=== PATIENT | male | born 1960 | race Caucasian/White ===

== ENCOUNTER 2017-01-25 01:20 | Emergency (ER) | payer OTHER ==
[2017-01-25 01:35] VITALS: BP 129/79
[2017-01-25] MEDS ORDERED: Amoxicillin/Clavulanate K 875-125 MG Tab PO ONE (01:36)
--- NOTE | 2017-01-25 01:42 | EDM.PDOC ---
ED HPI ENT - General Chief Complaint: ENT Problem Stated Complaint: FLUID COMING FROM EAR Time Seen by Provider: 01/25/17 01:35 Source of Information: Reports: Patient History Limitations: Reports: No limitations - History of Present Illness INITIAL COMMENTS - FREE TEXT/NARRATIVE: This 56 yo male patient reports to the ED with a 2 week history of sinus congestion and a 1 night history of drainage from his right ear. The patient reports he did place a Q-tip in his ear earlier and it came out with a redish substance on it. The patient reports he has been taking [id number] medications with little to no symptom relief. The patient has not been seen by his primary care provider. Symptom Onset Date: 01/25/17 Timing/Duration: Reports: Constant, Getting worse Severity: moderate Location: Reports: right Ear Quality: Reports: Dull Improves with: Reports: None Worsens with: Reports: None - Related Data Allergies/ADRs: Allergies Allergy/AdvReac Type Severity Reaction Status Date / Time No Known Allergies Allergy Verified 01/25/17 01:30 Home Meds: Home Meds Acetaminophen [Arthritis Pain Relief] 650 mg PO ASDIRECTED 12/24/14 [History] Aspirin [Vivienne Chewable Aspirin] 81 mg PO DAILY 12/24/14 [History] Enalapril [Vasotec] 5 mg PO DAILY 12/24/14 [History] Ezetimibe [Zetia] 10 mg PO DAILY 12/24/14 [History] Fenofibrate Nanocrystallized [Triglide] 160 mg PO DAILY 12/24/14 [History] Insulin Glarg,Human.Rec.Analog [Lantus] 30 units SUBCUT DAILY 12/24/14 [History] Insulin Lispro [HumaLOG] 20 units SUBCUT ASDIRECTED 12/24/14 [History] Rosuvastatin Calcium [Crestor] 40 mg PO DAILY 12/24/14 [History] Gabapentin [Neurontin] 500 mg PO BID 04/03/16 [History] Pregabalin [Lyrica] 150 mg PO BID 10/03/16 [History] Past Medical History HEENT History: Reports: Impaired vision Cardiovascular History: Reports: High cholesterol Respiratory History: Reports: None Gastrointestinal History: Reports: None Genitourinary History: Reports: None Musculoskeletal History: Reports: Arthritis, Back pain, chronic Neurological History: Reports: Neuropathy, diabetic Psychiatric History: Reports: None Endocrine/Metabolic History: Reports: Diabetes, type II Hematologic History: Reports: None Immunologic History: Reports: None Oncologic (Cancer) History: Reports: None Dermatologic History: Reports: None - Infectious Disease History Infectious Disease History: Reports: Chicken pox Social & Family History - Family History Family Medical History: Noncontributory - Tobacco Use Smoking Status *Q: Heavy Tobacco Smoker Years of Tobacco use: 42 Packs/Tins Daily: 0.5 Used Tobacco, but Quit: No Second Hand Smoke Exposure: No - Caffeine Use Caffeine Use: Reports: Coffee, Soda - Alcohol Use Days Per Week of Alcohol Use: 1 Number of Drinks Per Day: 1 Total Drinks Per Week: 1 - Recreational Drug Use Recreational Drug Use: No Drug Use in Last 12 Months: No - Living Situation & Occupation Living situation: Reports: single, alone 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 ED EXAM, ENT - Physical Exam Exam: See Below Exam Limited By: No limitations General Appearance: alert, WD/WN, mild distress Eye Exam: bilateral eye: EOMI, normal inspection, PERRL Ears: normal external exam, canal blood (right), canal discharge (right), TM perforation (right) Nose: normal inspection, normal mucousa, no blood, clear rhinorrhea Mouth/Throat: Normal inspection, Normal gums, Normal lips, Normal oropharynx, Normal teeth Head: atraumatic, normocephalic, facial tenderness (maxillary sinus) Neck: normal inspection, supple, non-tender, full range of motion Respiratory/Chest: no respiratory distress, lungs clear, normal breath sounds, no accessory muscle use, chest non-tender Cardiovascular: normal peripheral pulses, regular rate, rhythm, no edema, no gallop, no JVD, no murmur, no rub GI/Abdominal: normal bowel sounds, soft, non tender, no organomegaly, no distention, no abnormal bruit, no mass (Male) Exam: Deferred Rectal (Males) Exam: Deferred Back: normal inspection, full range of motion Extremities: normal inspection, normal range of motion, non-tender, no pedal edema, normal capillary refill Neurological: alert, oriented, CN II-XII intact, normal cognition, normal gait, normal reflexes, no motor/sensory deficits Psychiatric: normal affect, normal mood Skin: Warm, Dry, Intact, Normal color, No rash Lymphatic: no adenopathy Course - Vital Signs Last Recorded V/S: Last Vital Signs Temp 36.1 C 01/25/17 01:31 Pulse 80 01/25/17 01:31 Resp 16 01/25/17 01:31 BP 129/79 01/25/17 01:31 Pulse Ox 98 01/25/17 01:31 - Orders/Labs/Meds Orders: Active Orders 24 hr Category Date Time Status STREP SCRN A RAPID W CULT CONF [RM] Stat Lab 01/25/17 01:30 Received Amoxicillin/Clavulanate K [Augmentin 875 MG/125 MG] Med 01/25/17 01:36 Once 1 tab PO ONETIME ONE Medication Orders Amoxicillin/Clavulanate Potassium (Augmentin 875 Mg/125 Mg) 1 tab PO ONETIME ONE Stop: 01/25/17 01:37 Meds: Medications Generic Name Dose Route Start Last Admin Trade Name Freq PRN Reason Stop Dose Admin Amoxicillin/Clavulanate Potassium 1 tab 01/25/17 01:36 Augmentin 875 Mg/125 Mg PO 01/25/17 01:37 ONETIME ONE Departure - Departure Time of Disposition: 01:43 Disposition: Home, Self-Care 01 Condition: fair Clinical Impression: Right otitis media with effusion Otitis media, serous, TM rupture Qualifiers: Laterality: right Qualified Code(s): H65.91 - Unspecified nonsuppurative otitis media, right ear; H72.91 - Unspecified perforation of tympanic membrane, right ear Maxillary sinusitis Qualifiers: Chronicity: acute Recurrence: non-recurrent Qualified Code(s): J01.00 - Acute maxillary sinusitis, unspecified Instructions: Eardrum Perforation, [id number]-[id number], Otitis Media, Adult, Easy-to- Read, Sinusitis, Adult, [id number] Forms: ED Department Discharge Care Plan Goals: The patient was advised of the examination and lab results during the visit. The patient was given an oral dose of Augmentin while in the ED. The patient was discharged with a script for Augmentin (875/125) to take 1 by mouth 2 times per day for 10 days. If the patient has any additional symptoms or concerns, the patient should follow-up with his primary care facility or return to the emergency department. - My Orders Last 24 Hours: My Active Orders 01/25/17 01:30 STREP SCRN A RAPID W CULT CONF [RM] Stat 01/25/17 01:36 Amoxicillin/Clavulanate K [Augmentin 875 MG/125 MG] 1 tab PO ONETIME ONE - Assessment/Plan Last 24 Hours: My Active Orders 01/25/17 01:30 STREP SCRN A RAPID W CULT CONF [RM] Stat 01/25/17 01:36 Amoxicillin/Clavulanate K [Augmentin 875 MG/125 MG] 1 tab PO ONETIME ONE
== END 2017-01-25 01:55 | disposition home or self-care (01) ==
LOC: DL.ED 01:20
DX: J01.00 Acute maxillary sinusitis, unspecified (principal); H65.91 Unspecified nonsuppurative otitis media, right ear; H72.91 Unspecified perforation of tympanic membrane, right ear; Z79.82 Long term (current) use of aspirin; Z79.4 Long term (current) use of insulin; Z79.899 Other long term (current) drug therapy; E78.00 Pure hypercholesterolemia, unspecified; E11.40 Type 2 diabetes mellitus with diabetic neuropathy, unspecified; M19.90 Unspecified osteoarthritis, unspecified site; F17.210 Nicotine dependence, cigarettes, uncomplicated
CPT/HCPCS: 87081; 87430; 99282; A9270

== ENCOUNTER 2019-02-13 05:55 | Emergency (ER) | payer OTHER ==
[2019-02-13 06:06] VITALS: BP 108/62
--- NOTE | 2019-02-13 06:30 | EDM.PDOC ---
ED HPI GENERAL MEDICAL PROBLEM - General Chief Complaint: Back Pain or Injury Stated Complaint: BACK PAIN [id number] Time Seen by Provider: 02/13/19 06:25 Source of Information: Reports: Patient History Limitations: Reports: No Limitations - History of Present Illness INITIAL COMMENTS - FREE TEXT/NARRATIVE: gives h/o LBP, was doing ok till this am went twisted back while getting out of bed. Lower Back Pain Score (Numeric/FACES): 5 - Related Data Allergies Allergy/AdvReac Type Severity Reaction Status Date / Time No Known Allergies Allergy Verified 02/13/19 06:06 Home Meds: Home Meds Acetaminophen [Arthritis Pain Relief] 650 mg PO ASDIRECTED 12/24/14 [History] Aspirin [Vivienne Chewable Aspirin] 81 mg PO DAILY 12/24/14 [History] Enalapril [Vasotec] 5 mg PO DAILY 12/24/14 [History] Ezetimibe [Zetia] 10 mg PO DAILY 12/24/14 [History] Fenofibrate Nanocrystallized [Triglide] 160 mg PO DAILY 12/24/14 [History] Insulin Glarg,Human.Rec.Analog [Lantus] 38 units SUBCUT DAILY 12/24/14 [History] Insulin Lispro [HumaLOG] 20 units SUBCUT ASDIRECTED 12/24/14 [History] Rosuvastatin Calcium [Crestor] 40 mg PO DAILY 12/24/14 [History] Pregabalin [Lyrica] 150 mg PO BID 10/03/16 [History] Past Medical History HEENT History: Reports: Impaired Vision Cardiovascular History: Reports: High Cholesterol, Hypertension Respiratory History: Reports: None Gastrointestinal History: Reports: None Genitourinary History: Reports: None, Diabetic Nephropathy Musculoskeletal History: Reports: Arthritis, Back Pain, Chronic Neurological History: Reports: Neuropathy, Diabetic Psychiatric History: Reports: None Endocrine/Metabolic History: Reports: Diabetes, Type II Hematologic History: Reports: None Immunologic History: Reports: None Oncologic (Cancer) History: Reports: None Dermatologic History: Reports: None - Infectious Disease History Infectious Disease History: Reports: Chicken Pox Social & Family History - Family History Family Medical History: Noncontributory - Tobacco Use Smoking Status *Q: Current Every Day Smoker Years of Tobacco use: 30 Packs/Tins Daily: 1 - Caffeine Use Caffeine Use: Reports: Coffee, Soda - Recreational Drug Use Recreational Drug Use: No - Living Situation & Occupation Living situation: Reports: Single, Alone Occupation: Employed ED ROS GENERAL - Review of Systems Review Of Systems: ROS reveals no pertinent complaints other than HPI. ED EXAM,LOWER BACK PAIN/INJURY - Physical Exam Exam: See Below Exam Limited By: No Limitations General Appearance: Alert, WD/WN, No Apparent Distress, Other (minimal discomfort) Ears: Hearing Grossly Normal Throat/Mouth: Normal Voice, No Airway Compromise Head: Atraumatic Neck: Non-Tender, Full Range of Motion Respiratory/Chest: No Respiratory Distress Cardiovascular: Regular Rate, Rhythm GI/Abdominal: Soft, Non-Tender Back Exam: Muscle Spasm, Paraspinal Tenderness, Other (left L3-4-5 region without radiculitis, gait limited to discomfort) Neurological: Alert, Normal Mood/Affect, No Motor/Sensory Deficits, Oriented x 3 Psychiatric: Flat Affect Skin Exam: Warm, Dry, Normal Color Lymphatic: No Adenopathy Course - Vital Signs Last Recorded V/S: Last Vital Signs Temp 36.2 C 02/13/19 06:01 Pulse 113 H 02/13/19 06:01 Resp 14 02/13/19 06:01 BP 108/62 02/13/19 06:01 Pulse Ox Departure - Departure Time of Disposition: 06:28 Disposition: Home, Self-Care 01 Condition: Good Clinical Impression: Strain of lumbar paraspinal muscle Qualifiers: Encounter type: initial encounter Qualified Code(s): S39.012A - Strain of muscle, fascia and tendon of lower back, initial encounter - Discharge Information Instructions: Back Pain, Adult, [id number] Additional Instructions: 1) no bending lifting straining for 3 days 2) try ice or heat to sore area 3) see clinic for physical therapy referral rx given; flexeril 10mg bid prn x 12
== END 2019-02-13 06:32 | disposition home or self-care (01) ==
LOC: DL.ED 05:55
DX: S39.012A Strain of muscle, fascia and tendon of lower back, initial encounter (principal); F17.210 Nicotine dependence, cigarettes, uncomplicated; E11.21 Type 2 diabetes mellitus with diabetic nephropathy; I10 Essential (primary) hypertension; E78.00 Pure hypercholesterolemia, unspecified; Z79.82 Long term (current) use of aspirin; Z79.899 Other long term (current) drug therapy; X50.9XXA Other and unspecified overexertion or strenuous movements or postures, initial encounter
CPT/HCPCS: 99282

== ENCOUNTER 2019-04-27 05:21 | Emergency (ER) | payer OTHER ==
[2019-04-27 05:32] VITALS: BP 126/87
--- NOTE | 2019-04-27 05:42 | EDM.PDOC ---
<Iza Luke - Last Filed: 04/27/19 06:17> ED HPI GENERAL MEDICAL PROBLEM - General Chief Complaint: Neck Problem Stated Complaint: NECK PAIN [id number] Time Seen by Provider: 04/27/19 05:35 Source of Information: Reports: Patient, RN, RN Notes Reviewed History Limitations: Reports: No Limitations - History of Present Illness INITIAL COMMENTS - FREE TEXT/NARRATIVE: Pt to ER with c/o neck pain. Patient states the neck pain has been going on for 5-6 months, but he has flair ups. States he was seen in January for neck and back pain and was given Flexeril at that time. He states he is out of the Flexeril. Patient denies any recent trauma or injury to the neck. 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 Left Neck Pain Score (Numeric/FACES): 4 - Related Data Allergies Allergy/AdvReac Type Severity Reaction Status Date / Time No Known Allergies Allergy Verified 02/13/19 06:06 Home Meds: Home Meds Acetaminophen [Arthritis Pain Relief] 650 mg PO ASDIRECTED 12/24/14 [History] Aspirin [Vivienne Chewable Aspirin] 81 mg PO DAILY 12/24/14 [History] Insulin Glarg,Human.Rec.Analog [Lantus] 38 units SUBCUT DAILY 12/24/14 [History] Insulin Lispro [HumaLOG] 20 units SUBCUT ASDIRECTED 12/24/14 [History] Pregabalin [Lyrica] 150 mg PO BID 10/03/16 [History] Past Medical History HEENT History: Reports: Impaired Vision Cardiovascular History: Reports: High Cholesterol, Hypertension Respiratory History: Reports: None Gastrointestinal History: Reports: None Genitourinary History: Reports: None, Diabetic Nephropathy Musculoskeletal History: Reports: Arthritis, Back Pain, Chronic Neurological History: Reports: Neuropathy, Diabetic Psychiatric History: Reports: None Endocrine/Metabolic History: Reports: Diabetes, Type II Hematologic History: Reports: None Immunologic History: Reports: None Oncologic (Cancer) History: Reports: None Dermatologic History: Reports: None - Infectious Disease History Infectious Disease History: Reports: Chicken Pox Social & Family History - Family History Family Medical History: Noncontributory - Tobacco Use Smoking Status *Q: Current Every Day Smoker Years of Tobacco use: 40 Packs/Tins Daily: 20 - Caffeine Use Caffeine Use: Reports: Coffee, Soda - Recreational Drug Use Recreational Drug Use: No - Living Situation & Occupation Living situation: Reports: Single, Alone Occupation: Employed ED ROS GENERAL - Review of Systems Review Of Systems: ROS reveals no pertinent complaints other than HPI. ED EXAM, UPPER BACK/NECK PAIN - Physical Exam Exam: See Below Exam Limited By: No Limitations General Appearance: Alert, WD/WN, Mild Distress Eye Exam: Bilateral Eye: EOMI, Normal Inspection Ears Exam: Normal External Exam, Hearing Grossly Normal Nose Exam: Normal Inspection Throat/Mouth Exam: Normal Inspection, Normal Voice, No Airway Compromise Head Exam: Atraumatic, Normocephalic Neck Exam: Limited Range of Motion, Muscle Spasm, Tender Lateral Nexus Criteria: No: Posterior, Midline Cervical Tenderness, Evidence of Intoxication, Altered Level of Consciousness, Focal Neurological Deficit, Painful Distraction Injuries Cardiovascular/Respiratory: Regular Rate, Rhythm, No M/R/G, Normal Peripheral Pulses, No JVD, Normal Breath Sounds, No Respiratory Distress GI/Abdominal: Normal Bowel Sounds, Soft, Non-Tender, No Organomegaly, No Distention (Male) Exam: Deferred Rectal (Males) Exam: Deferred Back Exam: Normal Inspection, Decreased Range of Motion Extremities: Normal Inspection, Normal Range of Motion, Non-Tender, No Pedal Edema, Normal Capillary Refill 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, No Motor/Sensory Deficits, Alert, Normal Mood/Affect, Oriented x 3 Psychiatric: Normal Affect, Normal Mood Skin Exam: Normal Color, Warm/Dry Lymphatic: No Adenopathy Course - Vital Signs Last Recorded V/S: Last Vital Signs Temp 36.1 C 04/27/19 05:31 Pulse 78 04/27/19 05:31 Resp 16 04/27/19 05:31 BP 126/87 04/27/19 05:31 Pulse Ox 100 04/27/19 05:31 - Radiology Interpretation Free Text/Narrative:: Cervical Spine xray: See rad report Departure - Departure Disposition: Home, Self-Care 01 Clinical Impression: Chronic neck and back pain - Discharge Information Instructions: Pain Medicine Instructions, [id number] Referrals: PCP,None [Ordering Only Provider] - Forms: ED Department Discharge Additional Instructions: Chronic pain symptoms are to be managed in the primary care setting for usp management and following and best outcome. Tylenol and Ibuprofen as needed for pain Heat or ice to the affected area. Flexeril 1 tablet three times a day as needed for pain. Caution sedation. RX given to the patient #9. Physical therapy referral as well made contact physical therapy of your choice for next available evaluation. Return to the ED if new or worsening symptoms. Follow up with primary care in the next 4-6 days for recheck and site controller care and management of chronic neck and back pain. <Clarence Rodriguez - Last Filed: 04/27/19 08:48> Course - Re-Assessments/Exams Free Text/Narrative Re-Assessment/Exam: 04/27/19 08:47 x-ray of the cervical spine per radiology shows a cervical spondylosis with loss of disc space C4-5 and C5-6. No acute fracture dislocation. Did explain to the patient that this is a chronic condition that needs to be managing the clinic setting. I will give him some Flexeril and also refer him to physical therapy as well. Consideration for MRI as well. Is comfortable despite his questions are answered Departure - Departure Time of Disposition: 07:02 - Assessment/Plan Assessment:: Acute on Chronic Neck and back pain. Plan: Chronic pain symptoms are to be managed in the primary care setting for usp management and following and best outcome. Tylenol and Ibuprofen as needed for pain Heat or ice to the affected area. Flexeril 1 tablet three times a day as needed for pain. Caution sedation. RX given to the patient #9. Physical therapy referral as well made contact physical therapy of your choice for next available evaluation. Return to the ED if new or worsening symptoms. Follow up with primary care in the next 4-6 days for recheck and usp care and management of chronic neck and back pain.
== END 2019-04-27 07:12 | disposition home or self-care (01) ==
LOC: DL.ED 05:21
DX: M54.2 Cervicalgia (principal); M54.9 Dorsalgia, unspecified; G89.29 Other chronic pain; I10 Essential (primary) hypertension; E11.21 Type 2 diabetes mellitus with diabetic nephropathy; M19.90 Unspecified osteoarthritis, unspecified site; F17.210 Nicotine dependence, cigarettes, uncomplicated; Z79.4 Long term (current) use of insulin; Z79.82 Long term (current) use of aspirin
CPT/HCPCS: 72040; 99283-25

== ENCOUNTER 2019-04-30 04:27 | Emergency (ER) | payer OTHER ==
[2019-04-30] MEDS ORDERED: Acetaminophen 325 MG Tab PO ONE (04:41)
[2019-04-30 04:48] VITALS: BP 126/79
--- NOTE | 2019-04-30 04:48 | EDM.PDOC ---
ED HPI GENERAL MEDICAL PROBLEM - General Chief Complaint: Lower Extremity Injury/Pain Stated Complaint: RIGHT LEG HURTS Time Seen by Provider: 04/30/19 04:35 Source of Information: Reports: Patient History Limitations: Reports: No Limitations - History of Present Illness INITIAL COMMENTS - FREE TEXT/NARRATIVE: This 58 yo male patient reports to the ED with right anterior hip and groin pain. The patient reports he was lifting a dresser when he hurt this area. The patient reports that he took 2 ibuprofen at about midnight with very little symptom improvement. The patient reports that he had a hernia fixed in this area in the past, but does not feel anything slipping this time. 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 Right Groin Pain Score (Numeric/FACES): 6 - Related Data Allergies Allergy/AdvReac Type Severity Reaction Status Date / Time No Known Allergies Allergy Verified 02/13/19 06:06 Home Meds: Home Meds Acetaminophen [Arthritis Pain Relief] 650 mg PO ASDIRECTED 12/24/14 [History] Aspirin [Vivienne Chewable Aspirin] 81 mg PO DAILY 12/24/14 [History] Insulin Glarg,Human.Rec.Analog [Lantus] 38 units SUBCUT DAILY 12/24/14 [History] Insulin Lispro [HumaLOG] 20 units SUBCUT ASDIRECTED 12/24/14 [History] Pregabalin [Lyrica] 150 mg PO BID 10/03/16 [History] Past Medical History HEENT History: Reports: Impaired Vision Cardiovascular History: Reports: High Cholesterol, Hypertension Respiratory History: Reports: None Gastrointestinal History: Reports: None Genitourinary History: Reports: None, Diabetic Nephropathy Musculoskeletal History: Reports: Arthritis, Back Pain, Chronic Neurological History: Reports: Neuropathy, Diabetic Psychiatric History: Reports: None Endocrine/Metabolic History: Reports: Diabetes, Type II Hematologic History: Reports: None Immunologic History: Reports: None Oncologic (Cancer) History: Reports: None Dermatologic History: Reports: None - Infectious Disease History Infectious Disease History: Reports: Chicken Pox Social & Family History - Family History Family Medical History: Noncontributory - Caffeine Use Caffeine Use: Reports: Coffee, Soda - Living Situation & Occupation Living situation: Reports: Single, Alone Occupation: Employed Review of Systems - Review of Systems Review Of Systems: ROS reveals no pertinent complaints other than HPI. ED EXAM, GENERAL - Physical Exam Exam: See Below Exam Limited By: No Limitations General Appearance: Alert, WD/WN, Mild Distress, Thin Eye Exam: Bilateral Eye: EOMI, Normal Inspection Ears: Normal External Exam, Hearing Grossly Normal Nose: Normal Inspection, No Blood Throat/Mouth: Normal Inspection, Normal Lips, Normal Teeth, Normal Voice, No Airway Compromise Head: Atraumatic, Normocephalic Neck: Full Range of Motion Respiratory/Chest: No Respiratory Distress Cardiovascular: Normal Peripheral Pulses, Regular Rate, Rhythm GI/Abdominal: Tender (right lower abdomen (groin). Palpation did not reveal any evidence of a hernia at this time. ) (Male) Exam: No Hernia Rectal (Males) Exam: Deferred Back Exam: Normal Inspection, Full Range of Motion, NT Extremities: Normal Inspection, Normal Range of Motion, Non-Tender, Normal Capillary Refill, No Pedal Edema Psychiatric: Normal Affect, Normal Mood Skin Exam: Warm, Dry, Intact, Normal Color, No Rash Lymphatic: No Adenopathy Course - Orders/Labs/Meds Orders: Active Orders 24 hr Category Date Time Status Acetaminophen [Tylenol] Med 04/30/19 04:41 Once 650 mg PO NOW ONE Departure - Departure Time of Disposition: 04:45 Disposition: Home, Self-Care 01 Condition: Fair Clinical Impression: Strain of muscle of right groin region - Discharge Information *PRESCRIPTION DRUG MONITORING PROGRAM REVIEWED*: Not Applicable *COPY OF PRESCRIPTION DRUG MONITORING REPORT IN PATIENT RONALD: Not Applicable Instructions: Muscle Strain, [id number] Care Plan Goals: The patient was advised of the examination results during the visit. The patient was advised to rest and ice the area of concern. The patient may take ibuprofen and Tylenol as directed for temporary symptom relief. The patient was given an oral dose of Tylenol (650 mg) while in the ED. If the patient has any additional symptoms or concerns, the patient should visit his primary care facility or return to the emergency department. - My Orders Last 24 Hours: My Active Orders 04/30/19 04:41 Acetaminophen [Tylenol] 650 mg PO NOW ONE - Assessment/Plan Last 24 Hours: My Active Orders 04/30/19 04:41 Acetaminophen [Tylenol] 650 mg PO NOW ONE
== END 2019-04-30 04:54 | disposition home or self-care (01) ==
LOC: DL.ED 04:27
DX: S39.011A Strain of muscle, fascia and tendon of abdomen, initial encounter (principal); E78.00 Pure hypercholesterolemia, unspecified; I10 Essential (primary) hypertension; E11.21 Type 2 diabetes mellitus with diabetic nephropathy; E11.40 Type 2 diabetes mellitus with diabetic neuropathy, unspecified; Z79.82 Long term (current) use of aspirin; Z79.899 Other long term (current) drug therapy; Z79.84 Long term (current) use of oral hypoglycemic drugs; X50.0XXA Overexertion from strenuous movement or load, initial encounter
CPT/HCPCS: 99282; A9270

== ENCOUNTER 2019-07-31 05:32 | Emergency (ER) | payer OTHER ==
[2019-07-31 05:43] VITALS: BP 78/51; PULSE 79
[2019-07-31] MEDS ORDERED: Insulin Regular, Human 100 Units/ML 3 ML Vial IV ONE (05:56)
[2019-07-31] MEDS ORDERED: Sodium Chloride 0.9% 1,000 ML IV SCH ×2 (06:00→06:30)
[2019-07-31 06:28] LABS: ANION GAP 15.7; CHLORIDE,CL 96 mmol/L (101-111); SODIUM,NA 133 mmol/L (135-145)
[2019-07-31] MEDS ORDERED: Aspirin 81 MG Tab.Chew PO ONE (06:33)
[2019-07-31 06:39] LABS: O2 DELIVERY DEVICE ROOM AIR
[2019-07-31 06:40] LABS: BASE EXCESS ARTERIAL -2 mmol/L ((-2)-(+3)); BICARBONATE,ARTERIAL 23.4 mmol/L (22-26); O2 SATURATION ARTERIAL 95 % (95-100); PCO2 ARTERIAL 43 mmHg (35-45); PO2 ARTERIAL 72 mmHg (70-100)
[2019-07-31 06:44] LABS: ALLEN TEST LB
--- NOTE | 2019-07-31 06:45 | EDM.PDOC ---
<Anika Correia - Last Filed: 07/31/19 07:00> ED HPI GENERAL MEDICAL PROBLEM - General Chief Complaint: Gastrointestinal Problem Stated Complaint: HEARTBURN Time Seen by Provider: 07/31/19 05:40 Source of Information: Reports: Patient History Limitations: Reports: No Limitations - History of Present Illness INITIAL COMMENTS - FREE TEXT/NARRATIVE: Ed ambulatory with c/o heartburn, sharp burnign left chest, Similar sx intermittently, has been taking orange juice to help sx but isn't working. No radiation of pain , No SOB, No palpitations, Dizzy with position change, Diabetic, Does not check on regular basis 413 last week, sugars usually high. No diarrhea, recent stools black No blood. Stumbled this am getting out of bed, fell, Did not hit head. Denies injury with fall. - Related Data Allergies Allergy/AdvReac Type Severity Reaction Status Date / Time No Known Allergies Allergy Verified 02/13/19 06:06 Home Meds: Home Meds Acetaminophen [Arthritis Pain Relief] 650 mg PO ASDIRECTED 12/24/14 [History] Aspirin [Vivienne Chewable Aspirin] 81 mg PO DAILY 12/24/14 [History] Insulin Glarg,Human.Rec.Analog [Lantus] 84 units SUBCUT BEDTIME 12/24/14 [ History] Insulin Lispro [HumaLOG] 40 units SUBCUT TID 12/24/14 [History] Pregabalin [Lyrica] 150 mg PO BID 10/03/16 [History] Past Medical History HEENT History: Reports: Impaired Vision Cardiovascular History: Reports: High Cholesterol, Hypertension Respiratory History: Reports: None Gastrointestinal History: Reports: None Genitourinary History: Reports: None, Diabetic Nephropathy Musculoskeletal History: Reports: Arthritis, Back Pain, Chronic Neurological History: Reports: Neuropathy, Diabetic Psychiatric History: Reports: None Endocrine/Metabolic History: Reports: Diabetes, Type II Hematologic History: Reports: None Immunologic History: Reports: None Oncologic (Cancer) History: Reports: None Dermatologic History: Reports: None - Infectious Disease History Infectious Disease History: Reports: Chicken Pox Social & Family History - Family History Family Medical History: Noncontributory - Tobacco Use Smoking Status *Q: Current Every Day Smoker Years of Tobacco use: 46 Packs/Tins Daily: 1.5 Used Tobacco, but Quit: No Second Hand Smoke Exposure: Yes - Caffeine Use Caffeine Use: Reports: Coffee, Soda - Alcohol Use Days Per Week of Alcohol Use: 1 Number of Drinks Per Day: 1 Total Drinks Per Week: 1 - Recreational Drug Use Recreational Drug Use: No - Living Situation & Occupation Living situation: Reports: Single, Alone Occupation: Employed ED ROS GENERAL - Review of Systems Review Of Systems: ROS reveals no pertinent complaints other than HPI. ED EXAM, GI/ABD - Physical Exam Exam: See Below Exam Limited By: No Limitations General Appearance: Alert, No Apparent Distress Nose: Normal Inspection Throat/Mouth: No: Normal Teeth (poor dentation) Head: Atraumatic, Normocephalic Neck: Normal Inspection, Full Range of Motion Respiratory/Chest: No Respiratory Distress, Lungs Clear, Normal Breath Sounds, No Accessory Muscle Use Cardiovascular: Normal Peripheral Pulses, Regular Rate, Rhythm GI/Abdominal Exam: Soft, Non-Tender Rectal (Males) Exam: Normal Exam. No: Heme - Stool Back Exam: Normal Inspection Extremities: Normal Inspection Neurological: Alert, Oriented, Normal Cognition Psychiatric: Normal Affect Skin Exam: Warm, Dry, Intact, Normal Color Course - Vital Signs Last Recorded V/S: Last Vital Signs Temp 98.2 F 07/31/19 05:41 Pulse 79 07/31/19 05:41 Resp 18 07/31/19 05:41 BP 78/51 L 07/31/19 05:41 Pulse Ox 95 07/31/19 05:41 - Orders/Labs/Meds Orders: Active Orders 24 hr Category Date Time Status Blood Glucose Check, Bedside [] ONETIME Care 07/31/19 05:58 Active EKG Documentation Completion [] ROUTINE Care 07/31/19 05:30 Active Glucose [Blood Glucose Check, Bedside] [] ONETIME Care 07/31/19 06:30 Active Glucose [Blood Glucose Check, Bedside] [] ONETIME Care 07/31/19 07:15 Active Insulin Regular, Human [HumuLIN R] 100 unit Med 07/31/19 06:45 Active Sodium Chloride 0.9% [Normal Saline] 99 ml IV TITRATE Sodium Chloride 0.9% [Normal Saline] 1,000 ml Med 07/31/19 06:00 Active IV ASDIRECTED Sodium Chloride 0.9% [Normal Saline] 1,000 ml Med 07/31/19 06:30 Active IV ASDIRECTED Medication Orders Sodium Chloride (Normal Saline) 1,000 mls @ 999 mls/hr IV ASDIRECTED ANTONIA Last Admin: 07/31/19 05:55 Dose: 999 mls/hr Sodium Chloride (Normal Saline) 1,000 mls @ 999 mls/hr IV ASDIRECTED ANTONIA Last Admin: 07/31/19 06:31 Dose: 999 mls/hr Insulin Human Regular 100 unit (/ Sodium Chloride) 100 mls @ 7.05 mls/hr IV TITRATE ANTONIA; Protocol Last Admin: 07/31/19 06:45 Dose: 0.1 units/kg/hr, 7.05 mls/hr Labs: Laboratory Tests 07/31/19 07/31/19 07/31/19 Range/Units 05:45 05:45 05:45 WBC 6.8 (5.0-10.0) 10^3/uL RBC 5.14 (4.6-6.2) 10^6/uL Hgb 15.2 (14.0-18.0) g/dL Hct 44.0 (40.0-54.0) % MCV 85.6 (80-100) fL MCH 29.6 (27.0-34.0) pg MCHC 34.5 (33.0-35.0) g/dL Plt Count 163 D (150-450) 10^3/uL Neut % (Auto) 68.5 (42.2-75.2) % Lymph % (Auto) 16.8 L (20.5-50.1) % [place] % (Auto) 12.3 H (2-8) % Eos % (Auto) 1.8 (1.0-3.0) % Baso % (Auto) 0.6 (0.0-1.0) % ABG pH (7.35-7.45) ABG pCO2 (35-45) mmHg ABG pO2 (70-100) mmHg ABG HCO3 (22-26) mmol/L ABG O2 Saturation (95-100) % ABG Base Excess ((-2)-(+3)) mmol/L Jeremy Test O2 Delivery Device Sodium 133 L (135-145) mmol/L Potassium 4.7 (3.6-5.0) mmol/L Chloride 96 L (101-111) mmol/L Carbon Dioxide 26.0 (21.0-31.0) mmol/L Anion Gap 15.7 BUN 29 H (7-18) mg/dL Creatinine 1.0 (0.6-1.3) mg/dL Est Cr Clr Drug Dosing 75.28 mL/min Estimated GFR (MDRD) > 60 BUN/Creatinine Ratio 29.00 Glucose 589 H* (74-105) mg/dL POC Glucose (70-105) mg/dl Lactic Acid 1.6 (0.5-2.2) mmol/L Calcium 9.2 (8.4-10.2) mg/dl Total Bilirubin 0.5 (0.2-1.0) mg/dL AST 21 (10-42) IU/L ALT 36 (10-60) IU/L Alkaline Phosphatase 123 H (42-121) IU/L Troponin I < 0.02 (0.00-0.02) ng/ml Total Protein 6.3 L (6.7-8.2) g/dl Albumin 3.7 (3.2-5.5) g/dl Globulin 2.6 Albumin/Globulin Ratio 1.42 Amylase 142 H (28-100) U/L Lipase 179 H (22-51) U/L 07/31/19 07/31/19 07/31/19 Range/Units 05:49 06:30 07:10 WBC (5.0-10.0) 10^3/uL RBC (4.6-6.2) 10^6/uL Hgb (14.0-18.0) g/dL Hct (40.0-54.0) % MCV (80-100) fL MCH (27.0-34.0) pg MCHC (33.0-35.0) g/dL Plt Count (150-450) 10^3/uL Neut % (Auto) (42.2-75.2) % Lymph % (Auto) (20.5-50.1) % [place] % (Auto) (2-8) % Eos % (Auto) (1.0-3.0) % Baso % (Auto) (0.0-1.0) % ABG pH 7.36 (7.35-7.45) ABG pCO2 43 (35-45) mmHg ABG pO2 72 (70-100) mmHg ABG HCO3 23.4 (22-26) mmol/L ABG O2 Saturation 95 (95-100) % ABG Base Excess -2 ((-2)-(+3)) mmol/L Jeremy Test Lb O2 Delivery Device Room air Sodium (135-145) mmol/L Potassium (3.6-5.0) mmol/L Chloride (101-111) mmol/L Carbon Dioxide (21.0-31.0) mmol/L Anion Gap BUN (7-18) mg/dL Creatinine (0.6-1.3) mg/dL Est Cr Clr Drug Dosing mL/min Estimated GFR (MDRD) BUN/Creatinine Ratio Glucose (74-105) mg/dL POC Glucose > 500 H* 321 H (70-105) mg/dl Lactic Acid (0.5-2.2) mmol/L Calcium (8.4-10.2) mg/dl Total Bilirubin (0.2-1.0) mg/dL AST (10-42) IU/L ALT (10-60) IU/L Alkaline Phosphatase (42-121) IU/L Troponin I (0.00-0.02) ng/ml Total Protein (6.7-8.2) g/dl Albumin (3.2-5.5) g/dl Globulin Albumin/Globulin Ratio Amylase (28-100) U/L Lipase (22-51) U/L Meds: Medications Generic Name Dose Route Start Last Admin Trade Name Freq PRN Reason Stop Dose Admin Sodium Chloride 1,000 mls @ 999 mls/hr 07/31/19 06:00 07/31/19 05:55 Normal Saline IV 999 mls/hr ASDIRECTED ANTONIA Administration Sodium Chloride 1,000 mls @ 999 mls/hr 07/31/19 06:30 07/31/19 06:31 Normal Saline IV 999 mls/hr ASDIRECTED ANTONIA Administration Insulin Human Regular 100 unit 100 mls @ 7.05 mls/hr 07/31/19 06:45 07/31/19 06:45 / Sodium Chloride IV 0.1 units/kg/hr TITRATE ANTONIA 7.05 mls/hr Administration Protocol 0.1 UNITS/KG/HR Discontinued Medications Generic Name Dose Route Start Last Admin Trade Name Freq PRN Reason Stop Dose Admin Aspirin 324 mg 07/31/19 06:33 07/31/19 06:40 Aspirin PO 07/31/19 06:34 324 mg ONETIME ONE Administration Insulin Human Regular 10 unit 07/31/19 05:56 07/31/19 06:04 Humulin R IV 07/31/19 05:57 10 unit ONETIME ONE Administration - Radiology Interpretation Free Text/Narrative:: CXr negative, see report - Re-Assessments/Exams Free Text/Narrative Re-Assessment/Exam: 07/31/19 06:[address] George with shift change. 07/31/19 07:00 resting feeling better, BP improving. Insulin drip initiated Departure - Departure Disposition: Home, Self-Care 01 Clinical Impression: Dehydration, GERD with esophagitis, Hypotension due to hypovolemia DM (diabetes mellitus), type 2, uncontrolled Qualifiers: Glycemic state: with hyperglycemia Qualified Code(s): E11.65 - Type 2 diabetes mellitus with hyperglycemia - Discharge Information Instructions: Hypotension, [id number], Food Choices for Gastroesophageal Reflux Disease, Adult, Dehydration, Adult, [id number], Type 2 Diabetes Mellitus, Self Care, Adult Forms: ED Department Discharge Additional Instructions: Rx: Omeprazole 20mg Drink plenty of water. Avoid juice and sugar containing beverages. Monitor your blood sugar closely. Follow up in clinic with your primary doctor this week for recheck of blood pressure, blood sugar, and black stools. <Kemal George - Last Filed: 07/31/19 07:38> ED HPI GENERAL MEDICAL PROBLEM - General Source of Information: Reports: Provider (Anika TAY), RN, RN Notes Reviewed - History of Present Illness INITIAL COMMENTS - FREE TEXT/NARRATIVE: I assumed care of the pt from Anika TAY at 0700HR shift change with lab and chest x-ray complete, and pt resting comfortably with BP 136/80. Blood Glucose is now 321. Pt states he has been having these symptoms for several months but has not gone to clinic for evaluation. He states his blood sugars typically run 300 to >500 despite his insulin use. Pt states that currently he feels completely fine and would like to go home. He denies current chest pain, nausea, heartburn, or lightheadedness. Onset: Unknown/Unsure Duration: Chronic, Recurring Location: Reports: Chest, Abdomen Quality: Reports: Ache, Burning Severity: Moderate Improves with: Reports: None Worsens with: Reports: None Associated Symptoms: Reports: No Other Symptoms Past Medical History Endocrine/Metabolic History: Reports: Diabetes, Type II, IDDM ED EXAM, GI/ABD - Physical Exam Exam Limited By: No Limitations General Appearance: Alert, No Apparent Distress, Thin Eyes: Bilateral: Normal Appearance, EOMI Ears: Normal External Exam, Hearing Grossly Normal Nose: Normal Inspection, Normal Mucosa, No Blood Throat/Mouth: Normal Inspection, Normal Lips, Normal Oropharynx, Normal Voice, No Airway Compromise Head: Atraumatic, Normocephalic Neck: Normal Inspection Respiratory/Chest: No Respiratory Distress, Lungs Clear, Normal Breath Sounds, No Accessory Muscle Use, Chest Non-Tender Cardiovascular: Regular Rate, Rhythm, No Edema GI/Abdominal Exam: Normal Bowel Sounds, Soft, Non-Tender, No Organomegaly, No Distention, No Abnormal Bruit, No Mass, Pelvis Stable Rectal (Males) Exam: Heme - Stool. No: Black Stool, Bloody Stool Back Exam: Normal Inspection Extremities: Normal Inspection, Normal Range of Motion, Non-Tender, Normal Capillary Refill, No Pedal Edema Neurological: Alert, Oriented, CN II-XII Intact, Normal Cognition, Normal Gait, No Motor/Sensory Deficits Psychiatric: Normal Affect, Normal Mood Skin Exam: Warm, Dry, Intact, Normal Color, No Rash Course - Re-Assessments/Exams Free Text/Narrative Re-Assessment/Exam: 07/31/19 07:20 Pt is not willing to be admitted for observation. He does agree to stop drinking orange juice, and to monitor his blood sugars more closely. He agrees to f/u in clinic with is doctor this week. Departure - Departure Time of Disposition: 07:22 Condition: Fair - Discharge Information *PRESCRIPTION DRUG MONITORING PROGRAM REVIEWED*: Not Applicable *COPY OF PRESCRIPTION DRUG MONITORING REPORT IN PATIENT RONALD: Not Applicable
== END 2019-07-31 07:35 | disposition home or self-care (01) ==
LOC: DL.ED 05:32
DX: K21.0 Gastro-esophageal reflux disease with esophagitis (principal); I95.9 Hypotension, unspecified; I10 Essential (primary) hypertension; E86.1 Hypovolemia; E86.0 Dehydration; E78.00 Pure hypercholesterolemia, unspecified; E11.21 Type 2 diabetes mellitus with diabetic nephropathy; F17.200 Nicotine dependence, unspecified, uncomplicated; Z79.4 Long term (current) use of insulin
CPT/HCPCS: 36415; 36600; 71045; 80053; 82150; 82272; 82803; 82962; 83605; 83690; 84484; 85025; 93005; 96361; 96365; 96376; 99285; A9270; J1815; J7030

== ENCOUNTER 2019-10-02 08:16 | Emergency (ER) | payer OTHER ==
[2019-10-02 08:31] VITALS: BP 100/54; PULSE 88
--- NOTE | 2019-10-02 08:34 | EDM.PDOC ---
ED HPI GENERAL MEDICAL PROBLEM - General Chief Complaint: Neck Problem Stated Complaint: NECK PAIN RADIATING TO BUTT Time Seen by Provider: 10/02/19 08:34 Source of Information: Reports: Patient, Old Records, RN, RN Notes Reviewed History Limitations: Reports: No Limitations - History of Present Illness INITIAL COMMENTS - FREE TEXT/NARRATIVE: Pt presents to ER with c/o neck pain. Denies any recent injury, fall, or heavy lifting. 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 Pt reports chronic low back and neck pain for many years. He states he was seen by his PCP, a chiropractor, and a neurosurgeon and nothing has helped, so now he presents to the ER looking for "answers" as to what he can do to relieve his pain. Pt denies pain or numbness radiating to the upper extremities, loss of bowel or bladder control, saddle area numbness or motor weakness. He went to a chiropractor last week, but it did not help. He has not been to see his PCP recently. He states he was told by his doctor to avoid Ibuprofen, so he has been taking Advil instead. He was unaware that Advil is Ibuprofen. He states he has been prescribed Cyclobenzaprine but it caused drowsiness and a dry mouth so he stopped it. He has had x-rays, scans, and MRIs and none of those imaging studies has resulted in him finding any relief. Pt reports he has DM Type 2 insulin dependent, but uncontrolled, and he continues to smoke cigarettes heavily. 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, Other Medication(s) Back Pain Score (Numeric/FACES): 6 - Related Data Allergies Allergy/AdvReac Type Severity Reaction Status Date / Time No Known Allergies Allergy Verified 02/13/19 06:06 Home Meds: Home Meds Acetaminophen [Arthritis Pain Relief] 650 mg PO ASDIRECTED 12/24/14 [History] Aspirin [Vivienne Chewable Aspirin] 81 mg PO DAILY 12/24/14 [History] Insulin Glarg,Human.Rec.Analog [Lantus] 84 units SUBCUT BEDTIME 12/24/14 [ History] Insulin Lispro [HumaLOG] 40 units SUBCUT TID 12/24/14 [History] Pregabalin [Lyrica] 150 mg PO BID 10/03/16 [History] Ibuprofen [Advil] 200 mg PO PRN 10/02/19 [History] Past Medical History HEENT History: Reports: Impaired Vision Cardiovascular History: Reports: High Cholesterol, Hypertension Respiratory History: Reports: None Gastrointestinal History: Reports: None Genitourinary History: Reports: None, Diabetic Nephropathy Musculoskeletal History: Reports: Arthritis, Back Pain, Chronic Neurological History: Reports: Neuropathy, Diabetic Psychiatric History: Reports: None Endocrine/Metabolic History: Reports: Diabetes, Type II, IDDM Hematologic History: Reports: None Immunologic History: Reports: None Oncologic (Cancer) History: Reports: None Dermatologic History: Reports: None - Infectious Disease History Infectious Disease History: Reports: Chicken Pox Social & Family History - Family History Family Medical History: Noncontributory - Tobacco Use Smoking Status *Q: Current Every Day Smoker Tobacco Use Within Last Twelve Months: Cigarettes - Caffeine Use Caffeine Use: Reports: Coffee, Soda - Living Situation & Occupation Living situation: Reports: Single, Alone Occupation: Employed ED ROS GENERAL - Review of Systems Review Of Systems: ROS reveals no pertinent complaints other than HPI. ED EXAM, UPPER BACK/NECK PAIN - Physical Exam Exam: See Below Exam Limited By: No Limitations General Appearance: Alert, No Apparent Distress, Thin Eye Exam: Bilateral Eye: Normal Inspection Ears Exam: Normal External Exam, Hearing Grossly Normal Nose Exam: Normal Inspection Throat/Mouth Exam: Normal Voice, No Airway Compromise Head Exam: Atraumatic, Normocephalic Neck Exam: Full Range of Motion, Normal Alignment, Muscle Spasm, Painful Range of Motion, Paraspinous Muscle Tender. No: Spinous Processes Tender, Stiff Neck , Tender Midline Nexus Criteria: No: Posterior, Midline Cervical Tenderness, Evidence of Intoxication, Altered Level of Consciousness, Focal Neurological Deficit, Painful Distraction Injuries Cardiovascular/Respiratory: Regular Rate, Rhythm, No Respiratory Distress GI/Abdominal: Normal Bowel Sounds, Soft, Non-Tender, No Organomegaly, No Distention, No Abnormal Bruit, No Mass Back Exam: Full Range of Motion, Muscle Spasm, Paraspinal Tenderness (lumbar). No: CVA Tenderness (L), CVA Tenderness (R), Vertebral Tenderness Extremities: Normal Inspection, Normal Range of Motion, Non-Tender, No Pedal Edema, Normal Capillary Refill Neurologic: No Motor/Sensory Deficits, Alert, Normal Mood/Affect, Oriented x 3 Psychiatric: Normal Mood Skin Exam: Normal Color, Warm/Dry Course - Vital Signs Last Recorded V/S: Last Vital Signs Temp 97.2 F 10/02/19 08:20 Pulse 88 10/02/19 08:20 Resp 16 10/02/19 08:20 BP 100/54 L 10/02/19 08:20 Pulse Ox 100 10/02/19 08:20 - Re-Assessments/Exams Free Text/Narrative Re-Assessment/Exam: 10/02/19 08:52 I reviewed pt's medical records and past imaging reports. There is no acute complaint today, he is here for a chronic mus/skel. problem. I see no indication to repeat imaging at this time. I will prescribe Orphenadrine 100mg and topical Lidocaine oint. for mus/skel. pain and advise the pt to f/u in clinic with his PCP. Departure - Departure Time of Disposition: 08:55 Disposition: Home, Self-Care 01 Condition: Good Clinical Impression: DDD (degenerative disc disease), cervical, DDD (degenerative disc disease), lumbar, Chronic neck and back pain - Discharge Information *PRESCRIPTION DRUG MONITORING PROGRAM REVIEWED*: No *COPY OF PRESCRIPTION DRUG MONITORING REPORT IN PATIENT RONALD: No Instructions: Degenerative Disk Disease, Musculoskeletal Pain Forms: ED Department Discharge Additional Instructions: Rx: Orphenadrine 100mg Follow up in clinic with your primary doctor in the next 1 week for recheck and medication management.
[2019-10-02] MEDS: Lidocaine 5% Oint 35.44 GM Tube TOP ONE (09:08)
== END 2019-10-02 09:12 | disposition home or self-care (01) ==
LOC: DL.ED 08:16
DX: M50.30 Other cervical disc degeneration, unspecified cervical region (principal); M51.36 Other intervertebral disc degeneration, lumbar region; G89.29 Other chronic pain; I10 Essential (primary) hypertension; E11.21 Type 2 diabetes mellitus with diabetic nephropathy; E11.40 Type 2 diabetes mellitus with diabetic neuropathy, unspecified; F17.210 Nicotine dependence, cigarettes, uncomplicated; Z79.4 Long term (current) use of insulin; Z79.82 Long term (current) use of aspirin
CPT/HCPCS: 99283; A9270

== ENCOUNTER 2019-12-04 02:41 | Emergency (ER) | payer OTHER ==
[2019-12-04 02:47] VITALS: BP 154/87; PULSE 91
[2019-12-04] MEDS ORDERED: Sodium Chloride 0.9% 1,000 ML IV ONE ×2 (03:09→04:00)
[2019-12-04] MEDS ORDERED: Insulin Regular, Human 100 Units/ML 3 ML Vial IV ONE (03:10)
--- NOTE | 2019-12-04 03:12 | EDM.PDOC ---
ED HPI GENERAL MEDICAL PROBLEM - General Chief Complaint: Diabetic Complaint Stated Complaint: DIABETIC ISSUE Time Seen by Provider: 12/04/19 03:09 Source of Information: Reports: Patient History Limitations: Reports: No Limitations - History of Present Illness INITIAL COMMENTS - FREE TEXT/NARRATIVE: had diarrhoea earlier today feels like BS is high. state been over 600 past few months Bilateral Feet Pain Score (Numeric/FACES): 4 - Related Data Allergies Allergy/AdvReac Type Severity Reaction Status Date / Time No Known Allergies Allergy Verified 12/04/19 02:47 Home Meds: Home Meds Acetaminophen [Arthritis Pain Relief] 650 mg PO ASDIRECTED 12/24/14 [History] Aspirin [Vivienne Chewable Aspirin] 2 tab PO DAILY 12/24/14 [History] Insulin Glarg,Human.Rec.Analog [Lantus] 84 units SUBCUT BEDTIME 12/24/14 [ History] Insulin Lispro [HumaLOG] 40 units SUBCUT TID 12/24/14 [History] Pregabalin [Lyrica] 150 mg PO BID 10/03/16 [History] Past Medical History HEENT History: Reports: Impaired Vision Cardiovascular History: Reports: High Cholesterol, Hypertension Respiratory History: Reports: None Gastrointestinal History: Reports: None Genitourinary History: Reports: None, Diabetic Nephropathy Musculoskeletal History: Reports: Arthritis, Back Pain, Chronic Neurological History: Reports: Neuropathy, Diabetic Psychiatric History: Reports: None Endocrine/Metabolic History: Reports: Diabetes, Type II, IDDM Hematologic History: Reports: None Immunologic History: Reports: None Oncologic (Cancer) History: Reports: None Dermatologic History: Reports: None - Infectious Disease History Infectious Disease History: Reports: Chicken Pox Social & Family History - Family History Family Medical History: Noncontributory - Tobacco Use Smoking Status *Q: Current Every Day Smoker Years of Tobacco use: 30 Packs/Tins Daily: 1 Second Hand Smoke Exposure: Yes - Caffeine Use Caffeine Use: Reports: Coffee, Soda - Recreational Drug Use Recreational Drug Use: No - Living Situation & Occupation Living situation: Reports: Single, Alone Occupation: Employed ED ROS GENERAL - Review of Systems Review Of Systems: Comprehensive ROS is negative, except as noted in HPI. ED EXAM GENERAL NO PERIP PULSE - Physical Exam Exam: See Below Exam Limited By: No Limitations General Appearance: Alert, WD/WN, No Apparent Distress Ears: Hearing Grossly Normal Throat/Mouth: Normal Voice, No Airway Compromise Head: Atraumatic Neck: Non-Tender, Full Range of Motion Respiratory/Chest: No Respiratory Distress Cardiovascular: Regular Rate, Rhythm GI/Abdominal: Soft, Non-Tender Neurological: Alert, Oriented, Normal Cognition, Normal Gait, No Motor/Sensory Deficits Psychiatric: Flat Affect Skin Exam: Warm, Dry, Normal Color Lymphatic: No Adenopathy Course - Vital Signs Last Recorded V/S: Last Vital Signs Temp 36.0 C 12/04/19 02:44 Pulse 91 12/04/19 02:44 Resp 18 12/04/19 02:44 BP 154/87 H 12/04/19 02:44 Pulse Ox 94 L 12/04/19 02:44 - Orders/Labs/Meds Orders: Active Orders 24 hr Category Date Time Status Blood Glucose Check, Bedside [RC] ONETIME Care 12/04/19 02:56 Active Blood Glucose Check, Bedside [RC] ONETIME Care 12/04/19 03:45 Active Blood Glucose Check, Bedside [RC] ONETIME Care 12/04/19 04:52 Active Sodium Chloride 0.9% [Normal Saline] 1,000 ml Med 12/04/19 04:00 Active IV .BOLUS Medication Orders Sodium Chloride (Normal Saline) 1,000 mls @ 999 mls/hr IV .BOLUS ONE Stop: 12/04/19 05:00 Last Admin: 12/04/19 04:02 Dose: 999 mls/hr Labs: Laboratory Tests 12/04/19 12/04/19 12/04/19 Range/Units 03:05 03:05 03:05 WBC 6.6 (5.0-10.0) 10^3/uL RBC 5.21 (4.6-6.2) 10^6/uL Hgb 15.4 (14.0-18.0) g/dL Hct 44.2 (40.0-54.0) % MCV 84.8 (80-100) fL MCH 29.6 (27.0-34.0) pg MCHC 34.8 (33.0-35.0) g/dL Plt Count 171 (150-450) 10^3/uL Neut % (Auto) 63.0 (42.2-75.2) % Lymph % (Auto) 22.2 (20.5-50.1) % [place] % (Auto) 11.9 H (2-8) % Eos % (Auto) 2.1 (1.0-3.0) % Baso % (Auto) 0.8 (0.0-1.0) % Sodium 127 L (135-145) mmol/L Potassium 4.4 (3.6-5.0) mmol/L Chloride 91 L (101-111) mmol/L Carbon Dioxide 27.0 (21.0-31.0) mmol/L Anion Gap 13.4 BUN 37 H (7-18) mg/dL Creatinine 1.2 (0.6-1.3) mg/dL Est Cr Clr Drug Dosing 55.10 mL/min Estimated GFR (MDRD) > 60 BUN/Creatinine Ratio 30.83 Glucose 684 H* (74-105) mg/dL Calcium 8.8 (8.4-10.2) mg/dl Total Bilirubin 0.8 (0.2-1.0) mg/dL AST 23 (10-42) IU/L ALT 30 (10-60) IU/L Alkaline Phosphatase 132 H (42-121) IU/L Total Protein 6.2 L (6.7-8.2) g/dl Albumin 3.8 (3.2-5.5) g/dl Globulin 2.4 Albumin/Globulin Ratio 1.58 Ketones Negative Meds: Medications Generic Name Dose Route Start Last Admin Trade Name Freq PRN Reason Stop Dose Admin Sodium Chloride 1,000 mls @ 999 mls/hr 12/04/19 04:00 12/04/19 04:02 Normal Saline IV 12/04/19 05:00 999 mls/hr .BOLUS ONE Administration Discontinued Medications Generic Name Dose Route Start Last Admin Trade Name Freq PRN Reason Stop Dose Admin Sodium Chloride 1,000 mls @ 999 mls/hr 12/04/19 03:09 12/04/19 03:12 Normal Saline IV 12/04/19 04:09 999 mls/hr .BOLUS ONE Administration Insulin Human Regular 10 unit 12/04/19 03:10 12/04/19 03:14 Humulin R IV 12/04/19 03:11 10 units ONETIME ONE Administration Departure - Departure Time of Disposition: 04:56 Disposition: Home, Self-Care 01 Condition: Good Clinical Impression: Hyperglycemia - Discharge Information Forms: ED Department Discharge Additional Instructions: 1) see clinic about your high blood sugars Sepsis Event Note - Evaluation Sepsis Screening Result: No Definite Risk - Focused Exam Vital Signs: Vital Signs Temp Pulse Resp BP Pulse Ox 12/04/19 02:44 36.0 C 91 18 154/87 H 94 L Date Exam was Performed: 12/04/19 Time Exam was Performed: 04:56 - My Orders Last 24 Hours: My Active Orders 12/04/19 02:56 Blood Glucose Check, Bedside [RC] ONETIME 12/04/19 03:45 Blood Glucose Check, Bedside [RC] ONETIME 12/04/19 04:00 Sodium Chloride 0.9% [Normal Saline] 1,000 ml IV .BOLUS 12/04/19 04:52 Blood Glucose Check, Bedside [RC] ONETIME - Assessment/Plan Last 24 Hours: My Active Orders 12/04/19 02:56 Blood Glucose Check, Bedside [RC] ONETIME 12/04/19 03:45 Blood Glucose Check, Bedside [RC] ONETIME 12/04/19 04:00 Sodium Chloride 0.9% [Normal Saline] 1,000 ml IV .BOLUS 12/04/19 04:52 Blood Glucose Check, Bedside [RC] ONETIME
[2019-12-04 03:44] LABS: ANION GAP 13.4; CHLORIDE,CL 91 mmol/L (101-111); SODIUM,NA 127 mmol/L (135-145)
== END 2019-12-04 05:00 | disposition home or self-care (01) ==
LOC: DL.ED 02:41
DX: E11.65 Type 2 diabetes mellitus with hyperglycemia (principal); I10 Essential (primary) hypertension; E11.40 Type 2 diabetes mellitus with diabetic neuropathy, unspecified; E11.21 Type 2 diabetes mellitus with diabetic nephropathy; F17.210 Nicotine dependence, cigarettes, uncomplicated; Z79.4 Long term (current) use of insulin; Z79.82 Long term (current) use of aspirin
CPT/HCPCS: 36415; 80053; 82009; 82962; 85025; 96360; 99285; J1815; J7030

== ENCOUNTER 2019-12-26 15:40 | Inpatient (IN) | payer OTHER ==
[2019-12-26] MEDS ORDERED: Sodium Chloride 0.9% 10 ML Syringe FLUSH PRN ×2 (16:12→17:40)
[2019-12-26] MEDS ORDERED: Sodium Chloride 0.9% 1,000 ML IV ONE (16:14)
[2019-12-26] MEDS ORDERED: Insulin Regular, Human 100 Units/ML 3 ML Vial IV ONE (16:14)
[2019-12-26 16:55] LABS: ANION GAP 27.3; CHLORIDE,CL 88 mmol/L (101-111); SODIUM,NA 128 mmol/L (135-145)
[2019-12-26 17:23] LABS: BASE EXCESS ARTERIAL -5 mmol/L ((-2)-(+3)); BICARBONATE,ARTERIAL 18.1 mmol/L (22-26); O2 DELIVERY DEVICE NASAL CANNULA; O2 SATURATION ARTERIAL 93 % (95-100); PCO2 ARTERIAL 30 mmHg (35-45); PO2 ARTERIAL 71 mmHg (70-100)
[2019-12-26 17:27] LABS: ALLEN TEST PERFORMED
--- NOTE | 2019-12-26 17:35 | EDM.PDOC ---
ED HPI GENERAL MEDICAL PROBLEM - General Chief Complaint: Diabetic Complaint Stated Complaint: DKA Time Seen by Provider: 12/26/19 15:55 Source of Information: Reports: Patient, Old Records, RN, RN Notes Reviewed History Limitations: Reports: No Limitations - History of Present Illness Onset: Unknown/Unsure Duration: Constant Location: Reports: Generalized Improves with: Reports: None Worsens with: Reports: None Associated Symptoms: Reports: No Other Symptoms - Related Data Allergies Allergy/AdvReac Type Severity Reaction Status Date / Time No Known Allergies Allergy Verified 12/04/19 02:47 Home Meds: Home Meds Acetaminophen [Arthritis Pain Relief] 650 mg PO ASDIRECTED 12/24/14 [History] Aspirin [Vivienne Chewable Aspirin] 2 tab PO DAILY 12/24/14 [History] Insulin Glarg,Human.Rec.Analog [Lantus] 84 units SUBCUT BEDTIME 12/24/14 [ History] Insulin Lispro [HumaLOG] 40 units SUBCUT TID 12/24/14 [History] Pregabalin [Lyrica] 150 mg PO BID 10/03/16 [History] Past Medical History HEENT History: Reports: Impaired Vision Cardiovascular History: Reports: High Cholesterol, Hypertension Respiratory History: Reports: None Gastrointestinal History: Reports: None Genitourinary History: Reports: Diabetic Nephropathy Musculoskeletal History: Reports: Arthritis, Back Pain, Chronic Neurological History: Reports: Neuropathy, Diabetic Psychiatric History: Reports: None Endocrine/Metabolic History: Reports: Diabetes, Type I, IDDM Hematologic History: Reports: None Immunologic History: Reports: None Oncologic (Cancer) History: Reports: None Dermatologic History: Reports: None - Infectious Disease History Infectious Disease History: Reports: Chicken Pox Social & Family History - Family History Family Medical History: Noncontributory - Tobacco Use Smoking Status *Q: Current Every Day Smoker Years of Tobacco use: 30 Packs/Tins Daily: 1 - Caffeine Use Caffeine Use: Reports: None - Recreational Drug Use Recreational Drug Use: No - Living Situation & Occupation Living situation: Reports: Single, Alone Occupation: Employed ED ROS GENERAL - Review of Systems Review Of Systems: Comprehensive ROS is negative, except as noted in HPI. ED EXAM GENERAL NO PERIP PULSE - Physical Exam Exam: See Below Exam Limited By: No Limitations General Appearance: Alert, No Apparent Distress, Thin Eye Exam: Bilateral Eye: EOMI, Normal Inspection, PERRL Nose: Normal Inspection, Normal Mucosa, No Blood Throat/Mouth: Normal Lips, Normal Oropharynx, Normal Voice, No Airway Compromise , Other (Dry oral mucosa) Head: Atraumatic, Normocephalic Neck: Normal Inspection, Supple, Non-Tender, Full Range of Motion Respiratory/Chest: No Respiratory Distress, Lungs Clear, Normal Breath Sounds, No Accessory Muscle Use, Chest Non-Tender Cardiovascular: Normal Peripheral Pulses, Regular Rate, Rhythm, No Edema GI/Abdominal: Normal Bowel Sounds, Soft, Non-Tender, No Organomegaly, No Distention, No Abnormal Bruit, No Mass Back Exam: Normal Inspection Extremities: Normal Inspection, Normal Range of Motion, Non-Tender, Normal Capillary Refill, No Pedal Edema Neurological: Alert, Oriented, CN II-XII Intact, Normal Cognition, Normal Gait, No Motor/Sensory Deficits Psychiatric: Normal Mood Skin Exam: Warm, Dry, Intact, Normal Color, No Rash EKG INTERPRETATION EKG Date: 12/26/19 Time: 16:05 Rhythm: Other (sinus rhythm) Rate (Beats/Min): 97 [place]: Normal P-Wave: Present (biatrial abnormalities) QRS: Normal ST-T: Normal QT: Normal Comparison: No Change Course - Vital Signs Last Recorded V/S: Last Vital Signs Temp 98.4 F 12/26/19 17:43 Pulse 103 H 12/26/19 17:43 Resp 18 12/26/19 17:43 BP 154/85 H 12/26/19 17:43 Pulse Ox 97 12/26/19 17:43 Orthostatic Blood Pressure [ 95/58 Standing] Orthostatic Blood Pressure [ 120/69 Sitting] Orthostatic Blood Pressure [ 132/71 Supine] - Orders/Labs/Meds Orders: Active Orders 24 hr Category Date Time Status Blood Glucose Check, Bedside [RC] ONETIME Care 12/26/19 16:13 Active EKG 12 Lead [EKG Documentation Completion] [RC] STAT Care 12/26/19 16:11 Active EKG 12 Lead [EKG Documentation Completion] [RC] STAT Care 12/26/19 16:13 Inactive Orthostatic Vital Signs [RC] ASDIRECTED Care 12/26/19 16:30 Active Chest 1V Frontal [CR] Stat Exams 12/26/19 16:13 Taken CBC WITH AUTO DIFF [HEME] Stat Lab 12/26/19 16:06 Results CULTURE BLOOD [BC] Stat Lab 12/26/19 16:06 Received CULTURE BLOOD [BC] Stat Lab 12/26/19 17:00 Received DRUG SCREEN URINE BIORAD [URCHEM] Stat Lab 12/26/19 16:13 Ordered MANUAL DIFFERENTIAL QA/NC [HEME] Stat Lab 12/26/19 16:06 Results UA RFX LATOYA AND CULT IF INDIC [URIN] Stat Lab 12/26/19 16:13 Ordered Insulin Regular, Human [HumuLIN R] 100 unit Med 12/26/19 17:15 Active Sodium Chloride 0.9% [Normal Saline] 99 ml IV TITRATE Sodium Chloride 0.9% [Saline Flush] Med 12/26/19 16:12 Active 10 ml FLUSH ASDIRECTED PRN Blood Culture x2 Reflex Set [OM.PC] Stat Oth 12/26/19 16:13 Ordered Peripheral IV Insertion Adult [OM.PC] Stat Oth 12/26/19 16:13 Ordered Medication Orders Insulin Human Regular 100 unit (/ Sodium Chloride) 100 mls @ 5.57 mls/hr IV TITRATE ANTONIA; Protocol Last Admin: 12/26/19 17:26 Dose: 0.1 units/kg/hr, 5.57 mls/hr Sodium Chloride (Saline Flush) 10 ml FLUSH ASDIRECTED PRN PRN Reason: Keep Vein Open Last Admin: 12/26/19 16:21 Dose: 10 ml Labs: Laboratory Tests 12/26/19 12/26/19 12/26/19 Range/Units 16:02 16:06 16:06 WBC 9.4 (5.0-10.0) 10^3/uL RBC 4.78 (4.6-6.2) 10^6/uL Hgb 14.3 (14.0-18.0) g/dL Hct 41.0 (40.0-54.0) % MCV 85.8 (80-100) fL MCH 29.9 (27.0-34.0) pg MCHC 34.9 (33.0-35.0) g/dL Plt Count 265 D (150-450) 10^3/uL Neut % (Auto) 76.0 H (42.2-75.2) % Lymph % (Auto) 10.6 L (20.5-50.1) % [place] % (Auto) 13.0 H (2-8) % Eos % (Auto) 0.1 L (1.0-3.0) % Baso % (Auto) 0.3 (0.0-1.0) % Add Manual Diff Yes Sodium 128 L (135-145) mmol/L Potassium 5.3 H (3.6-5.0) mmol/L Chloride 88 L (101-111) mmol/L Carbon Dioxide 18.0 L (21.0-31.0) mmol/L Anion Gap 27.3 BUN 26 H (7-18) mg/dL Creatinine 1.2 (0.6-1.3) mg/dL Est Cr Clr Drug Dosing 52.95 mL/min Estimated GFR (MDRD) > 60 BUN/Creatinine Ratio 21.66 Glucose 546 H* (74-105) mg/dL POC Glucose > 500 H* (70-105) mg/dl Lactic Acid (0.5-2.0) mmol/L Calcium 8.9 (8.4-10.2) mg/dl Total Bilirubin 2.0 H (0.2-1.0) mg/dL AST 14 (10-42) IU/L ALT 19 (10-60) IU/L Alkaline Phosphatase 108 (42-121) IU/L Troponin I 0.04 H* (0.00-0.02) ng/ml Total Protein 6.9 (6.7-8.2) g/dl Albumin 3.2 (3.2-5.5) g/dl Globulin 3.7 Albumin/Globulin Ratio 0.86 Ethyl Alcohol < 5 mg/dL Ketones Positive 12/26/19 12/26/19 Range/Units 17:00 17:08 WBC (5.0-10.0) 10^3/uL RBC (4.6-6.2) 10^6/uL Hgb (14.0-18.0) g/dL Hct (40.0-54.0) % MCV (80-100) fL MCH (27.0-34.0) pg MCHC (33.0-35.0) g/dL Plt Count (150-450) 10^3/uL Neut % (Auto) (42.2-75.2) % Lymph % (Auto) (20.5-50.1) % [place] % (Auto) (2-8) % Eos % (Auto) (1.0-3.0) % Baso % (Auto) (0.0-1.0) % Add Manual Diff Sodium (135-145) mmol/L Potassium (3.6-5.0) mmol/L Chloride (101-111) mmol/L Carbon Dioxide (21.0-31.0) mmol/L Anion Gap BUN (7-18) mg/dL Creatinine (0.6-1.3) mg/dL Est Cr Clr Drug Dosing mL/min Estimated GFR (MDRD) BUN/Creatinine Ratio Glucose (74-105) mg/dL POC Glucose 423 H* (70-105) mg/dl Lactic Acid 1.6 (0.5-2.0) mmol/L Calcium (8.4-10.2) mg/dl Total Bilirubin (0.2-1.0) mg/dL AST (10-42) IU/L ALT (10-60) IU/L Alkaline Phosphatase (42-121) IU/L Troponin I (0.00-0.02) ng/ml Total Protein (6.7-8.2) g/dl Albumin (3.2-5.5) g/dl Globulin Albumin/Globulin Ratio Ethyl Alcohol mg/dL Ketones Meds: Medications Generic Name Dose Route Start Last Admin Trade Name Freq PRN Reason Stop Dose Admin Insulin Human Regular 100 unit 100 mls @ 5.57 mls/hr 12/26/19 17:15 12/26/19 17:26 / Sodium Chloride IV 0.1 units/kg/hr TITRATE ANTONIA 5.57 mls/hr Administration Protocol 0.1 UNITS/KG/HR Sodium Chloride 10 ml 12/26/19 16:12 12/26/19 16:21 Saline Flush FLUSH 10 ml ASDIRECTED PRN Administration Keep Vein Open Discontinued Medications Generic Name Dose Route Start Last Admin Trade Name Freq PRN Reason Stop Dose Admin Sodium Chloride 1,000 mls @ 999 mls/hr 12/26/19 16:14 12/26/19 17:31 Normal Saline IV 12/26/19 17:14 Infused .BOLUS ONE Infusion Insulin Human Regular 8 unit 12/26/19 16:14 12/26/19 16:20 Humulin R IV 12/26/19 16:15 8 units ONETIME ONE Administration - Radiology Interpretation Free Text/Narrative:: [facility] Final Radiology Report Call: [phone] assistance Online chat: [email or web address] Name: ELAN DURHAM Age: 59Years M Date: 12/26/2019 SSN: -- : [id number] Study: XR CHEST 1 VIEW FRONTAL Requesting Physician: DESI MORGAN Images: 1 Addl Studies: Provided Clinical History: Contrast: Contrast Medium: Contrast Amount: Contrast Method: CONFIDENTIALITY STATEMENT This report is intended only for use by the referring physician, and only in accordance with law. If you received this in error, call [phone]. Page 1 of 1 PROCEDURE INFORMATION: Exam: XR Chest, 1 View Exam date and time: 12/26/2019 4:25 PM Age: 59 years old Clinical indication: Other: SOB, hypotension TECHNIQUE: Imaging protocol: XR of the chest Views: 1 view. COMPARISON: CR Chest 1V Frontal 07/31/2019 6:22 AM FINDINGS: Lungs: Unremarkable. No consolidation. Pleural space: Unremarkable. No pleural effusion. No pneumothorax. Heart/Mediastinum: Unremarkable. No cardiomegaly. Bones/joints: Unremarkable. IMPRESSION: No acute findings. Thank you for allowing us to participate in the care of your patient. Dictated and Authenticated by: Quinn Sousa MD 12/26/2019 4:37 PM Central Time ([place] & [place]) - Re-Assessments/Exams Free Text/Narrative Re-Assessment/Exam: 12/26/19 17:[address] Smith in ER, he is comfortable admitting the pt here. Departure - Departure Time of Disposition: 17:48 (admitted to Dr. Smith) Disposition: Admitted As Inpatient 67 Condition: Serious Clinical Impression: Orthostatic hypotension DKA (diabetic ketoacidoses) Qualifiers: Diabetes mellitus type: type 1 Diabetes mellitus complication detail: without coma Qualified Code(s): E10.10 - Type 1 diabetes mellitus with ketoacidosis without coma - Discharge Information *PRESCRIPTION DRUG MONITORING PROGRAM REVIEWED*: Not Applicable *COPY OF PRESCRIPTION DRUG MONITORING REPORT IN PATIENT RONALD: Not Applicable Sepsis Event Note - Evaluation Sepsis Screening Result: No Definite Risk - Focused Exam Vital Signs: Vital Signs Temp Pulse Resp BP Pulse Ox 12/26/19 15:50 98.5 F 92 20 115/73 95 Date Exam was Performed: 12/26/19 Time Exam was Performed: 17:47 - My Orders Last 24 Hours: My Active Orders 12/26/19 16:06 CBC WITH AUTO DIFF [HEME] Stat CULTURE BLOOD [BC] Stat MANUAL DIFFERENTIAL QA/NC [HEME] Stat 12/26/19 16:11 EKG 12 Lead [EKG Documentation Completion] [RC] STAT 12/26/19 16:12 Sodium Chloride 0.9% [Saline Flush] 10 ml FLUSH ASDIRECTED PRN 12/26/19 16:13 Blood Glucose Check, Bedside [RC] ONETIME EKG 12 Lead [EKG Documentation Completion] [RC] STAT Chest 1V Frontal [CR] Stat DRUG SCREEN URINE BIORAD [URCHEM] Stat UA RFX [place] AND CULT IF INDIC [URIN] Stat Blood Culture x2 Reflex Set [OM.PC] Stat Peripheral IV Insertion Adult [OM.PC] Stat 12/26/19 16:30 Orthostatic Vital Signs [RC] ASDIRECTED 12/26/19 17:00 CULTURE BLOOD [BC] Stat 12/26/19 17:15 Insulin Regular, Human [HumuLIN R] 100 unit Sodium Chloride 0.9% [Normal Saline] 99 ml IV TITRATE - Assessment/Plan Last 24 Hours: My Active Orders 12/26/19 16:06 CBC WITH AUTO DIFF [HEME] Stat CULTURE BLOOD [BC] Stat MANUAL DIFFERENTIAL QA/NC [HEME] Stat 12/26/19 16:11 EKG 12 Lead [EKG Documentation Completion] [RC] STAT 12/26/19 16:12 Sodium Chloride 0.9% [Saline Flush] 10 ml FLUSH ASDIRECTED PRN 12/26/19 16:13 Blood Glucose Check, Bedside [RC] ONETIME EKG 12 Lead [EKG Documentation Completion] [RC] STAT Chest 1V Frontal [CR] Stat DRUG SCREEN URINE BIORAD [URCHEM] Stat UA RFX LATOYA AND CULT IF INDIC [URIN] Stat Blood Culture x2 Reflex Set [OM.PC] Stat Peripheral IV Insertion Adult [OM.PC] Stat 12/26/19 16:30 Orthostatic Vital Signs [RC] ASDIRECTED 12/26/19 17:00 CULTURE BLOOD [BC] Stat 12/26/19 17:15 Insulin Regular, Human [HumuLIN R] 100 unit Sodium Chloride 0.9% [Normal Saline] 99 ml IV TITRATE
[2019-12-26] MEDS ORDERED: Ondansetron 4 MG Tab.DIS PO PRN (17:40)
[2019-12-26] MEDS ORDERED: Acetaminophen 325 MG Tab PO PRN (17:40)
[2019-12-26] MEDS ORDERED: Albuterol 0.083% 2.5 MG/3 ML Neb Soln NEB PRN (17:40)
[2019-12-26] MEDS ORDERED: Docusate Sodium 100 MG Cap PO PRN (17:40)
[2019-12-26] MEDS ORDERED: Zolpidem 5 MG Tab PO PRN (17:40)
--- NOTE | 2019-12-26 18:05 | PCM.HP ---
H&P History of Present Illness - General Date of Service: 12/26/19 Admit Problem/Dx: Admission Diagnosis/Problem Admission Diagnosis/Problem Diabetic ketoacidosis History Limitations: Reports: No Limitations - History of Present Illness Initial Comments - Free Text/Narative: Aleks Salas is a 59 y.o male with a medical history of Type 1 DM, who presented with generalized weakness, headache and unsteady gait. Patient complains of feeling unwell with vague symptoms for at least 1 week. Today, he developed a headache, became very weak and noticed he had an unsteady gait. He suspected his blood sugar was off and initially to the clinic to have it checked. He reports that he is supposed to take 50 units of Novolog prandial and 60-70 units of Lantus nocte. He has not been compliant with his insulin regimen. At clinic his systolic BP was in the mid 80s; blood sugar was found to be in the 400s and he was thought to be in DKA. He was sent to the ED for further evaluation. In the ED, he reported occasional cough of 6-7 weeks. CXR was unremarkable. He denied fever, shortness or breath or chest pain. Orthostatic blood pressure was positive (132/71 lying to 95/58 standing, despite almost completing 1L of normal saline). Labs revealed Na 128, k 2.3, HCo3 18, Cr 1.2, LA 1.6, corrected anion gap ~ 29, serum BG 423, troponin 0.04 (0.02 ULN), ketones positive, Liver enzymes wnl, total Bili 2.0, Alcohol negative. CBC was wnl. Patient is being admitted for DKA. - Related Data Allergies/Adverse Reactions: Allergies Allergy/AdvReac Type Severity Reaction Status Date / Time No Known Allergies Allergy Verified 12/04/19 02:47 Home Medications: Home Meds Acetaminophen [Arthritis Pain Relief] 650 mg PO ASDIRECTED 12/24/14 [History] Aspirin [Vivienne Chewable Aspirin] 2 tab PO DAILY 12/24/14 [History] Insulin Glarg,Human.Rec.Analog [Lantus] 84 units SUBCUT BEDTIME 12/24/14 [ History] Insulin Lispro [HumaLOG] 40 units SUBCUT TID 12/24/14 [History] Pregabalin [Lyrica] 150 mg PO BID 10/03/16 [History] Past Medical History HEENT History: Reports: Impaired Vision Cardiovascular History: Reports: High Cholesterol, Hypertension Respiratory History: Reports: None Gastrointestinal History: Reports: None Genitourinary History: Reports: Diabetic Nephropathy Musculoskeletal History: Reports: Arthritis, Back Pain, Chronic Neurological History: Reports: Neuropathy, Diabetic Psychiatric History: Reports: None Endocrine/Metabolic History: Reports: Diabetes, Type I, IDDM Hematologic History: Reports: None Immunologic History: Reports: None Oncologic (Cancer) History: Reports: None Dermatologic History: Reports: None - Infectious Disease History Infectious Disease History: Reports: Chicken Pox - Past Surgical History HEENT Surgical History: Reports: None Cardiovascular Surgical History: Reports: None Respiratory Surgical History: Reports: None GI Surgical History: Reports: Colonoscopy, Hernia, Inguinal Male Surgical History: Reports: None Endocrine Surgical History: Reports: None Neurological Surgical History: Reports: None Musculoskeletal Surgical History: Reports: None Oncologic Surgical History: Reports: None Social & Family History - Family History Family Medical History: Noncontributory - Tobacco Use Smoking Status *Q: Current Every Day Smoker Years of Tobacco use: 30 Packs/Tins Daily: 1 Second Hand Smoke Exposure: Yes - Caffeine Use Caffeine Use: Reports: None - Recreational Drug Use Recreational Drug Use: No - Living Situation & Occupation Living situation: Reports: Single, Alone Occupation: Employed H&P Review of Systems - Review of Systems: Review Of Systems: See Below General: Reports: Malaise HEENT: Reports: No Symptoms Pulmonary: Reports: No Symptoms Cardiovascular: Reports: No Symptoms Gastrointestinal: Reports: No Symptoms Genitourinary: Reports: No Symptoms Musculoskeletal: Reports: No Symptoms Skin: Reports: No Symptoms Psychiatric: Reports: No Symptoms Neurological: Reports: Headache, Gait Disturbance Hematologic/Lymphatic: Reports: No Symptoms Immunologic: Reports: No Symptoms Exam - Exam Exam: See Below - Vital Signs Vital Signs: Last Vital Signs Temp 98.4 F 12/26/19 17:43 Pulse 103 H 12/26/19 17:43 Resp 18 12/26/19 17:43 BP 154/85 H 12/26/19 17:43 Pulse Ox 97 12/26/19 17:43 Orthostatic Blood Pressure [ 95/58 Standing] Orthostatic Blood Pressure [ 120/69 Sitting] Orthostatic Blood Pressure [ 132/71 Supine] Weight: 116 lb 8 oz - Exam General: Alert, Oriented, 4 HEENT: PERRLA, Hearing Intact, Mucosa Moist & [place], Nares Patent, Normal Nasal Septum, Posterior Pharynx Clear, Conjunctiva Clear, EOMI, EACs Clear, TMs Clear Neck: Supple, Trachea Midline, 2 Lungs: Clear to Auscultation, Normal Respiratory Effort Cardiovascular: Regular Rate, Regular Rhythm GI/Abdominal Exam: Normal Bowel Sounds, Soft, Non-Tender, No Organomegaly, No Distention, No Abnormal Bruit, No Mass, Pelvis Stable (Male) Exam: Deferred Rectal (Males) Exam: Deferred Back Exam: Normal Inspection, Full Range of Motion, NT Extremities: Normal Inspection, Normal Range of Motion, Non-Tender, No Pedal Edema, Normal Capillary Refill Skin: Warm, Dry, Intact Neurological: Cranial Nerves Intact, Reflexes Equal Bilateral Neuro Extensive - Mental Status: Alert, Oriented x3, Normal Mood/Affect, Normal Cognition Neuro Extensive - Motor, Sensory, Reflexes: CN II-XII Intact, Normal Reflexes Psychiatric: Alert, Normal Affect, Normal Mood - Patient Data Lab Results Last 24 hrs: Laboratory Results - last 24 hr 12/26/19 12/26/19 12/26/19 Range/Units 16:02 16:06 16:06 WBC 9.4 (5.0-10.0) 10^3/uL RBC 4.78 (4.6-6.2) 10^6/uL Hgb 14.3 (14.0-18.0) g/dL Hct 41.0 (40.0-54.0) % MCV 85.8 (80-100) fL MCH 29.9 (27.0-34.0) pg MCHC 34.9 (33.0-35.0) g/dL Plt Count 265 D (150-450) 10^3/uL Neut % (Auto) 76.0 H (42.2-75.2) % Lymph % (Auto) 10.6 L (20.5-50.1) % [place] % (Auto) 13.0 H (2-8) % Eos % (Auto) 0.1 L (1.0-3.0) % Baso % (Auto) 0.3 (0.0-1.0) % Add Manual Diff Yes Neutrophils % (Manual) 71 (42-75) % Band Neutrophils % 7 % Lymphocytes % (Manual) 10 L (20-50) % Monocytes % (Manual) 10 H (2-8) % Metamyelocytes % 2 ABG pH (7.35-7.45) ABG pCO2 (35-45) mmHg ABG pO2 (70-100) mmHg ABG HCO3 (22-26) mmol/L ABG O2 Saturation (95-100) % ABG Base Excess ((-2)-(+3)) mmol/L Jeremy Test O2 Delivery Device Sodium 128 L (135-145) mmol/L Potassium 5.3 H (3.6-5.0) mmol/L Chloride 88 L (101-111) mmol/L Carbon Dioxide 18.0 L (21.0-31.0) mmol/L Anion Gap 27.3 BUN 26 H (7-18) mg/dL Creatinine 1.2 (0.6-1.3) mg/dL Est Cr Clr Drug Dosing 52.95 mL/min Estimated GFR (MDRD) > 60 BUN/Creatinine Ratio 21.66 Glucose 546 H* (74-105) mg/dL POC Glucose > 500 H* (70-105) mg/dl Lactic Acid (0.5-2.0) mmol/L Calcium 8.9 (8.4-10.2) mg/dl Total Bilirubin 2.0 H (0.2-1.0) mg/dL AST 14 (10-42) IU/L ALT 19 (10-60) IU/L Alkaline Phosphatase 108 (42-121) IU/L Troponin I 0.04 H* (0.00-0.02) ng/ml Total Protein 6.9 (6.7-8.2) g/dl Albumin 3.2 (3.2-5.5) g/dl Globulin 3.7 Albumin/Globulin Ratio 0.86 Ethyl Alcohol < 5 mg/dL Ketones Positive 12/26/19 12/26/19 12/26/19 Range/Units 17:00 17:08 17:24 WBC (5.0-10.0) 10^3/uL RBC (4.6-6.2) 10^6/uL Hgb (14.0-18.0) g/dL Hct (40.0-54.0) % MCV (80-100) fL MCH (27.0-34.0) pg MCHC (33.0-35.0) g/dL Plt Count (150-450) 10^3/uL Neut % (Auto) (42.2-75.2) % Lymph % (Auto) (20.5-50.1) % [place] % (Auto) (2-8) % Eos % (Auto) (1.0-3.0) % Baso % (Auto) (0.0-1.0) % Add Manual Diff Neutrophils % (Manual) (42-75) % Band Neutrophils % % Lymphocytes % (Manual) (20-50) % Monocytes % (Manual) (2-8) % Metamyelocytes % ABG pH 7.40 (7.35-7.45) ABG pCO2 30 L (35-45) mmHg ABG pO2 71 (70-100) mmHg ABG HCO3 18.1 L (22-26) mmol/L ABG O2 Saturation 93 L (95-100) % ABG Base Excess -5 L ((-2)-(+3)) mmol/L Jeremy Test Performed O2 Delivery Device Nasal cannula Sodium (135-145) mmol/L Potassium (3.6-5.0) mmol/L Chloride (101-111) mmol/L Carbon Dioxide (21.0-31.0) mmol/L Anion Gap BUN (7-18) mg/dL Creatinine (0.6-1.3) mg/dL Est Cr Clr Drug Dosing mL/min Estimated GFR (MDRD) BUN/Creatinine Ratio Glucose (74-105) mg/dL POC Glucose 423 H* (70-105) mg/dl Lactic Acid 1.6 (0.5-2.0) mmol/L Calcium (8.4-10.2) mg/dl Total Bilirubin (0.2-1.0) mg/dL AST (10-42) IU/L ALT (10-60) IU/L Alkaline Phosphatase (42-121) IU/L Troponin I (0.00-0.02) ng/ml Total Protein (6.7-8.2) g/dl Albumin (3.2-5.5) g/dl Globulin Albumin/Globulin Ratio Ethyl Alcohol mg/dL Ketones Result Diagrams: 12/26/19 16:06 12/26/19 16:06 Problem List Initiated/Reviewed/Updated: Yes Orders Last 24hrs: Active Orders 24 hr Category Date Time Status Admission Diagnosis [ADT] Stat ADT 12/26/19 17:17 Ordered Admission Status [Patient Status] [ADT] Routine ADT 12/26/19 17:17 Active Patient Status [ADT] Routine ADT 12/26/19 17:40 Ordered Blood Glucose Check, Bedside [RC] ONETIME Care 12/26/19 16:13 Active EKG 12 Lead [EKG Documentation Completion] [RC] STAT Care 12/26/19 16:13 Inactive Intake and Output [RC] QSHIFT Care 12/26/19 17:41 Ordered Orthostatic Vital Signs [RC] ASDIRECTED Care 12/26/19 16:30 Active Oxygen Therapy [RC] PRN Care 12/26/19 17:40 Ordered RT Aerosol Therapy [RC] ASDIRECTED Care 12/26/19 17:43 Ordered Up ad Meg [RC] ASDIRECTED Care 12/26/19 17:40 Ordered VTE/DVT Education [RC] PER UNIT ROUTINE Care 12/26/19 17:40 Ordered Vital Signs [RC] Q4H Care 12/26/19 17:40 Ordered Nothing per Oral Now Diet [DIET] Diet 12/26/19 Dinner Ordered Chest 1V Frontal [CR] Stat Exams 12/26/19 16:13 Taken CULTURE BLOOD [BC] Stat Lab 12/26/19 16:06 Received CULTURE BLOOD [BC] Stat Lab 12/26/19 17:00 Received DRUG SCREEN URINE BIORAD [URCHEM] Stat Lab 12/26/19 16:13 Ordered UA RFX LATOYA AND CULT IF INDIC [URIN] Stat Lab 12/26/19 16:13 Ordered Acetaminophen [Tylenol] Med 12/26/19 17:40 Ordered 650 mg PO Q4H PRN Albuterol [Proventil Neb Soln] Med 12/26/19 17:40 Ordered 2.5 mg NEB Q2H PRN Aspirin Med 12/27/19 09:00 Ordered 162 mg PO DAILY Docusate Sodium [Colace] Med 12/26/19 17:40 Ordered 100 mg PO BID PRN Enoxaparin [Lovenox] Med 12/27/19 09:00 Ordered 30 mg SUBCUT DAILY Insulin Regular, Human [HumuLIN R] 100 unit Med 12/26/19 17:15 Active Sodium Chloride 0.9% [Normal Saline] 99 ml IV TITRATE Ondansetron [Zofran ODT] Med 12/26/19 17:40 Ordered 4 mg PO Q4H PRN Pregabalin [Lyrica] Med 12/26/19 21:00 Ordered 150 mg PO BID Sodium Chloride 0.9% [Saline Flush] Med 12/26/19 16:12 Active 10 ml FLUSH ASDIRECTED PRN Sodium Chloride 0.9% [Saline Flush] Med 12/26/19 17:40 Ordered 10 ml FLUSH ASDIRECTED PRN Zolpidem [Ambien] Med 12/26/19 17:40 Ordered 5 mg PO BEDTIME PRN Blood Culture x2 Reflex Set [OM.PC] Stat Oth 12/26/19 16:13 Ordered Peripheral IV Insertion Adult [OM.PC] Stat Oth 12/26/19 16:13 Ordered Saline Lock Insert [OM.PC] Routine Oth 12/26/19 17:40 Ordered Resuscitation Status Routine Resus Stat 12/26/19 17:40 Ordered Medication Orders Acetaminophen (Tylenol) 650 mg PO Q4H PRN PRN Reason: Pain (Mild 1-3)/fever Albuterol (Proventil Neb Soln) 2.5 mg NEB Q2H PRN PRN Reason: shortness of breath/wheezing Aspirin (Aspirin) 162 mg PO DAILY ANTONIA Docusate Sodium (Colace) 100 mg PO BID PRN PRN Reason: Constipation Enoxaparin Sodium (Lovenox) 30 mg SUBCUT DAILY ANTONIA Insulin Human Regular 100 unit (/ Sodium Chloride) 100 mls @ 5.57 mls/hr IV TITRATE ANTONIA; Protocol Last Admin: 12/26/19 17:26 Dose: 0.1 units/kg/hr, 5.57 mls/hr Ondansetron HCl (Zofran Odt) 4 mg PO Q4H PRN PRN Reason: nausea, able to take PO Pregabalin (Lyrica) 150 mg PO BID ANTONIA Sodium Chloride (Saline Flush) 10 ml FLUSH ASDIRECTED PRN PRN Reason: Keep Vein Open Last Admin: 12/26/19 16:21 Dose: 10 ml Sodium Chloride (Saline Flush) 10 ml FLUSH ASDIRECTED PRN PRN Reason: Keep Vein Open Zolpidem Tartrate (Ambien) 5 mg PO BEDTIME PRN PRN Reason: Sleep Assessment/Plan Comment:: Diabetic ketoacidosis AGMA Type 1 DM Patient presenting with BG >400, positive ketones and corrected anion gap of ~ 29. Misses his insulin meds. - Start DKA protocol - May need re-adjustment of his home insulin regimen upon transition to subcut - NPO until anion gap closes Electrolyte abnormalities - Replace as needed Orthostatic hypotension Unsteady gait Positive orthostatics and gait imbalance likely due to dehydration and DKA. - Monitor with IVF Code Status: Full Prophylaxis: Lovenox
[2019-12-26] MEDS ORDERED: D5 1/2 NS w/ 40 mEq/L KCl 1,000 ML IV SCH (18:15)
[2019-12-26] MEDS ORDERED: Sodium Chloride 0.9% 1,000 ML IV SCH (19:00)
[2019-12-26] MEDS: Enoxaparin 40 MG/0.4 ML Syringe SUBCUT SCH (21:02)
[2019-12-26] MEDS: Dextrose 5%-0.45% NaCl 1,000 ML IV SCH (21:39)
[2019-12-26 22:29] LABS: ANION GAP 12.6; CHLORIDE,CL 100 mmol/L (101-111); SODIUM,NA 133 mmol/L (135-145)
[2019-12-26] MEDS ORDERED: Potassium Chloride 10 MEQ Tab.ER PO ONE (22:53)
[2019-12-27] MEDS ORDERED: Insulin Regular, Human 100 Units/ML 3 ML Vial ONE (02:19)
[2019-12-27] MEDS: Dextrose 5%-0.45% NaCl 1,000 ML IV SCH (06:25)
[2019-12-27] MEDS: Aspirin 81 MG Tab.Chew PO SCH (08:31)
--- NOTE | 2019-12-27 09:34 | PCM.PN ---
- General Info Date of Service: 12/27/19 Admission Dx/Problem (Free Text): Admission Diagnosis/Problem Admission Diagnosis/Problem Diabetic ketoacidosis Subjective Update: Gap closed. Patient is hungry, and was threatening to leave if we do not start feeding him. Patient said that he quit taking his insulin because taking too much insulin at night was causing him to become hypoglycemic during the night. I explained to patient that we need to clarify dose of insulin prior to switching him to subcutaneous. I also explained to him that he would likely have less swings in blood insulin if his dose is broken down into 2. Patient is in agreement with waiting for transition. - Review of Systems Pulmonary: Reports: No Symptoms Cardiovascular: Reports: No Symptoms Gastrointestinal: Reports: No Symptoms - Patient Data Vitals - Most Recent: Last Vital Signs Temp 37.3 C 12/27/19 07:52 Pulse 93 12/27/19 07:52 Resp 18 12/27/19 07:52 BP 117/70 12/27/19 07:52 Pulse Ox 91 L 12/27/19 07:52 Orthostatic Blood Pressure [ 95/58 Standing] Orthostatic Blood Pressure [ 120/69 Sitting] Orthostatic Blood Pressure [ 132/71 Supine] Weight - Most Recent: 52.844 kg I&O - Last 24 Hours: Intake & Output 12/26/19 12/27/19 12/27/19 22:59 06:59 14:59 Intake Total 385 1093 Output Total 900 Balance 385 193 Lab Results Last 24 Hours: Laboratory Results - last 24 hr 12/26/19 12/26/19 12/26/19 Range/Units 16:02 16:06 16:06 WBC 9.4 (5.0-10.0) 10^3/uL RBC 4.78 (4.6-6.2) 10^6/uL Hgb 14.3 (14.0-18.0) g/dL Hct 41.0 (40.0-54.0) % MCV 85.8 (80-100) fL MCH 29.9 (27.0-34.0) pg MCHC 34.9 (33.0-35.0) g/dL Plt Count 265 D (150-450) 10^3/uL Neut % (Auto) 76.0 H (42.2-75.2) % Lymph % (Auto) 10.6 L (20.5-50.1) % Walker % (Auto) 13.0 H (2-8) % Eos % (Auto) 0.1 L (1.0-3.0) % Baso % (Auto) 0.3 (0.0-1.0) % Add Manual Diff Yes Neutrophils % (Manual) 71 (42-75) % Band Neutrophils % 7 % Lymphocytes % (Manual) 10 L (20-50) % Monocytes % (Manual) 10 H (2-8) % Metamyelocytes % 2 ABG pH (7.35-7.45) ABG pCO2 (35-45) mmHg ABG pO2 (70-100) mmHg ABG HCO3 (22-26) mmol/L ABG O2 Saturation (95-100) % ABG Base Excess ((-2)-(+3)) mmol/L Jeremy Test O2 Delivery Device Sodium 128 L (135-145) mmol/L Potassium 5.3 H (3.6-5.0) mmol/L Chloride 88 L (101-111) mmol/L Carbon Dioxide 18.0 L (21.0-31.0) mmol/L Anion Gap 27.3 BUN 26 H (7-18) mg/dL Creatinine 1.2 (0.6-1.3) mg/dL Est Cr Clr Drug Dosing 52.95 mL/min Estimated GFR (MDRD) > 60 BUN/Creatinine Ratio 21.66 Glucose 546 H* (74-105) mg/dL POC Glucose > 500 H* (70-105) mg/dl Lactic Acid (0.5-2.0) mmol/L Calcium 8.9 (8.4-10.2) mg/dl Phosphorus (2.5-4.6) mg/dL Magnesium (1.8-2.5) mg/dL Total Bilirubin 2.0 H (0.2-1.0) mg/dL AST 14 (10-42) IU/L ALT 19 (10-60) IU/L Alkaline Phosphatase 108 (42-121) IU/L Troponin I 0.04 H* (0.00-0.02) ng/ml B-Natriuretic Peptide (0-100) pg/ml Total Protein 6.9 (6.7-8.2) g/dl Albumin 3.2 (3.2-5.5) g/dl Globulin 3.7 Albumin/Globulin Ratio 0.86 Urine Color (YELLOW) Urine Appearance (CLEAR) Urine pH (5.0-9.0) Ur Specific [place] (1.005-1.030) Urine Protein (NEGATIVE) Urine Glucose (UA) (NEGATIVE) Urine Ketones (NEGATIVE) Urine Occult Blood (NEGATIVE) Urine Nitrite (NEGATIVE) Urine Bilirubin (NEGATIVE) Urine Urobilinogen (0.2-1.0) mg/dL Ur Leukocyte Esterase (NEGATIVE) Urine Opiates Screen (NEGATIVE) Ur Oxycodone Screen (NEGATIVE) Urine Methadone Screen (NEGATIVE) Ur Barbiturates Screen (NEGATIVE) U Tricyclic Antidepress (NEGATIVE) Ur Phencyclidine Scrn (NEGATIVE) Ur Amphetamine Screen (NEGATIVE) U Methamphetamines Scrn (NEGATIVE) Urine MDMA Screen (NEGATIVE) U Benzodiazepines Scrn (NEGATIVE) Urine Cocaine Screen (NEGATIVE) U Marijuana (THC) Screen (NEGATIVE) Ethyl Alcohol < 5 mg/dL Ketones Positive 12/26/19 12/26/19 12/26/19 Range/Units 17:00 17:08 17:24 WBC (5.0-10.0) 10^3/uL RBC (4.6-6.2) 10^6/uL Hgb (14.0-18.0) g/dL Hct (40.0-54.0) % MCV (80-100) fL MCH (27.0-34.0) pg MCHC (33.0-35.0) g/dL Plt Count (150-450) 10^3/uL Neut % (Auto) (42.2-75.2) % Lymph % (Auto) (20.5-50.1) % Walker % (Auto) (2-8) % Eos % (Auto) (1.0-3.0) % Baso % (Auto) (0.0-1.0) % Add Manual Diff Neutrophils % (Manual) (42-75) % Band Neutrophils % % Lymphocytes % (Manual) (20-50) % Monocytes % (Manual) (2-8) % Metamyelocytes % ABG pH 7.40 (7.35-7.45) ABG pCO2 30 L (35-45) mmHg ABG pO2 71 (70-100) mmHg ABG HCO3 18.1 L (22-26) mmol/L ABG O2 Saturation 93 L (95-100) % ABG Base Excess -5 L ((-2)-(+3)) mmol/L Jeremy Test Performed O2 Delivery Device Nasal cannula Sodium (135-145) mmol/L Potassium (3.6-5.0) mmol/L Chloride (101-111) mmol/L Carbon Dioxide (21.0-31.0) mmol/L Anion Gap BUN (7-18) mg/dL Creatinine (0.6-1.3) mg/dL Est Cr Clr Drug Dosing mL/min Estimated GFR (MDRD) BUN/Creatinine Ratio Glucose (74-105) mg/dL POC Glucose 423 H* (70-105) mg/dl Lactic Acid 1.6 (0.5-2.0) mmol/L Calcium (8.4-10.2) mg/dl Phosphorus (2.5-4.6) mg/dL Magnesium (1.8-2.5) mg/dL Total Bilirubin (0.2-1.0) mg/dL AST (10-42) IU/L ALT (10-60) IU/L Alkaline Phosphatase (42-121) IU/L Troponin I (0.00-0.02) ng/ml B-Natriuretic Peptide (0-100) pg/ml Total Protein (6.7-8.2) g/dl Albumin (3.2-5.5) g/dl Globulin Albumin/Globulin Ratio Urine Color (YELLOW) Urine Appearance (CLEAR) Urine pH (5.0-9.0) Ur Specific [place] (1.005-1.030) Urine Protein (NEGATIVE) Urine Glucose (UA) (NEGATIVE) Urine Ketones (NEGATIVE) Urine Occult Blood (NEGATIVE) Urine Nitrite (NEGATIVE) Urine Bilirubin (NEGATIVE) Urine Urobilinogen (0.2-1.0) mg/dL Ur Leukocyte Esterase (NEGATIVE) Urine Opiates Screen (NEGATIVE) Ur Oxycodone Screen (NEGATIVE) Urine Methadone Screen (NEGATIVE) Ur Barbiturates Screen (NEGATIVE) U Tricyclic Antidepress (NEGATIVE) Ur Phencyclidine Scrn (NEGATIVE) Ur Amphetamine Screen (NEGATIVE) U Methamphetamines Scrn (NEGATIVE) Urine MDMA Screen (NEGATIVE) U Benzodiazepines Scrn (NEGATIVE) Urine Cocaine Screen (NEGATIVE) U Marijuana (THC) Screen (NEGATIVE) Ethyl Alcohol mg/dL Ketones 02/04/20 02/04/20 02/04/20 Range/Units 18:26 19:39 20:28 WBC (5.0-10.0) 10^3/uL RBC (4.6-6.2) 10^6/uL Hgb (14.0-18.0) g/dL Hct (40.0-54.0) % MCV (80-100) fL MCH (27.0-34.0) pg MCHC (33.0-35.0) g/dL Plt Count (150-450) 10^3/uL Neut % (Auto) (42.2-75.2) % Lymph % (Auto) (20.5-50.1) % Walker % (Auto) (2-8) % Eos % (Auto) (1.0-3.0) % Baso % (Auto) (0.0-1.0) % Add Manual Diff Neutrophils % (Manual) (42-75) % Band Neutrophils % % Lymphocytes % (Manual) (20-50) % Monocytes % (Manual) (2-8) % Metamyelocytes % ABG pH (7.35-7.45) ABG pCO2 (35-45) mmHg ABG pO2 (70-100) mmHg ABG HCO3 (22-26) mmol/L ABG O2 Saturation (95-100) % ABG Base Excess ((-2)-(+3)) mmol/L Jeremy Test O2 Delivery Device Sodium (135-145) mmol/L Potassium (3.6-5.0) mmol/L Chloride (101-111) mmol/L Carbon Dioxide (21.0-31.0) mmol/L Anion Gap BUN (7-18) mg/dL Creatinine (0.6-1.3) mg/dL Est Cr Clr Drug Dosing mL/min Estimated GFR (MDRD) BUN/Creatinine Ratio Glucose (74-105) mg/dL POC Glucose 297 H 245 H 244 H (70-105) mg/dl Lactic Acid (0.5-2.0) mmol/L Calcium (8.4-10.2) mg/dl Phosphorus (2.5-4.6) mg/dL Magnesium (1.8-2.5) mg/dL Total Bilirubin (0.2-1.0) mg/dL AST (10-42) IU/L ALT (10-60) IU/L Alkaline Phosphatase (42-121) IU/L Troponin I (0.00-0.02) ng/ml B-Natriuretic Peptide (0-100) pg/ml Total Protein (6.7-8.2) g/dl Albumin (3.2-5.5) g/dl Globulin Albumin/Globulin Ratio Urine Color (YELLOW) Urine Appearance (CLEAR) Urine pH (5.0-9.0) Ur Specific [place] (1.005-1.030) Urine Protein (NEGATIVE) Urine Glucose (UA) (NEGATIVE) Urine Ketones (NEGATIVE) Urine Occult Blood (NEGATIVE) Urine Nitrite (NEGATIVE) Urine Bilirubin (NEGATIVE) Urine Urobilinogen (0.2-1.0) mg/dL Ur Leukocyte Esterase (NEGATIVE) Urine Opiates Screen (NEGATIVE) Ur Oxycodone Screen (NEGATIVE) Urine Methadone Screen (NEGATIVE) Ur Barbiturates Screen (NEGATIVE) U Tricyclic Antidepress (NEGATIVE) Ur Phencyclidine Scrn (NEGATIVE) Ur Amphetamine Screen (NEGATIVE) U Methamphetamines Scrn (NEGATIVE) Urine MDMA Screen (NEGATIVE) U Benzodiazepines Scrn (NEGATIVE) Urine Cocaine Screen (NEGATIVE) U Marijuana (THC) Screen (NEGATIVE) Ethyl Alcohol mg/dL Ketones 12/26/19 12/26/19 12/26/19 Range/Units 21:33 22:04 23:29 WBC (5.0-10.0) 10^3/uL RBC (4.6-6.2) 10^6/uL Hgb (14.0-18.0) g/dL Hct (40.0-54.0) % MCV (80-100) fL MCH (27.0-34.0) pg MCHC (33.0-35.0) g/dL Plt Count (150-450) 10^3/uL Neut % (Auto) (42.2-75.2) % Lymph % (Auto) (20.5-50.1) % Walker % (Auto) (2-8) % Eos % (Auto) (1.0-3.0) % Baso % (Auto) (0.0-1.0) % Add Manual Diff Neutrophils % (Manual) (42-75) % Band Neutrophils % % Lymphocytes % (Manual) (20-50) % Monocytes % (Manual) (2-8) % Metamyelocytes % ABG pH (7.35-7.45) ABG pCO2 (35-45) mmHg ABG pO2 (70-100) mmHg ABG HCO3 (22-26) mmol/L ABG O2 Saturation (95-100) % ABG Base Excess ((-2)-(+3)) mmol/L Jeremy Test O2 Delivery Device Sodium 133 L (135-145) mmol/L Potassium 3.6 D (3.6-5.0) mmol/L Chloride 100 L D (101-111) mmol/L Carbon Dioxide 24.0 (21.0-31.0) mmol/L Anion Gap 12.6 BUN 20 H (7-18) mg/dL Creatinine 0.8 (0.6-1.3) mg/dL Est Cr Clr Drug Dosing 75.23 mL/min Estimated GFR (MDRD) > 60 BUN/Creatinine Ratio Glucose 193 H (74-105) mg/dL POC Glucose 178 H 169 H (70-105) mg/dl Lactic Acid (0.5-2.0) mmol/L Calcium 8.3 L (8.4-10.2) mg/dl Phosphorus 1.7 L (2.5-4.6) mg/dL Magnesium 1.6 L (1.8-2.5) mg/dL Total Bilirubin (0.2-1.0) mg/dL AST (10-42) IU/L ALT (10-60) IU/L Alkaline Phosphatase (42-121) IU/L Troponin I (0.00-0.02) ng/ml B-Natriuretic Peptide (0-100) pg/ml Total Protein (6.7-8.2) g/dl Albumin (3.2-5.5) g/dl Globulin Albumin/Globulin Ratio Urine Color (YELLOW) Urine Appearance (CLEAR) Urine pH (5.0-9.0) Ur Specific [place] (1.005-1.030) Urine Protein (NEGATIVE) Urine Glucose (UA) (NEGATIVE) Urine Ketones (NEGATIVE) Urine Occult Blood (NEGATIVE) Urine Nitrite (NEGATIVE) Urine Bilirubin (NEGATIVE) Urine Urobilinogen (0.2-1.0) mg/dL Ur Leukocyte Esterase (NEGATIVE) Urine Opiates Screen (NEGATIVE) Ur Oxycodone Screen (NEGATIVE) Urine Methadone Screen (NEGATIVE) Ur Barbiturates Screen (NEGATIVE) U Tricyclic Antidepress (NEGATIVE) Ur Phencyclidine Scrn (NEGATIVE) Ur Amphetamine Screen (NEGATIVE) U Methamphetamines Scrn (NEGATIVE) Urine MDMA Screen (NEGATIVE) U Benzodiazepines Scrn (NEGATIVE) Urine Cocaine Screen (NEGATIVE) U Marijuana (THC) Screen (NEGATIVE) Ethyl Alcohol mg/dL Ketones 12/27/19 12/27/19 12/27/19 Range/Units 01:24 03:25 03:42 WBC (5.0-10.0) 10^3/uL RBC (4.6-6.2) 10^6/uL Hgb (14.0-18.0) g/dL Hct (40.0-54.0) % MCV (80-100) fL MCH (27.0-34.0) pg MCHC (33.0-35.0) g/dL Plt Count (150-450) 10^3/uL Neut % (Auto) (42.2-75.2) % Lymph % (Auto) (20.5-50.1) % Walker % (Auto) (2-8) % Eos % (Auto) (1.0-3.0) % Baso % (Auto) (0.0-1.0) % Add Manual Diff Neutrophils % (Manual) (42-75) % Band Neutrophils % % Lymphocytes % (Manual) (20-50) % Monocytes % (Manual) (2-8) % Metamyelocytes % ABG pH (7.35-7.45) ABG pCO2 (35-45) mmHg ABG pO2 (70-100) mmHg ABG HCO3 (22-26) mmol/L ABG O2 Saturation (95-100) % ABG Base Excess ((-2)-(+3)) mmol/L Jeremy Test O2 Delivery Device Sodium (135-145) mmol/L Potassium (3.6-5.0) mmol/L Chloride (101-111) mmol/L Carbon Dioxide (21.0-31.0) mmol/L Anion Gap BUN (7-18) mg/dL Creatinine (0.6-1.3) mg/dL Est Cr Clr Drug Dosing mL/min Estimated GFR (MDRD) BUN/Creatinine Ratio Glucose (74-105) mg/dL POC Glucose 97 67 L (70-105) mg/dl Lactic Acid (0.5-2.0) mmol/L Calcium (8.4-10.2) mg/dl Phosphorus (2.5-4.6) mg/dL Magnesium (1.8-2.5) mg/dL Total Bilirubin (0.2-1.0) mg/dL AST (10-42) IU/L ALT (10-60) IU/L Alkaline Phosphatase (42-121) IU/L Troponin I (0.00-0.02) ng/ml B-Natriuretic Peptide (0-100) pg/ml Total Protein (6.7-8.2) g/dl Albumin (3.2-5.5) g/dl Globulin Albumin/Globulin Ratio Urine Color Yellow (YELLOW) Urine Appearance Slightly cloudy (CLEAR) Urine pH 5.5 (5.0-9.0) Ur Specific [place] 1.020 (1.005-1.030) Urine Protein Negative (NEGATIVE) Urine Glucose (UA) 500 H (NEGATIVE) Urine Ketones 40 H (NEGATIVE) Urine Occult Blood Negative (NEGATIVE) Urine Nitrite Negative (NEGATIVE) Urine Bilirubin Small H (NEGATIVE) Urine Urobilinogen 0.2 (0.2-1.0) mg/dL Ur Leukocyte Esterase Negative (NEGATIVE) Urine Opiates Screen (NEGATIVE) Ur Oxycodone Screen (NEGATIVE) Urine Methadone Screen (NEGATIVE) Ur Barbiturates Screen (NEGATIVE) U Tricyclic Antidepress (NEGATIVE) Ur Phencyclidine Scrn (NEGATIVE) Ur Amphetamine Screen (NEGATIVE) U Methamphetamines Scrn (NEGATIVE) Urine MDMA Screen (NEGATIVE) U Benzodiazepines Scrn (NEGATIVE) Urine Cocaine Screen (NEGATIVE) U Marijuana (THC) Screen (NEGATIVE) Ethyl Alcohol mg/dL Ketones 12/27/19 12/27/19 12/27/19 Range/Units 03:42 05:35 06:27 WBC (5.0-10.0) 10^3/uL RBC (4.6-6.2) 10^6/uL Hgb (14.0-18.0) g/dL Hct (40.0-54.0) % MCV (80-100) fL MCH (27.0-34.0) pg MCHC (33.0-35.0) g/dL Plt Count (150-450) 10^3/uL Neut % (Auto) (42.2-75.2) % Lymph % (Auto) (20.5-50.1) % [place] % (Auto) (2-8) % Eos % (Auto) (1.0-3.0) % Baso % (Auto) (0.0-1.0) % Add Manual Diff Neutrophils % (Manual) (42-75) % Band Neutrophils % % Lymphocytes % (Manual) (20-50) % Monocytes % (Manual) (2-8) % Metamyelocytes % ABG pH (7.35-7.45) ABG pCO2 (35-45) mmHg ABG pO2 (70-100) mmHg ABG HCO3 (22-26) mmol/L ABG O2 Saturation (95-100) % ABG Base Excess ((-2)-(+3)) mmol/L Jeremy Test O2 Delivery Device Sodium (135-145) mmol/L Potassium (3.6-5.0) mmol/L Chloride (101-111) mmol/L Carbon Dioxide (21.0-31.0) mmol/L Anion Gap BUN (7-18) mg/dL Creatinine (0.6-1.3) mg/dL Est Cr Clr Drug Dosing mL/min Estimated GFR (MDRD) BUN/Creatinine Ratio Glucose (74-105) mg/dL POC Glucose 153 H (70-105) mg/dl Lactic Acid (0.5-2.0) mmol/L Calcium (8.4-10.2) mg/dl Phosphorus 1.5 L (2.5-4.6) mg/dL Magnesium 1.7 L (1.8-2.5) mg/dL Total Bilirubin (0.2-1.0) mg/dL AST (10-42) IU/L ALT (10-60) IU/L Alkaline Phosphatase (42-121) IU/L Troponin I (0.00-0.02) ng/ml B-Natriuretic Peptide 16 (0-100) pg/ml Total Protein (6.7-8.2) g/dl Albumin (3.2-5.5) g/dl Globulin Albumin/Globulin Ratio Urine Color (YELLOW) Urine Appearance (CLEAR) Urine pH (5.0-9.0) Ur Specific [place] (1.005-1.030) Urine Protein (NEGATIVE) Urine Glucose (UA) (NEGATIVE) Urine Ketones (NEGATIVE) Urine Occult Blood (NEGATIVE) Urine Nitrite (NEGATIVE) Urine Bilirubin (NEGATIVE) Urine Urobilinogen (0.2-1.0) mg/dL Ur Leukocyte Esterase (NEGATIVE) Urine Opiates Screen Negative (NEGATIVE) Ur Oxycodone Screen Negative (NEGATIVE) Urine Methadone Screen Negative (NEGATIVE) Ur Barbiturates Screen Negative (NEGATIVE) U Tricyclic Antidepress Negative (NEGATIVE) Ur Phencyclidine Scrn Negative (NEGATIVE) Ur Amphetamine Screen Negative (NEGATIVE) U Methamphetamines Scrn Negative (NEGATIVE) Urine MDMA Screen Negative (NEGATIVE) U Benzodiazepines Scrn Negative (NEGATIVE) Urine Cocaine Screen Negative (NEGATIVE) U Marijuana (THC) Screen Negative (NEGATIVE) Ethyl Alcohol mg/dL Ketones 12/27/19 Range/Units 08:29 WBC (5.0-10.0) 10^3/uL RBC (4.6-6.2) 10^6/uL Hgb (14.0-18.0) g/dL Hct (40.0-54.0) % MCV (80-100) fL MCH (27.0-34.0) pg MCHC (33.0-35.0) g/dL Plt Count (150-450) 10^3/uL Neut % (Auto) (42.2-75.2) % Lymph % (Auto) (20.5-50.1) % [place] % (Auto) (2-8) % Eos % (Auto) (1.0-3.0) % Baso % (Auto) (0.0-1.0) % Add Manual Diff Neutrophils % (Manual) (42-75) % Band Neutrophils % % Lymphocytes % (Manual) (20-50) % Monocytes % (Manual) (2-8) % Metamyelocytes % ABG pH (7.35-7.45) ABG pCO2 (35-45) mmHg ABG pO2 (70-100) mmHg ABG HCO3 (22-26) mmol/L ABG O2 Saturation (95-100) % ABG Base Excess ((-2)-(+3)) mmol/L Jeremy Test O2 Delivery Device Sodium (135-145) mmol/L Potassium (3.6-5.0) mmol/L Chloride (101-111) mmol/L Carbon Dioxide (21.0-31.0) mmol/L Anion Gap BUN (7-18) mg/dL Creatinine (0.6-1.3) mg/dL Est Cr Clr Drug Dosing mL/min Estimated GFR (MDRD) BUN/Creatinine Ratio Glucose (74-105) mg/dL POC Glucose 175 H (70-105) mg/dl Lactic Acid (0.5-2.0) mmol/L Calcium (8.4-10.2) mg/dl Phosphorus (2.5-4.6) mg/dL Magnesium (1.8-2.5) mg/dL Total Bilirubin (0.2-1.0) mg/dL AST (10-42) IU/L ALT (10-60) IU/L Alkaline Phosphatase (42-121) IU/L Troponin I (0.00-0.02) ng/ml B-Natriuretic Peptide (0-100) pg/ml Total Protein (6.7-8.2) g/dl Albumin (3.2-5.5) g/dl Globulin Albumin/Globulin Ratio Urine Color (YELLOW) Urine Appearance (CLEAR) Urine pH (5.0-9.0) Ur Specific [place] (1.005-1.030) Urine Protein (NEGATIVE) Urine Glucose (UA) (NEGATIVE) Urine Ketones (NEGATIVE) Urine Occult Blood (NEGATIVE) Urine Nitrite (NEGATIVE) Urine Bilirubin (NEGATIVE) Urine Urobilinogen (0.2-1.0) mg/dL Ur Leukocyte Esterase (NEGATIVE) Urine Opiates Screen (NEGATIVE) Ur Oxycodone Screen (NEGATIVE) Urine Methadone Screen (NEGATIVE) Ur Barbiturates Screen (NEGATIVE) U Tricyclic Antidepress (NEGATIVE) Ur Phencyclidine Scrn (NEGATIVE) Ur Amphetamine Screen (NEGATIVE) U Methamphetamines Scrn (NEGATIVE) Urine MDMA Screen (NEGATIVE) U Benzodiazepines Scrn (NEGATIVE) Urine Cocaine Screen (NEGATIVE) U Marijuana (THC) Screen (NEGATIVE) Ethyl Alcohol mg/dL Ketones Med Orders - Current: Current Medications Acetaminophen (Tylenol) 650 mg PO Q4H PRN PRN Reason: Pain (Mild 1-3)/fever Albuterol (Proventil Neb Soln) 2.5 mg NEB Q2H PRN PRN Reason: shortness of breath/wheezing Aspirin (Aspirin) 162 mg PO DAILY [facility] Last Admin: 12/27/19 08:31 Dose: 162 mg Docusate Sodium (Colace) 100 mg PO BID PRN PRN Reason: Constipation Enoxaparin Sodium (Lovenox) 40 mg SUBCUT BEDTIME [facility] Last Admin: 12/26/19 21:02 Dose: 40 mg Insulin Human Regular 100 unit (/ Sodium Chloride) 100 mls @ 5.57 mls/hr IV TITRATE ANTONIA; Protocol Last Titration: 12/27/19 06:43 Dose: 0.05 units/kg/hr, 3 mls/hr Dextrose/Sodium Chloride (Dextrose 5%-1/2 Ns) 1,000 mls @ 250 mls/hr IV ASDIRECTED ANTONAI; Protocol Last Admin: 12/27/19 06:25 Dose: 250 mls/hr Potassium Chloride/Dextrose/Sod Cl (D5 1/2 Ns W/ 20 Meq/L Kcl) 1,000 mls @ 250 mls/hr IV ASDIRECTED ANTONIA; Protocol Potassium Chloride/Dextrose/Sod Cl (D5 1/2 Ns W/ 40 Meq/L Kcl) 1,000 mls @ 250 mls/hr IV ASDIRECTED ANTONIA; Protocol Sodium Chloride (Normal Saline) 1,000 mls @ 150 mls/hr IV ASDIRECTED ANTONIA Ondansetron HCl (Zofran Odt) 4 mg PO Q4H PRN PRN Reason: nausea, able to take PO Pregabalin (Lyrica) 150 mg PO BID ANTONIA Last Admin: 12/27/19 08:31 Dose: 150 mg Sodium Chloride (Saline Flush) 10 ml FLUSH ASDIRECTED PRN PRN Reason: Keep Vein Open Last Admin: 12/26/19 16:21 Dose: 10 ml Sodium Chloride (Saline Flush) 10 ml FLUSH ASDIRECTED PRN PRN Reason: Keep Vein Open Zolpidem Tartrate (Ambien) 5 mg PO BEDTIME PRN PRN Reason: Sleep Discontinued Medications Sodium Chloride (Normal Saline) 1,000 mls @ 999 mls/hr IV .BOLUS ONE Stop: 12/26/19 17:14 Last Infusion: 12/26/19 17:31 Dose: Infused Insulin Human Regular (Humulin R) 8 unit IV ONETIME ONE Stop: 12/26/19 16:15 Last Admin: 12/26/19 16:20 Dose: 8 units Insulin Human Regular (Humulin R) Confirm Administered Dose 300 unit .ROUTE .STK -MED ONE Stop: 12/27/19 02:20 Last Admin: 12/27/19 03:38 Dose: Not Given Potassium Chloride (Klor-Con 10) 40 meq PO ONETIME ONE Stop: 12/26/19 22:54 Last Admin: 12/26/19 23:06 Dose: 40 meq - Exam General: Alert, Oriented Lungs: Clear to Auscultation, Normal Respiratory Effort Cardiovascular: Regular Rate, Regular Rhythm GI/Abdominal Exam: Normal Bowel Sounds, Soft, Non-Tender Extremities: No Pedal Edema Skin: Warm, Dry, Intact Neurological: No New Focal Deficit Psy/Mental Status: Alert, Normal Affect, Normal Mood Sepsis Event Note - Evaluation Sepsis Screening Result: No Definite Risk - Focused Exam Vital Signs: Vital Signs Temp Pulse Resp BP Pulse Ox 12/27/19 07:52 37.3 C 93 18 117/70 91 L Date Exam was Performed: 12/27/19 Time Exam was Performed: 10:31 - Problem List Review Problem List Initiated/Reviewed/Updated: Yes - My Orders Last 24 Hours: My Active Orders 12/26/19 18:54 Communication Order [RC] ROUTINE 12/26/19 19:00 Sodium Chloride 0.9% [Normal Saline] 1,000 ml IV ASDIRECTED 12/27/19 00:02 Communication Order [RC] ROUTINE 12/27/19 06:31 Blood Glucose Check, Bedside [RC] Q2HR - Plan Plan:: Diabetic ketoacidosis AGMA Type 1 DM Patient presenting with BG >400, positive ketones and corrected anion gap of ~ 29. Misses his insulin meds. -We will transition patient today to subcutaneous insulin once dose of insulin is clarified with his pharmacy -Advance diet as tolerated -patient has 84 units levemir qHS at home, based on pharmacy report and 42 U novolog TID with meals -will start patient on levemir 40 U BID, monitor glucose Electrolyte abnormalities - Replace as needed Orthostatic hypotension Unsteady gait Positive orthostatics and gait imbalance likely due to dehydration and DKA. - Monitor with IVF Code Status: Full Prophylaxis: Lovenox
[2019-12-27] MEDS ORDERED: Magnesium Sulfate/D5W 2 GM in Premix Bag 1 BAG IV ONE (09:35)
[2019-12-27 10:01] LABS: ANION GAP 13.1; CHLORIDE,CL 103 mmol/L (101-111); SODIUM,NA 136 mmol/L (135-145)
[2019-12-27] MEDS: D5 1/2 NS w/ 20 mEq/L KCl 1,000 ML IV SCH ×3 (11:00→21:20)
[2019-12-27] MEDS: Insulin Glarg,Human.Rec.Analog 100 Unit/ML SUBCUT SCH ×2 (12:01→21:41)
[2019-12-27] MEDS: Phosphorus #1 250 MG Tab PO SCH ×4 (12:02→21:44)
[2019-12-27 13:42] LABS: ANION GAP 10.8; CHLORIDE,CL 101 mmol/L (101-111); SODIUM,NA 134 mmol/L (135-145)
[2019-12-27] MEDS: Insulin Lispro 100 Units/ML 3 ML Vial SUBCUT SCH ×3 (17:09→21:39)
[2019-12-27 17:56] LABS: ANION GAP 13.5; CHLORIDE,CL 96 mmol/L (101-111); SODIUM,NA 131 mmol/L (135-145)
[2019-12-27] MEDS: Enoxaparin 40 MG/0.4 ML Syringe SUBCUT SCH (21:45)
[2019-12-27 22:38] LABS: ANION GAP 12.3; CHLORIDE,CL 97 mmol/L (101-111); SODIUM,NA 131 mmol/L (135-145)
[2019-12-28] MEDS: D5 1/2 NS w/ 20 mEq/L KCl 1,000 ML IV SCH ×2 (01:29→05:38)
[2019-12-28 07:24] VITALS: BP 151/82; PULSE 81
[2019-12-28] MEDS: Insulin Glarg,Human.Rec.Analog 100 Unit/ML SUBCUT SCH (08:14)
[2019-12-28] MEDS: Insulin Lispro 100 Units/ML 3 ML Vial SUBCUT SCH ×2 (08:15→08:17)
[2019-12-28] MEDS: Phosphorus #1 250 MG Tab PO SCH (08:17)
[2019-12-28] MEDS: Aspirin 81 MG Tab.Chew PO SCH (08:17)
--- NOTE | 2019-12-28 09:46 | PCM.DCSUM1 ---
Discharge Summary - Hospital Course Free Text/Narrative:: 59 y.o male with a medical history of Type 1 DM, who presented with generalized weakness, headache and unsteady gait. Patient complains of feeling unwell with vague symptoms for at least 1 week. He was found to have DKA, and was successfully treated. Insulin regimen was being adjusted, however patient signed himself out AMA without being seen this morning. - Discharge Data Discharge Date: 12/28/19 Discharge Disposition: Against Medical Advice 07 Condition: Undetermined - Referral to Home Health Primary Care Physician: PCP Unobtainable - Discharge Plan *PRESCRIPTION DRUG MONITORING PROGRAM REVIEWED*: Not Applicable *COPY OF PRESCRIPTION DRUG MONITORING REPORT IN PATIENT RONALD: Not Applicable Home Medications: Home Meds Acetaminophen [Arthritis Pain Relief] 650 mg PO ASDIRECTED 12/24/14 [History] Aspirin [Vivienne Chewable Aspirin] 4 tab PO DAILY 12/24/14 [History] Insulin Glarg,Human.Rec.Analog [Lantus] 84 units SUBCUT BEDTIME 12/24/14 [ History] Insulin Lispro [HumaLOG] 50 units SUBCUT TID 12/24/14 [History] Gabapentin [Neurontin] 300 mg PO DAILY 12/26/19 [History] Forms: ED Department Discharge Referrals: PCP,Unobtain [Primary Care Provider] - - Discharge Summary/Plan Comment DC Time >30 min.: No - Patient Data Vitals - Most Recent: Last Vital Signs Temp 37.2 C 12/28/19 07:22 Pulse 81 12/28/19 07:22 Resp 16 12/28/19 07:22 BP 151/82 H 12/28/19 07:22 Pulse Ox 99 12/28/19 07:22 Orthostatic Blood Pressure [ 95/58 Standing] Orthostatic Blood Pressure [ 120/69 Sitting] Orthostatic Blood Pressure [ 132/71 Supine] Weight - Most Recent: 52.844 kg I&O - Last 24 hours: Intake & Output 12/27/19 12/28/19 12/28/19 22:59 06:59 14:59 Intake Total 1572 2558 200 Balance 1572 2558 200 Lab Results - Last 24 hrs: Laboratory Results - last 24 hr 12/27/19 12/27/19 12/27/19 Range/Units 05:35 10:44 12:46 Sodium 136 (135-145) mmol/L Potassium 4.1 (3.6-5.0) mmol/L Chloride 103 (101-111) mmol/L Carbon Dioxide 24.0 (21.0-31.0) mmol/L Anion Gap 13.1 BUN 16 (7-18) mg/dL Creatinine 0.7 (0.6-1.3) mg/dL Est Cr Clr Drug Dosing 85.98 mL/min Estimated GFR (MDRD) > 60 Glucose 140 H (74-105) mg/dL POC Glucose 163 H 165 H (70-105) mg/dl Calcium 8.2 L (8.4-10.2) mg/dl 12/27/19 12/27/19 12/27/19 Range/Units 13:14 14:05 16:07 Sodium 134 L (135-145) mmol/L Potassium 3.8 (3.6-5.0) mmol/L Chloride 101 (101-111) mmol/L Carbon Dioxide 26.0 (21.0-31.0) mmol/L Anion Gap 10.8 BUN 10 (7-18) mg/dL Creatinine 0.6 (0.6-1.3) mg/dL Est Cr Clr Drug Dosing 100.30 mL/min Estimated GFR (MDRD) > 60 Glucose 159 H (74-105) mg/dL POC Glucose 158 H 278 H (70-105) mg/dl Calcium 8.2 L (8.4-10.2) mg/dl 12/27/19 12/27/19 12/27/19 Range/Units 17:30 18:31 20:40 Sodium 131 L (135-145) mmol/L Potassium 4.5 (3.6-5.0) mmol/L Chloride 96 L (101-111) mmol/L Carbon Dioxide 26.0 (21.0-31.0) mmol/L Anion Gap 13.5 BUN 11 (7-18) mg/dL Creatinine 0.7 (0.6-1.3) mg/dL Est Cr Clr Drug Dosing 85.98 mL/min Estimated GFR (MDRD) > 60 Glucose 400 H (74-105) mg/dL POC Glucose 354 H 256 H (70-105) mg/dl Calcium 8.1 L (8.4-10.2) mg/dl 12/27/19 12/28/19 Range/Units 22:10 07:49 Sodium 131 L (135-145) mmol/L Potassium 4.3 (3.6-5.0) mmol/L Chloride 97 L (101-111) mmol/L Carbon Dioxide 26.0 (21.0-31.0) mmol/L Anion Gap 12.3 BUN 14 (7-18) mg/dL Creatinine 0.7 (0.6-1.3) mg/dL Est Cr Clr Drug Dosing 85.98 mL/min Estimated GFR (MDRD) > 60 Glucose 307 H (74-105) mg/dL POC Glucose 161 H (70-105) mg/dl Calcium 7.8 L (8.4-10.2) mg/dl LATOYA Results - Last 24 hrs: Microbiology 12/26/19 17:00 Aerobic Blood Culture - Preliminary Blood - Venous - Lab Draw NO GROWTH AFTER 1 DAY Anaerobic Blood Culture - Preliminary NO GROWTH AFTER 1 DAY 12/26/19 16:06 Aerobic Blood Culture - Preliminary Blood - Venous NO GROWTH AFTER 1 DAY Anaerobic Blood Culture - Preliminary NO GROWTH AFTER 1 DAY Med Orders - Current: Current Medications Acetaminophen (Tylenol) 650 mg PO Q4H PRN PRN Reason: Pain (Mild 1-3)/fever Last Admin: 12/27/19 23:48 Dose: 650 mg Albuterol (Proventil Neb Soln) 2.5 mg NEB Q2H PRN PRN Reason: shortness of breath/wheezing Aspirin (Aspirin) 162 mg PO DAILY ANTONIA Last Admin: 12/28/19 08:17 Dose: 162 mg Docusate Sodium (Colace) 100 mg PO BID PRN PRN Reason: Constipation Enoxaparin Sodium (Lovenox) 40 mg SUBCUT BEDTIME ANTONIA Last Admin: 12/27/19 21:45 Dose: 40 mg Insulin Human Regular 100 unit (/ Sodium Chloride) 100 mls @ 5.57 mls/hr IV TITRATE ANTONIA; Protocol Last Titration: 12/27/19 14:25 Dose: 0 units/kg/hr, 0 mls/hr Dextrose/Sodium Chloride (Dextrose 5%-1/2 Ns) 1,000 mls @ 250 mls/hr IV ASDIRECTED ANTONIA; Protocol Last Admin: 12/27/19 06:25 Dose: 250 mls/hr Potassium Chloride/Dextrose/Sod Cl (D5 1/2 Ns W/ 20 Meq/L Kcl) 1,000 mls @ 250 mls/hr IV ASDIRECTED [facility]; Protocol Last Admin: 12/28/19 05:38 Dose: 250 mls/hr Potassium Chloride/Dextrose/Sod Cl (D5 1/2 Ns W/ 40 Meq/L Kcl) 1,000 mls @ 250 mls/hr IV ASDIRECTED [facility]; Protocol Sodium Chloride (Normal Saline) 1,000 mls @ 150 mls/hr IV ASDIRECTED [facility] Insulin Glargine (Lantus) 40 unit SUBCUT BID [facility] Last Admin: 12/28/19 08:14 Dose: 40 unit Insulin Human Lispro (Humalog) 0 unit SUBCUT WITHMEALSANDBED [facility]; Protocol Last Admin: 12/28/19 08:15 Dose: 7 unit Insulin Human Lispro (Humalog) 15 unit SUBCUT TIDMEALS [facility] Last Admin: 12/28/19 08:17 Dose: 15 unit Ondansetron HCl (Zofran Odt) 4 mg PO Q4H PRN PRN Reason: nausea, able to take PO Pregabalin (Lyrica) 150 mg PO BID [facility] Last Admin: 12/28/19 08:17 Dose: 150 mg Sodium Chloride (Saline Flush) 10 ml FLUSH ASDIRECTED PRN PRN Reason: Keep Vein Open Last Admin: 12/26/19 16:21 Dose: 10 ml Sodium Chloride (Saline Flush) 10 ml FLUSH ASDIRECTED PRN PRN Reason: Keep Vein Open Sodium Phosphate (Neutra-Phos) 250 mg PO QID [facility] Last Admin: 12/28/19 08:17 Dose: 250 mg Zolpidem Tartrate (Ambien) 5 mg PO BEDTIME PRN PRN Reason: Sleep Discontinued Medications Sodium Chloride (Normal Saline) 1,000 mls @ 999 mls/hr IV .BOLUS ONE Stop: 12/26/19 17:14 Last Infusion: 12/26/19 17:31 Dose: Infused Magnesium Sulfate/Dextrose 2 (gm/ Premix) 200 mls @ 100 mls/hr IV ONETIME ONE Stop: 12/27/19 11:34 Last Infusion: 12/27/19 15:15 Dose: Infused Insulin Human Regular (Humulin R) 8 unit IV ONETIME ONE Stop: 12/26/19 16:15 Last Admin: 12/26/19 16:20 Dose: 8 units Insulin Human Regular (Humulin R) Confirm Administered Dose 300 unit .ROUTE .STK -MED ONE Stop: 12/27/19 02:20 Last Admin: 12/27/19 03:38 Dose: Not Given Potassium Chloride (Klor-Con 10) 40 meq PO ONETIME ONE Stop: 12/26/19 22:54 Last Admin: 12/26/19 23:06 Dose: 40 meq
== END 2019-12-28 09:35 | disposition left against medical advice (07) | DRG 639 ==
LOC: DL.ED 15:40 → DL.MS 17:17
PROVIDERS: ADMIT Internal Medicine; ATTEND Internal Medicine
DX: E10.10 Type 1 diabetes mellitus with ketoacidosis without coma (principal); E78.00 Pure hypercholesterolemia, unspecified; I10 Essential (primary) hypertension; H54.7 Unspecified visual loss; M19.90 Unspecified osteoarthritis, unspecified site; M54.9 Dorsalgia, unspecified; G89.29 Other chronic pain; E10.40 Type 1 diabetes mellitus with diabetic neuropathy, unspecified; E10.21 Type 1 diabetes mellitus with diabetic nephropathy; F17.210 Nicotine dependence, cigarettes, uncomplicated; I95.1 Orthostatic hypotension; R26.81 Unsteadiness on feet; E86.0 Dehydration; Z79.82 Long term (current) use of aspirin; Z79.899 Other long term (current) drug therapy
CPT/HCPCS: 36415; 36600; 71045; 80048; 80053; 80305-QW; 81003; 82009; 82803; 82962; 83605; 83735; 83880; 84100; 84484; 85025; 87040; 93005; 96360; 99285-25; A9270-GY; G0480; J1650; J1815; J1815-GY; J3475; J3480; J7030; J7042; J7050

== ENCOUNTER 2020-07-10 02:27 | Emergency (ER) | payer OTHER ==
[2020-07-10 02:39] VITALS: BP 128/73; PULSE 92
--- NOTE | 2020-07-10 02:41 | EDM.PDOC ---
ED HPI GENERAL MEDICAL PROBLEM - General Chief Complaint: Wound Recheck Stated Complaint: RIGHT FOOT INFECTED COUPLE DAYS Time Seen by Provider: 07/10/20 02:41 Source of Information: Reports: Patient, RN, RN Notes Reviewed History Limitations: Reports: No Limitations - History of Present Illness INITIAL COMMENTS - FREE TEXT/NARRATIVE: Patient presents to ER with complaint of diabetic ulcer to the right foot. States it has been there for a few months but bothered him as he got up to go to the bathroom this evening. Patient denies any fever chills. States he has been nauseated on and off but no vomiting or diarrhea. Patient states he checks his blood sugars 3 times a day and they have been running in the 500 range. Patient denies wearing diabetic shoes. Onset: Gradual Duration: Chronic, Constant, Getting Worse Location: Reports: Lower Extremity, Right - Related Data Allergies Allergy/AdvReac Type Severity Reaction Status Date / Time No Known Allergies Allergy Verified 07/10/20 02:36 Home Meds: Home Meds Acetaminophen [Arthritis Pain Relief] 1,300 mg PO Q8HR PRN 12/24/14 [History] Insulin Aspart [NovoLOG] 14 unit SUBCUT TIDMEALS 06/03/20 [History] Insulin Detemir [Levemir] 36 unit SUBCUT BEDTIME 06/03/20 [History] Pregabalin 150 mg PO ASDIRECTED 06/03/20 [History] atorvaSTATin [Lipitor] 10 mg PO BEDTIME 06/03/20 [History] Past Medical History HEENT History: Reports: Impaired Vision Cardiovascular History: Reports: High Cholesterol, Hypertension Respiratory History: Reports: None Gastrointestinal History: Reports: None Genitourinary History: Reports: Diabetic Nephropathy Musculoskeletal History: Reports: Arthritis, Back Pain, Chronic Neurological History: Reports: Neuropathy, Diabetic Psychiatric History: Reports: None Endocrine/Metabolic History: Reports: Diabetes, Type I, IDDM Hematologic History: Reports: None Immunologic History: Reports: None Oncologic (Cancer) History: Reports: None Dermatologic History: Reports: None - Infectious Disease History Infectious Disease History: Reports: Chicken Pox - Past Surgical History HEENT Surgical History: Reports: None Cardiovascular Surgical History: Reports: None Respiratory Surgical History: Reports: None GI Surgical History: Reports: Colonoscopy, Hernia, Inguinal Male Surgical History: Reports: None Endocrine Surgical History: Reports: None Neurological Surgical History: Reports: None Musculoskeletal Surgical History: Reports: None Oncologic Surgical History: Reports: None Social & Family History - Family History Family Medical History: Noncontributory - Caffeine Use Caffeine Use: Reports: None - Living Situation & Occupation Living situation: Reports: Single, Alone Occupation: Employed ED ROS GENERAL - Review of Systems Review Of Systems: Comprehensive ROS is negative, except as noted in HPI. ED EXAM, SKIN/RASH Exam: See Below Exam Limited By: No Limitations General Appearance: Alert, WD/WN, No Apparent Distress Eye Exam: Bilateral Eye: EOMI, Normal Inspection Ears: Normal External Exam, Hearing Grossly Normal Nose: Normal Inspection Throat/Mouth: Normal Inspection, Normal Voice, No Airway Compromise Head: Atraumatic, Normocephalic Neck: Normal Inspection, Supple, Non-Tender, Full Range of Motion Respiratory/Chest: No Respiratory Distress, No Accessory Muscle Use, Chest Non- Tender, Decreased Breath Sounds, Crackles (throughout) Cardiovascular: Normal Peripheral Pulses, Regular Rate, Rhythm, No Edema, No Gallop, No JVD, No Murmur, No Rub Peripheral Pulses: 2+: Radial (L), Radial (R), Dorsalis Pedis (L), Dorsalis Pedis (R) GI/Abdominal: Normal Bowel Sounds, Soft, Non-Tender, No Organomegaly, No Distention, No Abnormal Bruit, No Mass, Pelvis Stable (Male) Exam: Deferred Rectal (Males) Exam: Deferred Back Exam: Normal Inspection, Full Range of Motion, NT Extremities: Normal Inspection, Normal Range of Motion, Non-Tender, No Pedal Edema, Normal Capillary Refill Neurological: Alert, Oriented, CN II-XII Intact, Normal Cognition, Normal Gait, Normal Reflexes, No Motor/Sensory Deficits Psychiatric: Normal Affect, Normal Mood Skin: Warm, Dry, Wound/Incision (2cm x 4cm blackened spot to the right inner foot near the great toe, no drainage; small blackened area 0.5cm to the bottom of the right foot; calloused area, normal color, 2cm x 3cm to the inner left foot near the great toe) Location, Skin: Lower Extremity, Right, Lower Extremity, Left Characteristics: Bullous Associated features: Tenderness Lymphatic: No Adenopathy Course - Vital Signs Last Recorded V/S: Last Vital Signs Temp 97.6 F 07/10/20 02:36 Pulse 92 07/10/20 02:36 Resp 16 07/10/20 02:36 BP 128/73 07/10/20 02:36 Pulse Ox 96 07/10/20 02:36 - Orders/Labs/Meds Labs: Laboratory Tests 07/10/20 07/10/20 07/10/20 Range/Units 02:41 02:41 02:41 WBC 9.2 (5.0-10.0) 10^3/uL RBC 4.83 (4.6-6.2) 10^6/uL Hgb 14.3 (14.0-18.0) g/dL Hct 42.1 (40.0-54.0) % MCV 87.2 (80-100) fL MCH 29.6 (27.0-34.0) pg MCHC 34.0 (33.0-35.0) g/dL Plt Count 196 (150-450) 10^3/uL Neut % (Auto) 66.3 (42.2-75.2) % Lymph % (Auto) 17.1 L (20.5-50.1) % [place] % (Auto) 13.9 H (2-8) % Eos % (Auto) 2.3 (1.0-3.0) % Baso % (Auto) 0.4 (0.0-1.0) % Sodium 139 (136-145) mmol/L Potassium 4.5 (3.5-5.1) mmol/L Chloride 102 (98-107) mmol/L Carbon Dioxide 28 (21-32) mmol/L Anion Gap 13.5 H (7-13) mEq/L BUN 39 H (7-18) mg/dL Creatinine 1.50 H (0.70-1.30) mg/dL Est Cr Clr Drug Dosing 46.06 mL/min Estimated GFR (MDRD) 48 BUN/Creatinine Ratio 26.0 (No establ ref range) Glucose 216 H (74-99) mg/dL Lactic Acid 0.9 (0.4-2.0) mmol/L Calcium 8.5 (8.5-10.1) mg/dL Total Bilirubin 0.5 (0.2-1.0) mg/dL AST 18 (15-37) U/L ALT 25 (16-63) U/L Alkaline Phosphatase 109 (46-116) U/L Total Protein 7.2 (6.4-8.2) g/dL Albumin 3.7 (3.4-5.0) g/dL Globulin 3.5 Albumin/Globulin Ratio 1.1 Meds: Medications Discontinued Medications Generic Name Dose Route Start Last Admin Trade Name Tiffany PRN Reason Stop Dose Admin Sodium Chloride 1,000 mls @ 999 mls/hr 07/10/20 03:54 07/10/20 03:59 Normal Saline IV 07/10/20 04:54 999 mls/hr .BOLUS ONE Administration - Radiology Interpretation Free Text/Narrative:: Right foot xray: PROCEDURE INFORMATION: Exam: XR Right Foot Complete Exam date and time: 07/10/2020 3:23 AM Age: 60 years old Clinical indication: Pain; Foot; Bilateral; Additional info: Diabetic ulcers, R/O osteomyelitis TECHNIQUE: Imaging protocol: XR Right foot. Views: 3 or more views. COMPARISON: CR Foot 2V Rt 04/03/2016 8:30 PM FINDINGS: Bones/joints: No evidence for osteomyelitis by plain film. Consider MRI for further evaluation as indicated. Soft tissues: Soft tissue swelling surrounding the 1st metatarsal phalangeal joint. IMPRESSION: 1. No acute fracture or dislocation. 2. Soft tissue swelling surrounds the great toe metatarsal phalangeal joint. 3. No evidence for osteomyelitis by plain film. Consider MRI as indicated. Thank you for allowing us to participate in the care of your patient. Dictated and Authenticated by: Alexis Grant MD 07/10/2020 3:45 AM Central Time ([place] & [place]) Left foot xray: PROCEDURE INFORMATION: Exam: XR Left Foot Complete Exam date and time: 07/10/2020 3:25 AM Age: 60 years old Clinical indication: Pain; Foot; Bilateral; Additional info: Diabetic ulcers, R/O osteomyelitis TECHNIQUE: Imaging protocol: XR Left foot. Views: 3 or more views. COMPARISON: CR Foot 2V Lt 04/03/2016 8:33 PM FINDINGS: Bones/joints: Normal. Soft tissues: Normal. IMPRESSION: 1. No acute findings. 2. If there is clinical concern for osteomyelitis, MRI could be performed for further assessment. Thank you for allowing us to participate in the care of your patient. Dictated and Authenticated by: Alexis Grant MD 07/10/2020 3:47 AM Central Time ([place] & [place]) See rad report - Re-Assessments/Exams Free Text/Narrative Re-Assessment/Exam: 07/10/20 03:59 Discussed patient case with Dr. Chau who states the patient can receive fluids for dehydration in the ER and be discharged to follow up in the clinic for the wounds on his feet. Departure - Departure Time of Disposition: 05:08 Disposition: Home, Self-Care 01 Condition: Fair Clinical Impression: Dehydration, Neuropathy of both feet Diabetic ulcer of foot associated with diabetes mellitus due to underlying condition, limited to breakdown of skin Qualifiers: Diabetic foot ulcer location: midfoot Laterality: right Qualified Code(s): E08.621 - Diabetes mellitus due to underlying condition with foot ulcer DM (diabetes mellitus), type 2, uncontrolled Qualifiers: Glycemic state: with hyperglycemia Qualified Code(s): E11.65 - Type 2 diabetes mellitus with hyperglycemia - Discharge Information *PRESCRIPTION DRUG MONITORING PROGRAM REVIEWED*: No *COPY OF PRESCRIPTION DRUG MONITORING REPORT IN PATIENT RONALD: No Instructions: Diabetes Mellitus and Foot Care, Dehydration, Adult, [id number], Hyperglycemia, [id number] Referrals: PCP,None [Primary Care Provider] - Forms: ED Department Discharge Additional Instructions: Monitor your blood sugars and treat accordingly Follow up with Dr. Chau regarding dehydration and wounds to foot THIS WEEK. Sepsis Event Note (ED) - Evaluation Sepsis Screening Result: No Definite Risk
[2020-07-10 03:04] LABS: ANION GAP 13.5 mEq/L (7-13)
--- NOTE | 2020-07-10 03:46 | CR ---
PROCEDURE INFORMATION: Exam: XR Right Foot Complete Exam date and time: 07/10/2020 3:23 AM Age: 60 years old Clinical indication: Pain; Foot; Bilateral; Additional info: Diabetic ulcers, R/O osteomyelitis TECHNIQUE: Imaging protocol: XR Right foot. Views: 3 or more views. COMPARISON: CR Foot 2V Rt 04/03/2016 8:30 PM FINDINGS: Bones/joints: No evidence for osteomyelitis by plain film. Consider MRI for further evaluation as indicated. Soft tissues: Soft tissue swelling surrounding the 1st metatarsal phalangeal joint. IMPRESSION: 1. No acute fracture or dislocation. 2. Soft tissue swelling surrounds the great toe metatarsal phalangeal joint. 3. No evidence for osteomyelitis by plain film. Consider MRI as indicated.
--- NOTE | 2020-07-10 03:48 | CR ---
PROCEDURE INFORMATION: Exam: XR Left Foot Complete Exam date and time: 07/10/2020 3:25 AM Age: 60 years old Clinical indication: Pain; Foot; Bilateral; Additional info: Diabetic ulcers, R/O osteomyelitis TECHNIQUE: Imaging protocol: XR Left foot. Views: 3 or more views. COMPARISON: CR Foot 2V Lt 04/03/2016 8:33 PM FINDINGS: Bones/joints: Normal. Soft tissues: Normal. IMPRESSION: 1. No acute findings. 2. If there is clinical concern for osteomyelitis, MRI could be performed for further assessment.
[2020-07-10] MEDS ORDERED: Sodium Chloride 0.9% 1,000 ML IV ONE (03:54)
== END 2020-07-10 04:57 | disposition home or self-care (01) ==
LOC: DL.ED 02:27
DX: E08.621 Diabetes mellitus due to underlying condition with foot ulcer (principal); L97.511 Non-pressure chronic ulcer of other part of right foot limited to breakdown of skin; E86.0 Dehydration; I10 Essential (primary) hypertension; Z79.899 Other long term (current) drug therapy
CPT/HCPCS: 36415; 73630; 80053; 83605; 85025; 87040; 96360; 99283; J7030

== ENCOUNTER 2020-10-15 18:33 | Emergency (ER) | payer OTHER ==
[2020-10-15 18:42] VITALS: BP 136/75; PULSE 88
--- NOTE | 2020-10-15 18:56 | EDM.PDOC ---
ED HPI GENERAL MEDICAL PROBLEM - General Chief Complaint: Lower Extremity Injury/Pain Stated Complaint: RIGHT FOOT BOTTOM, ULCER, NEED Time Seen by Provider: 10/15/20 18:56 Source of Information: Reports: Patient, RN, RN Notes Reviewed History Limitations: Reports: No Limitations - History of Present Illness INITIAL COMMENTS - FREE TEXT/NARRATIVE: 60 year old male presents to the ER with request to have dressing changed on his right foot. States he had surgery on the diabetic ulcer in August. States he was seen in [place] by wound management. He states he has been keeping the area clean and that he does not have any dressings at home. States he has not been having any problems, just needed his dressing change. Onset: Gradual Right Foot Pain Score (Numeric/FACES): 3 - Related Data Allergies Allergy/AdvReac Type Severity Reaction Status Date / Time No Known Allergies Allergy Verified 07/10/20 02:36 Home Meds: Home Meds Acetaminophen [Arthritis Pain Relief] 1,300 mg PO Q8HR PRN 12/24/14 [History] Insulin Aspart [NovoLOG] 14 unit SUBCUT TIDMEALS 06/03/20 [History] Insulin Detemir [Levemir] 36 unit SUBCUT BEDTIME 06/03/20 [History] Pregabalin 150 mg PO ASDIRECTED 06/03/20 [History] atorvaSTATin [Lipitor] 10 mg PO BEDTIME 06/03/20 [History] Past Medical History HEENT History: Reports: Impaired Vision Cardiovascular History: Reports: High Cholesterol, Hypertension Respiratory History: Reports: None Gastrointestinal History: Reports: None Genitourinary History: Reports: Diabetic Nephropathy Musculoskeletal History: Reports: Arthritis, Back Pain, Chronic Neurological History: Reports: Neuropathy, Diabetic Psychiatric History: Reports: None Endocrine/Metabolic History: Reports: Diabetes, Type I, IDDM Hematologic History: Reports: None Immunologic History: Reports: None Oncologic (Cancer) History: Reports: None Dermatologic History: Reports: None - Infectious Disease History Infectious Disease History: Reports: Chicken Pox - Past Surgical History HEENT Surgical History: Reports: None Cardiovascular Surgical History: Reports: None Respiratory Surgical History: Reports: None GI Surgical History: Reports: Colonoscopy, Hernia, Inguinal Male Surgical History: Reports: None Endocrine Surgical History: Reports: None Neurological Surgical History: Reports: None Musculoskeletal Surgical History: Reports: None Oncologic Surgical History: Reports: None Social & Family History - Family History Family Medical History: No Pertinent Family History - Tobacco Use Tobacco Use Status *Q: Current Every Day Tobacco User Years of Tobacco use: 30 Packs/Tins Daily: 0.5 Second Hand Smoke Exposure: Yes - Caffeine Use Caffeine Use: Reports: None - Recreational Drug Use Recreational Drug Use: No - Living Situation & Occupation Living situation: Reports: Single, Alone Occupation: Employed Review of Systems - Review of Systems Review Of Systems: Comprehensive ROS is negative, except as noted in HPI. ED EXAM, GENERAL - Physical Exam Exam: See Below Exam Limited By: No Limitations General Appearance: Alert, WD/WN, No Apparent Distress Eye Exam: Bilateral Eye: EOMI, Normal Inspection Ears: Normal External Exam, Hearing Grossly Normal Nose: Normal Inspection Throat/Mouth: Normal Inspection, Normal Voice, No Airway Compromise Head: Atraumatic, Normocephalic Neck: Normal Inspection, Supple, Non-Tender, Full Range of Motion Respiratory/Chest: No Respiratory Distress, No Accessory Muscle Use, Chest Non- Tender, Crackles (bases bilaterally) Cardiovascular: Normal Peripheral Pulses, Regular Rate, Rhythm, No Edema, No Gallop, No JVD, No Murmur, No Rub Peripheral Pulses: 2+: Radial (L), Radial (R), Dorsalis Pedis (L), Dorsalis Pedis (R) GI/Abdominal: Normal Bowel Sounds, Soft, Non-Tender (Male) Exam: Deferred Rectal (Males) Exam: Deferred Back Exam: Normal Inspection, Full Range of Motion, NT Extremities: Normal Inspection, Normal Range of Motion, Non-Tender, Normal Capillary Refill, No Pedal Edema Neurological: Alert, Oriented, CN II-XII Intact, Normal Cognition, Normal Gait, Normal Reflexes, No Motor/Sensory Deficits Psychiatric: Normal Affect, Normal Mood Skin Exam: Other (diabetic ulcer to the right foot, dorsal at the ball of the foot, 2cm x 3cm, no drainage) Lymphatic: No Adenopathy Course - Vital Signs Last Recorded V/S: Last Vital Signs Temp 97.8 F 10/15/20 18:37 Pulse 88 10/15/20 18:37 Resp 18 10/15/20 18:37 BP 136/75 10/15/20 18:37 Pulse Ox 100 10/15/20 18:37 Departure - Departure Time of Disposition: 19:19 Disposition: Home, Self-Care 01 Condition: Good Clinical Impression: Encounter for change of dressing Diabetic ulcer of right foot Qualifiers: Diabetic foot ulcer location: unspecified part of foot Diabetes mellitus type: type 2 Non-pressure ulcer stage: with muscle involvement without evidence of necrosis Qualified Code(s): E11.621 - Type 2 diabetes mellitus with foot ulcer - Discharge Information *PRESCRIPTION DRUG MONITORING PROGRAM REVIEWED*: No *COPY OF PRESCRIPTION DRUG MONITORING REPORT IN PATIENT RONALD: No Instructions: How to Change Your Wound Dressing, [id number] Forms: ED Department Discharge Additional Instructions: Get dressings at [facility] tomorrow Follow up with wound care management Keep area clean Sepsis Event Note (ED) - Evaluation Sepsis Screening Result: No Definite Risk - Focused Exam Vital Signs: Vital Signs Temp Pulse Resp BP Pulse Ox 10/15/20 18:37 97.8 F 88 18 136/75 100
== END 2020-10-15 19:24 | disposition home or self-care (01) ==
LOC: DL.ED 18:33
DX: E13.621 Other specified diabetes mellitus with foot ulcer (principal); L97.519 Non-pressure chronic ulcer of other part of right foot with unspecified severity; I10 Essential (primary) hypertension; E78.00 Pure hypercholesterolemia, unspecified; E13.40 Other specified diabetes mellitus with diabetic neuropathy, unspecified; E13.21 Other specified diabetes mellitus with diabetic nephropathy; F17.210 Nicotine dependence, cigarettes, uncomplicated; Z79.899 Other long term (current) drug therapy
CPT/HCPCS: 99282

== ENCOUNTER 2020-12-22 17:52 | Emergency (ER) | payer OTHER ==
[2020-12-22 18:09] VITALS: BP 150/77; PULSE 95
--- NOTE | 2020-12-22 18:34 | EDM.PDOC ---
ED HPI GENERAL MEDICAL PROBLEM - General Chief Complaint: Lower Extremity Injury/Pain Stated Complaint: LEFT FOOT BLACK SPOT ON FOOT Time Seen by Provider: 12/22/20 18:20 Source of Information: Reports: Patient, Old Records, RN, RN Notes Reviewed History Limitations: Reports: No Limitations - History of Present Illness INITIAL COMMENTS - FREE TEXT/NARRATIVE: Patient presents to the ED via personal vehicle with complaints of wound to his left great toe. The patient reports he first noted the wound approximately two weeks ago to the distal aspect of his left great toe. He feels the wound has progressed in severity over two weeks which caused him to present today. He rates the pain to the digit as a 4/10; he has been utilizing Tylenol Arthritis for analgesia. He attests to a history of DM for which he is prescribed Levemir and NovoLog; he notes his blood sugars typically run between 200-400. The patient reports he follows with Dr. Arroyo for a history of osteomyelitis in his right foot. He states he underwent surgical debridement of the wound to his right foot in August of 2020. He denies fever, shaking chills, palpitations, nausea, vomiting, or diarrhea. He attests to smoking two pack of cigarettes per day. He denies alcohol or recreational drug use. Left Feet Pain Score (Numeric/FACES): 4 - Related Data Allergies Allergy/AdvReac Type Severity Reaction Status Date / Time No Known Allergies Allergy Verified 12/22/20 18:11 Home Meds: Home Meds Acetaminophen [Arthritis Pain Relief] 1,300 mg PO Q8HR PRN 12/24/14 [History] Insulin Aspart [NovoLOG] 10 unit SUBCUT TIDMEALS 06/03/20 [History] Insulin Detemir [Levemir] 25 unit SUBCUT BEDTIME 06/03/20 [History] atorvaSTATin [Lipitor] 10 mg PO BEDTIME 06/03/20 [History] Gabapentin [Neurontin] 150 mg PO TID 12/22/20 [History] Past Medical History HEENT History: Reports: Impaired Vision Cardiovascular History: Reports: High Cholesterol, Hypertension Respiratory History: Reports: None Gastrointestinal History: Reports: None Genitourinary History: Reports: Diabetic Nephropathy Musculoskeletal History: Reports: Arthritis, Back Pain, Chronic Neurological History: Reports: Neuropathy, Diabetic Psychiatric History: Reports: None Endocrine/Metabolic History: Reports: Diabetes, Type I, IDDM Hematologic History: Reports: None Immunologic History: Reports: None Oncologic (Cancer) History: Reports: None Dermatologic History: Reports: None - Infectious Disease History Infectious Disease History: Reports: Chicken Pox - Past Surgical History Head Surgeries/Procedures: Reports: None HEENT Surgical History: Reports: None Cardiovascular Surgical History: Reports: None Respiratory Surgical History: Reports: None GI Surgical History: Reports: Colonoscopy, Hernia, Inguinal Male Surgical History: Reports: None Endocrine Surgical History: Reports: None Neurological Surgical History: Reports: None Musculoskeletal Surgical History: Reports: None Oncologic Surgical History: Reports: None Social & Family History - Family History Family Medical History: No Pertinent Family History - Tobacco Use Tobacco Use Status *Q: Current Every Day Tobacco User Years of Tobacco use: 30 Packs/Tins Daily: 2 Second Hand Smoke Exposure: No - Caffeine Use Caffeine Use: Reports: Coffee - Recreational Drug Use Recreational Drug Use: No - Living Situation & Occupation Living situation: Reports: Single, Alone Occupation: Employed Review of Systems - Review of Systems Review Of Systems: Comprehensive ROS is negative, except as noted in HPI. ED EXAM, GENERAL - Physical Exam Exam: See Below Exam Limited By: No Limitations General Appearance: Alert, No Apparent Distress Throat/Mouth: Normal Inspection, Normal Voice, No Airway Compromise Respiratory/Chest: No Respiratory Distress, Lungs Clear, Normal Breath Sounds, No Accessory Muscle Use, Chest Non-Tender Cardiovascular: Normal Peripheral Pulses, Regular Rate, Rhythm, No Edema, No Gallop, No JVD, No Murmur, No Rub Peripheral Pulses: 1+: Posterior Tibial (L), Posterior Tibial (R), Dorsalis Pedis (L), Dorsalis Pedis (R), 2+: Radial (L), Radial (R) Extremities: Slow Capillary Refill (To left), Joint Swelling (To wound on left great toe), Leg Pain (To wound on left great toe), Limited Range of Motion (To digits of left foot), Increased Warmth (To wound on left great toe), Redness (Surrounding wound on left great toe) Neurological: Alert, Oriented, CN II-XII Intact, Normal Cognition, Normal Gait, No Motor/Sensory Deficits Psychiatric: Normal Affect, Normal Mood Skin Exam: Warm, Erythema (Surrounding wound to left great toe), Wound/Incision (Large black, eschar diffuse to distal aspect of left great toe; Small closed black discoloration at base of posterior left third toe). No: Ecchymosis, Jaundice, Petechiae Course - Vital Signs Last Recorded V/S: Last Vital Signs Temp 98 F 12/22/20 18:08 Pulse 95 12/22/20 18:08 Resp 18 12/22/20 18:08 BP 150/77 H 12/22/20 18:08 Pulse Ox 97 12/22/20 18:08 - Orders/Labs/Meds Orders: Active Orders 24 hr Category Date Time Status Dextrose 50% in Water Med 12/22/20 19:43 Active 50 ml IV ASDIRECTED PRN Glucagon,Human Recombinant [GlucaGen] Med 12/22/20 19:43 Active 1 mg IM ASDIRECTED PRN Medication Orders Dextrose/Water (Dextrose 50% In Water) 50 ml IV ASDIRECTED PRN PRN Reason: Hypoglycemia Glucagon (Glucagen) 1 mg IM ASDIRECTED PRN PRN Reason: Hypoglycemia Labs: Laboratory Tests 12/22/20 12/22/20 12/22/20 Range/Units 18:56 18:56 18:56 WBC 8.2 (5.0-10.0) 10^3/uL RBC 4.69 (4.6-6.2) 10^6/uL Hgb 13.5 L (14.0-18.0) g/dL Hct 39.6 L (40.0-54.0) % MCV 84.4 (80-100) fL MCH 28.8 (27.0-34.0) pg MCHC 34.1 (33.0-35.0) g/dL Plt Count 226 (150-450) 10^3/uL Neut % (Auto) 74.9 (42.2-75.2) % Lymph % (Auto) 13.9 L (20.5-50.1) % [place] % (Auto) 9.5 H (2-8) % Eos % (Auto) 1.5 (1.0-3.0) % Baso % (Auto) 0.2 (0.0-1.0) % ESR 53 H (0-15) mm/hr Sodium 134 L (136-145) mmol/L Potassium 5.2 H (3.5-5.1) mmol/L Chloride 98 (98-107) mmol/L Carbon Dioxide 32 (21-32) mmol/L Anion Gap 9.2 (7-13) mEq/L BUN 42 H (7-18) mg/dL Creatinine 1.32 H (0.70-1.30) mg/dL Est Cr Clr Drug Dosing 52.81 mL/min Estimated GFR (MDRD) 56 BUN/Creatinine Ratio 31.8 (No establ ref range) Glucose 511 H* (74-99) mg/dL Lactic Acid 1.2 (0.4-2.0) mmol/L Calcium 9.6 (8.5-10.1) mg/dL Total Bilirubin 0.2 (0.2-1.0) mg/dL AST 9 L (15-37) U/L ALT 17 (16-63) U/L Alkaline Phosphatase 146 H (46-116) U/L C-Reactive Protein 5.5 H (0.0-0.9) mg/dL Total Protein 6.8 (6.4-8.2) g/dL Albumin 3.1 L (3.4-5.0) g/dL Globulin 3.7 Albumin/Globulin Ratio 0.84 Meds: Medications Generic Name Dose Route Start Last Admin Trade Name Freq PRN Reason Stop Dose Admin Dextrose/Water 50 ml 12/22/20 19:43 Dextrose 50% In Water IV ASDIRECTED PRN Hypoglycemia Glucagon 1 mg 12/22/20 19:43 Glucagen IM ASDIRECTED PRN Hypoglycemia Discontinued Medications Generic Name Dose Route Start Last Admin Trade Name Freq PRN Reason Stop Dose Admin Clindamycin HCl 300 mg 12/22/20 19:48 12/22/20 20:10 Cleocin PO 12/22/20 19:49 300 mg ONETIME ONE Administration Sodium Chloride 1,000 mls @ 999 mls/hr 12/22/20 19:44 12/22/20 20:11 Normal Saline IV 12/22/20 20:44 999 mls/hr .BOLUS ONE Administration Insulin Human Lispro 5 unit 12/22/20 19:43 12/22/20 20:11 Humalog SUBCUT 12/22/20 19:44 5 unit ONETIME ONE Administration - Re-Assessments/Exams Free Text/Narrative Re-Assessment/Exam: 12/22/20 CMP remarkable for blood sugar of 511, elevated creatinine at 1.32, BUN 43, Na mildly reduced at 134, and K slightly elevated at 5.2; Anion Gap appropriate with no lactic acidosis. CRP 5.5 and ESR 53, both elevated. Will treat elevated blood sugar with Humalog 5 units and NS 1L bolus. Will recheck BMP post-treatment. CMC unremarkable for acute processes; no left shift. Xray unremarkable for osteomyelitis. Given patient is already established with Dr. Arroyo, for podiatry, will refer patient back to Dr. Arroyo for further evaluation and treatment of this wound. Will empirically treat wound with clindamycin PO here and provide prescription for outpatient management. Following completion of IV fluids patient left facility AMA. No recheck of lab values were able to be drawn. Patient did receive PO dose of Clindamycin 300mg, Humalog 5units, and NS 1L bolus prior to leaving. Departure - Departure Time of Disposition: 20:56 Disposition: Against Medical Advice 07 Condition: Good Clinical Impression: Hyperglycemia, Diabetic infection of left foot, Hyperkalemia, Left against medical advice DM (diabetes mellitus), type 2, uncontrolled Qualifiers: Glycemic state: with hyperglycemia Qualified Code(s): E11.65 - Type 2 diabetes mellitus with hyperglycemia - Discharge Information Forms: ED Department Discharge Additional Instructions: Rx: Clindamycin 1.) Take all of your antibiotic pills until they are gone. 2.) Follow up with Dr. Arroyo in podiatry for ongoing management of new wound to left great toe. 3.) Return to your primary care provider, or to the emergency room, with any fever, shaking chills, or pain to the wound that does not improve with pain medication. 4.) You may take acetaminophen (Tylenol) 650mg every four hours, as pain persists. Sepsis Event Note (ED) - Evaluation Sepsis Screening Result: No Definite Risk - Focused Exam Vital Signs: Vital Signs Temp Pulse Resp BP Pulse Ox 12/22/20 18:08 98 F 95 18 150/77 H 97 - My Orders Last 24 Hours: My Active Orders 12/22/20 19:43 Dextrose 50% in Water 50 ml IV ASDIRECTED PRN Glucagon,Human Recombinant [GlucaGen] 1 mg IM ASDIRECTED PRN - Assessment/Plan Last 24 Hours: My Active Orders 12/22/20 19:43 Dextrose 50% in Water 50 ml IV ASDIRECTED PRN Glucagon,Human Recombinant [GlucaGen] 1 mg IM ASDIRECTED PRN
--- NOTE | 2020-12-22 18:56 | CR ---
PROCEDURE INFORMATION: Exam: XR Left Foot Complete Exam date and time: 12/22/2020 6:41 PM Age: 60 years old Clinical indication: Other: 1st and 3rd toe; Additional info: Large black eschar to distal great toe TECHNIQUE: Imaging protocol: XR Left foot. Views: 3 or more views. COMPARISON: No relevant prior studies available. FINDINGS: Bones/joints: No bony erosions or osteolytic changes. No acute fracture. No malalignment.. Soft tissues: No soft tissue gas or foreign body.. IMPRESSION: 1. No soft tissue gas or foreign body. 2. No bony erosions or destructive osteolytic features.
[2020-12-22 19:34] LABS: ANION GAP 9.2 mEq/L (7-13)
[2020-12-22] MEDS ORDERED: 50% Dextrose in Water 50 ML Syringe IV PRN (19:43)
[2020-12-22] MEDS ORDERED: Glucagon,Human Recombinant 1 MG Vial IM PRN (19:43)
[2020-12-22] MEDS ORDERED: Insulin Lispro 100 Units/ML 3 ML Vial SUBCUT ONE (19:43)
[2020-12-22] MEDS ORDERED: Sodium Chloride 0.9% 1,000 ML IV ONE (19:44)
[2020-12-22] MEDS ORDERED: Clindamycin HCl 150 MG Cap PO ONE (19:48)
== END 2020-12-22 20:56 | disposition left against medical advice (07) ==
LOC: DL.ED 17:52
DX: E13.628 Other specified diabetes mellitus with other skin complications (principal); S91.102A Unspecified open wound of left great toe without damage to nail, initial encounter; L08.9 Local infection of the skin and subcutaneous tissue, unspecified; E13.65 Other specified diabetes mellitus with hyperglycemia; E87.5 Hyperkalemia; R79.89 Other specified abnormal findings of blood chemistry; E13.51 Other specified diabetes mellitus with diabetic peripheral angiopathy without gangrene; E13.40 Other specified diabetes mellitus with diabetic neuropathy, unspecified; I10 Essential (primary) hypertension; E78.00 Pure hypercholesterolemia, unspecified; Z72.0 Tobacco use; Z79.899 Other long term (current) drug therapy
CPT/HCPCS: 36415; 73630; 80053; 83605; 85025; 85651; 86140; 99285; A9270; J1815; J7030

== ENCOUNTER 2020-12-31 08:26 | Emergency (ER) | payer OTHER ==
--- NOTE | 2020-12-31 08:31 | EDM.PDOC ---
ED HPI GENERAL MEDICAL PROBLEM - General Chief Complaint: General Stated Complaint: COVID SYMPTOMS Time Seen by Provider: 12/31/20 08:31 Source of Information: Reports: Patient, Old Records, RN, RN Notes Reviewed History Limitations: Reports: No Limitations - History of Present Illness INITIAL COMMENTS - FREE TEXT/NARRATIVE: Pt presents to ER from home by POV with c/o that he has been vomiting for two days, he also complains of chills, sore throat, generalized body aches, and a non-productive cough. He has not measured his temperature, and isn't sure if he has had a fever or not. Denies abdominal pain, dysuria, flank pain, or diarrhea. Pt is worried that he could have COVID. Onset: Gradual Duration: Day(s): (2) Location: Reports: Generalized Severity: Moderate Improves with: Reports: None Worsens with: Reports: None Associated Symptoms: Reports: No Other Symptoms Generalized Pain Score (Numeric/FACES): 8 - Related Data Allergies Allergy/AdvReac Type Severity Reaction Status Date / Time No Known Allergies Allergy Verified 12/31/20 08:39 Home Meds: Home Meds Acetaminophen [Arthritis Pain Relief] 1,300 mg PO Q8HR PRN 12/24/14 [History] Insulin Aspart [NovoLOG] 10 unit SUBCUT TIDMEALS 06/03/20 [History] Insulin Detemir [Levemir] 25 unit SUBCUT BEDTIME 06/03/20 [History] atorvaSTATin [Lipitor] 10 mg PO BEDTIME 06/03/20 [History] Gabapentin [Neurontin] 150 mg PO TID 12/22/20 [History] Past Medical History HEENT History: Reports: Impaired Vision Cardiovascular History: Reports: High Cholesterol, Hypertension Respiratory History: Reports: None Gastrointestinal History: Reports: None Genitourinary History: Reports: Diabetic Nephropathy Musculoskeletal History: Reports: Arthritis, Back Pain, Chronic Neurological History: Reports: Neuropathy, Diabetic Psychiatric History: Reports: None Endocrine/Metabolic History: Reports: Diabetes, Type I, IDDM Hematologic History: Reports: None Immunologic History: Reports: None Oncologic (Cancer) History: Reports: None Dermatologic History: Reports: None - Infectious Disease History Infectious Disease History: Reports: Chicken Pox - Past Surgical History Head Surgeries/Procedures: Reports: None HEENT Surgical History: Reports: None Cardiovascular Surgical History: Reports: None Respiratory Surgical History: Reports: None GI Surgical History: Reports: Colonoscopy, Hernia, Inguinal Male Surgical History: Reports: None Endocrine Surgical History: Reports: None Neurological Surgical History: Reports: None Musculoskeletal Surgical History: Reports: None Oncologic Surgical History: Reports: None Social & Family History - Family History Family Medical History: No Pertinent Family History - Tobacco Use Tobacco Use Status *Q: Heavy Tobacco User Tobacco Use Within Last Twelve Months: Cigarettes Years of Tobacco use: 44 Packs/Tins Daily: 2.5 Smoking Cessation Information Provided To Patient: Patient Refused - Caffeine Use Caffeine Use: Reports: Coffee - Living Situation & Occupation Living situation: Reports: Single, Alone Occupation: Employed ED ROS GENERAL - Review of Systems Review Of Systems: Comprehensive ROS is negative, except as noted in HPI. ED EXAM, GENERAL - Physical Exam Exam: See Below Exam Limited By: No Limitations General Appearance: Alert, No Apparent Distress, Thin Eye Exam: Bilateral Eye: Normal Inspection (No scleral icterus) Ears: Normal External Exam, Normal Canal, Hearing Grossly Normal, Normal TMs Nose: Normal Inspection, Normal Mucosa, No Blood Throat/Mouth: Normal Lips, Normal Oropharynx, Normal Voice, No Airway Compromise, Other (Very dry oral mucosa) Head: Atraumatic, Normocephalic Neck: Normal Inspection, Supple, Non-Tender, Full Range of Motion. No: Lymphadenopathy (L), Lymphadenopathy (R) Respiratory/Chest: No Respiratory Distress, No Accessory Muscle Use, Chest Non-Tender, Decreased Breath Sounds, Crackles (Coarse breath sounds throughout). No: Rales, Rhonchi, Wheezing, Stridor Cardiovascular: Regular Rate, Rhythm, No Edema, Tachycardia GI/Abdominal: Normal Bowel Sounds, Soft, No Organomegaly, No Distention, No Abnormal Bruit, No Mass, Tender (Mild epigastric tenderness) (Male) Exam: Deferred Rectal (Males) Exam: Deferred Back Exam: Normal Inspection, Full Range of Motion. No: CVA Tenderness (L), CVA Tenderness (R), Vertebral Tenderness Extremities: Normal Inspection, Normal Range of Motion, Non-Tender, Normal Capillary Refill, No Pedal Edema Neurological: Alert, Oriented, CN II-XII Intact, Normal Cognition, Normal Gait, No Motor/Sensory Deficits Psychiatric: Normal Affect, Normal Mood Skin Exam: Warm, Dry, Intact, Normal Color, No Rash Course - Vital Signs Last Recorded V/S: Last Vital Signs Temp 98.2 F 12/31/20 08:39 Pulse 111 H 12/31/20 08:39 Resp 16 12/31/20 08:39 BP 110/63 12/31/20 08:39 Pulse Ox 98 12/31/20 08:39 - Orders/Labs/Meds Orders: Active Orders 24 hr Category Date Time Status Blood Glucose Check, Bedside [] ONETIME Care 12/31/20 09:29 Active Blood Glucose Check, Bedside [] ONETIME Care 12/31/20 10:27 Active Blood Glucose Check, Bedside [] ONETIME Care 12/31/20 11:07 Active Peripheral IV Care [] . DIRECTED Care 12/31/20 09:31 Active CULTURE BLOOD [] Stat Lab 12/31/20 09:42 Received CULTURE STREP A CONFIRMATION [] Stat Lab 12/31/20 08:31 Results STREP SCRN A RAPID W CULT CONF [] Stat Lab 12/31/20 08:31 Results UA RFX LATOYA AND CULT IF INDIC [URIN] Stat Lab 12/31/20 09:30 Ordered Sodium Chloride 0.9% [Normal Saline] 1,000 ml Med 12/31/20 10:26 Active IV .BOLUS Sodium Chloride 0.9% [Saline Flush] Med 12/31/20 09:31 Active 10 ml FLUSH ASDIRECTED PRN Peripheral IV Insertion Adult [OM.PC] Stat Oth 12/31/20 09:30 Ordered Medication Orders Sodium Chloride (Normal Saline) 1,000 mls @ 999 mls/hr IV .BOLUS ONE Stop: 12/31/20 11:26 Last Admin: 12/31/20 10:34 Dose: 999 mls/hr Documented by: MARIN Sodium Chloride (Saline Flush) 10 ml FLUSH ASDIRECTED PRN PRN Reason: Keep Vein Open Last Admin: 12/31/20 09:46 Dose: 10 ml Documented by: MARIN Labs: Laboratory Tests 12/31/20 12/31/20 12/31/20 Range/Units 08:31 09:39 09:42 WBC 8.3 (5.0-10.0) 10^3/uL RBC 4.87 (4.6-6.2) 10^6/uL Hgb 13.9 L (14.0-18.0) g/dL Hct 41.1 (40.0-54.0) % MCV 84.4 (80-100) fL MCH 28.5 (27.0-34.0) pg MCHC 33.8 (33.0-35.0) g/dL Plt Count 277 (150-450) 10^3/uL Neut % (Auto) 86.3 H (42.2-75.2) % Lymph % (Auto) 4.7 L (20.5-50.1) % [place] % (Auto) 8.8 H (2-8) % Eos % (Auto) 0.0 L (1.0-3.0) % Baso % (Auto) 0.2 (0.0-1.0) % ABG pH (7.35-7.45) ABG pCO2 (35-45) mmHg ABG pO2 (70-100) mmHg ABG HCO3 (22-26) mmol/L ABG O2 Saturation (95-100) % ABG Base Excess ((-2)-(+3)) mmol/L Jeremy Test O2 Delivery Device Sodium (136-145) mmol/L Potassium (3.5-5.1) mmol/L Chloride (98-107) mmol/L Carbon Dioxide (21-32) mmol/L Anion Gap (7-13) mEq/L BUN (7-18) mg/dL Creatinine (0.70-1.30) mg/dL Est Cr Clr Drug Dosing mL/min Estimated GFR (MDRD) BUN/Creatinine Ratio (No establ ref range) Glucose (74-99) mg/dL POC Glucose 455 H* (70-105) mg/dl Lactic Acid (0.4-2.0) mmol/L Calcium (8.5-10.1) mg/dL Total Bilirubin (0.2-1.0) mg/dL AST (15-37) U/L ALT (16-63) U/L Alkaline Phosphatase (46-116) U/L Troponin I (0.000-0.056) ng/mL Total Protein (6.4-8.2) g/dL Albumin (3.4-5.0) g/dL Globulin Albumin/Globulin Ratio Amylase (25-115) U/L Lipase (73-393) U/L Ketones Influenza Type A RNA Negative (NEGATIVE) Influenza Type B RNA Negative (NEGATIVE) SARS-CoV-2 RNA (BARB) Negative (NEGATIVE) 12/31/20 12/31/20 12/31/20 Range/Units 09:42 09:42 10:37 WBC (5.0-10.0) 10^3/uL RBC (4.6-6.2) 10^6/uL Hgb (14.0-18.0) g/dL Hct (40.0-54.0) % MCV (80-100) fL MCH (27.0-34.0) pg MCHC (33.0-35.0) g/dL Plt Count (150-450) 10^3/uL Neut % (Auto) (42.2-75.2) % Lymph % (Auto) (20.5-50.1) % [place] % (Auto) (2-8) % Eos % (Auto) (1.0-3.0) % Baso % (Auto) (0.0-1.0) % ABG pH 7.37 (7.35-7.45) ABG pCO2 36 (35-45) mmHg ABG pO2 84 (70-100) mmHg ABG HCO3 20.1 L (22-26) mmol/L ABG O2 Saturation 96 (95-100) % ABG Base Excess -4 L ((-2)-(+3)) mmol/L Jeremy Test Performed O2 Delivery Device Room air Sodium 131 L (136-145) mmol/L Potassium 5.1 (3.5-5.1) mmol/L Chloride 91 L (98-107) mmol/L Carbon Dioxide 23 (21-32) mmol/L Anion Gap 22.1 H (7-13) mEq/L BUN 30 H (7-18) mg/dL Creatinine 1.61 H (0.70-1.30) mg/dL Est Cr Clr Drug Dosing 42.03 mL/min Estimated GFR (MDRD) 44 BUN/Creatinine Ratio 18.6 (No establ ref range) Glucose 445 H* (74-99) mg/dL POC Glucose (70-105) mg/dl Lactic Acid 1.1 (0.4-2.0) mmol/L Calcium 9.3 (8.5-10.1) mg/dL Total Bilirubin 0.5 (0.2-1.0) mg/dL AST 9 L (15-37) U/L ALT 14 L (16-63) U/L Alkaline Phosphatase 122 H (46-116) U/L Troponin I < 0.017 (0.000-0.056) ng/mL Total Protein 7.4 (6.4-8.2) g/dL Albumin 3.0 L (3.4-5.0) g/dL Globulin 4.4 Albumin/Globulin Ratio 0.68 Amylase 42 (25-115) U/L Lipase 56 L (73-393) U/L Ketones Small-20 mg/dl Influenza Type A RNA (NEGATIVE) Influenza Type B RNA (NEGATIVE) SARS-CoV-2 RNA (BARB) (NEGATIVE) 12/31/20 Range/Units 11:06 WBC (5.0-10.0) 10^3/uL RBC (4.6-6.2) 10^6/uL Hgb (14.0-18.0) g/dL Hct (40.0-54.0) % MCV (80-100) fL MCH (27.0-34.0) pg MCHC (33.0-35.0) g/dL Plt Count (150-450) 10^3/uL Neut % (Auto) (42.2-75.2) % Lymph % (Auto) (20.5-50.1) % [place] % (Auto) (2-8) % Eos % (Auto) (1.0-3.0) % Baso % (Auto) (0.0-1.0) % ABG pH (7.35-7.45) ABG pCO2 (35-45) mmHg ABG pO2 (70-100) mmHg ABG HCO3 (22-26) mmol/L ABG O2 Saturation (95-100) % ABG Base Excess ((-2)-(+3)) mmol/L Jeremy Test O2 Delivery Device Sodium (136-145) mmol/L Potassium (3.5-5.1) mmol/L Chloride (98-107) mmol/L Carbon Dioxide (21-32) mmol/L Anion Gap (7-13) mEq/L BUN (7-18) mg/dL Creatinine (0.70-1.30) mg/dL Est Cr Clr Drug Dosing mL/min Estimated GFR (MDRD) BUN/Creatinine Ratio (No establ ref range) Glucose (74-99) mg/dL POC Glucose 356 H (70-105) mg/dl Lactic Acid (0.4-2.0) mmol/L Calcium (8.5-10.1) mg/dL Total Bilirubin (0.2-1.0) mg/dL AST (15-37) U/L ALT (16-63) U/L Alkaline Phosphatase (46-116) U/L Troponin I (0.000-0.056) ng/mL Total Protein (6.4-8.2) g/dL Albumin (3.4-5.0) g/dL Globulin Albumin/Globulin Ratio Amylase (25-115) U/L Lipase (73-393) U/L Ketones Influenza Type A RNA (NEGATIVE) Influenza Type B RNA (NEGATIVE) SARS-CoV-2 RNA (BARB) (NEGATIVE) Rapid Strep: negative Meds: Medications Generic Name Dose Route Start Last Admin Trade Name Fregen PRN Reason Stop Dose Admin Sodium Chloride 1,000 mls @ 999 mls/hr 12/31/20 10:26 12/31/20 10:34 Normal Saline IV 12/31/20 11:26 999 mls/hr .BOLUS ONE Administration Sodium Chloride 10 ml 12/31/20 09:31 12/31/20 09:46 Saline Flush FLUSH 10 ml ASDIRECTED PRN Administration Keep Vein Open Discontinued Medications Generic Name Dose Route Start Last Admin Trade Name Tiffany PRN Reason Stop Dose Admin Sodium Chloride 1,000 mls @ 999 mls/hr 12/31/20 09:32 12/31/20 09:46 Normal Saline IV 12/31/20 10:32 999 mls/hr .BOLUS ONE Administration Insulin Human Regular 10 unit 12/31/20 10:26 12/31/20 10:34 Humulin R IV 12/31/20 10:27 10 units ONETIME ONE Administration Ondansetron HCl 4 mg 12/31/20 09:32 12/31/20 09:46 Zofran IV 12/31/20 09:33 4 mg ONETIME ONE Administration - Radiology Interpretation Free Text/Narrative:: [facility] Final Radiology Report Call: [phone] assistance Online chat: [email or web address] Name: SENGER, ELAN Age: 60Years M Date: 12/31/2020 SSN: -- : [id number] Study: CR CHEST 2V Requesting Physician: DESI MORGAN Images: 2 Addl Studies: Provided Clinical History: cough Contrast: Contrast Medium: Contrast Amount: Contrast Method: CONFIDENTIALITY STATEMENT This report is intended only for use by the referring physician, and only in accordance with law. If you received this in error, call [phone]. Page 1 of 1 PROCEDURE INFORMATION: Exam: XR Chest, 2 Views Exam date and time: 12/31/2020 9:31 AM Age: 60 years old Clinical indication: Cough TECHNIQUE: Imaging protocol: XR of the chest Views: 2 views. COMPARISON: CR Chest 1V Frontal 12/26/2019 4:25 PM FINDINGS: Lungs: Unremarkable. No consolidation. Pleural spaces: Unremarkable. No pleural effusion. No pneumothorax. Heart/Mediastinum: The cardiomediastinal silhouette is fairly stable in appearance, allowing for differences in technique. Bones/joints: Degenerative changes again involve the spine. IMPRESSION: No evidence for acute pulmonary disease. Thank you for allowing us to participate in the care of your patient. Dictated and Authenticated by: Sha Yates MD 12/31/2020 9:55 AM Central Time ([place] & [place]) - Re-Assessments/Exams Free Text/Narrative Re-Assessment/Exam: 12/31/20 11:22 Pt states he feels much better following tx in ER and wishes to go home. Pt has trace serum ketones, but is not acidotic. Nausea has completely resolved. Pt will be discharged home with return instructions. He is cautioned about developing DKA and agrees to return to ER if worse at any time. 12/31/20 11:26 Departure - Departure Time of Disposition: 11:26 Disposition: Home, Self-Care 01 Condition: Good Clinical Impression: Acute viral syndrome, Diabetic ketosis without coma, Dehydration - Discharge Information *PRESCRIPTION DRUG MONITORING PROGRAM REVIEWED*: Not Applicable *COPY OF PRESCRIPTION DRUG MONITORING REPORT IN PATIENT RONALD: Not Applicable Instructions: Viral Illness, Adult, Dehydration, Adult, [id number], Preventing Diabetic Ketoacidosis Forms: ED Department Discharge Additional Instructions: Rx: Zofran 4mg Drink plenty of water. Monitor your blood sugar closely and use your insulin accordingly. Return to ER if worse at any time. Follow up in clinic for recheck in 3 to 4 days. Sepsis Event Note (ED) - Focused Exam Vital Signs: Vital Signs Temp Pulse Resp BP Pulse Ox 12/31/20 08:39 98.2 F 111 H 16 110/63 98 - My Orders Last 24 Hours: My Active Orders 12/31/20 08:31 CULTURE STREP A CONFIRMATION [RM] Stat STREP SCRN A RAPID W CULT CONF [RM] Stat 12/31/20 09:29 Blood Glucose Check, Bedside [RC] ONETIME 12/31/20 09:30 UA RFX LATOYA AND CULT IF INDIC [URIN] Stat Peripheral IV Insertion Adult [OM.PC] Stat 12/31/20 09:31 Peripheral IV Care [RC] . DIRECTED Sodium Chloride 0.9% [Saline Flush] 10 ml FLUSH ASDIRECTED PRN 12/31/20 09:42 CULTURE BLOOD [BC] Stat 12/31/20 10:26 Sodium Chloride 0.9% [Normal Saline] 1,000 ml IV .BOLUS 12/31/20 10:27 Blood Glucose Check, Bedside [RC] ONETIME 12/31/20 11:07 Blood Glucose Check, Bedside [RC] ONETIME - Assessment/Plan Last 24 Hours: My Active Orders 12/31/20 08:31 CULTURE STREP A CONFIRMATION [RM] Stat STREP SCRN A RAPID W CULT CONF [RM] Stat 12/31/20 09:29 Blood Glucose Check, Bedside [RC] ONETIME 12/31/20 09:30 UA RFX LATOYA AND CULT IF INDIC [URIN] Stat Peripheral IV Insertion Adult [OM.PC] Stat 12/31/20 09:31 Peripheral IV Care [RC] . DIRECTED Sodium Chloride 0.9% [Saline Flush] 10 ml FLUSH ASDIRECTED PRN 12/31/20 09:42 CULTURE BLOOD [BC] Stat 12/31/20 10:26 Sodium Chloride 0.9% [Normal Saline] 1,000 ml IV .BOLUS 12/31/20 10:27 Blood Glucose Check, Bedside [RC] ONETIME 12/31/20 11:07 Blood Glucose Check, Bedside [RC] ONETIME
[2020-12-31 08:42] VITALS: BP 110/63; PULSE 111
[2020-12-31 09:20] LABS: CORONAVIRUS COVID-19 NAA NEGATIVE (NEGATIVE)
[2020-12-31] MEDS ORDERED: Sodium Chloride 0.9% 10 ML Syringe FLUSH PRN (09:31)
[2020-12-31] MEDS ORDERED: Sodium Chloride 0.9% 1,000 ML IV ONE ×2 (09:32→10:26)
[2020-12-31] MEDS ORDERED: Ondansetron 4 MG/2 ML SDV IV ONE (09:32)
--- NOTE | 2020-12-31 09:55 | CR ---
PROCEDURE INFORMATION: Exam: XR Chest, 2 Views Exam date and time: 12/31/2020 9:31 AM Age: 60 years old Clinical indication: Cough TECHNIQUE: Imaging protocol: XR of the chest Views: 2 views. COMPARISON: CR Chest 1V Frontal 12/26/2019 4:25 PM FINDINGS: Lungs: Unremarkable. No consolidation. Pleural spaces: Unremarkable. No pleural effusion. No pneumothorax. Heart/Mediastinum: The cardiomediastinal silhouette is fairly stable in appearance, allowing for differences in technique. Bones/joints: Degenerative changes again involve the spine. IMPRESSION: No evidence for acute pulmonary disease.
[2020-12-31 10:16] LABS: ANION GAP 22.1 mEq/L (7-13); CHLORIDE,CL 91 mmol/L (98-107); SODIUM,NA 131 mmol/L (136-145)
[2020-12-31] MEDS ORDERED: Insulin Regular, Human 100 Units/ML 3 ML Vial IV ONE (10:26)
[2020-12-31 10:40] LABS: ALLEN TEST PERFORMED; BASE EXCESS ARTERIAL -4 mmol/L ((-2)-(+3)); BICARBONATE,ARTERIAL 20.1 mmol/L (22-26); O2 DELIVERY DEVICE ROOM AIR; O2 SATURATION ARTERIAL 96 % (95-100); PCO2 ARTERIAL 36 mmHg (35-45); PO2 ARTERIAL 84 mmHg (70-100)
== END 2020-12-31 11:38 | disposition home or self-care (01) ==
LOC: DL.ED 08:26
DX: E10.10 Type 1 diabetes mellitus with ketoacidosis without coma (principal); E86.0 Dehydration; B34.9 Viral infection, unspecified; E78.00 Pure hypercholesterolemia, unspecified; I10 Essential (primary) hypertension; E10.40 Type 1 diabetes mellitus with diabetic neuropathy, unspecified; Z79.899 Other long term (current) drug therapy; Z20.822 Contact with and (suspected) exposure to COVID-19; Z72.0 Tobacco use
CPT/HCPCS: 0240U; 36415; 36600; 71046; 80053; 82009; 82150; 82803; 82962; 83605; 83690; 84484; 85025; 87040; 87081; 87430; 96374; 99284; J1815; J2405; J7030

== ENCOUNTER 2021-01-01 14:10 | Inpatient (IN) | payer OTHER ==
[2021-01-01] MEDS ORDERED: Sodium Chloride 0.9% 10 ML Syringe FLUSH PRN (14:16)
[2021-01-01] MEDS ORDERED: Ondansetron 4 MG/2 ML SDV IV ONE (14:17)
[2021-01-01] MEDS ORDERED: Sodium Chloride 0.9% 1,000 ML IV ONE (14:17)
--- NOTE | 2021-01-01 14:22 | EDM.PDOC ---
ED HPI GENERAL MEDICAL PROBLEM - General Chief Complaint: Diabetic Complaint Stated Complaint: DEHYDRATION, DIABETIC KETOSIS Time Seen by Provider: 01/01/21 14:18 Source of Information: Reports: Patient, Old Records, RN, RN Notes Reviewed History Limitations: Reports: No Limitations - History of Present Illness INITIAL COMMENTS - FREE TEXT/NARRATIVE: Pt seen here yesterday with hyperglycemia, nausea, vomiting, cough, and congestion. He was COVID negative with a clear chest x-ray. He had trace serum ketone positive, with high anion gap, but was not acidotic. He did not want to be admitted, therefore was d/c'd home with Zofran Rx and instructions to monitor blood glucose closely, and return if worse. Pt states he is feeling worse today. 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, Other Medication(s) (Zofran) - Related Data Allergies Allergy/AdvReac Type Severity Reaction Status Date / Time No Known Allergies Allergy Verified 12/31/20 08:39 Home Meds: Home Meds Acetaminophen [Arthritis Pain Relief] 1,300 mg PO Q8HR PRN 12/24/14 [History] Insulin Aspart [NovoLOG] 10 unit SUBCUT TIDMEALS 06/03/20 [History] Insulin Detemir [Levemir] 25 unit SUBCUT BEDTIME 06/03/20 [History] atorvaSTATin [Lipitor] 10 mg PO BEDTIME 06/03/20 [History] Gabapentin [Neurontin] 150 mg PO TID 12/22/20 [History] Past Medical History HEENT History: Reports: Impaired Vision Cardiovascular History: Reports: High Cholesterol, Hypertension Respiratory History: Reports: None Gastrointestinal History: Reports: None Genitourinary History: Reports: Diabetic Nephropathy Musculoskeletal History: Reports: Arthritis, Back Pain, Chronic Neurological History: Reports: Neuropathy, Diabetic Psychiatric History: Reports: None Endocrine/Metabolic History: Reports: Diabetes, Type II, IDDM Hematologic History: Reports: None Immunologic History: Reports: None Oncologic (Cancer) History: Reports: None Dermatologic History: Reports: None - Infectious Disease History Infectious Disease History: Reports: Chicken Pox - Past Surgical History Head Surgeries/Procedures: Reports: None HEENT Surgical History: Reports: None Cardiovascular Surgical History: Reports: None Respiratory Surgical History: Reports: None GI Surgical History: Reports: Colonoscopy, Hernia, Inguinal Male Surgical History: Reports: None Endocrine Surgical History: Reports: None Neurological Surgical History: Reports: None Musculoskeletal Surgical History: Reports: None Oncologic Surgical History: Reports: None Social & Family History - Family History Family Medical History: No Pertinent Family History - Caffeine Use Caffeine Use: Reports: Coffee - Living Situation & Occupation Living situation: Reports: Single, Alone Occupation: Employed ED ROS GENERAL - Review of Systems Review Of Systems: Comprehensive ROS is negative, except as noted in HPI. ED EXAM GENERAL NO PERIP PULSE - Physical Exam Exam: See Below Exam Limited By: No Limitations General Appearance: Alert, No Apparent Distress, Thin Eye Exam: Bilateral Eye: Normal Inspection Nose: Normal Inspection, Normal Mucosa, No Blood Throat/Mouth: Normal Lips, Normal Voice, No Airway Compromise (Dry oral mucosa), Other Head: Atraumatic, Normocephalic Neck: Normal Inspection, Supple, Non-Tender, Full Range of Motion Respiratory/Chest: No Respiratory Distress, Lungs Clear, Normal Breath Sounds, No Accessory Muscle Use, Chest Non-Tender Cardiovascular: Regular Rate, Rhythm, No Edema, Tachycardia GI/Abdominal: Normal Bowel Sounds, Soft, Non-Tender, Tender (Mild epigastric tenderness) Back Exam: Normal Inspection Extremities: Normal Range of Motion, No Pedal Edema, Other (Nonhealing unstagable ulcer on left 1st toe) Neurological: Alert, Oriented Psychiatric: Normal Affect, Normal Mood Skin Exam: Warm, Dry, Intact, Normal Color #1 Interpretation EKG Date: 01/01/21 Time: 14:49 Rhythm: Other Rate (Beats/Min): 109 [place]: Normal P-Wave: Present (Rt atrial abnormality) QRS: Normal ST-T: Normal QT: Normal Comparison: NA - No Prior EKG Course - Vital Signs Last Recorded V/S: Last Vital Signs Temp 97.2 F 01/01/21 14:35 Pulse 108 H 01/01/21 14:35 Resp 16 01/01/21 14:35 BP 164/82 H 01/01/21 14:35 Pulse Ox 100 01/01/21 14:35 - Orders/Labs/Meds Orders: Active Orders 24 hr Category Date Time Status Admission Diagnosis [ADT] Stat ADT 01/01/21 15:33 Ordered Admission Status [Patient Status] [ADT] Routine ADT 01/01/21 15:33 Active EKG 12 Lead [EKG Documentation Completion] [RC] STAT Care 01/01/21 14:16 Active Peripheral IV Care [RC] . DIRECTED Care 01/01/21 14:17 Active UA RFX LATOYA AND CULT IF INDIC [URIN] Stat Lab 01/01/21 14:16 Ordered Insulin Regular in 0.9 % NACL [Myxredlin in NS 100 UNIT Med 01/01/21 15:23 Active /100 ML] 100 unit in 100 ml IV TITRATE Sodium Chloride 0.9% [Saline Flush] Med 01/01/21 14:16 Active 10 ml FLUSH ASDIRECTED PRN Peripheral IV Insertion Adult [OM.PC] Stat Oth 01/01/21 14:16 Ordered Medication Orders Insulin Regular in 0.9 % NACL (Myxredlin In Ns 100 Unit/100 Ml) 100 unit in 100 mls @ 6.12 mls/hr IV TITRATE ANTONIA; Protocol Sodium Chloride (Saline Flush) 10 ml FLUSH ASDIRECTED PRN PRN Reason: Keep Vein Open Last Admin: 01/01/21 14:36 Dose: 10 ml Documented by: KIRSTEN Labs: Laboratory Tests 01/01/21 01/01/21 01/01/21 Range/Units 14:27 14:27 14:27 WBC 6.4 (5.0-10.0) 10^3/uL RBC 4.81 (4.6-6.2) 10^6/uL Hgb 13.7 L (14.0-18.0) g/dL Hct 40.7 (40.0-54.0) % MCV 84.6 (80-100) fL MCH 28.5 (27.0-34.0) pg MCHC 33.7 (33.0-35.0) g/dL Plt Count 282 (150-450) 10^3/uL Neut % (Auto) 82.7 H (42.2-75.2) % Lymph % (Auto) 6.1 L (20.5-50.1) % [place] % (Auto) 10.7 H (2-8) % Eos % (Auto) 0.0 L (1.0-3.0) % Baso % (Auto) 0.5 (0.0-1.0) % Add Manual Diff Yes Neutrophils % (Manual) 74 (42-75) % Band Neutrophils % 4 % Lymphocytes % (Manual) 9 L (20-50) % Monocytes % (Manual) 10 H (2-8) % Metamyelocytes % 3 ABG pH (7.35-7.45) ABG pCO2 (35-45) mmHg ABG pO2 (70-100) mmHg ABG HCO3 (22-26) mmol/L ABG O2 Saturation (95-100) % ABG Base Excess ((-2)-(+3)) mmol/L Jeremy Test O2 Delivery Device Oxygen Flow Rate Sodium 126 L (136-145) mmol/L Potassium 5.3 H (3.5-5.1) mmol/L Chloride 88 L (98-107) mmol/L Carbon Dioxide 20 L (21-32) mmol/L Anion Gap 23.3 H (7-13) mEq/L BUN 34 H (7-18) mg/dL Creatinine 1.77 H (0.70-1.30) mg/dL Est Cr Clr Drug Dosing TNP Estimated GFR (MDRD) 40 BUN/Creatinine Ratio 19.2 (No establ ref range) Glucose 464 H* (74-99) mg/dL Lactic Acid 1.9 (0.4-2.0) mmol/L Calcium 9.5 (8.5-10.1) mg/dL Total Bilirubin 0.5 (0.2-1.0) mg/dL AST 13 L (15-37) U/L ALT 13 L (16-63) U/L Alkaline Phosphatase 113 (46-116) U/L Troponin I < 0.017 (0.000-0.056) ng/mL Total Protein 7.2 (6.4-8.2) g/dL Albumin 2.9 L (3.4-5.0) g/dL Globulin 4.3 Albumin/Globulin Ratio 0.67 Amylase 41 (25-115) U/L Lipase 55 L (73-393) U/L Ethyl Alcohol < 3 (0) mg/dL Ketones Small-20 mg/dl 01/01/21 Range/Units 14:30 WBC (5.0-10.0) 10^3/uL RBC (4.6-6.2) 10^6/uL Hgb (14.0-18.0) g/dL Hct (40.0-54.0) % MCV (80-100) fL MCH (27.0-34.0) pg MCHC (33.0-35.0) g/dL Plt Count (150-450) 10^3/uL Neut % (Auto) (42.2-75.2) % Lymph % (Auto) (20.5-50.1) % [place] % (Auto) (2-8) % Eos % (Auto) (1.0-3.0) % Baso % (Auto) (0.0-1.0) % Add Manual Diff Neutrophils % (Manual) (42-75) % Band Neutrophils % % Lymphocytes % (Manual) (20-50) % Monocytes % (Manual) (2-8) % Metamyelocytes % ABG pH 7.35 (7.35-7.45) ABG pCO2 29 L (35-45) mmHg ABG pO2 82 (70-100) mmHg ABG HCO3 15.8 L (22-26) mmol/L ABG O2 Saturation 96 (95-100) % ABG Base Excess -8 L ((-2)-(+3)) mmol/L Jeremy Test lb O2 Delivery Device Room air Oxygen Flow Rate 0 Sodium (136-145) mmol/L Potassium (3.5-5.1) mmol/L Chloride (98-107) mmol/L Carbon Dioxide (21-32) mmol/L Anion Gap (7-13) mEq/L BUN (7-18) mg/dL Creatinine (0.70-1.30) mg/dL Est Cr Clr Drug Dosing Estimated GFR (MDRD) BUN/Creatinine Ratio (No establ ref range) Glucose (74-99) mg/dL Lactic Acid (0.4-2.0) mmol/L Calcium (8.5-10.1) mg/dL Total Bilirubin (0.2-1.0) mg/dL AST (15-37) U/L ALT (16-63) U/L Alkaline Phosphatase (46-116) U/L Troponin I (0.000-0.056) ng/mL Total Protein (6.4-8.2) g/dL Albumin (3.4-5.0) g/dL Globulin Albumin/Globulin Ratio Amylase (25-115) U/L Lipase (73-393) U/L Ethyl Alcohol (0) mg/dL Ketones Meds: Medications Generic Name Dose Route Start Last Admin Trade Name Tiffany PRN Reason Stop Dose Admin Insulin Regular in 0.9 % NACL 100 unit in 100 mls @ 6.12 mls/hr 01/01/21 15:23 Myxredlin In Ns 100 Unit/100 Ml IV TITRATE ANTONIA Protocol 0.1 UNITS/KG/HR Sodium Chloride 10 ml 01/01/21 14:16 01/01/21 14:36 Saline Flush FLUSH 10 ml ASDIRECTED PRN Administration Keep Vein Open Discontinued Medications Generic Name Dose Route Start Last Admin Trade Name Freq PRN Reason Stop Dose Admin Sodium Chloride 1,000 mls @ 999 mls/hr 01/01/21 14:17 01/01/21 14:36 Normal Saline IV 01/01/21 15:17 999 mls/hr .BOLUS ONE Administration Insulin Human Regular 7 unit 01/01/21 15:22 Humulin R IV 01/01/21 15:23 ONETIME ONE Ondansetron HCl 4 mg 01/01/21 14:17 01/01/21 14:36 Zofran IV 01/01/21 14:18 4 mg ONETIME ONE Administration - Re-Assessments/Exams Free Text/Narrative Re-Assessment/Exam: 01/01/21 15:33 COVID negative yesterday. Departure - Departure Time of Disposition: 15:33 (admit to Dr. Hwang) Disposition: Admitted As Inpatient 67 Condition: Fair Clinical Impression: Hyperglycemia, Dehydration DKA, type 1 Qualifiers: Diabetes mellitus complication detail: without coma Qualified Code(s): E10.10 - Type 1 diabetes mellitus with ketoacidosis without coma Diabetic ulcer of toe Qualifiers: Diabetes mellitus type: type 1 Laterality: left Non-pressure ulcer stage: unspecified non-pressure ulcer stage Qualified Code(s): E10.621 - Type 1 diabetes mellitus with foot ulcer; L97.529 - Non-pressure chronic ulcer of other part of left foot with unspecified severity - Discharge Information *PRESCRIPTION DRUG MONITORING PROGRAM REVIEWED*: Not Applicable *COPY OF PRESCRIPTION DRUG MONITORING REPORT IN PATIENT RONALD: Not Applicable Forms: ED Department Discharge Sepsis Event Note (ED) - Focused Exam Vital Signs: Vital Signs Temp Pulse Resp BP Pulse Ox 01/01/21 14:35 97.2 F 108 H 16 164/82 H 100 - My Orders Last 24 Hours: My Active Orders 01/01/21 14:16 EKG 12 Lead [EKG Documentation Completion] [RC] STAT UA RFX LATOYA AND CULT IF INDIC [URIN] Stat Sodium Chloride 0.9% [Saline Flush] 10 ml FLUSH ASDIRECTED PRN Peripheral IV Insertion Adult [OM.PC] Stat 01/01/21 14:17 Peripheral IV Care [RC] . DIRECTED 01/01/21 15:23 Insulin Regular in 0.9 % NACL [Myxredlin in NS 100 UNIT/100 ML] 100 unit in 100 ml IV TITRATE 01/01/21 15:33 Admission Diagnosis [ADT] Stat Admission Status [Patient Status] [ADT] Routine - Assessment/Plan Last 24 Hours: My Active Orders 01/01/21 14:16 EKG 12 Lead [EKG Documentation Completion] [RC] STAT UA RFX LATOYA AND CULT IF INDIC [URIN] Stat Sodium Chloride 0.9% [Saline Flush] 10 ml FLUSH ASDIRECTED PRN Peripheral IV Insertion Adult [OM.PC] Stat 01/01/21 14:17 Peripheral IV Care [RC] . DIRECTED 01/01/21 15:23 Insulin Regular in 0.9 % NACL [Myxredlin in NS 100 UNIT/100 ML] 100 unit in 100 ml IV TITRATE 01/01/21 15:33 Admission Diagnosis [ADT] Stat Admission Status [Patient Status] [ADT] Routine
[2021-01-01 14:34] LABS: O2 DELIVERY DEVICE ROOM AIR
[2021-01-01 14:35] LABS: BASE EXCESS ARTERIAL -8 mmol/L ((-2)-(+3)); BICARBONATE,ARTERIAL 15.8 mmol/L (22-26); O2 SATURATION ARTERIAL 96 % (95-100); PCO2 ARTERIAL 29 mmHg (35-45); PO2 ARTERIAL 82 mmHg (70-100)
[2021-01-01 14:37] LABS: O2 FLOW RATE 0
[2021-01-01 15:05] LABS: ANION GAP 23.3 mEq/L (7-13); CHLORIDE,CL 88 mmol/L (98-107); SODIUM,NA 126 mmol/L (136-145)
[2021-01-01] MEDS ORDERED: Insulin Regular, Human 100 Units/ML 3 ML Vial IV ONE (15:22)
[2021-01-01] MEDS ORDERED: Ondansetron 4 MG Tab.DIS PO PRN (16:22)
[2021-01-01] MEDS ORDERED: Ondansetron 4 MG/2 ML SDV IVPUSH PRN (16:22)
[2021-01-01] MEDS ORDERED: Glucagon,Human Recombinant 1 MG Vial IM PRN (16:25)
[2021-01-01] MEDS ORDERED: 50% Dextrose in Water 50 ML Syringe IVPUSH PRN (16:25)
[2021-01-01] MEDS ORDERED: Morphine 2 MG/ML SYRINGE IVPUSH PRN (16:25)
[2021-01-01] MEDS ORDERED: Temazepam 15 MG Cap PO PRN (16:25)
[2021-01-01] MEDS ORDERED: oxyCODONE 5 MG Tab PO PRN (16:25)
[2021-01-01] MEDS ORDERED: Docusate Sodium 100 MG Cap PO PRN (16:25)
--- NOTE | 2021-01-01 16:45 | PCM.HP ---
H&P History of Present Illness - General Date of Service: 01/01/21 Admit Problem/Dx: Admission Diagnosis/Problem Admission Diagnosis/Problem Hyperglycemia Source of Information: Patient, Provider - History of Present Illness Initial Comments - Free Text/Narative: resented with nausea, vomiting, generalized weakness Some cough No abdominal pain Symptoms started about 3 days prior to admission following eating biscuits and gravy and a local restaurant. No associated diarrhea Has not been checking blood sugars Has used 10 units NovoLog with meals twice yesterday Bilateral feet Pain Score (Numeric/FACES): 5 - Related Data Allergies/Adverse Reactions: Allergies Allergy/AdvReac Type Severity Reaction Status Date / Time No Known Allergies Allergy Verified 01/01/21 16:00 Home Medications: Home Meds Acetaminophen [Arthritis Pain Relief] 1,300 mg PO Q8HR PRN 12/24/14 [History] Insulin Aspart [NovoLOG] 10 unit SUBCUT TIDMEALS 06/03/20 [History] Insulin Detemir [Levemir] 25 unit SUBCUT BEDTIME 06/03/20 [History] atorvaSTATin [Lipitor] 10 mg PO BEDTIME 06/03/20 [History] Gabapentin [Neurontin] 150 mg PO TID 12/22/20 [History] Past Medical History HEENT History: Reports: Impaired Vision Cardiovascular History: Reports: High Cholesterol, Hypertension Respiratory History: Reports: None Gastrointestinal History: Reports: None Genitourinary History: Reports: Diabetic Nephropathy Musculoskeletal History: Reports: Arthritis, Back Pain, Chronic Neurological History: Reports: Neuropathy, Diabetic Psychiatric History: Reports: None Endocrine/Metabolic History: Reports: Diabetes, Type II, IDDM Hematologic History: Reports: None Immunologic History: Reports: None Oncologic (Cancer) History: Reports: None Dermatologic History: Reports: None - Infectious Disease History Infectious Disease History: Reports: Chicken Pox - Past Surgical History Head Surgeries/Procedures: Reports: None HEENT Surgical History: Reports: None Cardiovascular Surgical History: Reports: None Respiratory Surgical History: Reports: None GI Surgical History: Reports: Colonoscopy, Hernia, Inguinal, Hernia Repair/Other Male Surgical History: Reports: None Endocrine Surgical History: Reports: None Neurological Surgical History: Reports: None Musculoskeletal Surgical History: Reports: None Oncologic Surgical History: Reports: None Social & Family History - Family History Family Medical History: No Pertinent Family History - Tobacco Use Tobacco Use Status *Q: Current Every Day Tobacco User Years of Tobacco use: 30 Packs/Tins Daily: 2 Second Hand Smoke Exposure: No - Caffeine Use Caffeine Use: Reports: Coffee, Tea - Recreational Drug Use Recreational Drug Use: No - Living Situation & Occupation Living situation: Reports: Single, Alone Occupation: Employed H&P Review of Systems - Review of Systems: Review Of Systems: See Below General: Reports: Malaise, Weakness. Denies: Fever, Chills Pulmonary: Reports: Cough. Denies: Shortness of Breath, Sputum Cardiovascular: Denies: Chest Pain, Edema Gastrointestinal: Reports: Nausea, Vomiting. Denies: Abdominal Pain, Black Stool, Diarrhea, Stool Incontinence Genitourinary: Denies: Dysuria Psychiatric: Denies: Confusion Exam - Exam Exam: See Below - Vital Signs Vital Signs: Last Vital Signs Temp 99.5 F 01/01/21 15:59 Pulse 108 H 01/01/21 15:59 Resp 20 01/01/21 15:59 BP 173/87 H 01/01/21 15:59 Pulse Ox 99 01/01/21 15:59 Weight: 126 lb - Exam Quality Assessment: No: Supplemental Oxygen General: Alert, Oriented, Cooperative HEENT: EOMI Neck: Supple Lungs: Clear to Auscultation, Normal Respiratory Effort Cardiovascular: Regular Rate, Regular Rhythm GI/Abdominal Exam: Normal Bowel Sounds, Non-Tender, No Distention Extremities: No Pedal Edema Skin: Warm, Dry, Other (Left foot great toe with dry eschar at the tip of the toe and the tip of the third toe, right foot small area of ulcer on the medial,plantar surface) - Patient Data Lab Results Last 24 hrs: Laboratory Results - last 24 hr 01/01/21 01/01/21 01/01/21 Range/Units 14:27 14:27 14:27 WBC 6.4 (5.0-10.0) 10^3/uL RBC 4.81 (4.6-6.2) 10^6/uL Hgb 13.7 L (14.0-18.0) g/dL Hct 40.7 (40.0-54.0) % MCV 84.6 (80-100) fL MCH 28.5 (27.0-34.0) pg MCHC 33.7 (33.0-35.0) g/dL Plt Count 282 (150-450) 10^3/uL Neut % (Auto) 82.7 H (42.2-75.2) % Lymph % (Auto) 6.1 L (20.5-50.1) % [place] % (Auto) 10.7 H (2-8) % Eos % (Auto) 0.0 L (1.0-3.0) % Baso % (Auto) 0.5 (0.0-1.0) % Add Manual Diff Yes Neutrophils % (Manual) 74 (42-75) % Band Neutrophils % 4 % Lymphocytes % (Manual) 9 L (20-50) % Monocytes % (Manual) 10 H (2-8) % Metamyelocytes % 3 ABG pH (7.35-7.45) ABG pCO2 (35-45) mmHg ABG pO2 (70-100) mmHg ABG HCO3 (22-26) mmol/L ABG O2 Saturation (95-100) % ABG Base Excess ((-2)-(+3)) mmol/L Jeremy Test O2 Delivery Device Oxygen Flow Rate Sodium 126 L (136-145) mmol/L Potassium 5.3 H (3.5-5.1) mmol/L Chloride 88 L (98-107) mmol/L Carbon Dioxide 20 L (21-32) mmol/L Anion Gap 23.3 H (7-13) mEq/L BUN 34 H (7-18) mg/dL Creatinine 1.77 H (0.70-1.30) mg/dL Est Cr Clr Drug Dosing TNP Estimated GFR (MDRD) 40 BUN/Creatinine Ratio 19.2 (No establ ref range) Glucose 464 H* (74-99) mg/dL Lactic Acid 1.9 (0.4-2.0) mmol/L Calcium 9.5 (8.5-10.1) mg/dL Total Bilirubin 0.5 (0.2-1.0) mg/dL AST 13 L (15-37) U/L ALT 13 L (16-63) U/L Alkaline Phosphatase 113 (46-116) U/L Troponin I < 0.017 (0.000-0.056) ng/mL Total Protein 7.2 (6.4-8.2) g/dL Albumin 2.9 L (3.4-5.0) g/dL Globulin 4.3 Albumin/Globulin Ratio 0.67 Amylase 41 (25-115) U/L Lipase 55 L (73-393) U/L Ethyl Alcohol < 3 (0) mg/dL Ketones Small-20 mg/dl 01/01/21 Range/Units 14:30 WBC (5.0-10.0) 10^3/uL RBC (4.6-6.2) 10^6/uL Hgb (14.0-18.0) g/dL Hct (40.0-54.0) % MCV (80-100) fL MCH (27.0-34.0) pg MCHC (33.0-35.0) g/dL Plt Count (150-450) 10^3/uL Neut % (Auto) (42.2-75.2) % Lymph % (Auto) (20.5-50.1) % [place] % (Auto) (2-8) % Eos % (Auto) (1.0-3.0) % Baso % (Auto) (0.0-1.0) % Add Manual Diff Neutrophils % (Manual) (42-75) % Band Neutrophils % % Lymphocytes % (Manual) (20-50) % Monocytes % (Manual) (2-8) % Metamyelocytes % ABG pH 7.35 (7.35-7.45) ABG pCO2 29 L (35-45) mmHg ABG pO2 82 (70-100) mmHg ABG HCO3 15.8 L (22-26) mmol/L ABG O2 Saturation 96 (95-100) % ABG Base Excess -8 L ((-2)-(+3)) mmol/L Jeremy Test lb O2 Delivery Device Room air Oxygen Flow Rate 0 Sodium (136-145) mmol/L Potassium (3.5-5.1) mmol/L Chloride (98-107) mmol/L Carbon Dioxide (21-32) mmol/L Anion Gap (7-13) mEq/L BUN (7-18) mg/dL Creatinine (0.70-1.30) mg/dL Est Cr Clr Drug Dosing Estimated GFR (MDRD) BUN/Creatinine Ratio (No establ ref range) Glucose (74-99) mg/dL Lactic Acid (0.4-2.0) mmol/L Calcium (8.5-10.1) mg/dL Total Bilirubin (0.2-1.0) mg/dL AST (15-37) U/L ALT (16-63) U/L Alkaline Phosphatase (46-116) U/L Troponin I (0.000-0.056) ng/mL Total Protein (6.4-8.2) g/dL Albumin (3.4-5.0) g/dL Globulin Albumin/Globulin Ratio Amylase (25-115) U/L Lipase (73-393) U/L Ethyl Alcohol (0) mg/dL Ketones Result Diagrams: 01/01/21 14:27 01/01/21 14:27 - Problem List (1) DKA, type 1 SNOMED Code(s): 45686147, 79530565 ICD Code: E10.10 - TYPE 1 DIABETES MELLITUS WITH KETOACIDOSIS WITHOUT COMA Status: Acute Current Visit: No Qualifiers: Diabetes mellitus complication detail: without coma Qualified Code(s): E10.10 - Type 1 diabetes mellitus with ketoacidosis without coma (2) Diabetic ketosis without coma SNOMED Code(s): 213438024, 241751859 ICD Code: E13.10 - OTH DIABETES MELLITUS WITH KETOACIDOSIS WITHOUT COMA Status: Acute Current Visit: No (3) Diabetic ulcer of foot associated with diabetes mellitus due to underlying condition, limited to breakdown of skin SNOMED Code(s): 150140852, 916033473 ICD Code: E08.621 - DIABETES MELLITUS DUE TO UNDERLYING CONDITION W FOOT ULCER; L97.501 - NON-PRS CHR ULCER OTH PRT UNSP FOOT LIMITED TO BRKDWN SKIN Status: Acute Current Visit: No Qualifiers: Diabetic foot ulcer location: midfoot Laterality: right Qualified Code(s): E08.621 - Diabetes mellitus due to underlying condition with foot ulcer; L97.411 - Non-pressure chronic ulcer of right heel and midfoot limited to breakdown of skin (4) Diabetic ulcer of right foot SNOMED Code(s): 650385349 ICD Code: E11.621 - TYPE 2 DIABETES MELLITUS WITH FOOT ULCER; L97.519 - NON- PRS CHRONIC ULCER OTH PRT RIGHT FOOT W UNSP SEVERITY Status: Acute Current Visit: No Qualifiers: Diabetic foot ulcer location: unspecified part of foot Diabetes mellitus type: type 2 Non-pressure ulcer stage: with muscle involvement without evidence of necrosis Qualified Code(s): E11.621 - Type 2 diabetes mellitus with foot ulcer; L97.515 - Non-pressure chronic ulcer of other part of right foot with muscle involvement without evidence of necrosis (5) Hyperkalemia SNOMED Code(s): 52991297 ICD Code: E87.5 - HYPERKALEMIA Status: Acute Current Visit: No (6) Hyponatremia SNOMED Code(s): 56761271 ICD Code: E87.1 - HYPO-OSMOLALITY AND HYPONATREMIA Status: Acute Current Visit: No (7) Insulin dependent diabetes mellitus SNOMED Code(s): 72767495 ICD Code: E11.9 - TYPE 2 DIABETES MELLITUS WITHOUT COMPLICATIONS; Z79.4 - T[employer]ER (CURRENT) USE OF INSULIN Status: Acute Current Visit: No Onset Date: ~10/03/16 Problem List Initiated/Reviewed/Updated: Yes Orders Last 24hrs: Active Orders 24 hr Category Date Time Status Admission Diagnosis [ADT] Stat ADT 01/01/21 15:33 Ordered Admission Status [Patient Status] [ADT] Routine ADT 01/01/21 15:33 Active Communication Order [RC] DAILY Care 01/01/21 16:40 Ordered Diabetes Education [RC] Click to Edit Care 01/01/21 16:25 Ordered Influenza Vaccine Charge [RC] .DISCHARGE Care 01/01/21 16:23 Active Notify Provider [RC] PRN Care 01/01/21 16:25 Ordered Oxygen Therapy [RC] PRN Care 01/01/21 16:25 Ordered Up With Assistance [RC] ASDIRECTED Care 01/01/21 16:25 Ordered VTE/DVT Education [RC] PER UNIT ROUTINE Care 01/01/21 16:25 Ordered Vital Signs [RC] Q4H Care 01/01/21 16:25 Ordered Consistent Carbohydrate Diet [DIET] Diet 01/01/21 Dinner Ordered BASIC METABOLIC PANEL,BMP [CHEM] AM Lab 01/02/21 05:11 Ordered CBC WITH AUTO DIFF [HEME] AM Lab 01/02/21 05:11 Ordered MAGNESIUM [CHEM] AM Lab 01/02/21 05:11 Ordered PHOSPHORUS [CHEM] AM Lab 01/02/21 05:11 Ordered UA RFX LATOYA AND CULT IF INDIC [URIN] Stat Lab 01/01/21 14:16 Ordered Acetaminophen [TylenoL] Med 01/01/21 16:25 Ordered 650 mg PO Q4H PRN Dextrose 50% in Water Med 01/01/21 16:25 Ordered 25 ml IVPUSH ASDIRECTED PRN Docusate Sodium [Colace] Med 01/01/21 16:25 Ordered 100 mg PO BID PRN Gabapentin [Neurontin] Med 01/01/21 21:00 Ordered 150 mg PO TID Glucagon,Human Recombinant [GlucaGen] Med 01/01/21 16:25 Ordered 1 mg IM ONETIME PRN Heparin Sodium Med 01/01/21 22:00 Ordered 5,000 units SUBCUT Q8HR Insulin Regular in 0.9 % NACL [Myxredlin in NS 100 UNIT Med 01/01/21 15:23 Active /100 ML] 100 unit in 100 ml IV TITRATE Morphine Med 01/01/21 16:25 Ordered 1 mg IVPUSH Q2H PRN Ondansetron [Zofran ODT] Med 01/01/21 16:22 Ordered 4 mg PO Q4H PRN Ondansetron [Zofran] Med 01/01/21 16:22 Active 4 mg IVPUSH Q4H PRN Pharmacy to Dose - InFluenza V [Pharmacy to Dose - Med 01/02/21 09:00 Ordered InFluenza Vaccine] 1 each IM DAILY Sodium Chloride 0.9% @ 150 MLS/HR (1000ml) Med 01/01/21 16:30 Ordered Sodium Chloride 0.9% [Normal Saline] 1,000 ml IV ASDIRECTED Sodium Chloride 0.9% [Saline Flush] Med 01/01/21 14:16 Active 10 ml FLUSH ASDIRECTED PRN Temazepam [Restoril] Med 01/01/21 16:25 Ordered 15 mg PO BEDTIME PRN atorvaSTATin [Lipitor] Med 01/01/21 21:00 Ordered 10 mg PO BEDTIME oxyCODONE Med 01/01/21 16:25 Ordered 5 mg PO Q4H PRN Peripheral IV Insertion Adult [OM.PC] Stat Oth 01/01/21 14:16 Ordered Resuscitation Status Routine Resus Stat 01/01/21 16:25 Ordered Medication Orders Acetaminophen (Tylenol) 650 mg PO Q4H PRN PRN Reason: Pain (Mild 1-3)/fever Atorvastatin Calcium (Lipitor) 10 mg PO BEDTIME ANTONIA Dextrose/Water (Dextrose 50% In Water) 25 ml IVPUSH ASDIRECTED PRN PRN Reason: Hypoglycemia Docusate Sodium (Colace) 100 mg PO BID PRN PRN Reason: Constipation Gabapentin (Neurontin) 150 mg PO TID [facility] Glucagon (Glucagen) 1 mg IM ONETIME PRN PRN Reason: Hypoglycemia Heparin Sodium (Porcine) (Heparin Sodium) 5,000 units SUBCUT Q8HR [facility] Insulin Regular in 0.9 % NACL (Myxredlin In Ns 100 Unit/100 Ml) 100 unit in 100 mls @ 6.12 mls/hr IV TITRATE ANTONIA; Protocol Last Admin: 01/01/21 15:39 Dose: 0.1 units/kg/hr, 6.12 mls/hr Documented by: MARIN Cosigned by: LIZETH Sodium Chloride (Normal Saline) 1,000 mls @ 150 mls/hr IV ASDIRECTED [facility] Influenza Virus Vaccine (Pharmacy To Dose - Influenza Vaccine) 1 each IM DAILY [facility] Morphine Sulfate (Morphine) 1 mg IVPUSH Q2H PRN PRN Reason: Pain (severe 7-10) Ondansetron HCl (Zofran Odt) 4 mg PO Q4H PRN PRN Reason: Nausea Ondansetron HCl (Zofran) 4 mg IVPUSH Q4H PRN PRN Reason: Nausea/Vomiting Oxycodone HCl (Oxycodone) 5 mg PO Q4H PRN PRN Reason: Pain (moderate 4-6) Sodium Chloride (Saline Flush) 10 ml FLUSH ASDIRECTED PRN PRN Reason: Keep Vein Open Last Admin: 01/01/21 14:36 Dose: 10 ml Documented by: KIRSTEN Temazepam (Restoril) 15 mg PO BEDTIME PRN PRN Reason: Sleep
[2021-01-01] MEDS: Sodium Chloride 0.9% 1,000 ML IV SCH ×2 (17:09→23:16)
[2021-01-01] MEDS: Acetaminophen 325 MG Tab PO PRN (17:14)
[2021-01-01] MEDS ORDERED: Gabapentin 100 MG Cap PO SCH (21:00)
[2021-01-01] MEDS: atorvaSTATin 10 MG Tab PO SCH (21:24)
[2021-01-01] MEDS: Gabapentin 100 MG Cap PO SCH (21:24)
[2021-01-01] MEDS: Heparin Sodium 5,000 Units/ML Vial SUBCUT SCH (21:25)
[2021-01-01] MEDS: Dextrose 5%-0.9% NaCl 1,000 ML IV SCH (23:34)
[2021-01-02] MEDS ORDERED: Glucagon,Human Recombinant 1 MG Vial IM PRN ×4 (02:21→14:39)
[2021-01-02] MEDS ORDERED: 50% Dextrose in Water 50 ML Syringe IV PRN ×4 (02:21→14:39)
[2021-01-02] MEDS: Dextrose 5%-0.9% NaCl 1,000 ML IV SCH (05:49)
[2021-01-02] MEDS: Heparin Sodium 5,000 Units/ML Vial SUBCUT SCH ×3 (05:51→21:40)
[2021-01-02 06:48] LABS: ANION GAP 16.1 mEq/L (7-13); CHLORIDE,CL 94 mmol/L (98-107); SODIUM,NA 131 mmol/L (136-145)
[2021-01-02] MEDS: Insulin Lispro 100 Units/ML 3 ML Vial SUBCUT SCH ×6 (08:43→21:39)
[2021-01-02] MEDS: Gabapentin 100 MG Cap PO SCH ×2 (08:44→21:36)
[2021-01-02] MEDS ORDERED: Insulin Isophane NPH, Human 100 Units/ML 3 ML Vial SQ ONE (09:21)
--- NOTE | 2021-01-02 09:56 | PCM.PN ---
- General Info Date of Service: 01/02/21 Admission Dx/Problem (Free Text): Admission Diagnosis/Problem Admission Diagnosis/Problem Hyperglycemia Subjective Update: feelin better but syttill has moderate nausea, has been able to eat breakfast no associated abd pain, no diarrhea no sob, no cp Functional Status: Reports: Pain Controlled, Tolerating Diet - Review of Systems General: Reports: Weakness, Fatigue, Malaise. Denies: Fever Pulmonary: Denies: Shortness of Breath Cardiovascular: Denies: Chest Pain Gastrointestinal: Denies: Abdominal Pain Genitourinary: Denies: Dysuria Neurological: Denies: Confusion - Patient Data Vitals - Most Recent: Last Vital Signs Temp 98.9 F 01/02/21 07:52 Pulse 96 01/02/21 07:52 Resp 20 01/02/21 07:52 BP 168/88 H 01/02/21 07:52 Pulse Ox 98 01/02/21 07:52 Weight - Most Recent: 126 lb I&O - Last 24 Hours: Intake & Output 01/01/21 01/02/21 01/02/21 22:59 06:59 14:59 Intake Total 900 983 Output Total 500 1100 Balance 400 -117 Lab Results Last 24 Hours: Laboratory Results - last 24 hr 01/01/21 01/01/21 01/01/21 Range/Units 14:27 14:27 14:27 WBC 6.4 (5.0-10.0) 10^3/uL RBC 4.81 (4.6-6.2) 10^6/uL Hgb 13.7 L (14.0-18.0) g/dL Hct 40.7 (40.0-54.0) % MCV 84.6 (80-100) fL MCH 28.5 (27.0-34.0) pg MCHC 33.7 (33.0-35.0) g/dL Plt Count 282 (150-450) 10^3/uL Neut % (Auto) 82.7 H (42.2-75.2) % Lymph % (Auto) 6.1 L (20.5-50.1) % [place] % (Auto) 10.7 H (2-8) % Eos % (Auto) 0.0 L (1.0-3.0) % Baso % (Auto) 0.5 (0.0-1.0) % Add Manual Diff Yes Neutrophils % (Manual) 74 (42-75) % Band Neutrophils % 4 % Lymphocytes % (Manual) 9 L (20-50) % Monocytes % (Manual) 10 H (2-8) % Metamyelocytes % 3 ABG pH (7.35-7.45) ABG pCO2 (35-45) mmHg ABG pO2 (70-100) mmHg ABG HCO3 (22-26) mmol/L ABG O2 Saturation (95-100) % ABG Base Excess ((-2)-(+3)) mmol/L Jeremy Test O2 Delivery Device Oxygen Flow Rate Sodium 126 L (136-145) mmol/L Potassium 5.3 H (3.5-5.1) mmol/L Chloride 88 L (98-107) mmol/L Carbon Dioxide 20 L (21-32) mmol/L Anion Gap 23.3 H (7-13) mEq/L BUN 34 H (7-18) mg/dL Creatinine 1.77 H (0.70-1.30) mg/dL Est Cr Clr Drug Dosing TNP Estimated GFR (MDRD) 40 BUN/Creatinine Ratio 19.2 (No establ ref range) Glucose 464 H* (74-99) mg/dL POC Glucose (70-105) mg/dl Lactic Acid 1.9 (0.4-2.0) mmol/L Calcium 9.5 (8.5-10.1) mg/dL Phosphorus (2.6-4.7) mg/dL Magnesium (1.8-2.4) mg/dL Total Bilirubin 0.5 (0.2-1.0) mg/dL AST 13 L (15-37) U/L ALT 13 L (16-63) U/L Alkaline Phosphatase 113 (46-116) U/L Troponin I < 0.017 (0.000-0.056) ng/mL Total Protein 7.2 (6.4-8.2) g/dL Albumin 2.9 L (3.4-5.0) g/dL Globulin 4.3 Albumin/Globulin Ratio 0.67 Amylase 41 (25-115) U/L Lipase 55 L (73-393) U/L Urine Color (YELLOW) Urine Appearance (CLEAR) Urine pH (5.0-9.0) Ur Specific [place] (1.005-1.030) Urine Protein (NEGATIVE) Urine Glucose (UA) (NEGATIVE) Urine Ketones (NEGATIVE) Urine Occult Blood (NEGATIVE) Urine Nitrite (NEGATIVE) Urine Bilirubin (NEGATIVE) Urine Urobilinogen (0.2-1.0) mg/dL Ur Leukocyte Esterase (NEGATIVE) Urine RBC /HPF Urine WBC (0-5/HPF) /HPF Ur Epithelial Cells (NOT SEEN) /HPF Amorphous Sediment (NOT SEEN) /HPF Urine Bacteria (0-FEW/HPF) /HPF Granular Casts (Auto) Urine Mucus (NOT SEEN) /LPF Ethyl Alcohol < 3 (0) mg/dL Ketones Small-20 mg/dl 01/01/21 01/01/21 01/01/21 Range/Units 14:30 17:00 18:16 WBC (5.0-10.0) 10^3/uL RBC (4.6-6.2) 10^6/uL Hgb (14.0-18.0) g/dL Hct (40.0-54.0) % MCV (80-100) fL MCH (27.0-34.0) pg MCHC (33.0-35.0) g/dL Plt Count (150-450) 10^3/uL Neut % (Auto) (42.2-75.2) % Lymph % (Auto) (20.5-50.1) % [place] % (Auto) (2-8) % Eos % (Auto) (1.0-3.0) % Baso % (Auto) (0.0-1.0) % Add Manual Diff Neutrophils % (Manual) (42-75) % Band Neutrophils % % Lymphocytes % (Manual) (20-50) % Monocytes % (Manual) (2-8) % Metamyelocytes % ABG pH 7.35 (7.35-7.45) ABG pCO2 29 L (35-45) mmHg ABG pO2 82 (70-100) mmHg ABG HCO3 15.8 L (22-26) mmol/L ABG O2 Saturation 96 (95-100) % ABG Base Excess -8 L ((-2)-(+3)) mmol/L Jeremy Test lb O2 Delivery Device Room air Oxygen Flow Rate 0 Sodium (136-145) mmol/L Potassium (3.5-5.1) mmol/L Chloride (98-107) mmol/L Carbon Dioxide (21-32) mmol/L Anion Gap (7-13) mEq/L BUN (7-18) mg/dL Creatinine (0.70-1.30) mg/dL Est Cr Clr Drug Dosing Estimated GFR (MDRD) BUN/Creatinine Ratio (No establ ref range) Glucose (74-99) mg/dL POC Glucose 338 H 407 H* (70-105) mg/dl Lactic Acid (0.4-2.0) mmol/L Calcium (8.5-10.1) mg/dL Phosphorus (2.6-4.7) mg/dL Magnesium (1.8-2.4) mg/dL Total Bilirubin (0.2-1.0) mg/dL AST (15-37) U/L ALT (16-63) U/L Alkaline Phosphatase (46-116) U/L Troponin I (0.000-0.056) ng/mL Total Protein (6.4-8.2) g/dL Albumin (3.4-5.0) g/dL Globulin Albumin/Globulin Ratio Amylase (25-115) U/L Lipase (73-393) U/L Urine Color (YELLOW) Urine Appearance (CLEAR) Urine pH (5.0-9.0) Ur Specific [place] (1.005-1.030) Urine Protein (NEGATIVE) Urine Glucose (UA) (NEGATIVE) Urine Ketones (NEGATIVE) Urine Occult Blood (NEGATIVE) Urine Nitrite (NEGATIVE) Urine Bilirubin (NEGATIVE) Urine Urobilinogen (0.2-1.0) mg/dL Ur Leukocyte Esterase (NEGATIVE) Urine RBC /HPF Urine WBC (0-5/HPF) /HPF Ur Epithelial Cells (NOT SEEN) /HPF Amorphous Sediment (NOT SEEN) /HPF Urine Bacteria (0-FEW/HPF) /HPF Granular Casts (Auto) Urine Mucus (NOT SEEN) /LPF Ethyl Alcohol (0) mg/dL Ketones 01/01/21 01/01/21 01/01/21 Range/Units 19:17 20:22 21:21 WBC (5.0-10.0) 10^3/uL RBC (4.6-6.2) 10^6/uL Hgb (14.0-18.0) g/dL Hct (40.0-54.0) % MCV (80-100) fL MCH (27.0-34.0) pg MCHC (33.0-35.0) g/dL Plt Count (150-450) 10^3/uL Neut % (Auto) (42.2-75.2) % Lymph % (Auto) (20.5-50.1) % [place] % (Auto) (2-8) % Eos % (Auto) (1.0-3.0) % Baso % (Auto) (0.0-1.0) % Add Manual Diff Neutrophils % (Manual) (42-75) % Band Neutrophils % % Lymphocytes % (Manual) (20-50) % Monocytes % (Manual) (2-8) % Metamyelocytes % ABG pH (7.35-7.45) ABG pCO2 (35-45) mmHg ABG pO2 (70-100) mmHg ABG HCO3 (22-26) mmol/L ABG O2 Saturation (95-100) % ABG Base Excess ((-2)-(+3)) mmol/L Jeremy Test O2 Delivery Device Oxygen Flow Rate Sodium (136-145) mmol/L Potassium (3.5-5.1) mmol/L Chloride (98-107) mmol/L Carbon Dioxide (21-32) mmol/L Anion Gap (7-13) mEq/L BUN (7-18) mg/dL Creatinine (0.70-1.30) mg/dL Est Cr Clr Drug Dosing Estimated GFR (MDRD) BUN/Creatinine Ratio (No establ ref range) Glucose (74-99) mg/dL POC Glucose 365 H 290 H 242 H (70-105) mg/dl Lactic Acid (0.4-2.0) mmol/L Calcium (8.5-10.1) mg/dL Phosphorus (2.6-4.7) mg/dL Magnesium (1.8-2.4) mg/dL Total Bilirubin (0.2-1.0) mg/dL AST (15-37) U/L ALT (16-63) U/L Alkaline Phosphatase (46-116) U/L Troponin I (0.000-0.056) ng/mL Total Protein (6.4-8.2) g/dL Albumin (3.4-5.0) g/dL Globulin Albumin/Globulin Ratio Amylase (25-115) U/L Lipase (73-393) U/L Urine Color (YELLOW) Urine Appearance (CLEAR) Urine pH (5.0-9.0) Ur Specific [place] (1.005-1.030) Urine Protein (NEGATIVE) Urine Glucose (UA) (NEGATIVE) Urine Ketones (NEGATIVE) Urine Occult Blood (NEGATIVE) Urine Nitrite (NEGATIVE) Urine Bilirubin (NEGATIVE) Urine Urobilinogen (0.2-1.0) mg/dL Ur Leukocyte Esterase (NEGATIVE) Urine RBC /HPF Urine WBC (0-5/HPF) /HPF Ur Epithelial Cells (NOT SEEN) /HPF Amorphous Sediment (NOT SEEN) /HPF Urine Bacteria (0-FEW/HPF) /HPF Granular Casts (Auto) Urine Mucus (NOT SEEN) /LPF Ethyl Alcohol (0) mg/dL Ketones 01/01/21 01/01/21 01/02/21 Range/Units 22:16 23:20 00:19 WBC (5.0-10.0) 10^3/uL RBC (4.6-6.2) 10^6/uL Hgb (14.0-18.0) g/dL Hct (40.0-54.0) % MCV (80-100) fL MCH (27.0-34.0) pg MCHC (33.0-35.0) g/dL Plt Count (150-450) 10^3/uL Neut % (Auto) (42.2-75.2) % Lymph % (Auto) (20.5-50.1) % [place] % (Auto) (2-8) % Eos % (Auto) (1.0-3.0) % Baso % (Auto) (0.0-1.0) % Add Manual Diff Neutrophils % (Manual) (42-75) % Band Neutrophils % % Lymphocytes % (Manual) (20-50) % Monocytes % (Manual) (2-8) % Metamyelocytes % ABG pH (7.35-7.45) ABG pCO2 (35-45) mmHg ABG pO2 (70-100) mmHg ABG HCO3 (22-26) mmol/L ABG O2 Saturation (95-100) % ABG Base Excess ((-2)-(+3)) mmol/L Jeremy Test O2 Delivery Device Oxygen Flow Rate Sodium (136-145) mmol/L Potassium (3.5-5.1) mmol/L Chloride (98-107) mmol/L Carbon Dioxide (21-32) mmol/L Anion Gap (7-13) mEq/L BUN (7-18) mg/dL Creatinine (0.70-1.30) mg/dL Est Cr Clr Drug Dosing Estimated GFR (MDRD) BUN/Creatinine Ratio (No establ ref range) Glucose (74-99) mg/dL POC Glucose 213 H 144 H 139 H (70-105) mg/dl Lactic Acid (0.4-2.0) mmol/L Calcium (8.5-10.1) mg/dL Phosphorus (2.6-4.7) mg/dL Magnesium (1.8-2.4) mg/dL Total Bilirubin (0.2-1.0) mg/dL AST (15-37) U/L ALT (16-63) U/L Alkaline Phosphatase (46-116) U/L Troponin I (0.000-0.056) ng/mL Total Protein (6.4-8.2) g/dL Albumin (3.4-5.0) g/dL Globulin Albumin/Globulin Ratio Amylase (25-115) U/L Lipase (73-393) U/L Urine Color (YELLOW) Urine Appearance (CLEAR) Urine pH (5.0-9.0) Ur Specific [place] (1.005-1.030) Urine Protein (NEGATIVE) Urine Glucose (UA) (NEGATIVE) Urine Ketones (NEGATIVE) Urine Occult Blood (NEGATIVE) Urine Nitrite (NEGATIVE) Urine Bilirubin (NEGATIVE) Urine Urobilinogen (0.2-1.0) mg/dL Ur Leukocyte Esterase (NEGATIVE) Urine RBC /HPF Urine WBC (0-5/HPF) /HPF Ur Epithelial Cells (NOT SEEN) /HPF Amorphous Sediment (NOT SEEN) /HPF Urine Bacteria (0-FEW/HPF) /HPF Granular Casts (Auto) Urine Mucus (NOT SEEN) /LPF Ethyl Alcohol (0) mg/dL Ketones 01/02/21 01/02/21 01/02/21 Range/Units 01:19 02:16 03:55 WBC (5.0-10.0) 10^3/uL RBC (4.6-6.2) 10^6/uL Hgb (14.0-18.0) g/dL Hct (40.0-54.0) % MCV (80-100) fL MCH (27.0-34.0) pg MCHC (33.0-35.0) g/dL Plt Count (150-450) 10^3/uL Neut % (Auto) (42.2-75.2) % Lymph % (Auto) (20.5-50.1) % [place] % (Auto) (2-8) % Eos % (Auto) (1.0-3.0) % Baso % (Auto) (0.0-1.0) % Add Manual Diff Neutrophils % (Manual) (42-75) % Band Neutrophils % % Lymphocytes % (Manual) (20-50) % Monocytes % (Manual) (2-8) % Metamyelocytes % ABG pH (7.35-7.45) ABG pCO2 (35-45) mmHg ABG pO2 (70-100) mmHg ABG HCO3 (22-26) mmol/L ABG O2 Saturation (95-100) % ABG Base Excess ((-2)-(+3)) mmol/L Jeremy Test O2 Delivery Device Oxygen Flow Rate Sodium (136-145) mmol/L Potassium (3.5-5.1) mmol/L Chloride (98-107) mmol/L Carbon Dioxide (21-32) mmol/L Anion Gap (7-13) mEq/L BUN (7-18) mg/dL Creatinine (0.70-1.30) mg/dL Est Cr Clr Drug Dosing Estimated GFR (MDRD) BUN/Creatinine Ratio (No establ ref range) Glucose (74-99) mg/dL POC Glucose 155 H 149 H (70-105) mg/dl Lactic Acid (0.4-2.0) mmol/L Calcium (8.5-10.1) mg/dL Phosphorus (2.6-4.7) mg/dL Magnesium (1.8-2.4) mg/dL Total Bilirubin (0.2-1.0) mg/dL AST (15-37) U/L ALT (16-63) U/L Alkaline Phosphatase (46-116) U/L Troponin I (0.000-0.056) ng/mL Total Protein (6.4-8.2) g/dL Albumin (3.4-5.0) g/dL Globulin Albumin/Globulin Ratio Amylase (25-115) U/L Lipase (73-393) U/L Urine Color Yellow (YELLOW) Urine Appearance Clear (CLEAR) Urine pH 5.5 (5.0-9.0) Ur Specific [place] 1.025 (1.005-1.030) Urine Protein 30 H (NEGATIVE) Urine Glucose (UA) 500 H (NEGATIVE) Urine Ketones 40 H (NEGATIVE) Urine Occult Blood Small H (NEGATIVE) Urine Nitrite Negative (NEGATIVE) Urine Bilirubin Negative (NEGATIVE) Urine Urobilinogen 0.2 (0.2-1.0) mg/dL Ur Leukocyte Esterase Negative (NEGATIVE) Urine RBC 5-10 H /HPF Urine WBC 0-5 (0-5/HPF) /HPF Ur Epithelial Cells Rare (NOT SEEN) /HPF Amorphous Sediment Few (NOT SEEN) /HPF Urine Bacteria Few (0-FEW/HPF) /HPF Granular Casts (Auto) Few Urine Mucus Few H (NOT SEEN) /LPF Ethyl Alcohol (0) mg/dL Ketones 01/02/21 01/02/21 01/02/21 Range/Units 05:55 05:55 07:42 WBC 4.9 L (5.0-10.0) 10^3/uL RBC 4.44 L (4.6-6.2) 10^6/uL Hgb 12.4 L (14.0-18.0) g/dL Hct 37.0 L (40.0-54.0) % MCV 83.3 (80-100) fL MCH 27.9 (27.0-34.0) pg MCHC 33.5 (33.0-35.0) g/dL Plt Count 247 (150-450) 10^3/uL Neut % (Auto) 73.2 (42.2-75.2) % Lymph % (Auto) 9.1 L (20.5-50.1) % [place] % (Auto) 17.3 H (2-8) % Eos % (Auto) 0.2 L (1.0-3.0) % Baso % (Auto) 0.2 (0.0-1.0) % Add Manual Diff Neutrophils % (Manual) (42-75) % Band Neutrophils % % Lymphocytes % (Manual) (20-50) % Monocytes % (Manual) (2-8) % Metamyelocytes % ABG pH (7.35-7.45) ABG pCO2 (35-45) mmHg ABG pO2 (70-100) mmHg ABG HCO3 (22-26) mmol/L ABG O2 Saturation (95-100) % ABG Base Excess ((-2)-(+3)) mmol/L Jeremy Test O2 Delivery Device Oxygen Flow Rate Sodium 131 L (136-145) mmol/L Potassium 4.1 (3.5-5.1) mmol/L Chloride 94 L (98-107) mmol/L Carbon Dioxide 25 (21-32) mmol/L Anion Gap 16.1 H (7-13) mEq/L BUN 21 H (7-18) mg/dL Creatinine 1.11 (0.70-1.30) mg/dL Est Cr Clr Drug Dosing 57.92 Estimated GFR (MDRD) > 60 BUN/Creatinine Ratio (No establ ref range) Glucose 300 H (74-99) mg/dL POC Glucose 340 H (70-105) mg/dl Lactic Acid (0.4-2.0) mmol/L Calcium 8.3 L (8.5-10.1) mg/dL Phosphorus 1.8 L (2.6-4.7) mg/dL Magnesium 1.5 L (1.8-2.4) mg/dL Total Bilirubin (0.2-1.0) mg/dL AST (15-37) U/L ALT (16-63) U/L Alkaline Phosphatase (46-116) U/L Troponin I (0.000-0.056) ng/mL Total Protein (6.4-8.2) g/dL Albumin (3.4-5.0) g/dL Globulin Albumin/Globulin Ratio Amylase (25-115) U/L Lipase (73-393) U/L Urine Color (YELLOW) Urine Appearance (CLEAR) Urine pH (5.0-9.0) Ur Specific [place] (1.005-1.030) Urine Protein (NEGATIVE) Urine Glucose (UA) (NEGATIVE) Urine Ketones (NEGATIVE) Urine Occult Blood (NEGATIVE) Urine Nitrite (NEGATIVE) Urine Bilirubin (NEGATIVE) Urine Urobilinogen (0.2-1.0) mg/dL Ur Leukocyte Esterase (NEGATIVE) Urine RBC /HPF Urine WBC (0-5/HPF) /HPF Ur Epithelial Cells (NOT SEEN) /HPF Amorphous Sediment (NOT SEEN) /HPF Urine Bacteria (0-FEW/HPF) /HPF Granular Casts (Auto) Urine Mucus (NOT SEEN) /LPF Ethyl Alcohol (0) mg/dL Ketones Med Orders - Current: Current Medications Acetaminophen (Tylenol) 650 mg PO Q4H PRN PRN Reason: Pain (Mild 1-3)/fever Last Admin: 01/01/21 17:14 Dose: 650 mg Documented by: Atorvastatin Calcium (Lipitor) 10 mg PO BEDTIME [facility] Last Admin: 01/01/21 21:24 Dose: 10 mg Documented by: Dextrose/Water (Dextrose 50% In Water) 25 ml IVPUSH ASDIRECTED PRN PRN Reason: Hypoglycemia Dextrose/Water (Dextrose 50% In Water) 50 ml IV ASDIRECTED PRN PRN Reason: Hypoglycemia Docusate Sodium (Colace) 100 mg PO BID PRN PRN Reason: Constipation Gabapentin (Neurontin) 100 mg PO BID [facility] Last Admin: 01/02/21 08:44 Dose: 100 mg Documented by: Glucagon (Glucagen) 1 mg IM ONETIME PRN PRN Reason: Hypoglycemia Heparin Sodium (Porcine) (Heparin Sodium) 5,000 units SUBCUT Q8HR [facility] Last Admin: 01/02/21 05:51 Dose: 5,000 units Documented by: Influenza Virus Vaccine (Pharmacy To Dose - Influenza Vaccine) 1 each IM DAILY [facility] Insulin Glargine (Lantus) 15 unit SUBCUT BEDTIME [facility] Insulin Human Lispro (Humalog) 0 unit SUBCUT WITHMEALSANDBED [facility]; Protocol Last Admin: 01/02/21 08:43 Dose: 8 units Documented by: Insulin Human Lispro (Humalog) 5 unit SUBCUT TIDMEALS [facility] Magnesium Oxide (Magnesium Oxide) 500 mg PO BID@1000,1800 [facility] Stop: 01/02/21 18:01 Morphine Sulfate (Morphine) 1 mg IVPUSH Q2H PRN PRN Reason: Pain (severe 7-10) Ondansetron HCl (Zofran Odt) 4 mg PO Q4H PRN PRN Reason: Nausea Ondansetron HCl (Zofran) 4 mg IVPUSH Q4H PRN PRN Reason: Nausea/Vomiting Oxycodone HCl (Oxycodone) 5 mg PO Q4H PRN PRN Reason: Pain (moderate 4-6) Sodium Chloride (Saline Flush) 10 ml FLUSH ASDIRECTED PRN PRN Reason: Keep Vein Open Last Admin: 01/01/21 14:36 Dose: 10 ml Documented by: Sodium Phosphate (Neutra-Phos) 250 mg PO QID [facility] Stop: 01/02/21 17:01 Temazepam (Restoril) 15 mg PO BEDTIME PRN PRN Reason: Sleep Discontinued Medications Dextrose/Water (Dextrose 50% In Water) 50 ml IV ASDIRECTED PRN PRN Reason: Hypoglycemia Dextrose/Water (Dextrose 50% In Water) 50 ml IV ASDIRECTED PRN PRN Reason: Hypoglycemia Gabapentin (Neurontin) 150 mg PO TID [facility] Glucagon (Glucagen) 1 mg IM ASDIRECTED PRN PRN Reason: Hypoglycemia Glucagon (Glucagen) 1 mg IM ASDIRECTED PRN PRN Reason: Hypoglycemia Glucagon (Glucagen) 1 mg IM ASDIRECTED PRN PRN Reason: Hypoglycemia Sodium Chloride (Normal Saline) 1,000 mls @ 999 mls/hr IV .BOLUS ONE Stop: 01/01/21 15:17 Last Admin: 01/01/21 14:36 Dose: 999 mls/hr Documented by: Insulin Regular in 0.9 % NACL (Myxredlin In Ns 100 Unit/100 Ml) 100 unit in 100 mls @ 6.12 mls/hr IV TITRATE [facility]; Protocol Last Titration: 01/02/21 02:25 Dose: 0 units/kg/hr, 0 mls/hr Documented by: Insulin Human Regular 100 unit (/ Sodium Chloride) 100 mls @ 5 mls/hr IV TITRATE [facility]; Protocol Sodium Chloride (Normal Saline) 1,000 mls @ 150 mls/hr IV ASDIRECTED [facility] Last Admin: 01/01/21 23:16 Dose: 150 mls/hr Documented by: Dextrose/Sodium Chloride (Dextrose 5%-Normal Saline) 1,000 mls @ 150 mls/hr IV ASDIRECTED [facility] Last Admin: 01/02/21 05:49 Dose: 150 mls/hr Documented by: Insulin Human NPH (Humulin N) 10 unit SQ ONETIME ONE Stop: 01/02/21 09:22 Insulin Human Regular (Humulin R) 7 unit IV ONETIME ONE Stop: 01/01/21 15:23 Last Admin: 01/01/21 15:38 Dose: 7 units Documented by: Ondansetron HCl (Zofran) 4 mg IV ONETIME ONE Stop: 01/01/21 14:18 Last Admin: 01/01/21 14:36 Dose: 4 mg Documented by: - Exam General: Alert, Oriented Neck: Supple Lungs: Clear to Auscultation, Normal Respiratory Effort Cardiovascular: Regular Rate, Regular Rhythm GI/Abdominal Exam: Normal Bowel Sounds, Soft, Non-Tender Extremities: No Pedal Edema Sepsis Event Note - Evaluation Sepsis Screening Result: No Definite Risk - Focused Exam Vital Signs: Vital Signs Temp Pulse Pulse Resp BP Pulse Ox 01/02/21 07:52 98.9 F 96 20 168/88 H 98 01/02/21 04:00 98.9 F 102 H 20 121/59 L 94 L 01/01/21 23:43 99.2 F 93 20 94/44 L 94 L - Problem List & Annotations (1) DKA, type 1 SNOMED Code(s): 82669135, 30554338 Code(s): E10.10 - TYPE 1 DIABETES MELLITUS WITH KETOACIDOSIS WITHOUT COMA Status: Acute Current Visit: No Qualifiers: Diabetes mellitus complication detail: without coma Qualified Code(s): E10.10 - Type 1 diabetes mellitus with ketoacidosis without coma (2) Diabetic ketosis without coma SNOMED Code(s): 807078250, 293272561 Code(s): E13.10 - OTH DIABETES MELLITUS WITH KETOACIDOSIS WITHOUT COMA Status: Acute Current Visit: No (3) Diabetic ulcer of foot associated with diabetes mellitus due to underlying condition, limited to breakdown of skin SNOMED Code(s): 316589032, 970580687 Code(s): E08.621 - DIABETES MELLITUS DUE TO UNDERLYING CONDITION W FOOT ULCER; L97.501 - NON-PRS CHR ULCER OTH PRT UNSP FOOT LIMITED TO BRKDWN SKIN Status: Acute Current Visit: No Qualifiers: Diabetic foot ulcer location: midfoot Laterality: right Qualified Code(s): E08.621 - Diabetes mellitus due to underlying condition with foot ulcer; L97.411 - Non-pressure chronic ulcer of right heel and midfoot limited to breakdown of skin (4) Diabetic ulcer of right foot SNOMED Code(s): 661229952 Code(s): E11.621 - TYPE 2 DIABETES MELLITUS WITH FOOT ULCER; L97.519 - NON- PRS CHRONIC ULCER OTH PRT RIGHT FOOT W UNSP SEVERITY Status: Acute Current Visit: No Qualifiers: Diabetic foot ulcer location: unspecified part of foot Diabetes mellitus type: type 2 Non-pressure ulcer stage: with muscle involvement without evidence of necrosis Qualified Code(s): E11.621 - Type 2 diabetes mellitus with foot ulcer; L97.515 - Non-pressure chronic ulcer of other part of right foot with muscle involvement without evidence of necrosis (5) Hyperkalemia SNOMED Code(s): 31186604 Code(s): E87.5 - HYPERKALEMIA Status: Acute Current Visit: No (6) Hyponatremia SNOMED Code(s): 94672514 Code(s): E87.1 - HYPO-OSMOLALITY AND HYPONATREMIA Status: Acute Current Visit: No (7) Insulin dependent diabetes mellitus SNOMED Code(s): 47841375 Code(s): E11.9 - TYPE 2 DIABETES MELLITUS WITHOUT COMPLICATIONS; Z79.4 - APPLICATION DEVELOPMENT CONSULTANT (CURRENT) USE OF INSULIN Status: Acute Current Visit: No Onset Date: ~10/03/16 - Problem List Review Problem List Initiated/Reviewed/Updated: Yes - My Orders Last 24 Hours: My Active Orders 01/01/21 16:22 Ondansetron [Zofran ODT] 4 mg PO Q4H PRN Ondansetron [Zofran] 4 mg IVPUSH Q4H PRN 01/01/21 16:23 Influenza Vaccine Charge [RC] .DISCHARGE 01/01/21 16:25 Diabetes Education [RC] 08,20 Notify Provider [RC] PRN Oxygen Therapy [RC] PRN Up With Assistance [RC] ASDIRECTED VTE/DVT Education [RC] PER UNIT ROUTINE Vital Signs [RC] 00,04,08,12,16,20 Acetaminophen [TylenoL] 650 mg PO Q4H PRN Dextrose 50% in Water 25 ml IVPUSH ASDIRECTED PRN Docusate Sodium [Colace] 100 mg PO BID PRN Glucagon,Human Recombinant [GlucaGen] 1 mg IM ONETIME PRN Morphine 1 mg IVPUSH Q2H PRN Temazepam [Restoril] 15 mg PO BEDTIME PRN oxyCODONE 5 mg PO Q4H PRN Resuscitation Status Routine 01/01/21 16:40 Communication Order [RC] DAILY 01/01/21 Dinner Consistent Carbohydrate Diet [DIET] 01/01/21 21:00 Gabapentin [Neurontin] 100 mg PO BID atorvaSTATin [Lipitor] 10 mg PO BEDTIME 01/01/21 22:00 Heparin Sodium 5,000 units SUBCUT Q8HR 01/02/21 02:23 Blood Glucose Check, Bedside [RC] QIDACANDBED 01/02/21 08:00 Insulin Lispro [HumaLOG] See Protocol SUBCUT WITHMEALSANDBED 01/02/21 09:00 Pharmacy to Dose - InFluenza V [Pharmacy to Dose - InFluenza Vaccine] 1 each IM DAILY 01/02/21 09:22 Dextrose 50% in Water 50 ml IV ASDIRECTED PRN 01/02/21 10:00 Magnesium Oxide 500 mg PO BID@1000,1800 01/02/21 12:00 Insulin Lispro [HumaLOG] 5 unit SUBCUT TIDMEALS 01/02/21 13:00 Phosphorus #1 [Neutra-Phos] 250 mg PO QID 01/02/21 21:00 Insulin Glarg,Human.Rec.Analog [LantUS] 15 unit SUBCUT BEDTIME 01/03/21 05:11 MAGNESIUM [CHEM] AM PHOSPHORUS [CHEM] AM 01/03/21 05:15 BASIC METABOLIC PANEL,BMP [CHEM] AM - Plan Plan:: 60-year-old gentleman with a history of type 1 diabetes, prior admissions for DKA, right foot osteomyelitis, smoking. Nausea, vomiting Abdominal examination is benign Might relate to DKA improving Will treat symptomatically DKA with ketones in urine, elevated anion gap treated with IV fluids, insulin drip improved stop IVF transition to SQ regimen Hyperkalemia, pseudohyponatremia improved replace phos and mg Recheck electrolytes in the morning Renal failure with creatinine of 1.7 on admission Baseline creatinine is 0.7 in December 2019 but had multiple episodes of creatinine above 1.50 improved with hydration will stop IVF recheck in am Left great toe Has dry necrosis of the tip has been present at least 3 weeks per patient No significant redness around it Will need podiatry follow-up, likely amputation Dvt prophylaxis with sq heparin
[2021-01-02] MEDS: Phosphorus #1 250 MG Tab PO SCH ×2 (13:52→17:15)
[2021-01-02] MEDS ORDERED: Insulin Lispro 100 Units/ML 3 ML Vial SUBCUT ONE (14:39)
[2021-01-02] MEDS: NS + KCl 20mEq/L 1,000 ML IV SCH ×2 (15:07→21:42)
[2021-01-02] MEDS: Acetaminophen 325 MG Tab PO PRN (17:16)
[2021-01-02] MEDS ORDERED: Insulin Glarg,Human.Rec.Analog 100 Unit/ML SUBCUT SCH ×2 (21:00)
[2021-01-02] MEDS: atorvaSTATin 10 MG Tab PO SCH (21:36)
[2021-01-03] MEDS: NS + KCl 20mEq/L 1,000 ML IV SCH (04:06)
[2021-01-03] MEDS: Heparin Sodium 5,000 Units/ML Vial SUBCUT SCH (05:43)
[2021-01-03 06:54] LABS: ANION GAP 9.8 mEq/L (7-13); CHLORIDE,CL 100 mmol/L (98-107); SODIUM,NA 138 mmol/L (136-145)
[2021-01-03] MEDS: Gabapentin 100 MG Cap PO SCH (08:26)
[2021-01-03] MEDS: Acetaminophen 325 MG Tab PO PRN (08:27)
[2021-01-03] MEDS: Insulin Lispro 100 Units/ML 3 ML Vial SUBCUT SCH ×4 (08:34→11:35)
[2021-01-03] MEDS ORDERED: Phosphorus #1 250 MG Tab PO ONE ×2 (09:04→11:30)
--- NOTE | 2021-01-03 09:57 | PCM.DCSUM1 ---
Discharge Summary - Hospital Course Free Text/Narrative:: 60-year-old gentleman with a history of type 1 diabetes, prior admissions for DKA, right foot osteomyelitis, smoking. stopped using his home meds presented with hyperglycemia, nausea Nausea, vomiting Abdominal examination wasbenign likely due to DKA resolved tolerating diet DKA with ketones in urine, elevated anion gap treated with IV fluids, insulin drip improved transitioned to SQ regimen Hyperkalemia, pseudohyponatremia improved replaced phos and mg Renal failure with creatinine of 1.7 on admission Baseline creatinine is 0.7 in December 2019 but had multiple episodes of creatinine above 1.50 improved with hydration - discharge Cr: 0.88 follow periodically with lisinopril htn started lisinopril Left great toe Has dry necrosis of the tip has been present at least 3 weeks per patient No significant redness around it Will need podiatry follow-up, likely amputation set up f/up with dr. Dawkins Diagnosis: Stroke: No - Discharge Data Discharge Date: 01/03/21 Discharge Disposition: Home, Self-Care 01 Condition: Good - Referral to Home Health Primary Care Physician: Burak Chau MD - Discharge Diagnosis/Problem(s) (1) DKA, type 1 SNOMED Code(s): 15123348, 72781121 ICD Code: E10.10 - TYPE 1 DIABETES MELLITUS WITH KETOACIDOSIS WITHOUT COMA Status: Acute Current Visit: No Qualifiers: Diabetes mellitus complication detail: without coma Qualified Code(s): E10.10 - Type 1 diabetes mellitus with ketoacidosis without coma (2) Diabetic ketosis without coma SNOMED Code(s): 054146604, 791735107 ICD Code: E13.10 - OTH DIABETES MELLITUS WITH KETOACIDOSIS WITHOUT COMA Sta tus: Acute Current Visit: No (3) Diabetic ulcer of foot associated with diabetes mellitus due to underlying condition, limited to breakdown of skin SNOMED Code(s): 743197279, 504518543 ICD Code: E08.621 - DIABETES MELLITUS DUE TO UNDERLYING CONDITION W FOOT ULCER; L97.501 - NON-PRS CHR ULCER OTH PRT UNSP FOOT LIMITED TO BRKDWN SKIN Status: Acute Current Visit: No Qualifiers: Diabetic foot ulcer location: midfoot Laterality: right Qualified Code(s): E08.621 - Diabetes mellitus due to underlying condition with foot ulcer; L97.411 - Non-pressure chronic ulcer of right heel and midfoot limited to breakdown of skin (4) Diabetic ulcer of right foot SNOMED Code(s): 689869861 ICD Code: E11.621 - TYPE 2 DIABETES MELLITUS WITH FOOT ULCER; L97.519 - NON- PRS CHRONIC ULCER OTH PRT RIGHT FOOT W UNSP SEVERITY Status: Acute Current Visit: No Qualifiers: Diabetic foot ulcer location: unspecified part of foot Diabetes mellitus type: type 2 Non-pressure ulcer stage: with muscle involvement without evidence of necrosis Qualified Code(s): E11.621 - Type 2 diabetes mellitus with foot ulcer; L97.515 - Non-pressure chronic ulcer of other part of right foot with muscle involvement without evidence of necrosis (5) Hyperkalemia SNOMED Code(s): 89306973 ICD Code: E87.5 - HYPERKALEMIA Status: Acute Current Visit: No (6) Hyponatremia SNOMED Code(s): 69107661 ICD Code: E87.1 - HYPO-OSMOLALITY AND HYPONATREMIA Status: Acute Current Visit: No (7) Insulin dependent diabetes mellitus SNOMED Code(s): 35928173 ICD Code: E11.9 - TYPE 2 DIABETES MELLITUS WITHOUT COMPLICATIONS; Z79.4 - LONGTERM (CURRENT) USE OF INSULIN Status: Acute Current Visit: No Onset Date: ~10/03/16 (8) HTN (hypertension) SNOMED Code(s): 35866576 ICD Code: I10 - ESSENTIAL (PRIMARY) HYPERTENSION Status: Acute Current Visit: Yes - Patient Instructions Diet: Heart Healthy Diet, Diabetic Diet Activity: As Tolerated - Discharge Plan *PRESCRIPTION DRUG MONITORING PROGRAM REVIEWED*: Not Applicable *COPY OF PRESCRIPTION DRUG MONITORING REPORT IN PATIENT RONALD: Not Applicable Prescriptions/Med Rec: Insulin Aspart [NovoLOG] 15 unit SQ .WITHMEALS #1 pen lisinopriL [Prinivil] 10 mg PO DAILY #30 tablet Home Medications: Home Meds Insulin Aspart [NovoLOG] 15 unit SQ .WITHMEALS #1 pen 01/03/21 [Rx] Insulin Glarg,Human.Rec.Analog [Lantus] 25 unit SUBCUT BEDTIME ml 01/03/21 [Rx] atorvaSTATin [Lipitor] 10 mg PO BEDTIME tablet 01/03/21 [Rx] lisinopriL [Prinivil] 10 mg PO DAILY #30 tablet 01/03/21 [Rx] Patient Handouts: Diabetes Mellitus and Foot Care, Wound Infection, Diabetic Ketoacidosis, Wound Infection, [id number], Blood Glucose Monitoring, Adult, Preventing Diabetic Ketoacidosis Referrals: Burak Chau MD [Primary Care Provider] - - Discharge Summary/Plan Comment DC Time >30 min.: No - General Info Date of Service: 01/03/21 - Review of Systems General: Denies: Fever, Weakness Pulmonary: Denies: Shortness of Breath Cardiovascular: Denies: Chest Pain, Edema Gastrointestinal: Denies: Abdominal Pain Neurological: Denies: Confusion - Patient Data Vitals - Most Recent: Last Vital Signs Temp 99.2 F 01/03/21 03:15 Pulse 97 01/03/21 03:15 Resp 20 01/03/21 03:15 BP 156/77 H 01/03/21 03:15 Pulse Ox 95 01/03/21 03:15 Weight - Most Recent: 126 lb I&O - Last 24 hours: Intake & Output 01/02/21 01/03/21 01/03/21 22:59 06:59 14:59 Intake Total 1545 1280 Balance 1545 1280 Lab Results - Last 24 hrs: Laboratory Results - last 24 hr 01/02/21 01/02/21 01/02/21 Range/Units 11:31 14:30 15:50 Sodium (136-145) mmol/L Potassium (3.5-5.1) mmol/L Chloride (98-107) mmol/L Carbon Dioxide (21-32) mmol/L Anion Gap (7-13) mEq/L BUN (7-18) mg/dL Creatinine (0.70-1.30) mg/dL Est Cr Clr Drug Dosing mL/min Estimated GFR (MDRD) Glucose (74-99) mg/dL POC Glucose 448 H* 481 H* 385 H (70-105) mg/dl Calcium (8.5-10.1) mg/dL Phosphorus (2.6-4.7) mg/dL Magnesium (1.8-2.4) mg/dL 01/02/21 01/02/21 01/03/21 Range/Units 17:00 21:17 06:06 Sodium 138 (136-145) mmol/L Potassium 3.8 (3.5-5.1) mmol/L Chloride 100 (98-107) mmol/L Carbon Dioxide 32 (21-32) mmol/L Anion Gap 9.8 (7-13) mEq/L BUN 16 (7-18) mg/dL Creatinine 0.88 (0.70-1.30) mg/dL Est Cr Clr Drug Dosing 73.06 mL/min Estimated GFR (MDRD) > 60 Glucose 191 H (74-99) mg/dL POC Glucose 263 H 218 H (70-105) mg/dl Calcium 8.1 L (8.5-10.1) mg/dL Phosphorus 2.2 L (2.6-4.7) mg/dL Magnesium 1.8 (1.8-2.4) mg/dL 01/03/21 Range/Units 07:55 Sodium (136-145) mmol/L Potassium (3.5-5.1) mmol/L Chloride (98-107) mmol/L Carbon Dioxide (21-32) mmol/L Anion Gap (7-13) mEq/L BUN (7-18) mg/dL Creatinine (0.70-1.30) mg/dL Est Cr Clr Drug Dosing mL/min Estimated GFR (MDRD) Glucose (74-99) mg/dL POC Glucose 188 H (70-105) mg/dl Calcium (8.5-10.1) mg/dL Phosphorus (2.6-4.7) mg/dL Magnesium (1.8-2.4) mg/dL Med Orders - Current: Current Medications Acetaminophen (Tylenol) 650 mg PO Q4H PRN PRN Reason: Pain (Mild 1-3)/fever Last Admin: 01/03/21 08:27 Dose: 650 mg Documented by: Atorvastatin Calcium (Lipitor) 10 mg PO BEDTIME [facility] Last Admin: 01/02/21 21:36 Dose: 10 mg Documented by: Dextrose/Water (Dextrose 50% In Water) 25 ml IVPUSH ASDIRECTED PRN PRN Reason: Hypoglycemia Dextrose/Water (Dextrose 50% In Water) 50 ml IV ASDIRECTED PRN PRN Reason: Hypoglycemia Docusate Sodium (Colace) 100 mg PO BID PRN PRN Reason: Constipation Gabapentin (Neurontin) 100 mg PO BID [facility] Last Admin: 01/03/21 08:26 Dose: 100 mg Documented by: Glucagon (Glucagen) 1 mg IM ASDIRECTED PRN PRN Reason: Hypoglycemia Heparin Sodium (Porcine) (Heparin Sodium) 5,000 units SUBCUT Q8HR [facility] Last Admin: 01/03/21 05:43 Dose: 5,000 units Documented by: Influenza Virus Vaccine (Pharmacy To Dose - Influenza Vaccine) 1 each IM DAILY [facility] Last Admin: 01/02/21 22:56 Dose: Not Given Documented by: Insulin Glargine (Lantus) 25 unit SUBCUT BEDTIME [facility] Last Admin: 01/02/21 21:37 Dose: 25 units Documented by: Insulin Human Lispro (Humalog) 0 unit SUBCUT WITHMEALSANDBED [facility]; Protocol Last Admin: 01/03/21 08:34 Dose: 2 units Documented by: Insulin Human Lispro (Humalog) 5 unit SUBCUT TIDMEALS [facility] Last Admin: 01/03/21 08:35 Dose: 5 units Documented by: Lisinopril (Prinivil) 10 mg PO DAILY [facility] Morphine Sulfate (Morphine) 1 mg IVPUSH Q2H PRN PRN Reason: Pain (severe 7-10) Ondansetron HCl (Zofran Odt) 4 mg PO Q4H PRN PRN Reason: Nausea Ondansetron HCl (Zofran) 4 mg IVPUSH Q4H PRN PRN Reason: Nausea/Vomiting Oxycodone HCl (Oxycodone) 5 mg PO Q4H PRN PRN Reason: Pain (moderate 4-6) Sodium Chloride (Saline Flush) 10 ml FLUSH ASDIRECTED PRN PRN Reason: Keep Vein Open Last Admin: 01/01/21 14:36 Dose: 10 ml Documented by: Temazepam (Restoril) 15 mg PO BEDTIME PRN PRN Reason: Sleep Discontinued Medications Dextrose/Water (Dextrose 50% In Water) 50 ml IV ASDIRECTED PRN PRN Reason: Hypoglycemia Dextrose/Water (Dextrose 50% In Water) 50 ml IV ASDIRECTED PRN PRN Reason: Hypoglycemia Dextrose/Water (Dextrose 50% In Water) 50 ml IV ASDIRECTED PRN PRN Reason: Hypoglycemia Gabapentin (Neurontin) 150 mg PO TID [facility] Glucagon (Glucagen) 1 mg IM ONETIME PRN PRN Reason: Hypoglycemia Glucagon (Glucagen) 1 mg IM ASDIRECTED PRN PRN Reason: Hypoglycemia Glucagon (Glucagen) 1 mg IM ASDIRECTED PRN PRN Reason: Hypoglycemia Glucagon (Glucagen) 1 mg IM ASDIRECTED PRN PRN Reason: Hypoglycemia Sodium Chloride (Normal Saline) 1,000 mls @ 999 mls/hr IV .BOLUS ONE Stop: 01/01/21 15:17 Last Admin: 01/01/21 14:36 Dose: 999 mls/hr Documented by: Insulin Regular in 0.9 % NACL (Myxredlin In Ns 100 Unit/100 Ml) 100 unit in 100 mls @ 6.12 mls/hr IV TITRATE [facility]; Protocol Last Titration: 01/02/21 02:25 Dose: 0 units/kg/hr, 0 mls/hr Documented by: Insulin Human Regular 100 unit (/ Sodium Chloride) 100 mls @ 5 mls/hr IV TITRATE [facility]; Protocol Sodium Chloride (Normal Saline) 1,000 mls @ 150 mls/hr IV ASDIRECTED [facility] Last Admin: 01/01/21 23:16 Dose: 150 mls/hr Documented by: Dextrose/Sodium Chloride (Dextrose 5%-Normal Saline) 1,000 mls @ 150 mls/hr IV ASDIRECTED [facility] Last Infusion: 01/02/21 10:54 Dose: 150 mls/hr Documented by: Potassium Chloride/Sodium Chloride (Normal Saline With 20 Meq Kcl) 1,000 mls @ 150 mls/hr IV ASDIRECTED [facility] Last Admin: 01/03/21 04:06 Dose: 150 mls/hr Documented by: Insulin Glargine (Lantus) 15 unit SUBCUT BEDTIME [facility] Insulin Human Lispro (Humalog) 15 unit SUBCUT ONETIME ONE Stop: 01/02/21 14:40 Last Admin: 01/02/21 14:43 Dose: 15 units Documented by: Insulin Human NPH (Humulin N) 10 unit SQ ONETIME ONE Stop: 01/02/21 09:22 Last Admin: 01/02/21 10:37 Dose: 10 unit Documented by: Insulin Human Regular (Humulin R) 7 unit IV ONETIME ONE Stop: 01/01/21 15:23 Last Admin: 01/01/21 15:38 Dose: 7 units Documented by: Magnesium Oxide (Magnesium Oxide) 500 mg PO BID@1000,1800 [facility] Stop: 01/02/21 18:01 Last Admin: 01/02/21 17:16 Dose: 500 mg Documented by: Ondansetron HCl (Zofran) 4 mg IV ONETIME ONE Stop: 01/01/21 14:18 Last Admin: 01/01/21 14:36 Dose: 4 mg Documented by: Sodium Phosphate (Neutra-Phos) 250 mg PO QID [facility] Stop: 01/02/21 17:01 Last Admin: 01/02/21 17:15 Dose: 250 mg Documented by: Sodium Phosphate (Neutra-Phos) 250 mg PO ONETIME ONE Stop: 01/03/21 09:05 - Exam General: Reports: Alert, Oriented Neck: Reports: Supple Lungs: Reports: Clear to Auscultation, Normal Respiratory Effort Cardiovascular: Reports: Regular Rate, Regular Rhythm Extremities: No Pedal Edema Skin: Reports: Other (left toe black eschar) Neurological: Reports: Normal Speech Psy/Mental Status: Reports: Alert, Normal Affect, Normal Mood
[2021-01-03] MEDS ORDERED: Lisinopril 10 MG Tab PO SCH (10:00)
[2021-01-03] MEDS ORDERED: FLU Vacc QS2020-21 36MOS UP/PF 60 MCG/0.5 ML Syringe IM ONE (11:30)
[2021-01-03 11:33] VITALS: BP 148/79
[2021-01-03 16:13] VITALS: PULSE 81
== END 2021-01-03 12:15 | disposition home or self-care (01) | DRG 638 ==
LOC: DL.ED 14:10 → DL.MS 15:33 → DL.ED 15:44
PROVIDERS: ADMIT Internal Medicine; ATTEND Internal Medicine
DX: E10.10 Type 1 diabetes mellitus with ketoacidosis without coma (principal); L97.515 Non-pressure chronic ulcer of other part of right foot with muscle involvement without evidence of necrosis; L97.411 Non-pressure chronic ulcer of right heel and midfoot limited to breakdown of skin; E87.1 Hypo-osmolality and hyponatremia; M86.9 Osteomyelitis, unspecified; E10.52 Type 1 diabetes mellitus with diabetic peripheral angiopathy with gangrene; I96 Gangrene, not elsewhere classified; E87.5 Hyperkalemia; I10 Essential (primary) hypertension; E78.00 Pure hypercholesterolemia, unspecified; H54.7 Unspecified visual loss; M19.90 Unspecified osteoarthritis, unspecified site; M54.9 Dorsalgia, unspecified; G89.29 Other chronic pain; F17.200 Nicotine dependence, unspecified, uncomplicated; E86.0 Dehydration; E10.69 Type 1 diabetes mellitus with other specified complication; N19 Unspecified kidney failure; E10.42 Type 1 diabetes mellitus with diabetic polyneuropathy; E10.621 Type 1 diabetes mellitus with foot ulcer; Z23 Encounter for immunization
CPT/HCPCS: 36415; 36600; 80048; 80053; 80307; 81001; 82009; 82150; 82803; 82962; 83605; 83690; 83735; 84100; 84484; 85025; 90686; 93005; 93010; 96374; 99284; 99285-25; A9270-GY; J1644; J1815; J1815-GY; J2405; J3480; J7030; J7042

== ENCOUNTER 2021-01-04 12:37 | Emergency (ER) | payer OTHER ==
--- NOTE | 2021-01-04 14:48 | EDM.PDOC ---
"ED HPI GENERAL MEDICAL PROBLEM - General Chief Complaint: Lower Extremity Injury/Pain Stated Complaint: INJURED TOE ON RIGHT FOOT Time Seen by Provider: 01/04/21 14:47 Source of Information: Reports: Patient, Old Records, RN, RN Notes Reviewed History Limitations: Reports: No Limitations - History of Present Illness INITIAL COMMENTS - FREE TEXT/NARRATIVE: Patient presents to the ED via personal vehicle with complaints of pain to his left, medial foot. The patient has a known, healing ulcer to the area for which he underwent a debridement and treatment for osteomyelitis via Dr. Arroyo at [facility] in [place] about one year ago. The patient was discharged from this facility yesterday, 01/03/21, following an admission for DKA. The discharge summary was reviewed by insurance writer, which notes this lesion and the lesion to the right great toe, with instructions for the patient to follow up with his field coordinator. The patient denies taking any medications for the pain. He denies fever, shaking chills, palpitations, nausea, vomiting, or diarrhea. He does attest to decreased sensation in his bilateral feet d/t neuropathy. He states he has had a difficult time regulating his sugars at home d/t the pain he is experiencing. Right Feet Pain Score (Numeric/FACES): 5 - Related Data Allergies Allergy/AdvReac Type Severity Reaction Status Date / Time No Known Allergies Allergy Verified 01/04/21 13:29 Home Meds: Home Meds Insulin Aspart [NovoLOG] 15 unit SQ .WITHMEALS #1 pen 01/03/21 [Rx] Insulin Glarg,Human.Rec.Analog [Lantus] 25 unit SUBCUT BEDTIME ml 01/03/21 [Rx] atorvaSTATin [Lipitor] 10 mg PO BEDTIME tablet 01/03/21 [Rx] lisinopriL [Prinivil] 10 mg PO DAILY #30 tablet 01/03/21 [Rx] Past Medical History HEENT History: Reports: Impaired Vision Cardiovascular History: Reports: High Cholesterol, Hypertension Respiratory History: Reports: None Gastrointestinal History: Reports: None Genitourinary History: Reports: Diabetic Nephropathy Musculoskeletal History: Reports: Arthritis, Back Pain, Chronic Neurological History: Reports: Neuropathy, Diabetic Psychiatric History: Reports: None Endocrine/Metabolic History: Reports: Diabetes, Type II, IDDM Hematologic History: Reports: None Immunologic History: Reports: None Oncologic (Cancer) History: Reports: None Dermatologic History: Reports: None - Infectious Disease History Infectious Disease History: Reports: Chicken Pox - Past Surgical History Head Surgeries/Procedures: Reports: None HEENT Surgical History: Reports: None Cardiovascular Surgical History: Reports: None Respiratory Surgical History: Reports: None GI Surgical History: Reports: Colonoscopy, Hernia, Inguinal, Hernia Repair/Other Male Surgical History: Reports: None Endocrine Surgical History: Reports: None Neurological Surgical History: Reports: None Musculoskeletal Surgical History: Reports: None Oncologic Surgical History: Reports: None Social & Family History - Family History Family Medical History: No Pertinent Family History - Tobacco Use Tobacco Use Status *Q: Current Every Day Tobacco User Years of Tobacco use: 30 Packs/Tins Daily: 2 Second Hand Smoke Exposure: No - Caffeine Use Caffeine Use: Reports: Coffee - Recreational Drug Use Recreational Drug Use: No - Living Situation & Occupation Living situation: Reports: Single, Alone Occupation: Employed Review of Systems - Review of Systems Review Of Systems: Comprehensive ROS is negative, except as noted in HPI. ED EXAM, GENERAL - Physical Exam Exam: See Below Exam Limited By: No Limitations General Appearance: Alert, No Apparent Distress Eye Exam: Bilateral Eye: EOMI, Normal Inspection, PERRL (3mm) Respiratory/Chest: No Respiratory Distress, Lungs Clear, Normal Breath Sounds, No Accessory Muscle Use, Chest Non-Tender Cardiovascular: Normal Peripheral Pulses, Regular Rate, Rhythm, No Edema, No Gallop, No JVD, No Murmur, No Rub Peripheral Pulses: 1+: Posterior Tibial (L), Posterior Tibial (R), 2+: Radial (L), Radial (R), Dorsalis Pedis (L), 3+: Dorsalis Pedis (R) GI/Abdominal: Normal Bowel Sounds, Soft, Non-Tender, No Distention, No Mass, Pelvis Stable (Male) Exam: Deferred Rectal (Males) Exam: Deferred Back Exam: Normal Inspection, Full Range of Motion Extremities: Normal Capillary Refill, Pedal Edema (+2, non-pitting to right foot; Trace to left foot), Joint Swelling, Redness, Other (Clean diabetic wound to right, medial ball of foot with sloughing to the base of the wound and erythema/edema/inflammation surrounding wound and extending into plantar and dorsal aspect of foot; Diabetic wound with large eschar noted to left great toe, extending from distal aspect and extending to the MTP joint with erythema noted surrounding the eschar ) Neurological: Alert, Oriented, CN II-XII Intact, Normal Cognition, Normal Gait, No Motor/Sensory Deficits Psychiatric: Normal Affect, Normal Mood Skin Exam: Erythema, Increased Warmth, Wound/Incision (Clean diabetic wound to right, medial ball of foot with sloughing to the base of the wound and erythema/edema/inflammation surrounding wound and extending into plantar and dorsal aspect of foot; Diabetic wound with large eschar noted to left great toe, extending from distal aspect and extending to the MTP joint with erythema noted surrounding the eschar ). No: Diaphoretic, Ecchymosis, Pallor, Petechiae Course - Vital Signs Last Recorded V/S: Last Vital Signs Temp 98.4 F 01/04/21 16:20 Pulse 100 01/04/21 16:20 Resp 16 01/04/21 16:20 BP 156/79 H 01/04/21 16:20 Pulse Ox 96 01/04/21 16:20 - Orders/Labs/Meds Labs: Laboratory Tests 01/04/21 01/04/21 Range/Units 15:00 15:00 WBC 7.9 (5.0-10.0) 10^3/uL RBC 4.52 L (4.6-6.2) 10^6/uL Hgb 12.8 L (14.0-18.0) g/dL Hct 38.0 L (40.0-54.0) % MCV 84.1 (80-100) fL MCH 28.3 (27.0-34.0) pg MCHC 33.7 (33.0-35.0) g/dL Plt Count 240 (150-450) 10^3/uL Neut % (Auto) 73.8 (42.2-75.2) % Lymph % (Auto) 8.7 L (20.5-50.1) % Turner % (Auto) 17.1 H (2-8) % Eos % (Auto) 0.1 L (1.0-3.0) % Baso % (Auto) 0.3 (0.0-1.0) % ESR 74 H (0-15) mm/hr Sodium 130 L (136-145) mmol/L Potassium 4.8 (3.5-5.1) mmol/L Chloride 92 L (98-107) mmol/L Carbon Dioxide 31 (21-32) mmol/L Anion Gap 11.8 (7-13) mEq/L BUN 23 H (7-18) mg/dL Creatinine 1.34 H (0.70-1.30) mg/dL Est Cr Clr Drug Dosing 50.88 mL/min Estimated GFR (MDRD) 55 BUN/Creatinine Ratio 17.2 (No establ ref range) Glucose 461 H* (74-99) mg/dL Calcium 9.0 (8.5-10.1) mg/dL Total Bilirubin 0.4 (0.2-1.0) mg/dL AST 12 L (15-37) U/L ALT 14 L (16-63) U/L Alkaline Phosphatase 105 (46-116) U/L C-Reactive Protein 22.0 H (0.0-0.9) mg/dL Total Protein 6.6 (6.4-8.2) g/dL Albumin 2.5 L (3.4-5.0) g/dL Globulin 4.1 Albumin/Globulin Ratio 0.61 Ketones Small-20 mg/dl Meds: Medications Discontinued Medications Generic Name Dose Route Start Last Admin Trade Name Freq PRN Reason Stop Dose Admin Dextrose/Water 50 ml 01/04/21 15:47 Dextrose 50% In Water IV ASDIRECTED PRN Hypoglycemia Glucagon 1 mg 01/04/21 15:47 Glucagen IM ASDIRECTED PRN Hypoglycemia Sodium Chloride 1,000 mls @ 999 mls/hr 01/04/21 15:47 01/04/21 16:07 Normal Saline IV 01/04/21 16:47 999 mls/hr .BOLUS ONE Administration Insulin Human Lispro 10 unit 01/04/21 15:47 01/04/21 16:06 Humalog SUBCUT 01/04/21 15:48 10 units ONETIME ONE Administration - Radiology Interpretation Free Text/Narrative:: [facility] Final Radiology Report Call: [phone] assistance Online chat: [email or web address] Name: ELAN DURHAM Age: 60Years M Date: 01/04/2021 SSN: -- : 1960 Study: CR FOOT 2V LT Requesting Physician: Marichuy Murphy Images: 2 Addl Studies: Provided Clinical History: Wound to left great toe; Wound to right medial rhina Contrast: Contrast Medium: Contrast Amount: Contrast Method: CONFIDENTIALITY STATEMENT This report is intended only for use by the referring physician, and only in accordance with law. If you received this in error, call [phone]. Page 1 of 1 PROCEDURE INFORMATION: Exam: XR Left Foot Exam date and time: 01/04/2021 5:23 PM Age: 60 years old Clinical indication: Other: R/O osteo big toe; Additional info: Wound to left great toe; Wound to right medial rhina TECHNIQUE: Imaging protocol: XR Left foot. Views: 1 or 2 views. COMPARISON: CR Foot Comp Min 3V Lt 12/22/2020 6:41 PM FINDINGS: Bones/joints: There is anatomic alignment. There is no acute fracture or dislocation. There is no abnormal bone density or osseous destruction. Soft tissues: Normal. IMPRESSION: No acute findings. Consider three-phase bone scan or MRI to exclude osteomyelitis. Thank you for allowing us to participate in the care of your patient. Dictated and Authenticated by: Kasey Valentin MD 01/04/2021 5:47 PM Central Time ([place] & Mem[place]) [facility] Final Radiology Report with Addendum Call: [phone] assistance Online chat: [email or web address] Name: ELAN DURHAM Age: 60Years M Date: 01/04/2021 SSN: -- : [id number] Study: CR FOOT 2V RT Requesting Physician: Marichuy Murphy Images: 2 Addl Studies: Provided Clinical History: Wound to left great toe; Wound to right medial rhina Contrast: Contrast Medium: Contrast Amount: Contrast Method: Page 1 of 2 Addendum created by Kasey Heart MD on 01/04/2021 6:07 PM Central Time ([place] & Meme): THIS REPORT CONTAINS FINDINGS THAT MAY BE CRITICAL TO PATIENT CARE. The findings were verbally communicated via telephone conference with Marichuy Crowe at 6:07 PM NIGHTCLUB MANAGER on 01/04/2021. The findings were acknowledged and understood. Initial Report created on 01/04/2021 5:58 PM Central Time ( & Meme): PROCEDURE INFORMATION: Exam: XR Right Foot Exam date and time: 01/04/2021 5:27 PM Age: 60 years old Clinical indication: Other: HX osteo to right medial foot, cellulitis--- uncontrolled diabetes; Additional info: Wound to left great toe; Wound to right medial rhina TECHNIQUE: Imaging protocol: XR Right foot. Views: 1 or 2 views. COMPARISON: CR Foot Comp Min 3V Rt 07/10/2020 3:23 AM FINDINGS: Bones/joints: There is an interval change of widening of the medial 1st metatarsophalangeal joint . Additionally, there is osseous fragmentation at the medial base of the proximal phalanx of the great toe and medial 1st metatarsal head. Serpiginous transverse radiolucency extends from the medial 1st metatarsal head to the central metaphysis. Soft tissues: There is soft tissue swelling with focal radiolucencies or gas that may represent gasforming organisms. IMPRESSION: ELAN DURHAM | Final Radiology Report CONFIDENTIALITY STATEMENT This report is intended only for use by the referring physician, and only in accordance with law. If you received this in error, call [phone]. Page 2 of 2 1. Findings suspicious for cellulitis/ osteomyelitis medial 1st metatarsophalangeal joint of the great toe as result of possible diabetic foot complication. Differential of gas gangrene is also included with the soft tissue gas that is visualized. 2. Probable insufficiency fracture 1st metatarsal head. Thank you for allowing us to participate in the care of your patient. Dictated and Authenticated by: Kasey Valentin MD 01/04/2021 5:58 PM Central Time ([place] & Meme) - Re-Assessments/Exams Free Text/Narrative Re-Assessment/Exam: 01/04/21 Glucose 461; Patient states he has had difficulty regulating his sugar since discharge. Small amount of Ketones noted in the blood. He has not taken any insulin today. Humalog 10units SQ administered. NS 1L Bolus initiated CBC unremarkable for acute processes; WBC 7.9 with not left shift. Inflammation markers elevated, CRP at 22 and ESR 47. Dehydration appreciated as well with creatinine of 1.34, BUN 23, and GFR at 55. Sodium slightly reduced at 133, will treat with aforementioned NS 1L bolus. Review of records reveals patient has been evaluated and now hospitalized at this facility for recurrent DKA and multiple diabetic wounds which patient has not received follow-up in podiatry for, regardless of how many times he has been instructed to. Will obtain Xrays of bilateral feet to r/o osteomyelitis, but will discuss case with hospitalist at [facility] in [place] regardless as patient does not follow up with specialist. Findings of lab work and examination discussed with patient, as well as need for transfer to be evaluated by podiatry. Patient verbalized understanding and agreement with the plan of care. Case discussed with Dr. Smith at [facility] in [place] who kindly agreed to accept patient for transfer. Will update him regarding the findings on xray once report comes through. Xray report of left foot unremarkable for acute processes, does request MRI for further r/o of osteomyelitis. Xray of right foot remarkable for possible cellulitis superimposed upon osteomyelitis at the medial 1st metatarsophalangeal join of the great toe. Gas noted within the tissues, therefore gangrene is considered in the differential. Dr. Smith notified of these findings via [employer] with [facility]. Departure - Departure Time of Disposition: 17:08 Disposition: DC/Tfer to Acute Hospital 02 Condition: Good Clinical Impression: Diabetic ketosis without coma, Diabetic ulcer of left great toe, Hyponatremia, Elevated C-reactive protein (CRP), Elevated erythrocyte sedimentation rate Diabetic ulcer of right foot Qualifiers: Diabetic foot ulcer location: unspecified part of foot Diabetes mellitus type: type 2 Non-pressure ulcer stage: with muscle involvement without evidence of necrosis Qualified Code(s): E11.621 - Type 2 diabetes mellitus with foot ulcer; L97.515 - Non-pressure chronic ulcer of other part of right foot with muscle involvement without evidence of necrosis Diabetic ulcer of toe Qualifiers: Diabetes mellitus type: type 1 Laterality: left Non-pressure ulcer stage: unspecified non-pressure ulcer stage Qualified Code(s): E10.621 - Type 1 diabetes mellitus with foot ulcer; L97.529 - Non-pressure chronic ulcer of other part of left foot with unspecified severity Cellulitis Qualifiers: Site of cellulitis: extremity Site of cellulitis of extremity: toe Laterality: right Qualified Code(s): L03.031 - Cellulitis of right toe Osteomyelitis Qualifiers: Osteomyelitis type: unspecified type Osteomyelitis location: foot Laterality: right Qualified Code(s): M86.9 - Osteomyelitis, unspecified - Discharge Information Referrals: PCP,None [Ordering Only Provider] - Forms: ED Department Discharge, Interfacility Transfer [facility] Sepsis Event Note (ED) - Evaluation Sepsis Screening Result: No Definite Risk"
[2021-01-04 15:30] LABS: ANION GAP 11.8 mEq/L (7-13); CHLORIDE,CL 92 mmol/L (98-107); SODIUM,NA 130 mmol/L (136-145)
[2021-01-04] MEDS ORDERED: Sodium Chloride 0.9% 1,000 ML IV ONE (15:47)
[2021-01-04] MEDS ORDERED: Glucagon,Human Recombinant 1 MG Vial IM PRN (15:47)
[2021-01-04] MEDS ORDERED: Insulin Lispro 100 Units/ML 3 ML Vial SUBCUT ONE (15:47)
[2021-01-04] MEDS ORDERED: 50% Dextrose in Water 50 ML Syringe IV PRN (15:47)
[2021-01-04 16:20] VITALS: BP 156/79; PULSE 100
--- NOTE | 2021-01-04 17:48 | CR ---
PROCEDURE INFORMATION: Exam: XR Left Foot Exam date and time: 01/04/2021 5:23 PM Age: 60 years old Clinical indication: Other: R/O osteo big toe; Additional info: Wound to left great toe; Wound to right medial rhina TECHNIQUE: Imaging protocol: XR Left foot. Views: 1 or 2 views. COMPARISON: CR Foot Comp Min 3V Lt 12/22/2020 6:41 PM FINDINGS: Bones/joints: There is anatomic alignment. There is no acute fracture or dislocation. There is no abnormal bone density or osseous destruction. Soft tissues: Normal. IMPRESSION: No acute findings. Consider three-phase bone scan or MRI to exclude osteomyelitis.
--- NOTE | 2021-01-04 17:59 | CR ---
PROCEDURE INFORMATION: Exam: XR Right Foot Exam date and time: 01/04/2021 5:27 PM Age: 60 years old Clinical indication: Other: HX osteo to right medial foot, cellulitis--- uncontrolled diabetes; Additional info: Wound to left great toe; Wound to right medial rhina TECHNIQUE: Imaging protocol: XR Right foot. Views: 1 or 2 views. COMPARISON: CR Foot Comp Min 3V Rt 07/10/2020 3:23 AM FINDINGS: Bones/joints: There is an interval change of widening of the medial 1st metatarsophalangeal joint . Additionally, there is osseous fragmentation at the medial base of the proximal phalanx of the great toe and medial 1st metatarsal head. Serpiginous transverse radiolucency extends from the medial 1st metatarsal head to the central metaphysis. Soft tissues: There is soft tissue swelling with focal radiolucencies or gas that may represent gas-forming organisms. IMPRESSION: 1. Findings suspicious for cellulitis/ osteomyelitis medial 1st metatarsophalangeal joint of the great toe as result of possible diabetic foot complication. Differential of gas gangrene is also included with the soft tissue gas that is visualized. 2. Probable insufficiency fracture 1st metatarsal head.
== END 2021-01-04 17:43 ==
LOC: DL.ED 12:37
DX: L03.031 Cellulitis of right toe (principal); E13.621 Other specified diabetes mellitus with foot ulcer; L97.515 Non-pressure chronic ulcer of other part of right foot with muscle involvement without evidence of necrosis; L97.529 Non-pressure chronic ulcer of other part of left foot with unspecified severity; M86.9 Osteomyelitis, unspecified; E13.10 Other specified diabetes mellitus with ketoacidosis without coma; E87.1 Hypo-osmolality and hyponatremia; R79.82 Elevated C-reactive protein (CRP); R70.0 Elevated erythrocyte sedimentation rate; I10 Essential (primary) hypertension; E78.00 Pure hypercholesterolemia, unspecified; E13.40 Other specified diabetes mellitus with diabetic neuropathy, unspecified; E13.21 Other specified diabetes mellitus with diabetic nephropathy; Z72.0 Tobacco use; Z79.4 Long term (current) use of insulin; Z79.899 Other long term (current) drug therapy
CPT/HCPCS: 36415; 73620; 80053; 82009; 82962; 85025; 85651; 86140; 99285; J1815; J7030

== ENCOUNTER 2021-01-16 16:42 | Inpatient (IN) | payer OTHER ==
[2021-01-16] MEDS ORDERED: Sodium Chloride 0.9% 1,000 ML IV ONE (17:59)
--- NOTE | 2021-01-16 18:02 | EDM.PDOC ---
ED HPI GENERAL MEDICAL PROBLEM - General Chief Complaint: General Stated Complaint: FROM CLINIC Time Seen by Provider: 01/16/21 18:00 Source of Information: Reports: Patient, Old Records, Provider (Jannette Mosher, Infectious Disease), RN, RN Notes Reviewed History Limitations: Reports: No Limitations - History of Present Illness INITIAL COMMENTS - FREE TEXT/NARRATIVE: Patient presents to the ED from the [facility] at the request of Jannette Mosher in Infectious Disease due to hyperglycemia. The patient was admitted at [facility] in [place] from 01/04/21-01/10/21 due to DKA and suspected osteomyelitis to bilateral great toes. The patient underwent bilateral amputation during this stay and has been following with ID for Zosyn TID infusions. The patient states he has been trying to control his blood sugars with his previously prescribed regimen of NovoLog 12u with meals and Lantus 25u at night, but is struggling as his sugars remain >500. He feels he is unable to care for himself in his current acute state and would like to go to swing bed. He denies fever, palpitations, vomiting, dysuria, hematuria, melena, or hematochezia. He does attest to shaking chills, polydipsia, polyphagia, polyuria, nausea, and diarrhea. feet Pain Score (Numeric/FACES): 5 - Related Data Allergies Allergy/AdvReac Type Severity Reaction Status Date / Time No Known Allergies Allergy Verified 01/16/21 17:38 Home Meds: Home Meds Insulin Glarg,Human.Rec.Analog [Lantus] 25 unit SUBCUT BEDTIME ml 01/03/21 [Rx] atorvaSTATin [Lipitor] 10 mg PO BEDTIME tablet 01/03/21 [Rx] Insulin Aspart [NovoLOG] 12 unit SQ .WITHMEALS 01/10/21 [History] Past Medical History HEENT History: Reports: Impaired Vision Cardiovascular History: Reports: High Cholesterol, Hypertension Respiratory History: Reports: None Gastrointestinal History: Reports: None Genitourinary History: Reports: Diabetic Nephropathy Musculoskeletal History: Reports: Arthritis, Back Pain, Chronic Neurological History: Reports: Neuropathy, Diabetic Psychiatric History: Reports: None Endocrine/Metabolic History: Reports: Diabetes, Type II, IDDM Hematologic History: Reports: None Immunologic History: Reports: None Oncologic (Cancer) History: Reports: None Dermatologic History: Reports: None - Infectious Disease History Infectious Disease History: Reports: Chicken Pox - Past Surgical History Head Surgeries/Procedures: Reports: None HEENT Surgical History: Reports: None Cardiovascular Surgical History: Reports: None Respiratory Surgical History: Reports: None GI Surgical History: Reports: Colonoscopy, Hernia, Inguinal, Hernia Repair/Other Male Surgical History: Reports: None Endocrine Surgical History: Reports: None Neurological Surgical History: Reports: None Musculoskeletal Surgical History: Reports: None Oncologic Surgical History: Reports: None Social & Family History - Family History Family Medical History: No Pertinent Family History - Tobacco Use Tobacco Use Status *Q: Current Every Day Tobacco User Years of Tobacco use: 30 Packs/Tins Daily: 0.5 - Caffeine Use Caffeine Use: Reports: None - Recreational Drug Use Recreational Drug Use: No - Living Situation & Occupation Living situation: Reports: Single, Alone Occupation: Employed ED ROS GENERAL - Review of Systems Review Of Systems: Comprehensive ROS is negative, except as noted in HPI. ED EXAM, GENERAL - Physical Exam Exam: See Below Exam Limited By: No Limitations General Appearance: Alert, No Apparent Distress Eye Exam: Bilateral Eye: EOMI, Normal Inspection, PERRL (3mm) Throat/Mouth: Normal Voice, No Airway Compromise. No: Normal Oropharynx (Dry mucous membranes ) Head: Atraumatic, Normocephalic Respiratory/Chest: No Respiratory Distress, Lungs Clear, Normal Breath Sounds, No Accessory Muscle Use, Chest Non-Tender Cardiovascular: Normal Peripheral Pulses, Regular Rate, Rhythm, No Edema, No Gallop, No JVD, No Murmur, No Rub Peripheral Pulses: 2+: Radial (L), Radial (R) GI/Abdominal: Normal Bowel Sounds, Soft, Non-Tender, No Organomegaly, No Distention, No Abnormal Bruit, No Mass, Pelvis Stable (Male) Exam: Deferred Rectal (Males) Exam: Deferred Extremities: Normal Range of Motion, No Pedal Edema, Normal Capillary Refill, Other (Post-surgical dressings in place to bilateral feet; To remain in place, per patient, via podiatry). No: Leg Pain Neurological: Alert, Oriented, CN II-XII Intact, Normal Cognition, Normal Gait (Utilizes a front-wheel walker since amputation), No Motor/Sensory Deficits Psychiatric: Normal Affect, Normal Mood Skin Exam: Warm, Dry, Intact, Normal Color, No Rash, Wound/Incision (Surgical dressings in place to bilateral feet; To remain in place, per patient, via podiatry). No: Ecchymosis, Erythema, Jaundice, Mottled, Pallor, Petechiae Course - Vital Signs Last Recorded V/S: Last Vital Signs Temp 98.5 F 01/16/21 17:31 Pulse 100 01/16/21 17:31 Resp 20 01/16/21 17:31 BP 138/67 01/16/21 17:31 Pulse Ox 97 01/16/21 17:31 - Orders/Labs/Meds Orders: Active Orders 24 hr Category Date Time Status Admission Diagnosis [ADT] Stat ADT 01/16/21 19:21 Ordered Admission Status [Patient Status] [ADT] Routine ADT 01/16/21 19:21 Active Blood Glucose Check, Bedside [RC] ONETIME Care 01/16/21 19:12 Active Cardiac Monitoring [RC] . DIRECTED Care 01/16/21 19:21 Active BMP [BASIC METABOLIC PANEL,BMP] [CHEM] Timed Lab 01/16/21 19:45 Ordered CORONAVIRUS COVID-19 BARB [MOLEC] Stat Lab 01/16/21 19:25 Received REFLEX LACTIC ACID YES OR NO [CHEM] Routine Lab 01/16/21 18:44 Received Dextrose 50% in Water Med 01/16/21 18:11 Active 50 ml IV ASDIRECTED PRN Dextrose 50% in Water Med 01/16/21 19:14 Active 50 ml IV ASDIRECTED PRN Glucagon,Human Recombinant [GlucaGen] Med 01/16/21 18:11 Active 1 mg IM ASDIRECTED PRN Glucagon,Human Recombinant [GlucaGen] Med 01/16/21 19:14 Active 1 mg IM ASDIRECTED PRN Medication Orders Dextrose/Water (Dextrose 50% In Water) 50 ml IV ASDIRECTED PRN PRN Reason: Hypoglycemia Dextrose/Water (Dextrose 50% In Water) 50 ml IV ASDIRECTED PRN PRN Reason: Hypoglycemia Glucagon (Glucagen) 1 mg IM ASDIRECTED PRN PRN Reason: Hypoglycemia Glucagon (Glucagen) 1 mg IM ASDIRECTED PRN PRN Reason: Hypoglycemia Labs: Laboratory Tests 01/16/21 01/16/21 01/16/21 Range/Units 17:47 18:06 18:06 WBC 7.5 (5.0-10.0) 10^3/uL RBC 3.62 L (4.6-6.2) 10^6/uL Hgb 10.4 L D (14.0-18.0) g/dL Hct 30.8 L (40.0-54.0) % MCV 85.1 (80-100) fL MCH 28.7 (27.0-34.0) pg MCHC 33.8 (33.0-35.0) g/dL Plt Count 402 D (150-450) 10^3/uL Neut % (Auto) 74.6 (42.2-75.2) % Lymph % (Auto) 15.5 L (20.5-50.1) % Otoe % (Auto) 8.7 H (2-8) % Eos % (Auto) 0.8 L (1.0-3.0) % Baso % (Auto) 0.4 (0.0-1.0) % ESR (0-15) mm/hr Sodium 129 L (136-145) mmol/L Potassium 5.3 H (3.5-5.1) mmol/L Chloride 92 L (98-107) mmol/L Carbon Dioxide 28 (21-32) mmol/L Anion Gap 14.3 H (7-13) mEq/L BUN 40 H (7-18) mg/dL Creatinine 2.02 H (0.70-1.30) mg/dL Est Cr Clr Drug Dosing 32.89 mL/min Estimated GFR (MDRD) 34 BUN/Creatinine Ratio 19.8 (No establ ref range) Glucose 676 H* (74-99) mg/dL POC Glucose > 500 H* (70-105) mg/dl Lactic Acid (0.4-2.0) mmol/L Calcium 8.9 (8.5-10.1) mg/dL Magnesium 1.8 (1.8-2.4) mg/dL Total Bilirubin 0.3 (0.2-1.0) mg/dL AST < 5 L (15-37) U/L ALT 13 L (16-63) U/L Alkaline Phosphatase 96 (46-116) U/L C-Reactive Protein 4.9 H (0.0-0.9) mg/dL Total Protein 7.1 (6.4-8.2) g/dL Albumin 2.4 L (3.4-5.0) g/dL Globulin 4.7 Albumin/Globulin Ratio 0.51 Ketones Negative 01/16/21 01/16/21 01/16/21 Range/Units 18:06 18:06 19:11 WBC (5.0-10.0) 10^3/uL RBC (4.6-6.2) 10^6/uL Hgb (14.0-18.0) g/dL Hct (40.0-54.0) % MCV (80-100) fL MCH (27.0-34.0) pg MCHC (33.0-35.0) g/dL Plt Count (150-450) 10^3/uL Neut % (Auto) (42.2-75.2) % Lymph % (Auto) (20.5-50.1) % [place] % (Auto) (2-8) % Eos % (Auto) (1.0-3.0) % Baso % (Auto) (0.0-1.0) % ESR 92 H (0-15) mm/hr Sodium (136-145) mmol/L Potassium (3.5-5.1) mmol/L Chloride (98-107) mmol/L Carbon Dioxide (21-32) mmol/L Anion Gap (7-13) mEq/L BUN (7-18) mg/dL Creatinine (0.70-1.30) mg/dL Est Cr Clr Drug Dosing mL/min Estimated GFR (MDRD) BUN/Creatinine Ratio (No establ ref range) Glucose (74-99) mg/dL POC Glucose > 500 H* (70-105) mg/dl Lactic Acid 3.1 H* (0.4-2.0) mmol/L Calcium (8.5-10.1) mg/dL Magnesium (1.8-2.4) mg/dL Total Bilirubin (0.2-1.0) mg/dL AST (15-37) U/L ALT (16-63) U/L Alkaline Phosphatase (46-116) U/L C-Reactive Protein (0.0-0.9) mg/dL Total Protein (6.4-8.2) g/dL Albumin (3.4-5.0) g/dL Globulin Albumin/Globulin Ratio Ketones Meds: Medications Generic Name Dose Route Start Last Admin Trade Name Freq PRN Reason Stop Dose Admin Dextrose/Water 50 ml 01/16/21 18:11 Dextrose 50% In Water IV ASDIRECTED PRN Hypoglycemia Dextrose/Water 50 ml 01/16/21 19:14 Dextrose 50% In Water IV ASDIRECTED PRN Hypoglycemia Glucagon 1 mg 01/16/21 18:11 Glucagen IM ASDIRECTED PRN Hypoglycemia Glucagon 1 mg 01/16/21 19:14 Glucagen IM ASDIRECTED PRN Hypoglycemia Discontinued Medications Generic Name Dose Route Start Last Admin Trade Name Tiffany PRN Reason Stop Dose Admin Sodium Chloride 1,000 mls @ 999 mls/hr 01/16/21 17:59 01/16/21 18:18 Normal Saline IV 01/16/21 18:59 999 mls/hr .BOLUS ONE Administration Sodium Chloride 500 mls @ 999 mls/hr 01/16/21 19:17 01/16/21 19:20 Normal Saline IV 01/16/21 19:47 999 mls/hr .BOLUS ONE Administration Insulin Human Lispro 10 unit 01/16/21 18:11 01/16/21 18:24 Humalog SUBCUT 01/16/21 18:12 10 units ONETIME ONE Administration Insulin Human Lispro 10 unit 01/16/21 19:14 01/16/21 19:20 Humalog SUBCUT 01/16/21 19:15 10 units ONETIME ONE Administration - Re-Assessments/Exams Free Text/Narrative Re-Assessment/Exam: 01/16/21 Patient noted to have increased blood sugars when compared to levels from the clinic this afternoon; he states he went home and ate a cheeseburger and malt prior to coming into the ED from the clinic. NS 1L bolus initiated and HumaLog 10u administered with POC BS >500. CMP remarkable for glucose 676. Sodium 129 and K 5.4 - will recheck BMP following bolus and insulin. Dehydration vs acute kidney injury noted with creatinine elevated at 2.02, BUN 40, and GFR at 34. Anion Gap slightly open at 14.3, Lactic elevated at 3.1, but no serum ketones appreciated. Will refrain from ABG at this time. ESR 92 and CRP 4.9, but WBC appropriate at 7.5 with no shift. Recheck of POC glucose 1 hour post insulin remains >500. Will administer additional HumaLog 10u and continue with administer NS 500mL. Plan to recheck BMP 30 minutes following second dose of insulin. Case discussed with Dr. Smith who kindly agreed to accept patient for inpatient admission for hyperglycemia. Discussed patient's request for swing bed. Departure - Departure Time of Disposition: 18:24 Disposition: Admitted As Inpatient 67 Condition: Good Clinical Impression: Hyperglycemia, Elevated C-reactive protein (CRP), Elevated lactic acid level, Type II diabetes mellitus - poor control, Hyponatremia, Elevated erythrocyte sedimentation rate, History of amputation of great toe of both feet - Discharge Information Forms: ED Department Discharge Sepsis Event Note (ED) - Evaluation Sepsis Screening Result: No Definite Risk - Focused Exam Vital Signs: Vital Signs Temp Pulse Resp BP Pulse Ox 01/16/21 17:31 98.5 F 100 20 138/67 97 - My Orders Last 24 Hours: My Active Orders 01/16/21 18:11 Dextrose 50% in Water 50 ml IV ASDIRECTED PRN Glucagon,Human Recombinant [GlucaGen] 1 mg IM ASDIRECTED PRN 01/16/21 18:44 REFLEX LACTIC ACID YES OR NO [CHEM] Routine 01/16/21 19:12 Blood Glucose Check, Bedside [RC] ONETIME 01/16/21 19:14 Dextrose 50% in Water 50 ml IV ASDIRECTED PRN Glucagon,Human Recombinant [GlucaGen] 1 mg IM ASDIRECTED PRN 01/16/21 19:21 Admission Diagnosis [ADT] Stat Admission Status [Patient Status] [ADT] Routine Cardiac Monitoring [RC] . DIRECTED 01/16/21 19:25 CORONAVIRUS COVID-19 BARB [MOLEC] Stat 01/16/21 19:45 BMP [BASIC METABOLIC PANEL,BMP] [CHEM] Timed - Assessment/Plan Last 24 Hours: My Active Orders 01/16/21 18:11 Dextrose 50% in Water 50 ml IV ASDIRECTED PRN Glucagon,Human Recombinant [GlucaGen] 1 mg IM ASDIRECTED PRN 01/16/21 18:44 REFLEX LACTIC ACID YES OR NO [CHEM] Routine 01/16/21 19:12 Blood Glucose Check, Bedside [RC] ONETIME 01/16/21 19:14 Dextrose 50% in Water 50 ml IV ASDIRECTED PRN Glucagon,Human Recombinant [GlucaGen] 1 mg IM ASDIRECTED PRN 01/16/21 19:21 Admission Diagnosis [ADT] Stat Admission Status [Patient Status] [ADT] Routine Cardiac Monitoring [RC] . DIRECTED 01/16/21 19:25 CORONAVIRUS COVID-19 BARB [MOLEC] Stat 01/16/21 19:45 BMP [BASIC METABOLIC PANEL,BMP] [CHEM] Timed
[2021-01-16] MEDS ORDERED: Glucagon,Human Recombinant 1 MG Vial IM PRN ×2 (18:11→19:14)
[2021-01-16] MEDS ORDERED: Insulin Lispro 100 Units/ML 3 ML Vial SUBCUT ONE ×2 (18:11→19:14)
[2021-01-16] MEDS ORDERED: 50% Dextrose in Water 50 ML Syringe IV PRN ×2 (18:11→19:14)
[2021-01-16 18:42] LABS: ANION GAP 14.3 mEq/L (7-13); CHLORIDE,CL 92 mmol/L (98-107); SODIUM,NA 129 mmol/L (136-145)
[2021-01-16] MEDS ORDERED: Sodium Chloride 0.9% 500 ML IV ONE (19:17)
[2021-01-16] MEDS ORDERED: 50% Dextrose in Water 50 ML Syringe IVPUSH PRN (20:08)
--- NOTE | 2021-01-16 20:25 | PCM.HP ---
H&P History of Present Illness - General Date of Service: 01/16/21 Admit Problem/Dx: Admission Diagnosis/Problem Admission Diagnosis/Problem Hyperglycemia Source of Information: Patient History Limitations: Reports: No Limitations - History of Present Illness Initial Comments - Free Text/Narative: Jacobo Parrish a 60 y.o.malewith medical history significant for stimulators of the right lower extremity, PAD s/p stent placement in the left lower extremity, type 1 diabetes with diabetic foot ulcer, on chronic insulin therapy, hypercholesterolemia, noncompliance with medications, and tobacco use disorder who was recently discharged from our to hospital after being admitted for septic arthritis/osteomyelitis across the first MTP and dry gangrene of the left toe. He got right foot partial first ray amputation and left hallux amputation tometatarsophalangeal jointand was discharged on Zosyn. Patient was seen in infectious disease clinic today for follow-up where he complained of not been able to care for himself or control his blood sugar despite taking his prescribed insulin doses. He denies any pain, fever, nausea, vomiting, diarrhea, urinary symptoms. His blood sugar was found to be 491. He was referred to the ER for admission. In the ER, patient blood sugar was found to be 676, lactic acid of 3.1, hemoglobin of 10.4, creatinine of 2.2, sodium of 129, and potassium of 5.3. feet Pain Score (Numeric/FACES): 5 - Related Data Allergies/Adverse Reactions: Allergies Allergy/AdvReac Type Severity Reaction Status Date / Time No Known Allergies Allergy Verified 01/16/21 17:38 Home Medications: Home Meds Insulin Glarg,Human.Rec.Analog [Lantus] 25 unit SUBCUT BEDTIME ml 01/03/21 [Rx] atorvaSTATin [Lipitor] 10 mg PO BEDTIME tablet 01/03/21 [Rx] Insulin Aspart [NovoLOG] 12 unit SQ .WITHMEALS 01/10/21 [History] Past Medical History - Past Health History Medical/Surgical History: Denies Medical/Surgical History HEENT History: Reports: Impaired Vision Cardiovascular History: Reports: High Cholesterol, Hypertension Respiratory History: Reports: None Gastrointestinal History: Reports: None Genitourinary History: Reports: Diabetic Nephropathy Musculoskeletal History: Reports: Arthritis, Back Pain, Chronic Neurological History: Reports: Neuropathy, Diabetic Psychiatric History: Reports: None Endocrine/Metabolic History: Reports: Diabetes, Type II, IDDM Hematologic History: Reports: None Immunologic History: Reports: None Oncologic (Cancer) History: Reports: None Dermatologic History: Reports: None - Infectious Disease History Infectious Disease History: Reports: Chicken Pox - Past Surgical History Head Surgeries/Procedures: Reports: None HEENT Surgical History: Reports: None Cardiovascular Surgical History: Reports: None Respiratory Surgical History: Reports: None GI Surgical History: Reports: Colonoscopy, Hernia, Inguinal, Hernia Repair/Other Male Surgical History: Reports: None Endocrine Surgical History: Reports: None Neurological Surgical History: Reports: None Musculoskeletal Surgical History: Reports: None Oncologic Surgical History: Reports: None Social & Family History - Family History Family Medical History: No Pertinent Family History - Tobacco Use Tobacco Use Status *Q: Current Every Day Tobacco User Years of Tobacco use: 30 Packs/Tins Daily: 0.5 - Caffeine Use Caffeine Use: Reports: Coffee, Soda - Recreational Drug Use Recreational Drug Use: No - Living Situation & Occupation Living situation: Reports: Single, Alone Occupation: Employed H&P Review of Systems - Review of Systems: Review Of Systems: See Below General: Reports: Weakness HEENT: Reports: No Symptoms Pulmonary: Reports: No Symptoms Cardiovascular: Reports: No Symptoms Gastrointestinal: Reports: No Symptoms Genitourinary: Reports: No Symptoms Musculoskeletal: Reports: No Symptoms Skin: Reports: No Symptoms Psychiatric: Reports: No Symptoms Neurological: Reports: No Symptoms Hematologic/Lymphatic: Reports: No Symptoms Immunologic: Reports: No Symptoms Exam - Exam Exam: See Below - Vital Signs Vital Signs: Last Vital Signs Temp 98.5 F 01/16/21 17:31 Pulse 100 01/16/21 17:31 Resp 20 01/16/21 17:31 BP 138/67 01/16/21 17:31 Pulse Ox 97 01/16/21 17:31 Weight: 124 lb 12.8 oz - Exam General: Alert, Oriented, 4 HEENT: PERRLA, Hearing Intact, Mucosa Moist & Cerulean, Nares Patent, Normal Nasal Septum, Posterior Pharynx Clear, Conjunctiva Clear, EOMI, EACs Clear, TMs Clear Neck: Supple, Trachea Midline, 2 Lungs: Clear to Auscultation, Normal Respiratory Effort Cardiovascular: Regular Rate, Regular Rhythm GI/Abdominal Exam: Normal Bowel Sounds Back Exam: Normal Inspection, Full Range of Motion, NT Extremities: Other (Bilateral foot wound dressings, clean and dry.) Skin: Warm, Dry Neurological: Cranial Nerves Intact, Reflexes Equal Bilateral Neuro Extensive - Mental Status: Alert, Oriented x3, Normal Mood/Affect, Normal Cognition Neuro Extensive - Motor, Sensory, Reflexes: CN II-XII Intact, Normal Gait, Normal Reflexes Psychiatric: Alert, Normal Affect, Normal Mood - Patient Data Lab Results Last 24 hrs: Laboratory Results - last 24 hr 01/16/21 01/16/21 01/16/21 Range/Units 17:47 18:06 18:06 WBC 7.5 (5.0-10.0) 10^3/uL RBC 3.62 L (4.6-6.2) 10^6/uL Hgb 10.4 L D (14.0-18.0) g/dL Hct 30.8 L (40.0-54.0) % MCV 85.1 (80-100) fL MCH 28.7 (27.0-34.0) pg MCHC 33.8 (33.0-35.0) g/dL Plt Count 402 D (150-450) 10^3/uL Neut % (Auto) 74.6 (42.2-75.2) % Lymph % (Auto) 15.5 L (20.5-50.1) % [place] % (Auto) 8.7 H (2-8) % Eos % (Auto) 0.8 L (1.0-3.0) % Baso % (Auto) 0.4 (0.0-1.0) % ESR (0-15) mm/hr Sodium 129 L (136-145) mmol/L Potassium 5.3 H (3.5-5.1) mmol/L Chloride 92 L (98-107) mmol/L Carbon Dioxide 28 (21-32) mmol/L Anion Gap 14.3 H (7-13) mEq/L BUN 40 H (7-18) mg/dL Creatinine 2.02 H (0.70-1.30) mg/dL Est Cr Clr Drug Dosing 32.89 mL/min Estimated GFR (MDRD) 34 BUN/Creatinine Ratio 19.8 (No establ ref range) Glucose 676 H* (74-99) mg/dL POC Glucose > 500 H* (70-105) mg/dl Lactic Acid (0.4-2.0) mmol/L Calcium 8.9 (8.5-10.1) mg/dL Magnesium 1.8 (1.8-2.4) mg/dL Total Bilirubin 0.3 (0.2-1.0) mg/dL AST < 5 L (15-37) U/L ALT 13 L (16-63) U/L Alkaline Phosphatase 96 (46-116) U/L C-Reactive Protein 4.9 H (0.0-0.9) mg/dL Total Protein 7.1 (6.4-8.2) g/dL Albumin 2.4 L (3.4-5.0) g/dL Globulin 4.7 Albumin/Globulin Ratio 0.51 Ketones Negative SARS-CoV-2 RNA (BARB) (NEGATIVE) 01/16/21 01/16/21 01/16/21 Range/Units 18:06 18:06 19:11 WBC (5.0-10.0) 10^3/uL RBC (4.6-6.2) 10^6/uL Hgb (14.0-18.0) g/dL Hct (40.0-54.0) % MCV (80-100) fL MCH (27.0-34.0) pg MCHC (33.0-35.0) g/dL Plt Count (150-450) 10^3/uL Neut % (Auto) (42.2-75.2) % Lymph % (Auto) (20.5-50.1) % [place] % (Auto) (2-8) % Eos % (Auto) (1.0-3.0) % Baso % (Auto) (0.0-1.0) % ESR 92 H (0-15) mm/hr Sodium (136-145) mmol/L Potassium (3.5-5.1) mmol/L Chloride (98-107) mmol/L Carbon Dioxide (21-32) mmol/L Anion Gap (7-13) mEq/L BUN (7-18) mg/dL Creatinine (0.70-1.30) mg/dL Est Cr Clr Drug Dosing mL/min Estimated GFR (MDRD) BUN/Creatinine Ratio (No establ ref range) Glucose (74-99) mg/dL POC Glucose > 500 H* (70-105) mg/dl Lactic Acid 3.1 H* (0.4-2.0) mmol/L Calcium (8.5-10.1) mg/dL Magnesium (1.8-2.4) mg/dL Total Bilirubin (0.2-1.0) mg/dL AST (15-37) U/L ALT (16-63) U/L Alkaline Phosphatase (46-116) U/L C-Reactive Protein (0.0-0.9) mg/dL Total Protein (6.4-8.2) g/dL Albumin (3.4-5.0) g/dL Globulin Albumin/Globulin Ratio Ketones SARS-CoV-2 RNA (BARB) (NEGATIVE) 01/16/ Range/Units 19:25 WBC (5.0-10.0) 10^3/uL RBC (4.6-6.2) 10^6/uL Hgb (14.0-18.0) g/dL Hct (40.0-54.0) % MCV (80-100) fL MCH (27.0-34.0) pg MCHC (33.0-35.0) g/dL Plt Count (150-450) 10^3/uL Neut % (Auto) (42.2-75.2) % Lymph % (Auto) (20.5-50.1) % [place] % (Auto) (2-8) % Eos % (Auto) (1.0-3.0) % Baso % (Auto) (0.0-1.0) % ESR (0-15) mm/hr Sodium (136-145) mmol/L Potassium (3.5-5.1) mmol/L Chloride (98-107) mmol/L Carbon Dioxide (21-32) mmol/L Anion Gap (7-13) mEq/L BUN (7-18) mg/dL Creatinine (0.70-1.30) mg/dL Est Cr Clr Drug Dosing mL/min Estimated GFR (MDRD) BUN/Creatinine Ratio (No establ ref range) Glucose (74-99) mg/dL POC Glucose (70-105) mg/dl Lactic Acid (0.4-2.0) mmol/L Calcium (8.5-10.1) mg/dL Magnesium (1.8-2.4) mg/dL Total Bilirubin (0.2-1.0) mg/dL AST (15-37) U/L ALT (16-63) U/L Alkaline Phosphatase (46-116) U/L C-Reactive Protein (0.0-0.9) mg/dL Total Protein (6.4-8.2) g/dL Albumin (3.4-5.0) g/dL Globulin Albumin/Globulin Ratio Ketones SARS-CoV-2 RNA (BARB) Negative (NEGATIVE) Result Diagrams: 01/16/21 18:06 01/16/21 20:09 Problem List Initiated/Reviewed/Updated: Yes Orders Last 24hrs: Active Orders 24 hr Category Date Time Status Admission Diagnosis [ADT] Stat ADT 01/16/21 19:21 Ordered Admission Status [Patient Status] [ADT] Routine ADT 01/16/21 19:21 Active Blood Glucose Check, Bedside [RC] ONETIME Care 01/16/21 19:12 Active Blood Glucose Check, Bedside [RC] QIDACANDBED Care 01/16/21 20:08 Ordered Cardiac Monitoring [RC] . DIRECTED Care 01/16/21 19:21 Active Communication Order [RC] Click to Edit Care 01/16/21 20:13 Ordered Communication Order [RC] PER UNIT ROUTINE Care 01/16/21 20:13 Ordered Diabetes Education [RC] Click to Edit Care 01/16/21 20:10 Ordered Oxygen Therapy [RC] PRN Care 01/16/21 20:08 Ordered Up With Assistance [RC] ASDIRECTED Care 01/16/21 20:08 Ordered VTE/DVT Education [RC] PER UNIT ROUTINE Care 01/16/21 20:08 Ordered Vital Signs [RC] Q4H Care 01/16/21 20:08 Ordered Consistent Carbohydrate Diet [DIET] Diet 01/16/21 Dinner Ordered BMP [BASIC METABOLIC PANEL,BMP] [CHEM] Timed Lab 01/16/21 19:45 Ordered REFLEX LACTIC ACID YES OR NO [CHEM] Routine Lab 01/16/21 18:44 Received Dextrose 50% in Water Med 01/16/21 18:11 Active 50 ml IV ASDIRECTED PRN Dextrose 50% in Water Med 01/16/21 19:14 Active 50 ml IV ASDIRECTED PRN Dextrose 50% in Water Med 01/16/21 20:08 Ordered 50 ml IVPUSH ONETIME PRN Glucagon,Human Recombinant [GlucaGen] Med 01/16/21 18:11 Active 1 mg IM ASDIRECTED PRN Glucagon,Human Recombinant [GlucaGen] Med 01/16/21 19:14 Active 1 mg IM ASDIRECTED PRN Heparin Sodium Med 01/16/21 22:00 Ordered 5,000 units SUBCUT Q8HR Insulin Regular in 0.9 % NACL @ 0.1 UNITS/KG/HR (100ml) Med 01/16/21 20:30 Ordered Insulin Regular in 0.9 % NACL [Myxredlin in NS 100 UNIT /100 ML] 100 unit in 100 ml IV TITRATE atorvaSTATin [Lipitor] Med 01/16/21 21:00 Ordered 10 mg PO BEDTIME Glucose Management Sub Q Reflex [OM.PC] Click to Edit Oth 01/16/21 20:08 Ordered Resuscitation Status Routine Resus Stat 01/16/21 20:08 Ordered Medication Orders Atorvastatin Calcium (Lipitor) 10 mg PO BEDTIME ANTONIA Dextrose/Water (Dextrose 50% In Water) 50 ml IV ASDIRECTED PRN PRN Reason: Hypoglycemia Dextrose/Water (Dextrose 50% In Water) 50 ml IV ASDIRECTED PRN PRN Reason: Hypoglycemia Dextrose/Water (Dextrose 50% In Water) 50 ml IVPUSH ONETIME PRN PRN Reason: Hypoglycemia Glucagon (Glucagen) 1 mg IM ASDIRECTED PRN PRN Reason: Hypoglycemia Glucagon (Glucagen) 1 mg IM ASDIRECTED PRN PRN Reason: Hypoglycemia Heparin Sodium (Porcine) (Heparin Sodium) 5,000 units SUBCUT Q8HR ANTONIA Insulin Regular in 0.9 % NACL (Myxredlin In Ns 100 Unit/100 Ml) 100 unit in 100 mls @ 5.661 mls/hr IV TITRATE ANTONIA; Protocol Assessment/Plan Comment:: Hyperglycemia Uncontrolled type 1 diabetes mellitus Start patient on insulin drip Hypoglycemia protocol Every hour blood glucose checks Continues IV fluids JACI Hyperkalemia Hyponatremia Lactic acidosis All likely due to dehydration and hyperglycemia. Potassium will correct with insulin regimen Monitor renal function, hyponatremia and lactic acidosis with IV fluids Recent foot amputations Osteomyelitis of the foot Consult podiatry for wound cares Continue Zosyn therapy as planned for total of 6 weeks Tobacco use disorder Counseled on cessation DVT prophylaxis: Heparin CODE STATUS: Full code
[2021-01-16 20:31] LABS: ANION GAP 14.2 mEq/L (7-13)
[2021-01-16] MEDS ORDERED: Magnesium Sulfate/Water 2 GM/50 ML BAG IV ONE (20:50)
[2021-01-16] MEDS ORDERED: Sodium Chloride 0.9% 1,000 ML IV SCH (21:00)
[2021-01-16] MEDS: Nicotine 14 MG/24 Hr Patch TRDERM SCH (21:23)
[2021-01-16] MEDS: atorvaSTATin 10 MG Tab PO SCH (21:24)
[2021-01-16] MEDS: Heparin Sodium 5,000 Units/ML Vial SUBCUT SCH (21:24)
[2021-01-17 00:37] LABS: ANION GAP 12.9 mEq/L (7-13)
[2021-01-17] MEDS ORDERED: Insulin Glarg,Human.Rec.Analog 100 Unit/ML SUBCUT ONE (03:15)
[2021-01-17] MEDS ORDERED: Insulin Lispro 100 Units/ML 3 ML Vial SUBCUT ONE ×2 (03:17→05:14)
[2021-01-17] MEDS: Heparin Sodium 5,000 Units/ML Vial SUBCUT SCH ×3 (05:20→21:13)
[2021-01-17 06:57] LABS: ANION GAP 13.1 mEq/L (7-13)
[2021-01-17] MEDS ORDERED: Insulin Lispro 100 Units/ML 3 ML Vial SUBCUT SCH (08:00)
[2021-01-17] MEDS ORDERED: 50% Dextrose in Water 50 ML Syringe IV PRN ×2 (08:39→10:11)
[2021-01-17] MEDS ORDERED: Glucagon,Human Recombinant 1 MG Vial IM PRN ×2 (08:39→10:11)
[2021-01-17] MEDS: Nicotine 14 MG/24 Hr Patch TRDERM SCH (09:18)
--- NOTE | 2021-01-17 10:16 | PCM.PN ---
- General Info Date of Service: 01/17/21 Admission Dx/Problem (Free Text): Admission Diagnosis/Problem Admission Diagnosis/Problem Hyperglycemia Subjective Update: Patient seen and examined today. He has no complaints. Blood sugar now under control. Afebrile overnight. Functional Status: Reports: Pain Controlled - Review of Systems General: Reports: No Symptoms HEENT: Reports: No Symptoms Pulmonary: Reports: No Symptoms Cardiovascular: Reports: No Symptoms Gastrointestinal: Reports: No Symptoms Genitourinary: Reports: No Symptoms Musculoskeletal: Reports: No Symptoms Skin: Reports: No Symptoms Neurological: Reports: No Symptoms Psychiatric: Reports: No Symptoms - Patient Data Vitals - Most Recent: Last Vital Signs Temp 99.1 F 01/17/21 00:00 Pulse 81 01/17/21 00:00 Resp 16 01/17/21 00:00 BP 132/72 01/17/21 00:00 Pulse Ox 94 L 01/17/21 00:00 Weight - Most Recent: 124 lb 12.8 oz I&O - Last 24 Hours: Intake & Output 01/16/21 01/17/21 01/17/21 22:59 06:59 14:59 Intake Total 1020 656 Balance 1020 656 Lab Results Last 24 Hours: Laboratory Results - last 24 hr 01/16/21 01/16/21 01/16/21 Range/Units 17:47 18:06 18:06 WBC 7.5 (5.0-10.0) 10^3/uL RBC 3.62 L (4.6-6.2) 10^6/uL Hgb 10.4 L D (14.0-18.0) g/dL Hct 30.8 L (40.0-54.0) % MCV 85.1 (80-100) fL MCH 28.7 (27.0-34.0) pg MCHC 33.8 (33.0-35.0) g/dL Plt Count 402 D (150-450) 10^3/uL Neut % (Auto) 74.6 (42.2-75.2) % Lymph % (Auto) 15.5 L (20.5-50.1) % [place] % (Auto) 8.7 H (2-8) % Eos % (Auto) 0.8 L (1.0-3.0) % Baso % (Auto) 0.4 (0.0-1.0) % ESR (0-15) mm/hr Sodium 129 L (136-145) mmol/L Potassium 5.3 H (3.5-5.1) mmol/L Chloride 92 L (98-107) mmol/L Carbon Dioxide 28 (21-32) mmol/L Anion Gap 14.3 H (7-13) mEq/L BUN 40 H (7-18) mg/dL Creatinine 2.02 H (0.70-1.30) mg/dL Est Cr Clr Drug Dosing 32.89 mL/min Estimated GFR (MDRD) 34 BUN/Creatinine Ratio 19.8 (No establ ref range) Glucose 676 H* (74-99) mg/dL POC Glucose > 500 H* (70-105) mg/dl Lactic Acid (0.4-2.0) mmol/L Calcium 8.9 (8.5-10.1) mg/dL Magnesium 1.8 (1.8-2.4) mg/dL Total Bilirubin 0.3 (0.2-1.0) mg/dL AST < 5 L (15-37) U/L ALT 13 L (16-63) U/L Alkaline Phosphatase 96 (46-116) U/L C-Reactive Protein 4.9 H (0.0-0.9) mg/dL Total Protein 7.1 (6.4-8.2) g/dL Albumin 2.4 L (3.4-5.0) g/dL Globulin 4.7 Albumin/Globulin Ratio 0.51 Ketones Negative SARS-CoV-2 RNA (BARB) (NEGATIVE) 01/16/21 01/16/21 01/16/21 Range/Units 18:06 18:06 19:11 WBC (5.0-10.0) 10^3/uL RBC (4.6-6.2) 10^6/uL Hgb (14.0-18.0) g/dL Hct (40.0-54.0) % MCV (80-100) fL MCH (27.0-34.0) pg MCHC (33.0-35.0) g/dL Plt Count (150-450) 10^3/uL Neut % (Auto) (42.2-75.2) % Lymph % (Auto) (20.5-50.1) % [place] % (Auto) (2-8) % Eos % (Auto) (1.0-3.0) % Baso % (Auto) (0.0-1.0) % ESR 92 H (0-15) mm/hr Sodium (136-145) mmol/L Potassium (3.5-5.1) mmol/L Chloride (98-107) mmol/L Carbon Dioxide (21-32) mmol/L Anion Gap (7-13) mEq/L BUN (7-18) mg/dL Creatinine (0.70-1.30) mg/dL Est Cr Clr Drug Dosing mL/min Estimated GFR (MDRD) BUN/Creatinine Ratio (No establ ref range) Glucose (74-99) mg/dL POC Glucose > 500 H* (70-105) mg/dl Lactic Acid 3.1 H* (0.4-2.0) mmol/L Calcium (8.5-10.1) mg/dL Magnesium (1.8-2.4) mg/dL Total Bilirubin (0.2-1.0) mg/dL AST (15-37) U/L ALT (16-63) U/L Alkaline Phosphatase (46-116) U/L C-Reactive Protein (0.0-0.9) mg/dL Total Protein (6.4-8.2) g/dL Albumin (3.4-5.0) g/dL Globulin Albumin/Globulin Ratio Ketones SARS-CoV-2 RNA (BARB) (NEGATIVE) 01/16/21 01/16/21 01/16/21 Range/Units 19:25 20:09 20:09 WBC (5.0-10.0) 10^3/uL RBC (4.6-6.2) 10^6/uL Hgb (14.0-18.0) g/dL Hct (40.0-54.0) % MCV (80-100) fL MCH (27.0-34.0) pg MCHC (33.0-35.0) g/dL Plt Count (150-450) 10^3/uL Neut % (Auto) (42.2-75.2) % Lymph % (Auto) (20.5-50.1) % [place] % (Auto) (2-8) % Eos % (Auto) (1.0-3.0) % Baso % (Auto) (0.0-1.0) % ESR (0-15) mm/hr Sodium 138 (136-145) mmol/L Potassium 4.2 (3.5-5.1) mmol/L Chloride 100 (98-107) mmol/L Carbon Dioxide 28 (21-32) mmol/L Anion Gap 14.2 H (7-13) mEq/L BUN 39 H (7-18) mg/dL Creatinine 1.72 H (0.70-1.30) mg/dL Est Cr Clr Drug Dosing 37.03 mL/min Estimated GFR (MDRD) 41 BUN/Creatinine Ratio (No establ ref range) Glucose 297 H (74-99) mg/dL POC Glucose 297 H (70-105) mg/dl Lactic Acid (0.4-2.0) mmol/L Calcium 8.6 (8.5-10.1) mg/dL Magnesium (1.8-2.4) mg/dL Total Bilirubin (0.2-1.0) mg/dL AST (15-37) U/L ALT (16-63) U/L Alkaline Phosphatase (46-116) U/L C-Reactive Protein (0.0-0.9) mg/dL Total Protein (6.4-8.2) g/dL Albumin (3.4-5.0) g/dL Globulin Albumin/Globulin Ratio Ketones SARS-CoV-2 RNA (BARB) Negative (NEGATIVE) 01/16/21 01/16/21 01/16/21 Range/Units 21:30 22:36 22:55 WBC (5.0-10.0) 10^3/uL RBC (4.6-6.2) 10^6/uL Hgb (14.0-18.0) g/dL Hct (40.0-54.0) % MCV (80-100) fL MCH (27.0-34.0) pg MCHC (33.0-35.0) g/dL Plt Count (150-450) 10^3/uL Neut % (Auto) (42.2-75.2) % Lymph % (Auto) (20.5-50.1) % [place] % (Auto) (2-8) % Eos % (Auto) (1.0-3.0) % Baso % (Auto) (0.0-1.0) % ESR (0-15) mm/hr Sodium (136-145) mmol/L Potassium (3.5-5.1) mmol/L Chloride (98-107) mmol/L Carbon Dioxide (21-32) mmol/L Anion Gap (7-13) mEq/L BUN (7-18) mg/dL Creatinine (0.70-1.30) mg/dL Est Cr Clr Drug Dosing mL/min Estimated GFR (MDRD) BUN/Creatinine Ratio (No establ ref range) Glucose (74-99) mg/dL POC Glucose 104 71 (70-105) mg/dl Lactic Acid 1.0 (0.4-2.0) mmol/L Calcium (8.5-10.1) mg/dL Magnesium (1.8-2.4) mg/dL Total Bilirubin (0.2-1.0) mg/dL AST (15-37) U/L ALT (16-63) U/L Alkaline Phosphatase (46-116) U/L C-Reactive Protein (0.0-0.9) mg/dL Total Protein (6.4-8.2) g/dL Albumin (3.4-5.0) g/dL Globulin Albumin/Globulin Ratio Ketones SARS-CoV-2 RNA (BARB) (NEGATIVE) 01/17/21 01/17/21 01/17/21 Range/Units 00:16 01:10 02:59 WBC (5.0-10.0) 10^3/uL RBC (4.6-6.2) 10^6/uL Hgb (14.0-18.0) g/dL Hct (40.0-54.0) % MCV (80-100) fL MCH (27.0-34.0) pg MCHC (33.0-35.0) g/dL Plt Count (150-450) 10^3/uL Neut % (Auto) (42.2-75.2) % Lymph % (Auto) (20.5-50.1) % [place] % (Auto) (2-8) % Eos % (Auto) (1.0-3.0) % Baso % (Auto) (0.0-1.0) % ESR (0-15) mm/hr Sodium 135 L (136-145) mmol/L Potassium 4.9 (3.5-5.1) mmol/L Chloride 100 (98-107) mmol/L Carbon Dioxide 27 (21-32) mmol/L Anion Gap 12.9 (7-13) mEq/L BUN 39 H (7-18) mg/dL Creatinine 1.36 H (0.70-1.30) mg/dL Est Cr Clr Drug Dosing 46.83 mL/min Estimated GFR (MDRD) 54 BUN/Creatinine Ratio (No establ ref range) Glucose 120 H (74-99) mg/dL POC Glucose 164 H 257 H (70-105) mg/dl Lactic Acid (0.4-2.0) mmol/L Calcium 8.9 (8.5-10.1) mg/dL Magnesium (1.8-2.4) mg/dL Total Bilirubin (0.2-1.0) mg/dL AST (15-37) U/L ALT (16-63) U/L Alkaline Phosphatase (46-116) U/L C-Reactive Protein (0.0-0.9) mg/dL Total Protein (6.4-8.2) g/dL Albumin (3.4-5.0) g/dL Globulin Albumin/Globulin Ratio Ketones SARS-CoV-2 RNA (BARB) (NEGATIVE) 01/17/21 01/17/21 01/17/21 Range/Units 05:06 06:32 06:32 WBC 7.2 (5.0-10.0) 10^3/uL RBC 3.80 L (4.6-6.2) 10^6/uL Hgb 10.8 L (14.0-18.0) g/dL Hct 32.3 L (40.0-54.0) % MCV 85.0 (80-100) fL MCH 28.4 (27.0-34.0) pg MCHC 33.4 (33.0-35.0) g/dL Plt Count 378 (150-450) 10^3/uL Neut % (Auto) (42.2-75.2) % Lymph % (Auto) (20.5-50.1) % [place] % (Auto) (2-8) % Eos % (Auto) (1.0-3.0) % Baso % (Auto) (0.0-1.0) % ESR (0-15) mm/hr Sodium 138 (136-145) mmol/L Potassium 4.1 (3.5-5.1) mmol/L Chloride 101 (98-107) mmol/L Carbon Dioxide 28 (21-32) mmol/L Anion Gap 13.1 H (7-13) mEq/L BUN 31 H (7-18) mg/dL Creatinine 1.30 (0.70-1.30) mg/dL Est Cr Clr Drug Dosing 48.99 mL/min Estimated GFR (MDRD) 57 BUN/Creatinine Ratio (No establ ref range) Glucose 168 H (74-99) mg/dL POC Glucose 212 H (70-105) mg/dl Lactic Acid (0.4-2.0) mmol/L Calcium 9.0 (8.5-10.1) mg/dL Magnesium (1.8-2.4) mg/dL Total Bilirubin (0.2-1.0) mg/dL AST (15-37) U/L ALT (16-63) U/L Alkaline Phosphatase (46-116) U/L C-Reactive Protein (0.0-0.9) mg/dL Total Protein (6.4-8.2) g/dL Albumin (3.4-5.0) g/dL Globulin Albumin/Globulin Ratio Ketones SARS-CoV-2 RNA (ABRB) (NEGATIVE) 01/17/21 01/17/21 Range/Units 06:32 07:55 WBC (5.0-10.0) 10^3/uL RBC (4.6-6.2) 10^6/uL Hgb (14.0-18.0) g/dL Hct (40.0-54.0) % MCV (80-100) fL MCH (27.0-34.0) pg MCHC (33.0-35.0) g/dL Plt Count (150-450) 10^3/uL Neut % (Auto) (42.2-75.2) % Lymph % (Auto) (20.5-50.1) % [place] % (Auto) (2-8) % Eos % (Auto) (1.0-3.0) % Baso % (Auto) (0.0-1.0) % ESR (0-15) mm/hr Sodium (136-145) mmol/L Potassium (3.5-5.1) mmol/L Chloride (98-107) mmol/L Carbon Dioxide (21-32) mmol/L Anion Gap (7-13) mEq/L BUN (7-18) mg/dL Creatinine (0.70-1.30) mg/dL Est Cr Clr Drug Dosing mL/min Estimated GFR (MDRD) BUN/Creatinine Ratio (No establ ref range) Glucose (74-99) mg/dL POC Glucose 104 (70-105) mg/dl Lactic Acid (0.4-2.0) mmol/L Calcium (8.5-10.1) mg/dL Magnesium 2.2 (1.8-2.4) mg/dL Total Bilirubin (0.2-1.0) mg/dL AST (15-37) U/L ALT (16-63) U/L Alkaline Phosphatase (46-116) U/L C-Reactive Protein (0.0-0.9) mg/dL Total Protein (6.4-8.2) g/dL Albumin (3.4-5.0) g/dL Globulin Albumin/Globulin Ratio Ketones SARS-CoV-2 RNA (BARB) (NEGATIVE) Med Orders - Current: Current Medications Atorvastatin Calcium (Lipitor) 10 mg PO BEDTIME [facility] Last Admin: 01/16/21 21:24 Dose: 10 mg Documented by: Dextrose/Water (Dextrose 50% In Water) 50 ml IV ASDIRECTED PRN PRN Reason: Hypoglycemia Dextrose/Water (Dextrose 50% In Water) 50 ml IV ASDIRECTED PRN PRN Reason: Hypoglycemia Glucagon (Glucagen) 1 mg IM ASDIRECTED PRN PRN Reason: Hypoglycemia Glucagon (Glucagen) 1 mg IM ASDIRECTED PRN PRN Reason: Hypoglycemia Heparin Sodium (Porcine) (Heparin Sodium) 5,000 units SUBCUT Q8HR [facility] Last Admin: 01/17/21 05:20 Dose: 5,000 units Documented by: Piperacillin Sod/Tazobactam (Sod 3.375 gm/ Sodium Chloride) 100 mls @ 200 mls/hr IV Q6H [facility] Insulin Glargine (Lantus) 25 unit SUBCUT BEDTIME [facility] Insulin Human Lispro (Humalog) 0 unit SUBCUT WITHMEALSANDBED [facility]; Protocol Last Admin: 01/17/21 09:14 Dose: Not Given Documented by: Insulin Human Lispro (Humalog) 10 unit SUBCUT TIDMEALS [facility] Insulin Human Lispro (Humalog) 0 unit SUBCUT WITHMEALSANDBED [facility]; Protocol Nicotine (Habitrol) 14 mg TRDERM DAILY [facility] Last Admin: 01/17/21 09:18 Dose: 14 mg Documented by: Discontinued Medications Dextrose/Water (Dextrose 50% In Water) 50 ml IV ASDIRECTED PRN PRN Reason: Hypoglycemia Dextrose/Water (Dextrose 50% In Water) 50 ml IVPUSH ONETIME PRN PRN Reason: Hypoglycemia Glucagon (Glucagen) 1 mg IM ASDIRECTED PRN PRN Reason: Hypoglycemia Sodium Chloride (Normal Saline) 1,000 mls @ 999 mls/hr IV .BOLUS ONE Stop: 01/16/21 18:59 Last Admin: 01/16/21 18:18 Dose: 999 mls/hr Documented by: Sodium Chloride (Normal Saline) 500 mls @ 999 mls/hr IV .BOLUS ONE Stop: 01/16/21 19:47 Last Admin: 01/16/21 19:20 Dose: 999 mls/hr Documented by: Insulin Regular in 0.9 % NACL (Myxredlin In Ns 100 Unit/100 Ml) 100 unit in 100 mls @ 5.661 mls/hr IV TITRATE [facility]; Protocol Last Titration: 01/16/21 21:35 Dose: 0 units/kg/hr, 0 mls/hr Documented by: Sodium Chloride (Normal Saline) 1,000 mls @ 100 mls/hr IV ASDIRECTED [facility] Stop: 01/17/21 00:23 Last Admin: 01/16/21 21:40 Dose: 100 mls/hr Documented by: Magnesium Sulfate (Magnesium Sulfate In Water 2 Gm/50 Ml) 2 gm in 50 mls @ 25 mls/hr IV ONETIME ONE Stop: 01/16/21 22:49 Last Admin: 01/16/21 21:26 Dose: 25 mls/hr Documented by: Piperacillin Sod/Tazobactam (Sod 2.25 gm/ Sodium Chloride) 50 mls @ 100 mls/hr IV Q6H [facility] Insulin Glargine (Lantus) 10 unit SUBCUT ONETIME ONE Stop: 01/17/21 03:16 Last Admin: 01/17/21 03:28 Dose: 10 units Documented by: Insulin Human Lispro (Humalog) 10 unit SUBCUT ONETIME ONE Stop: 01/16/21 18:12 Last Admin: 01/16/21 18:24 Dose: 10 units Documented by: Insulin Human Lispro (Humalog) 10 unit SUBCUT ONETIME ONE Stop: 01/16/21 19:15 Last Admin: 01/16/21 19:20 Dose: 10 units Documented by: Insulin Human Lispro (Humalog) 6 unit SUBCUT ONETIME ONE Stop: 01/17/21 03:18 Last Admin: 01/17/21 03:28 Dose: 6 units Documented by: Insulin Human Lispro (Humalog) 4 unit SUBCUT ONETIME ONE Stop: 01/17/21 05:15 Last Admin: 01/17/21 05:21 Dose: 4 units Documented by: - Exam General: Alert HEENT: Pupils Equal, Pupils Reactive, EOMI, Mucous Membr. Moist/[place] Neck: Supple Lungs: Clear to Auscultation, Normal Respiratory Effort Cardiovascular: Regular Rate, Regular Rhythm GI/Abdominal Exam: Normal Bowel Sounds, Soft, Non-Tender, No Organomegaly, No Distention, No Abnormal Bruit, No Mass, Pelvis Stable Back Exam: Normal Inspection, Full Range of Motion Extremities: Normal Inspection, Normal Range of Motion, Non-Tender, No Pedal Edema, Normal Capillary Refill Skin: Warm, Dry, Intact Wound/Incisions: Healing Well Neurological: No New Focal Deficit Psy/Mental Status: Alert, Normal Affect, Normal Mood - Patient Data Lab Results Last 24 hrs: Laboratory Results - last 24 hr 01/16/21 01/16/21 01/16/21 Range/Units 17:47 18:06 18:06 WBC 7.5 (5.0-10.0) 10^3/uL RBC 3.62 L (4.6-6.2) 10^6/uL Hgb 10.4 L D (14.0-18.0) g/dL Hct 30.8 L (40.0-54.0) % MCV 85.1 (80-100) fL MCH 28.7 (27.0-34.0) pg MCHC 33.8 (33.0-35.0) g/dL Plt Count 402 D (150-450) 10^3/uL Neut % (Auto) 74.6 (42.2-75.2) % Lymph % (Auto) 15.5 L (20.5-50.1) % [place] % (Auto) 8.7 H (2-8) % Eos % (Auto) 0.8 L (1.0-3.0) % Baso % (Auto) 0.4 (0.0-1.0) % ESR (0-15) mm/hr Sodium 129 L (136-145) mmol/L Potassium 5.3 H (3.5-5.1) mmol/L Chloride 92 L (98-107) mmol/L Carbon Dioxide 28 (21-32) mmol/L Anion Gap 14.3 H (7-13) mEq/L BUN 40 H (7-18) mg/dL Creatinine 2.02 H (0.70-1.30) mg/dL Est Cr Clr Drug Dosing 32.89 mL/min Estimated GFR (MDRD) 34 BUN/Creatinine Ratio 19.8 (No establ ref range) Glucose 676 H* (74-99) mg/dL POC Glucose > 500 H* (70-105) mg/dl Lactic Acid (0.4-2.0) mmol/L Calcium 8.9 (8.5-10.1) mg/dL Magnesium 1.8 (1.8-2.4) mg/dL Total Bilirubin 0.3 (0.2-1.0) mg/dL AST < 5 L (15-37) U/L ALT 13 L (16-63) U/L Alkaline Phosphatase 96 (46-116) U/L C-Reactive Protein 4.9 H (0.0-0.9) mg/dL Total Protein 7.1 (6.4-8.2) g/dL Albumin 2.4 L (3.4-5.0) g/dL Globulin 4.7 Albumin/Globulin Ratio 0.51 Ketones Negative SARS-CoV-2 RNA (BARB) (NEGATIVE) 01/16/21 01/16/21 01/16/21 Range/Units 18:06 18:06 19:11 WBC (5.0-10.0) 10^3/uL RBC (4.6-6.2) 10^6/uL Hgb (14.0-18.0) g/dL Hct (40.0-54.0) % MCV (80-100) fL MCH (27.0-34.0) pg MCHC (33.0-35.0) g/dL Plt Count (150-450) 10^3/uL Neut % (Auto) (42.2-75.2) % Lymph % (Auto) (20.5-50.1) % [place] % (Auto) (2-8) % Eos % (Auto) (1.0-3.0) % Baso % (Auto) (0.0-1.0) % ESR 92 H (0-15) mm/hr Sodium (136-145) mmol/L Potassium (3.5-5.1) mmol/L Chloride (98-107) mmol/L Carbon Dioxide (21-32) mmol/L Anion Gap (7-13) mEq/L BUN (7-18) mg/dL Creatinine (0.70-1.30) mg/dL Est Cr Clr Drug Dosing mL/min Estimated GFR (MDRD) BUN/Creatinine Ratio (No establ ref range) Glucose (74-99) mg/dL POC Glucose > 500 H* (70-105) mg/dl Lactic Acid 3.1 H* (0.4-2.0) mmol/L Calcium (8.5-10.1) mg/dL Magnesium (1.8-2.4) mg/dL Total Bilirubin (0.2-1.0) mg/dL AST (15-37) U/L ALT (16-63) U/L Alkaline Phosphatase (46-116) U/L C-Reactive Protein (0.0-0.9) mg/dL Total Protein (6.4-8.2) g/dL Albumin (3.4-5.0) g/dL Globulin Albumin/Globulin Ratio Ketones SARS-CoV-2 RNA (BARB) (NEGATIVE) 01/16/21 01/16/21 01/16/21 Range/Units 19:25 20:09 20:09 WBC (5.0-10.0) 10^3/uL RBC (4.6-6.2) 10^6/uL Hgb (14.0-18.0) g/dL Hct (40.0-54.0) % MCV (80-100) fL MCH (27.0-34.0) pg MCHC (33.0-35.0) g/dL Plt Count (150-450) 10^3/uL Neut % (Auto) (42.2-75.2) % Lymph % (Auto) (20.5-50.1) % [place] % (Auto) (2-8) % Eos % (Auto) (1.0-3.0) % Baso % (Auto) (0.0-1.0) % ESR (0-15) mm/hr Sodium 138 (136-145) mmol/L Potassium 4.2 (3.5-5.1) mmol/L Chloride 100 (98-107) mmol/L Carbon Dioxide 28 (21-32) mmol/L Anion Gap 14.2 H (7-13) mEq/L BUN 39 H (7-18) mg/dL Creatinine 1.72 H (0.70-1.30) mg/dL Est Cr Clr Drug Dosing 37.03 mL/min Estimated GFR (MDRD) 41 BUN/Creatinine Ratio (No establ ref range) Glucose 297 H (74-99) mg/dL POC Glucose 297 H (70-105) mg/dl Lactic Acid (0.4-2.0) mmol/L Calcium 8.6 (8.5-10.1) mg/dL Magnesium (1.8-2.4) mg/dL Total Bilirubin (0.2-1.0) mg/dL AST (15-37) U/L ALT (16-63) U/L Alkaline Phosphatase (46-116) U/L C-Reactive Protein (0.0-0.9) mg/dL Total Protein (6.4-8.2) g/dL Albumin (3.4-5.0) g/dL Globulin Albumin/Globulin Ratio Ketones SARS-CoV-2 RNA (BARB) Negative (NEGATIVE) 01/16/21 01/16/21 01/16/21 Range/Units 21:30 22:36 22:55 WBC (5.0-10.0) 10^3/uL RBC (4.6-6.2) 10^6/uL Hgb (14.0-18.0) g/dL Hct (40.0-54.0) % MCV (80-100) fL MCH (27.0-34.0) pg MCHC (33.0-35.0) g/dL Plt Count (150-450) 10^3/uL Neut % (Auto) (42.2-75.2) % Lymph % (Auto) (20.5-50.1) % [place] % (Auto) (2-8) % Eos % (Auto) (1.0-3.0) % Baso % (Auto) (0.0-1.0) % ESR (0-15) mm/hr Sodium (136-145) mmol/L Potassium (3.5-5.1) mmol/L Chloride (98-107) mmol/L Carbon Dioxide (21-32) mmol/L Anion Gap (7-13) mEq/L BUN (7-18) mg/dL Creatinine (0.70-1.30) mg/dL Est Cr Clr Drug Dosing mL/min Estimated GFR (MDRD) BUN/Creatinine Ratio (No establ ref range) Glucose (74-99) mg/dL POC Glucose 104 71 (70-105) mg/dl Lactic Acid 1.0 (0.4-2.0) mmol/L Calcium (8.5-10.1) mg/dL Magnesium (1.8-2.4) mg/dL Total Bilirubin (0.2-1.0) mg/dL AST (15-37) U/L ALT (16-63) U/L Alkaline Phosphatase (46-116) U/L C-Reactive Protein (0.0-0.9) mg/dL Total Protein (6.4-8.2) g/dL Albumin (3.4-5.0) g/dL Globulin Albumin/Globulin Ratio Ketones SARS-CoV-2 RNA (BARB) (NEGATIVE) 01/17/21 01/17/21 01/17/21 Range/Units 00:16 01:10 02:59 WBC (5.0-10.0) 10^3/uL RBC (4.6-6.2) 10^6/uL Hgb (14.0-18.0) g/dL Hct (40.0-54.0) % MCV (80-100) fL MCH (27.0-34.0) pg MCHC (33.0-35.0) g/dL Plt Count (150-450) 10^3/uL Neut % (Auto) (42.2-75.2) % Lymph % (Auto) (20.5-50.1) % [place] % (Auto) (2-8) % Eos % (Auto) (1.0-3.0) % Baso % (Auto) (0.0-1.0) % ESR (0-15) mm/hr Sodium 135 L (136-145) mmol/L Potassium 4.9 (3.5-5.1) mmol/L Chloride 100 (98-107) mmol/L Carbon Dioxide 27 (21-32) mmol/L Anion Gap 12.9 (7-13) mEq/L BUN 39 H (7-18) mg/dL Creatinine 1.36 H (0.70-1.30) mg/dL Est Cr Clr Drug Dosing 46.83 mL/min Estimated GFR (MDRD) 54 BUN/Creatinine Ratio (No establ ref range) Glucose 120 H (74-99) mg/dL POC Glucose 164 H 257 H (70-105) mg/dl Lactic Acid (0.4-2.0) mmol/L Calcium 8.9 (8.5-10.1) mg/dL Magnesium (1.8-2.4) mg/dL Total Bilirubin (0.2-1.0) mg/dL AST (15-37) U/L ALT (16-63) U/L Alkaline Phosphatase (46-116) U/L C-Reactive Protein (0.0-0.9) mg/dL Total Protein (6.4-8.2) g/dL Albumin (3.4-5.0) g/dL Globulin Albumin/Globulin Ratio Ketones SARS-CoV-2 RNA (BARB) (NEGATIVE) 01/17/21 01/17/21 01/17/21 Range/Units 05:06 06:32 06:32 WBC 7.2 (5.0-10.0) 10^3/uL RBC 3.80 L (4.6-6.2) 10^6/uL Hgb 10.8 L (14.0-18.0) g/dL Hct 32.3 L (40.0-54.0) % MCV 85.0 (80-100) fL MCH 28.4 (27.0-34.0) pg MCHC 33.4 (33.0-35.0) g/dL Plt Count 378 (150-450) 10^3/uL Neut % (Auto) (42.2-75.2) % Lymph % (Auto) (20.5-50.1) % [place] % (Auto) (2-8) % Eos % (Auto) (1.0-3.0) % Baso % (Auto) (0.0-1.0) % ESR (0-15) mm/hr Sodium 138 (136-145) mmol/L Potassium 4.1 (3.5-5.1) mmol/L Chloride 101 (98-107) mmol/L Carbon Dioxide 28 (21-32) mmol/L Anion Gap 13.1 H (7-13) mEq/L BUN 31 H (7-18) mg/dL Creatinine 1.30 (0.70-1.30) mg/dL Est Cr Clr Drug Dosing 48.99 mL/min Estimated GFR (MDRD) 57 BUN/Creatinine Ratio (No establ ref range) Glucose 168 H (74-99) mg/dL POC Glucose 212 H (70-105) mg/dl Lactic Acid (0.4-2.0) mmol/L Calcium 9.0 (8.5-10.1) mg/dL Magnesium (1.8-2.4) mg/dL Total Bilirubin (0.2-1.0) mg/dL AST (15-37) U/L ALT (16-63) U/L Alkaline Phosphatase (46-116) U/L C-Reactive Protein (0.0-0.9) mg/dL Total Protein (6.4-8.2) g/dL Albumin (3.4-5.0) g/dL Globulin Albumin/Globulin Ratio Ketones SARS-CoV-2 RNA (BARB) (NEGATIVE) 01/17/21 01/17/21 Range/Units 06:32 07:55 WBC (5.0-10.0) 10^3/uL RBC (4.6-6.2) 10^6/uL Hgb (14.0-18.0) g/dL Hct (40.0-54.0) % MCV (80-100) fL MCH (27.0-34.0) pg MCHC (33.0-35.0) g/dL Plt Count (150-450) 10^3/uL Neut % (Auto) (42.2-75.2) % Lymph % (Auto) (20.5-50.1) % [place] % (Auto) (2-8) % Eos % (Auto) (1.0-3.0) % Baso % (Auto) (0.0-1.0) % ESR (0-15) mm/hr Sodium (136-145) mmol/L Potassium (3.5-5.1) mmol/L Chloride (98-107) mmol/L Carbon Dioxide (21-32) mmol/L Anion Gap (7-13) mEq/L BUN (7-18) mg/dL Creatinine (0.70-1.30) mg/dL Est Cr Clr Drug Dosing mL/min Estimated GFR (MDRD) BUN/Creatinine Ratio (No establ ref range) Glucose (74-99) mg/dL POC Glucose 104 (70-105) mg/dl Lactic Acid (0.4-2.0) mmol/L Calcium (8.5-10.1) mg/dL Magnesium 2.2 (1.8-2.4) mg/dL Total Bilirubin (0.2-1.0) mg/dL AST (15-37) U/L ALT (16-63) U/L Alkaline Phosphatase (46-116) U/L C-Reactive Protein (0.0-0.9) mg/dL Total Protein (6.4-8.2) g/dL Albumin (3.4-5.0) g/dL Globulin Albumin/Globulin Ratio Ketones SARS-CoV-2 RNA (BARB) (NEGATIVE) Result Diagrams: 01/17/21 06:32 01/17/21 06:32 Sepsis Event Note - Evaluation Sepsis Screening Result: No Definite Risk - Focused Exam Vital Signs: Vital Signs Temp Pulse Resp BP Pulse Ox 01/17/21 00:00 99.1 F 81 16 132/72 94 L - Problem List Review Problem List Initiated/Reviewed/Updated: Yes - My Orders Last 24 Hours: My Active Orders 01/16/21 Dinner Consistent Carbohydrate Diet [DIET] 01/16/21 20:08 Blood Glucose Check, Bedside [RC] QIDACANDBED Oxygen Therapy [RC] PRN Up With Assistance [RC] ASDIRECTED VTE/DVT Education [RC] 08,20 Vital Signs [RC] 20,00,04,08,12,16 Glucose Management Sub Q Reflex [OM.PC] Click to Edit Resuscitation Status Routine 01/16/21 20:10 Diabetes Education [RC] Click to Edit 01/16/21 20:13 Communication Order [RC] Click to Edit Communication Order [RC] PER UNIT ROUTINE 01/16/21 21:00 Nicotine [Habitrol] 14 mg TRDERM DAILY atorvaSTATin [Lipitor] 10 mg PO BEDTIME 01/16/21 22:00 Heparin Sodium 5,000 units SUBCUT Q8HR 01/17/21 08:00 Insulin Lispro [HumaLOG] See Protocol SUBCUT WITHMEALSANDBED 01/17/21 10:11 Dextrose 50% in Water 50 ml IV ASDIRECTED PRN Glucagon,Human Recombinant [GlucaGen] 1 mg IM ASDIRECTED PRN 01/17/21 12:00 Insulin Lispro [HumaLOG] 10 unit SUBCUT TIDMEALS Insulin Lispro [HumaLOG] See Protocol SUBCUT WITHMEALSANDBED 01/17/21 15:00 Communication Order [RC] ASDIRECTED Piperacillin/Tazobactam [Zosyn] 3.375 gm Sodium Chloride 0.9% [Normal Saline] 100 ml IV Q6H 01/17/21 21:00 Insulin Glarg,Human.Rec.Analog [LantUS] 25 unit SUBCUT BEDTIME - Plan Plan:: Hyperglycemia Uncontrolled type 1 diabetes mellitus Discontinue insulin drip Resume home insulin regimen 4 times daily fingerstick glucose checks hypoglycemia protocol Discontinue IV fluids JACI Hyperkalemia Hyponatremia Lactic acidosis All likely due to dehydration and hyperglycemia. Potassium will correct with insulin regimen Monitor renal function, hyponatremia and lactic acidosis with IV fluids Renal function improving. Electrolytes and lactic acidosis corrected. Recent foot amputations Osteomyelitis of the foot Consult podiatry for wound cares Continue Zosyn therapy as planned for total of 6 weeks Tobacco use disorder Counseled on cessation DVT prophylaxis: Heparin CODE STATUS: Full code
[2021-01-17] MEDS: Insulin Lispro 100 Units/ML 3 ML Vial SUBCUT SCH ×5 (13:44→20:54)
[2021-01-17] MEDS ORDERED: Piperacillin/Tazobactam 2.25 GM in Sodium Chloride 0.9% 50 ML IV SCH (21:00)
[2021-01-17] MEDS: Insulin Glarg,Human.Rec.Analog 100 Unit/ML SUBCUT SCH (21:09)
[2021-01-17] MEDS: Piperacillin/Tazobactam 3.375 GM in Sodium Chloride 0.9% 100 ML IV SCH (21:13)
[2021-01-17] MEDS: atorvaSTATin 10 MG Tab PO SCH (21:13)
[2021-01-18] MEDS: Piperacillin/Tazobactam 3.375 GM in Sodium Chloride 0.9% 100 ML IV SCH ×3 (05:31→21:16)
[2021-01-18] MEDS: Heparin Sodium 5,000 Units/ML Vial SUBCUT SCH ×3 (05:36→21:16)
[2021-01-18 07:06] LABS: CHLORIDE,CL 102 mmol/L (98-107); SODIUM,NA 140 mmol/L (136-145)
[2021-01-18] MEDS: Nicotine 14 MG/24 Hr Patch TRDERM SCH (08:18)
[2021-01-18] MEDS: Insulin Lispro 100 Units/ML 3 ML Vial SUBCUT SCH ×7 (08:20→21:17)
--- NOTE | 2021-01-18 10:19 | PCM.PN ---
- General Info Date of Service: 01/18/21 Admission Dx/Problem (Free Text): Admission Diagnosis/Problem Admission Diagnosis/Problem Hyperglycemia Subjective Update: Patient seen and examined today. He has no complaints. Afebrile overnight. Functional Status: Reports: Pain Controlled - Review of Systems General: Reports: No Symptoms HEENT: Reports: No Symptoms Pulmonary: Reports: No Symptoms Cardiovascular: Reports: No Symptoms Gastrointestinal: Reports: No Symptoms Genitourinary: Reports: No Symptoms Musculoskeletal: Reports: No Symptoms Skin: Reports: No Symptoms Neurological: Reports: No Symptoms Psychiatric: Reports: No Symptoms - Patient Data Vitals - Most Recent: Last Vital Signs Temp 96.9 F 01/18/21 08:00 Pulse 86 01/18/21 08:00 Resp 20 01/18/21 08:00 BP 108/55 L 01/18/21 08:00 Pulse Ox 94 L 01/18/21 08:00 Weight - Most Recent: 124 lb 12.8 oz I&O - Last 24 Hours: Intake & Output 01/17/21 01/18/21 01/18/21 22:59 06:59 14:59 Intake Total 1197 300 Balance 1197 300 Lab Results Last 24 Hours: Laboratory Results - last 24 hr 01/17/21 01/17/21 01/17/21 Range/Units 11:54 17:03 20:54 WBC (5.0-10.0) 10^3/uL RBC (4.6-6.2) 10^6/uL Hgb (14.0-18.0) g/dL Hct (40.0-54.0) % MCV (80-100) fL MCH (27.0-34.0) pg MCHC (33.0-35.0) g/dL Plt Count (150-450) 10^3/uL Sodium (136-145) mmol/L Potassium (3.5-5.1) mmol/L Chloride (98-107) mmol/L Carbon Dioxide (21-32) mmol/L Anion Gap (7-13) mEq/L BUN (7-18) mg/dL Creatinine (0.70-1.30) mg/dL Est Cr Clr Drug Dosing mL/min Estimated GFR (MDRD) Glucose (74-99) mg/dL POC Glucose 276 H 153 H 90 (70-105) mg/dl Calcium (8.5-10.1) mg/dL 01/18/21 01/18/21 01/18/21 Range/Units 00:39 06:37 06:37 WBC 5.5 (5.0-10.0) 10^3/uL RBC 3.88 L (4.6-6.2) 10^6/uL Hgb 11.0 L (14.0-18.0) g/dL Hct 33.4 L (40.0-54.0) % MCV 86.1 (80-100) fL MCH 28.4 (27.0-34.0) pg MCHC 32.9 L (33.0-35.0) g/dL Plt Count 354 (150-450) 10^3/uL Sodium 140 (136-145) mmol/L Potassium 4.0 (3.5-5.1) mmol/L Chloride 102 (98-107) mmol/L Carbon Dioxide 29 (21-32) mmol/L Anion Gap 13.0 (7-13) mEq/L BUN 24 H (7-18) mg/dL Creatinine 1.14 (0.70-1.30) mg/dL Est Cr Clr Drug Dosing 55.86 mL/min Estimated GFR (MDRD) > 60 Glucose 168 H (74-99) mg/dL POC Glucose 228 H (70-105) mg/dl Calcium 9.0 (8.5-10.1) mg/dL 01/18/21 Range/Units 07:38 WBC (5.0-10.0) 10^3/uL RBC (4.6-6.2) 10^6/uL Hgb (14.0-18.0) g/dL Hct (40.0-54.0) % MCV (80-100) fL MCH (27.0-34.0) pg MCHC (33.0-35.0) g/dL Plt Count (150-450) 10^3/uL Sodium (136-145) mmol/L Potassium (3.5-5.1) mmol/L Chloride (98-107) mmol/L Carbon Dioxide (21-32) mmol/L Anion Gap (7-13) mEq/L BUN (7-18) mg/dL Creatinine (0.70-1.30) mg/dL Est Cr Clr Drug Dosing mL/min Estimated GFR (MDRD) Glucose (74-99) mg/dL POC Glucose 179 H (70-105) mg/dl Calcium (8.5-10.1) mg/dL Med Orders - Current: Current Medications Atorvastatin Calcium (Lipitor) 10 mg PO BEDTIME [facility] Last Admin: 01/17/21 21:13 Dose: 10 mg Documented by: Dextrose/Water (Dextrose 50% In Water) 50 ml IV ASDIRECTED PRN PRN Reason: Hypoglycemia Glucagon (Glucagen) 1 mg IM ASDIRECTED PRN PRN Reason: Hypoglycemia Heparin Sodium (Porcine) (Heparin Sodium) 5,000 units SUBCUT Q8HR [facility] Last Admin: 01/18/21 05:36 Dose: 5,000 units Documented by: Piperacillin Sod/Tazobactam (Sod 3.375 gm/ Sodium Chloride) 100 mls @ 200 mls/hr IV Q8HR [facility] Last Infusion: 01/18/21 06:05 Dose: Infused Documented by: Insulin Glargine (Lantus) 25 unit SUBCUT BEDTIME [facility] Last Admin: 01/17/21 21:09 Dose: 25 units Documented by: Insulin Human Lispro (Humalog) 10 unit SUBCUT TIDMEALS [facility] Last Admin: 01/18/21 08:20 Dose: 10 units Documented by: Insulin Human Lispro (Humalog) 0 unit SUBCUT WITHMEALSANDBED [facility]; Protocol Last Admin: 01/18/21 08:21 Dose: 1 units Documented by: Nicotine (Habitrol) 14 mg TRDERM DAILY [facility] Last Admin: 01/18/21 08:18 Dose: 14 mg Documented by: Discontinued Medications Dextrose/Water (Dextrose 50% In Water) 50 ml IV ASDIRECTED PRN PRN Reason: Hypoglycemia Dextrose/Water (Dextrose 50% In Water) 50 ml IVPUSH ONETIME PRN PRN Reason: Hypoglycemia Glucagon (Glucagen) 1 mg IM ASDIRECTED PRN PRN Reason: Hypoglycemia Sodium Chloride (Normal Saline) 1,000 mls @ 999 mls/hr IV .BOLUS ONE Stop: 01/16/21 18:59 Last Admin: 01/16/21 18:18 Dose: 999 mls/hr Documented by: Sodium Chloride (Normal Saline) 500 mls @ 999 mls/hr IV .BOLUS ONE Stop: 01/16/21 19:47 Last Admin: 01/16/21 19:20 Dose: 999 mls/hr Documented by: Insulin Regular in 0.9 % NACL (Myxredlin In Ns 100 Unit/100 Ml) 100 unit in 100 mls @ 5.661 mls/hr IV TITRATE [facility]; Protocol Last Titration: 01/16/21 21:35 Dose: 0 units/kg/hr, 0 mls/hr Documented by: Sodium Chloride (Normal Saline) 1,000 mls @ 100 mls/hr IV ASDIRECTED [facility] Stop: 01/17/21 00:23 Last Admin: 01/16/21 21:40 Dose: 100 mls/hr Documented by: Magnesium Sulfate (Magnesium Sulfate In Water 2 Gm/50 Ml) 2 gm in 50 mls @ 25 mls/hr IV ONETIME ONE Stop: 01/16/21 22:49 Last Admin: 01/16/21 21:26 Dose: 25 mls/hr Documented by: Piperacillin Sod/Tazobactam (Sod 2.25 gm/ Sodium Chloride) 50 mls @ 100 mls/hr IV Q6H [facility] Insulin Glargine (Lantus) 10 unit SUBCUT ONETIME ONE Stop: 01/17/21 03:16 Last Admin: 01/17/21 03:28 Dose: 10 units Documented by: Insulin Human Lispro (Humalog) 10 unit SUBCUT ONETIME ONE Stop: 01/16/21 18:12 Last Admin: 01/16/21 18:24 Dose: 10 units Documented by: Insulin Human Lispro (Humalog) 10 unit SUBCUT ONETIME ONE Stop: 01/16/21 19:15 Last Admin: 01/16/21 19:20 Dose: 10 units Documented by: Insulin Human Lispro (Humalog) 6 unit SUBCUT ONETIME ONE Stop: 01/17/21 03:18 Last Admin: 01/17/21 03:28 Dose: 6 units Documented by: Insulin Human Lispro (Humalog) 0 unit SUBCUT WITHMEALSANDBED [facility]; Protocol Last Admin: 01/17/21 09:14 Dose: Not Given Documented by: Insulin Human Lispro (Humalog) 4 unit SUBCUT ONETIME ONE Stop: 01/17/21 05:15 Last Admin: 01/17/21 05:21 Dose: 4 units Documented by: - Exam General: Alert, Oriented HEENT: Pupils Equal, Pupils Reactive, EOMI, Mucous Membr. Moist/[place] Neck: Supple Lungs: Clear to Auscultation, Normal Respiratory Effort Cardiovascular: Regular Rate, Regular Rhythm GI/Abdominal Exam: Normal Bowel Sounds, Soft, Non-Tender, No Organomegaly, No Distention, No Abnormal Bruit, No Mass, Pelvis Stable Back Exam: Normal Inspection, Full Range of Motion Extremities: Normal Inspection, Normal Range of Motion, Non-Tender, No Pedal Edema, Normal Capillary Refill Skin: Warm Neurological: No New Focal Deficit Psy/Mental Status: Alert, Normal Affect, Normal Mood - Patient Data Lab Results Last 24 hrs: Laboratory Results - last 24 hr 01/17/21 01/17/21 01/17/21 Range/Units 11:54 17:03 20:54 WBC (5.0-10.0) 10^3/uL RBC (4.6-6.2) 10^6/uL Hgb (14.0-18.0) g/dL Hct (40.0-54.0) % MCV (80-100) fL MCH (27.0-34.0) pg MCHC (33.0-35.0) g/dL Plt Count (150-450) 10^3/uL Sodium (136-145) mmol/L Potassium (3.5-5.1) mmol/L Chloride (98-107) mmol/L Carbon Dioxide (21-32) mmol/L Anion Gap (7-13) mEq/L BUN (7-18) mg/dL Creatinine (0.70-1.30) mg/dL Est Cr Clr Drug Dosing mL/min Estimated GFR (MDRD) Glucose (74-99) mg/dL POC Glucose 276 H 153 H 90 (70-105) mg/dl Calcium (8.5-10.1) mg/dL 01/18/21 01/18/21 01/18/21 Range/Units 00:39 06:37 06:37 WBC 5.5 (5.0-10.0) 10^3/uL RBC 3.88 L (4.6-6.2) 10^6/uL Hgb 11.0 L (14.0-18.0) g/dL Hct 33.4 L (40.0-54.0) % MCV 86.1 (80-100) fL MCH 28.4 (27.0-34.0) pg MCHC 32.9 L (33.0-35.0) g/dL Plt Count 354 (150-450) 10^3/uL Sodium 140 (136-145) mmol/L Potassium 4.0 (3.5-5.1) mmol/L Chloride 102 (98-107) mmol/L Carbon Dioxide 29 (21-32) mmol/L Anion Gap 13.0 (7-13) mEq/L BUN 24 H (7-18) mg/dL Creatinine 1.14 (0.70-1.30) mg/dL Est Cr Clr Drug Dosing 55.86 mL/min Estimated GFR (MDRD) > 60 Glucose 168 H (74-99) mg/dL POC Glucose 228 H (70-105) mg/dl Calcium 9.0 (8.5-10.1) mg/dL 01/18/21 Range/Units 07:38 WBC (5.0-10.0) 10^3/uL RBC (4.6-6.2) 10^6/uL Hgb (14.0-18.0) g/dL Hct (40.0-54.0) % MCV (80-100) fL MCH (27.0-34.0) pg MCHC (33.0-35.0) g/dL Plt Count (150-450) 10^3/uL Sodium (136-145) mmol/L Potassium (3.5-5.1) mmol/L Chloride (98-107) mmol/L Carbon Dioxide (21-32) mmol/L Anion Gap (7-13) mEq/L BUN (7-18) mg/dL Creatinine (0.70-1.30) mg/dL Est Cr Clr Drug Dosing mL/min Estimated GFR (MDRD) Glucose (74-99) mg/dL POC Glucose 179 H (70-105) mg/dl Calcium (8.5-10.1) mg/dL Result Diagrams: 01/18/21 06:37 01/18/21 06:37 Sepsis Event Note - Evaluation Sepsis Screening Result: No Definite Risk - Focused Exam Vital Signs: Vital Signs Temp Pulse Resp BP Pulse Ox 01/18/21 08:00 96.9 F 86 20 108/55 L 94 L 01/18/21 00:39 97.3 F 82 16 147/76 H 96 - Problem List Review Problem List Initiated/Reviewed/Updated: Yes - My Orders Last 24 Hours: My Active Orders 01/17/21 12:00 Insulin Lispro [HumaLOG] 10 unit SUBCUT TIDMEALS Insulin Lispro [HumaLOG] See Protocol SUBCUT WITHMEALSANDBED 01/17/21 21:00 Insulin Glarg,Human.Rec.Analog [LantUS] 25 unit SUBCUT BEDTIME 01/17/21 22:00 Piperacillin/Tazobactam [Zosyn] 3.375 gm Sodium Chloride 0.9% [Normal Saline] 100 ml IV Q8HR - Plan Plan:: Hyperglycemia Uncontrolled type 1 diabetes mellitus Continue home insulin regimen 4 times daily fingerstick glucose checks hypoglycemia protocol JACI Hyperkalemia Hyponatremia Lactic acidosis All likely due to dehydration and hyperglycemia. Renal function improving. Electrolytes and lactic acidosis corrected. Recent foot amputations Osteomyelitis of the foot To keep podiatry appointment for wound cares Continue Zosyn therapy as planned for total of 6 weeks Tobacco use disorder Counseled on cessation DVT prophylaxis: Heparin CODE STATUS: Full code
[2021-01-18] MEDS: atorvaSTATin 10 MG Tab PO SCH (21:17)
[2021-01-18] MEDS: Insulin Glarg,Human.Rec.Analog 100 Unit/ML SUBCUT SCH (21:35)
[2021-01-19] MEDS: Piperacillin/Tazobactam 3.375 GM in Sodium Chloride 0.9% 100 ML IV SCH ×3 (05:45→22:16)
[2021-01-19] MEDS: Heparin Sodium 5,000 Units/ML Vial SUBCUT SCH ×3 (05:49→21:35)
[2021-01-19] MEDS: Insulin Lispro 100 Units/ML 3 ML Vial SUBCUT SCH ×7 (08:20→22:24)
[2021-01-19] MEDS: Nicotine 14 MG/24 Hr Patch TRDERM SCH (08:24)
[2021-01-19] MEDS ORDERED: Acetaminophen 325 MG Tab PO PRN (10:53)
--- NOTE | 2021-01-19 12:21 | PCM.PN ---
- General Info Date of Service: 01/19/21 Admission Dx/Problem (Free Text): Admission Diagnosis/Problem Admission Diagnosis/Problem Hyperglycemia Subjective Update: Patient seen and examined today. Pre-lunch blood sugar was 55. Afebrile overnight. No new complaints. Functional Status: Reports: Pain Controlled - Review of Systems General: Reports: No Symptoms HEENT: Reports: No Symptoms Pulmonary: Reports: No Symptoms Cardiovascular: Reports: No Symptoms Gastrointestinal: Reports: No Symptoms Genitourinary: Reports: No Symptoms Musculoskeletal: Reports: No Symptoms Skin: Reports: No Symptoms Neurological: Reports: No Symptoms Psychiatric: Reports: No Symptoms - Patient Data Vitals - Most Recent: Last Vital Signs Temp 97.9 F 01/19/21 11:58 Pulse 39 L 01/19/21 11:58 Resp 18 01/19/21 11:58 BP 107/75 01/19/21 11:58 Pulse Ox 100 01/19/21 11:58 Weight - Most Recent: 124 lb 12.8 oz I&O - Last 24 Hours: Intake & Output 01/18/21 01/19/21 01/19/21 22:59 06:59 14:59 Intake Total 605 960 Balance 605 960 Lab Results Last 24 Hours: Laboratory Results - last 24 hr 01/18/21 01/18/21 Range/Units 16:55 21:10 POC Glucose 150 H 105 (70-105) mg/dl Med Orders - Current: Current Medications Acetaminophen (Tylenol) 650 mg PO Q6H PRN PRN Reason: Pain Atorvastatin Calcium (Lipitor) 10 mg PO BEDTIME [facility] Last Admin: 01/18/21 21:17 Dose: 10 mg Documented by: Dextrose/Water (Dextrose 50% In Water) 50 ml IV ASDIRECTED PRN PRN Reason: Hypoglycemia Glucagon (Glucagen) 1 mg IM ASDIRECTED PRN PRN Reason: Hypoglycemia Heparin Sodium (Porcine) (Heparin Sodium) 5,000 units SUBCUT Q8HR [facility] Last Admin: 01/19/21 05:49 Dose: Not Given Documented by: Piperacillin Sod/Tazobactam (Sod 3.375 gm/ Sodium Chloride) 100 mls @ 200 mls/hr IV Q8HR [facility] Last Admin: 01/19/21 05:45 Dose: 200 mls/hr Documented by: Insulin Glargine (Lantus) 25 unit SUBCUT BEDTIME [facility] Last Admin: 01/18/21 21:35 Dose: 25 units Documented by: Insulin Human Lispro (Humalog) 10 unit SUBCUT TIDMEALS [facility] Last Admin: 01/19/21 11:52 Dose: Not Given Documented by: Insulin Human Lispro (Humalog) 0 unit SUBCUT WITHMEALSANDBED [facility]; Protocol Last Admin: 01/19/21 11:55 Dose: Not Given Documented by: Nicotine (Habitrol) 14 mg TRDERM DAILY [facility] Last Admin: 01/19/21 08:24 Dose: 14 mg Documented by: Discontinued Medications Dextrose/Water (Dextrose 50% In Water) 50 ml IV ASDIRECTED PRN PRN Reason: Hypoglycemia Dextrose/Water (Dextrose 50% In Water) 50 ml IVPUSH ONETIME PRN PRN Reason: Hypoglycemia Glucagon (Glucagen) 1 mg IM ASDIRECTED PRN PRN Reason: Hypoglycemia Sodium Chloride (Normal Saline) 1,000 mls @ 999 mls/hr IV .BOLUS ONE Stop: 01/16/21 18:59 Last Admin: 01/16/21 18:18 Dose: 999 mls/hr Documented by: Sodium Chloride (Normal Saline) 500 mls @ 999 mls/hr IV .BOLUS ONE Stop: 01/16/21 19:47 Last Admin: 01/16/21 19:20 Dose: 999 mls/hr Documented by: Insulin Regular in 0.9 % NACL (Myxredlin In Ns 100 Unit/100 Ml) 100 unit in 100 mls @ 5.661 mls/hr IV TITRATE [facility]; Protocol Last Titration: 01/16/21 21:35 Dose: 0 units/kg/hr, 0 mls/hr Documented by: Sodium Chloride (Normal Saline) 1,000 mls @ 100 mls/hr IV ASDIRECTED [facility] Stop: 01/17/21 00:23 Last Admin: 01/16/21 21:40 Dose: 100 mls/hr Documented by: Magnesium Sulfate (Magnesium Sulfate In Water 2 Gm/50 Ml) 2 gm in 50 mls @ 25 mls/hr IV ONETIME ONE Stop: 01/16/21 22:49 Last Admin: 01/16/21 21:26 Dose: 25 mls/hr Documented by: Piperacillin Sod/Tazobactam (Sod 2.25 gm/ Sodium Chloride) 50 mls @ 100 mls/hr IV Q6H [facility] Insulin Glargine (Lantus) 10 unit SUBCUT ONETIME ONE Stop: 01/17/21 03:16 Last Admin: 01/17/21 03:28 Dose: 10 units Documented by: Insulin Human Lispro (Humalog) 10 unit SUBCUT ONETIME ONE Stop: 01/16/21 18:12 Last Admin: 01/16/21 18:24 Dose: 10 units Documented by: Insulin Human Lispro (Humalog) 10 unit SUBCUT ONETIME ONE Stop: 01/16/21 19:15 Last Admin: 01/16/21 19:20 Dose: 10 units Documented by: Insulin Human Lispro (Humalog) 6 unit SUBCUT ONETIME ONE Stop: 01/17/21 03:18 Last Admin: 01/17/21 03:28 Dose: 6 units Documented by: Insulin Human Lispro (Humalog) 0 unit SUBCUT WITHMEALSANDBED [facility]; Protocol Last Admin: 01/17/21 09:14 Dose: Not Given Documented by: Insulin Human Lispro (Humalog) 4 unit SUBCUT ONETIME ONE Stop: 01/17/21 05:15 Last Admin: 01/17/21 05:21 Dose: 4 units Documented by: - Exam General: Alert, Oriented HEENT: Pupils Equal, Pupils Reactive, EOMI, Mucous Membr. Moist/[place] Neck: Supple Lungs: Clear to Auscultation, Normal Respiratory Effort Cardiovascular: Regular Rate, Regular Rhythm GI/Abdominal Exam: Normal Bowel Sounds, Soft, Non-Tender, No Organomegaly, No Distention, No Abnormal Bruit, No Mass, Pelvis Stable Back Exam: Normal Inspection, Full Range of Motion Extremities: No Pedal Edema Skin: Warm, Dry Wound/Incisions: Healing Well Neurological: No New Focal Deficit Psy/Mental Status: Alert, Normal Affect, Normal Mood - Patient Data Lab Results Last 24 hrs: Laboratory Results - last 24 hr 01/18/21 01/18/21 Range/Units 16:55 21:10 POC Glucose 150 H 105 (70-105) mg/dl Result Diagrams: 01/18/21 06:37 01/18/21 06:37 Sepsis Event Note - Evaluation Sepsis Screening Result: No Definite Risk - Focused Exam Vital Signs: Vital Signs Temp Pulse Resp BP Pulse Ox 01/19/21 11:58 97.9 F 39 L 18 107/75 100 01/19/21 08:00 91 18 150/87 H 95 01/19/21 07:00 98.7 F 91 18 150/87 H 95 01/19/21 03:29 14 - Problem List Review Problem List Initiated/Reviewed/Updated: Yes - My Orders Last 24 Hours: My Active Orders 01/19/21 10:53 Acetaminophen [TylenoL] 650 mg PO Q6H PRN 01/19/21 10:54 Communication Order [RC] PRN - Plan Plan:: Hyperglycemia Uncontrolled type 1 diabetes mellitus Continue home insulin regimen 4 times daily fingerstick glucose checks hypoglycemia protocol JACI Hyperkalemia Hyponatremia Lactic acidosis All likely due to dehydration and hyperglycemia. Renal function improving. Electrolytes and lactic acidosis corrected. Recent foot amputations Osteomyelitis of the foot To keep podiatry appointment for wound cares Continue Zosyn therapy as planned for total of 6 weeks Tobacco use disorder Counseled on cessation DVT prophylaxis: Heparin CODE STATUS: Full code
[2021-01-19] MEDS: atorvaSTATin 10 MG Tab PO SCH (21:32)
[2021-01-19] MEDS: Insulin Glarg,Human.Rec.Analog 100 Unit/ML SUBCUT SCH (21:33)
[2021-01-20] MEDS ORDERED: Sodium Chloride 0.9% 10 ML Syringe FLUSH PRN (03:14)
[2021-01-20] MEDS: Sodium Chloride 0.9% 10 ML Syringe FLUSH PRN ×2 (05:41→22:08)
[2021-01-20] MEDS: Piperacillin/Tazobactam 3.375 GM in Sodium Chloride 0.9% 100 ML IV SCH ×3 (05:42→22:08)
[2021-01-20] MEDS: Heparin Sodium 5,000 Units/ML Vial SUBCUT SCH ×3 (05:49→22:07)
[2021-01-20] MEDS: Nicotine 14 MG/24 Hr Patch TRDERM SCH (08:31)
[2021-01-20] MEDS: Insulin Lispro 100 Units/ML 3 ML Vial SUBCUT SCH ×7 (08:32→22:06)
[2021-01-20] MEDS: atorvaSTATin 10 MG Tab PO SCH (20:48)
[2021-01-20] MEDS ORDERED: Insulin Glarg,Human.Rec.Analog 100 Unit/ML SUBCUT SCH (21:00)
[2021-01-21] MEDS: Sodium Chloride 0.9% 10 ML Syringe FLUSH PRN ×2 (05:45→14:06)
[2021-01-21] MEDS: Piperacillin/Tazobactam 3.375 GM in Sodium Chloride 0.9% 100 ML IV SCH ×2 (05:45→13:26)
[2021-01-21] MEDS: Heparin Sodium 5,000 Units/ML Vial SUBCUT SCH ×2 (05:50→13:26)
[2021-01-21] MEDS: Insulin Lispro 100 Units/ML 3 ML Vial SUBCUT SCH ×4 (08:28→13:29)
[2021-01-21] MEDS: Nicotine 14 MG/24 Hr Patch TRDERM SCH (08:28)
[2021-01-21] MEDS ORDERED: Pneumococcal Polyvalent-23 Vaccine 0.5 ML SDV IM ONE (09:17)
[2021-01-21 12:12] VITALS: BP 142/76; PULSE 83
--- NOTE | 2021-01-21 13:54 | PN ---
DATE: 01/20/2021 SUBJECTIVE: The patient without any complaints walked to the PT, eating. Has the poor understanding of his appointments and necessary follow up of his condition, especially his postop follow up. His sugars have been slightly erratic over the past 24 to even 48 hours. REVIEW OF SYSTEMS: Negative for 14-systems except specifically noted above. PHYSICAL EXAMINATION: General: He is alert and oriented x3. HEENT: Mucous membranes. Extraocular movements intact. Pupils equal and reactive. Lungs: Clear to auscultation. No respiratory distress. Cardiovascular: No murmurs. Regular heart rate. Abdomen: Normal bowel sounds. Soft, nontender, nondistended. Extremities: No pedal edema. There is some lower extremity muscle wasting. 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 The wounds look good with no discharge. They are dry. There is no redness and no evidence of acute infection. Neurologic: He is grossly intact and he is euthymic. ASSESSMENT: 1. Hyperglycemia, uncontrolled type 1 diabetes. His sugars have been erratic in the past 24 hours ranging anywhere from 55 to 354. The 354 followed a lunch time short-term insulin that was held because of a sugar level of 55. I am going to abstain from any changes to his current regimen and observe over the next 24 hours his general pattern with no missed doses and make adjustments as necessary. That being said, his glycemic control overall is markedly improved from his admission fingerstick glucoses of incalculable greater than 500 levels. 2. Acute kidney injury, hyperkalemia, hyponatremia, lactic acidosis. All of this have resolved and was likely due to dehydration, which in turn was due to the hyperglycemia. 3. Recent bilateral big toe amputations and osteomyelitis. The patient completed a total of 6 weeks of IV Zosyn, which as outpatient is administered via bulb device. He was actually scheduled for his outpatient podiatry followup today, but is unable to go due to his inpatient status. The wounds look good, however, I am concerned about the sutures in place and the timing of their necessary removal. It is abundantly clear and the patient is admitting that he is unable to keep appointments. He does not remember when they are. It is hard for him to get to them. He is unable to self-care for his wounds at home. He is unable to maintain adequate glycemic control due to noncompliance, poor understanding, and poor ability to manage his own insulin regimen or sliding scale. He is at very high risk for wound complications, wound dehiscence, and infections, which would end with morbidity and possibly mortality, and very possibly progress to transmetatarsal amputation or even higher level amputations. Furthermore, he is at high risk of falls due to deconditioning, due to the hospitalization of this one and the more recent one, which only adds to his risk of morbidity and postop complications. I therefore recommend that he complete his remaining antibiotic course in a controlled setting of swing bed versus subacute rehab level of care given the best possible chance to save his feet from amputation. [facility] /[id number]
--- NOTE | 2021-01-21 18:28 | PCM.DCSUM1 ---
Discharge Summary - Hospital Course Free Text/Narrative:: Jacobo Parrish a 60 y.o.malewith medical history significant for stimulators of the right lower extremity, PAD s/p stent placement in the left lower extremity, type 1 diabetes with diabetic foot ulcer, on chronic insulin therapy, hypercholesterolemia, noncompliance with medications, and tobacco use disorder who was recently discharged from our to hospital after being admitted for septic arthritis/osteomyelitis across the first MTP and dry gangrene of the left toe. He got right foot partial first ray amputation and left hallux amputation tometatarsophalangeal jointand was discharged on Zosyn. Patient was seen in infectious disease clinic today for follow-up where he complained of not been able to care for himself or control his blood sugar despite taking his prescribed insulin doses. He denies any pain, fever, nausea, vomiting, di arrhea, urinary symptoms. His blood sugar was found to be 491. He was referred to the ER for admission With close inpatient glucose monitoring and sliding scale use pt's glycemic control improved. He is clearly a brittle diabetic and has demonstrated labile glycemia including symptomatic hypoglycemia despite good appetite and careful insulin dosing. He has demonstrated inability to self monitor sugar, self care for his freshly post op wounds, keep tabs on his appointments and ensure antibiotic administration. He is not a safe discharge. He was approved for swing bed status to complete his IV antibiotic course and continued wound care. Otherwise the risk of further amputation in the short term is high. - Discharge Data Discharge Date: 01/21/21 Discharge Disposition: DC/Tfer W/I Hosp To [place] [id number] Condition: Stable - Referral to Home Health Primary Care Physician: PCP None - Patient Summary/Data Consults: Consultations 01/20/21 10:15 OT Evaluation and Treatment [CONS] Routine PT Evaluation and Treatment [CONS] Routine - Discharge Plan *PRESCRIPTION DRUG MONITORING PROGRAM REVIEWED*: Not Applicable *COPY OF PRESCRIPTION DRUG MONITORING REPORT IN PATIENT RONALD: Not Applicable Home Medications: Home Meds atorvaSTATin [Lipitor] 10 mg PO BEDTIME tablet 01/03/21 [Rx] Insulin Aspart [NovoLOG] 8 unit SQ .WITHMEALS 01/10/21 [History] Piperacillin Sodium/Tazobactam [Piperacil-Tazobact 13.5 gm Vl] 10.125 gm IV Q24H 01/16/21 [History] Insulin Glarg,Human.Rec.Analog [Lantus] 20 unit SUBCUT BEDTIME 01/21/21 [History] Forms: ED Department Discharge - Discharge Summary/Plan Comment DC Time >30 min.: No - General Info Date of Service: 01/21/21 - Patient Data Vitals - Most Recent: Last Vital Signs Temp 98.6 F 01/21/21 12:12 Pulse 83 01/21/21 12:12 Resp 20 01/21/21 12:12 BP 142/76 H 01/21/21 12:12 Pulse Ox 97 01/21/21 12:12 Weight - Most Recent: 124 lb 12.8 oz I&O - Last 24 hours: Intake & Output 01/21/21 01/21/21 01/21/21 06:59 14:59 22:59 Intake Total 300 697 Balance 300 697 Lab Results - Last 24 hrs: Laboratory Results - last 24 hr 01/20/21 01/21/21 01/21/21 Range/Units 20:31 07:55 10:30 POC Glucose 197 H 220 H 179 H (70-105) mg/dl 01/21/21 Range/Units 11:58 POC Glucose 120 H (70-105) mg/dl Med Orders - Current: Current Medications Discontinued Medications Acetaminophen (Tylenol) 650 mg PO Q6H PRN PRN Reason: Pain Last Admin: 01/19/21 19:42 Dose: 650 mg Documented by: Atorvastatin Calcium (Lipitor) 10 mg PO BEDTIME ANTONIA Last Admin: 01/20/21 20:48 Dose: 10 mg Documented by: Dextrose/Water (Dextrose 50% In Water) 50 ml IV ASDIRECTED PRN PRN Reason: Hypoglycemia Dextrose/Water (Dextrose 50% In Water) 50 ml IV ASDIRECTED PRN PRN Reason: Hypoglycemia Dextrose/Water (Dextrose 50% In Water) 50 ml IVPUSH ONETIME PRN PRN Reason: Hypoglycemia Glucagon (Glucagen) 1 mg IM ASDIRECTED PRN PRN Reason: Hypoglycemia Glucagon (Glucagen) 1 mg IM ASDIRECTED PRN PRN Reason: Hypoglycemia Heparin Sodium (Porcine) (Heparin Sodium) 5,000 units SUBCUT Q8HR [facility] Last Admin: 01/21/21 13:26 Dose: 5,000 units Documented by: Sodium Chloride (Normal Saline) 1,000 mls @ 999 mls/hr IV .BOLUS ONE Stop: 01/16/21 18:59 Last Admin: 01/16/21 18:18 Dose: 999 mls/hr Documented by: Sodium Chloride (Normal Saline) 500 mls @ 999 mls/hr IV .BOLUS ONE Stop: 01/16/21 19:47 Last Admin: 01/16/21 19:20 Dose: 999 mls/hr Documented by: Insulin Regular in 0.9 % NACL (Myxredlin In Ns 100 Unit/100 Ml) 100 unit in 100 mls @ 5.661 mls/hr IV TITRATE ANTONIA; Protocol Last Titration: 01/16/21 21:35 Dose: 0 units/kg/hr, 0 mls/hr Documented by: Sodium Chloride (Normal Saline) 1,000 mls @ 100 mls/hr IV ASDIRECTED ANTONIA Stop: 01/17/21 00:23 Last Admin: 01/16/21 21:40 Dose: 100 mls/hr Documented by: Magnesium Sulfate (Magnesium Sulfate In Water 2 Gm/50 Ml) 2 gm in 50 mls @ 25 mls/hr IV ONETIME ONE Stop: 01/16/21 22:49 Last Admin: 01/16/21 21:26 Dose: 25 mls/hr Documented by: Piperacillin Sod/Tazobactam (Sod 2.25 gm/ Sodium Chloride) 50 mls @ 100 mls/hr IV Q6H ANTONIA Piperacillin Sod/Tazobactam (Sod 3.375 gm/ Sodium Chloride) 100 mls @ 200 mls/hr IV Q8HR [facility] Last Infusion: 01/21/21 14:06 Dose: Infused Documented by: Insulin Glargine (Lantus) 10 unit SUBCUT ONETIME ONE Stop: 01/17/21 03:16 Last Admin: 01/17/21 03:28 Dose: 10 units Documented by: Insulin Glargine (Lantus) 25 unit SUBCUT BEDTIME [facility] Last Admin: 01/19/21 21:33 Dose: 25 units Documented by: Insulin Glargine (Lantus) 20 unit SUBCUT BEDTIME [facility] Last Admin: 01/20/21 20:48 Dose: 20 units Documented by: Insulin Human Lispro (Humalog) 10 unit SUBCUT ONETIME ONE Stop: 01/16/21 18:12 Last Admin: 01/16/21 18:24 Dose: 10 units Documented by: Insulin Human Lispro (Humalog) 10 unit SUBCUT ONETIME ONE Stop: 01/16/21 19:15 Last Admin: 01/16/21 19:20 Dose: 10 units Documented by: Insulin Human Lispro (Humalog) 6 unit SUBCUT ONETIME ONE Stop: 01/17/21 03:18 Last Admin: 01/17/21 03:28 Dose: 6 units Documented by: Insulin Human Lispro (Humalog) 0 unit SUBCUT WITHMEALSANDBED [facility]; Protocol Last Admin: 01/17/21 09:14 Dose: Not Given Documented by: Insulin Human Lispro (Humalog) 4 unit SUBCUT ONETIME ONE Stop: 01/17/21 05:15 Last Admin: 01/17/21 05:21 Dose: 4 units Documented by: Insulin Human Lispro (Humalog) 10 unit SUBCUT TIDMEALS [facility] Last Admin: 01/20/21 12:48 Dose: 10 units Documented by: Insulin [facility] ([facility]) [facility] Protocol Last Admin: 01/21/21 13:29 Dose: Not Given Documented by: Insulin Human Lispro (Humalog) 8 unit SUBCUT TIDMEALS [facility] Last Admin: 01/21/21 13:27 Dose: 8 units Documented by: Nicotine (Habitrol) 14 mg TRDERM DAILY [facility] Last Admin: 01/21/21 08:28 Dose: 14 mg Documented by: Pneumococcal Polyvalent Vaccine (Pneumovax 23) 0.5 ml IM .ONCE ONE Stop: 01/21/21 09:18 Last Admin: 01/21/21 11:04 Dose: 0.5 ml Documented by: Sodium Chloride (Saline Flush) 10 ml FLUSH ASDIRECTED PRN PRN Reason: IV Use Last Admin: 01/21/21 14:06 Dose: 10 ml Documented by: Sodium Chloride (Saline Flush) 10 ml FLUSH ASDIRECTED PRN PRN Reason: Keep Vein Open - Exam General: Reports: Alert, Oriented HEENT: Reports: Pupils Equal Neck: Reports: Supple Lungs: Reports: Clear to Auscultation Cardiovascular: Reports: Regular Rate, Regular Rhythm, No Murmurs GI/Abdominal Exam: Normal Bowel Sounds, Soft, Non-Tender, No Distention Back Exam: Reports: Normal Inspection Extremities: No Pedal Edema, Other (s/p b/l big toe amputation, wounds are dry and w/o discharge or erythema, sutures in place) Skin: Reports: Warm, Dry, Intact Psy/Mental Status: Reports: Alert, Normal Affect, Normal Mood
== END 2021-01-21 16:08 | disposition swing bed (61) | DRG 638 ==
LOC: DL.ED 16:42 → DL.MS 19:21
PROVIDERS: ADMIT Internal Medicine; ATTEND Internal Medicine
DX: E10.65 Type 1 diabetes mellitus with hyperglycemia (principal); E87.1 Hypo-osmolality and hyponatremia; N17.9 Acute kidney failure, unspecified; Z79.4 Long term (current) use of insulin; E87.5 Hyperkalemia; E86.0 Dehydration; Z91.14 Patient's other noncompliance with medication regimen; E78.5 Hyperlipidemia, unspecified; I10 Essential (primary) hypertension; H54.7 Unspecified visual loss; Z89.431 Acquired absence of right foot; F17.210 Nicotine dependence, cigarettes, uncomplicated; Z20.822 Contact with and (suspected) exposure to COVID-19
CPT/HCPCS: 36415; 80048; 80053; 82009; 82962; 83605; 83735; 85025; 85027; 85651; 86140; 90471; 90732; 97162-GP; 97165-GO; 99284; 99285; A9270-GY; J1644; J1815-GY; J2543; J3475; J7030; U0002

== ENCOUNTER 2021-01-21 13:25 | Inpatient (IN) | payer OTHER ==
[2021-01-21] MEDS ORDERED: 50% Dextrose in Water 50 ML Syringe IV PRN (14:58)
[2021-01-21] MEDS ORDERED: Sodium Chloride 0.9% 10 ML Syringe FLUSH PRN (14:58)
[2021-01-21] MEDS ORDERED: Glucagon,Human Recombinant 1 MG Vial IM PRN ×2 (14:58)
[2021-01-21] MEDS: Acetaminophen 325 MG Tab PO PRN (15:58)
[2021-01-21] MEDS: Insulin Lispro 100 Units/ML 3 ML Vial SUBCUT SCH ×3 (17:52→21:15)
--- NOTE | 2021-01-21 18:37 | PCM.HP ---
H&P History of Present Illness - General Date of Service: 01/21/21 Admit Problem/Dx: Admission Diagnosis/Problem Admission Diagnosis/Problem Hyperglycemia - History of Present Illness Initial Comments - Free Text/Narative: Jacobo Parrish a 60 y.o.malewith medical history significant for stimulators of the right lower extremity, PAD s/p stent placement in the left lower extremity, type 1 diabetes with diabetic foot ulcer, on chronic insulin therapy, hypercholesterolemia, noncompliance with medications, and tobacco use disorder who was recently discharged from our to hospital after being admitted for septic arthritis/osteomyelitis across the first MTP and dry gangrene of the left toe. He got right foot partial first ray amputation and left hallux amputation tometatarsophalangeal jointand was discharged on Zosyn. Patient was seen in infectious disease clinic today for follow-up where he complained of not been able to care for himself or control his blood sugar despite taking his prescr ibed insulin doses. He denies any pain, fever, nausea, vomiting, diarrhea, urinary symptoms. His blood sugar was found to be 491. He was referred to the ER for admission With close inpatient glucose monitoring and sliding scale use pt's glycemic control improved. He is clearly a brittle diabetic and has demonstrated labile glycemia including symptomatic hypoglycemia despite good appetite and careful insulin dosing. He has demonstrated inability to self monitor sugar, self care for his freshly post op wounds, keep tabs on his appointments and ensure antibiotic administration. He is not a safe discharge. He was approved for swing bed status to complete his IV antibiotic course and continued wound care. Otherwise the risk of further amputation in the short term is high. - Related Data Allergies/Adverse Reactions: Allergies Allergy/AdvReac Type Severity Reaction Status Date / Time No Known Allergies Allergy Verified 01/21/21 17:05 Home Medications: Home Meds atorvaSTATin [Lipitor] 10 mg PO BEDTIME tablet 01/03/21 [Rx] Insulin Aspart [NovoLOG] 8 unit SQ .WITHMEALS 01/10/21 [History] Piperacillin Sodium/Tazobactam [Piperacil-Tazobact 13.5 gm Vl] 10.125 gm IV Q24H 01/16/21 [History] Insulin Glarg,Human.Rec.Analog [Lantus] 20 unit SUBCUT BEDTIME 01/21/21 [History] Past Medical History HEENT History: Reports: Impaired Vision Cardiovascular History: Reports: High Cholesterol, Hypertension Respiratory History: Reports: None Gastrointestinal History: Reports: None Genitourinary History: Reports: Diabetic Nephropathy Musculoskeletal History: Reports: Arthritis, Back Pain, Chronic Neurological History: Reports: Neuropathy, Diabetic Psychiatric History: Reports: None Endocrine/Metabolic History: Reports: Diabetes, Type II, IDDM Hematologic History: Reports: None Immunologic History: Reports: None Oncologic (Cancer) History: Reports: None Dermatologic History: Reports: None - Infectious Disease History Infectious Disease History: Reports: Chicken Pox - Past Surgical History Head Surgeries/Procedures: Reports: None HEENT Surgical History: Reports: None Cardiovascular Surgical History: Reports: None Respiratory Surgical History: Reports: None GI Surgical History: Reports: Colonoscopy, Hernia, Inguinal, Hernia Repair/Other Male Surgical History: Reports: None Endocrine Surgical History: Reports: None Neurological Surgical History: Reports: None Musculoskeletal Surgical History: Reports: None Oncologic Surgical History: Reports: None Social & Family History - Family History Family Medical History: No Pertinent Family History - Tobacco Use Tobacco Use Status *Q: Current Every Day Tobacco User Years of Tobacco use: 30 Packs/Tins Daily: 0.5 Used Tobacco, but Quit: Yes Month/Year Tobacco Last Used: dec 2020 - Caffeine Use Caffeine Use: Reports: Coffee, Soda - Recreational Drug Use Recreational Drug Use: No - Living Situation & Occupation Living situation: Reports: Single, Alone Occupation: Employed H&P Review of Systems - Review of Systems: Review Of Systems: See Below General: Reports: No Symptoms. Denies: Fever HEENT: Reports: No Symptoms Pulmonary: Reports: No Symptoms. Denies: Shortness of Breath Cardiovascular: Reports: No Symptoms. Denies: Chest Pain Gastrointestinal: Reports: No Symptoms. Denies: Abdominal Pain Genitourinary: Reports: No Symptoms. Denies: Dysuria Musculoskeletal: Denies: Muscle Pain Skin: Denies: No Symptoms, Diaphoresis, Erythema Psychiatric: Denies: No Symptoms Neurological: Denies: No Symptoms, Confusion Exam - Exam Exam: See Below - Exam Quality Assessment: No: Supplemental Oxygen General: Alert, Oriented HEENT: Conjunctiva Clear Neck: Supple Lungs: Clear to Auscultation, Normal Respiratory Effort Cardiovascular: Regular Rate, Regular Rhythm GI/Abdominal Exam: Normal Bowel Sounds, Soft, Non-Tender, No Distention Back Exam: Normal Inspection Extremities: No Pedal Edema, Other (b/l big toe s/p amputation, sutures in place, wound dry w/ no discharge, no erythema) Skin: Warm, Dry, Intact Neurological: No: Cranial Nerves Intact Psychiatric: Alert, Normal Affect, Normal Mood - Patient Data Lab Results Last 24 hrs: Laboratory Results - last 24 hr 01/21/21 Range/Units 16:53 POC Glucose 200 H (70-105) mg/dl Problem List Initiated/Reviewed/Updated: No Orders Last 24hrs: Active Orders 24 hr Category Date Time Status Patient Status [ADT] Routine ADT 01/21/21 15:04 Active Blood Glucose Check, Bedside [RC] QIDACANDBED Care 01/21/21 14:58 Active Central Line Assessment [RC] Care 01/21/21 15:48 Active Communication Order [RC] Click to Edit Care 01/21/21 14:58 Active Communication Order [RC] PER UNIT ROUTINE Care 01/21/21 14:58 Active Communication Order [RC] PRN Care 01/21/21 14:58 Active Diabetes Education [RC] Care 01/21/21 14:58 Active Up With Assistance [RC] ASDIRECTED Care 01/21/21 14:58 Active VTE/DVT Education [RC] Care 01/21/21 14:58 Active Vital Signs [RC] Care 01/21/21 16:09 Active OT Evaluation and Treatment [CONS] Routine Cons 01/21/21 14:58 Active PT Evaluation and Treatment [CONS] Routine Cons 01/21/21 14:58 Active Consistent Carbohydrate Diet [DIET] Diet 01/21/21 Dinner Active Acetaminophen [TylenoL] Med 01/21/21 14:58 Active 650 mg PO Q6H PRN Check Patch Med 01/21/21 21:00 Active 1 ea TRDERM BEDTIME Dextrose 50% in Water Med 01/21/21 14:58 Active 50 ml IV ASDIRECTED PRN Glucagon,Human Recombinant [GlucaGen] Med 01/21/21 14:58 Active 1 mg IM ASDIRECTED PRN Heparin Sodium Med 01/21/21 22:00 Active 5,000 units SUBCUT Q8HR Insulin Glarg,Human.Rec.Analog [LantUS] Med 01/21/21 21:00 Active 20 unit SUBCUT BEDTIME Insulin Lispro [HumaLOG] Med 01/21/21 17:00 Active 8 unit SUBCUT TIDMEALS Insulin Lispro [HumaLOG] Med 01/21/21 18:00 Active See Protocol SUBCUT WITHMEALSANDBED Nicotine [Habitrol] Med 01/22/21 09:00 Active 14 mg TRDERM DAILY Piperacillin/Tazobactam [Zosyn] 3.375 gm Med 01/21/21 22:00 Active Sodium Chloride 0.9% [Normal Saline] 100 ml IV Q8HR Sodium Chloride 0.9% [Saline Flush] Med 01/21/21 14:58 Active 10 ml FLUSH ASDIRECTED PRN atorvaSTATin [Lipitor] Med 01/21/21 21:00 Active 10 mg PO BEDTIME Convert IV to Saline Lock [OM.PC] Routine Oth 01/21/21 14:58 Ordered Glucose Management Sub Q Reflex [OM.PC] Click To Edit Oth 01/21/21 14:58 Ordered Code Status [Resuscitation Status] Routine Resus Stat 01/21/21 15:04 Ordered Medication Orders Acetaminophen (Tylenol) 650 mg PO Q6H PRN PRN Reason: Pain Last Admin: 01/21/21 15:58 Dose: 650 mg Documented by: CHERELLE Atorvastatin Calcium (Lipitor) 10 mg PO BEDTIME ANTONIA Dextrose/Water (Dextrose 50% In Water) 50 ml IV ASDIRECTED PRN PRN Reason: Hypoglycemia Glucagon (Glucagen) 1 mg IM ASDIRECTED PRN PRN Reason: Hypoglycemia Heparin Sodium (Porcine) (Heparin Sodium) 5,000 units SUBCUT Q8HR ANTONIA Piperacillin Sod/Tazobactam (Sod 3.375 gm/ Sodium Chloride) 100 mls @ 200 mls/hr IV Q8HR ANTONIA Insulin Glargine (Lantus) 20 unit SUBCUT BEDTIME ANTONIA Insulin Human Lispro (Humalog) 0 unit SUBCUT WITHMEALSANDBED ANTONIA; Protocol Last Admin: 01/21/21 17:52 Dose: 2 units Documented by: SEBLE Insulin Human Lispro (Humalog) 8 unit SUBCUT TIDMEALS ANTONIA Last Admin: 01/21/21 17:52 Dose: 8 units Documented by: SEBLE Miscellaneous Information (Check Patch) 1 ea TRDERM BEDTIME ANTONIA Nicotine (Habitrol) 14 mg TRDERM DAILY ANTONIA Sodium Chloride (Saline Flush) 10 ml FLUSH ASDIRECTED PRN PRN Reason: IV Use Assessment/Plan Comment:: #b/l big toe osteomyelitis s/p b/l amputation - c/w zosyn to complete total 6 weeks - wound care prn - will need to travel out for his post op podiatry appt #hyperglycemia - overall improved - he is a brittle diabetic w/ occasional hypoglycemic events in patient #JACI / hyperkalemia / hyponatremia / lactic acidosis - resolved - in setting of hyperglycemia and dehydration PPX - ambulating Full code
[2021-01-21] MEDS: Insulin Glarg,Human.Rec.Analog 100 Unit/ML SUBCUT SCH (21:17)
[2021-01-21] MEDS: atorvaSTATin 10 MG Tab PO SCH (21:19)
[2021-01-21] MEDS: Heparin Sodium 5,000 Units/ML Vial SUBCUT SCH (21:19)
[2021-01-21] MEDS: Sodium Chloride 0.9% 10 ML Syringe FLUSH PRN ×2 (22:09→22:45)
[2021-01-21] MEDS: Piperacillin/Tazobactam 3.375 GM in Sodium Chloride 0.9% 100 ML IV SCH (22:10)
[2021-01-22] MEDS: Sodium Chloride 0.9% 10 ML Syringe FLUSH PRN ×5 (06:13→22:07)
[2021-01-22] MEDS: Piperacillin/Tazobactam 3.375 GM in Sodium Chloride 0.9% 100 ML IV SCH ×3 (06:15→21:35)
[2021-01-22] MEDS: Heparin Sodium 5,000 Units/ML Vial SUBCUT SCH ×3 (06:53→21:33)
[2021-01-22] MEDS: Insulin Lispro 100 Units/ML 3 ML Vial SUBCUT SCH ×6 (09:32→21:32)
[2021-01-22] MEDS: Nicotine 14 MG/24 Hr Patch TRDERM SCH (09:33)
[2021-01-22] MEDS: atorvaSTATin 10 MG Tab PO SCH (21:29)
[2021-01-22] MEDS: Insulin Glarg,Human.Rec.Analog 100 Unit/ML SUBCUT SCH (21:31)
[2021-01-23] MEDS: Heparin Sodium 5,000 Units/ML Vial SUBCUT SCH ×3 (05:25→21:48)
[2021-01-23] MEDS: Sodium Chloride 0.9% 10 ML Syringe FLUSH PRN ×3 (05:26→22:18)
[2021-01-23] MEDS: Piperacillin/Tazobactam 3.375 GM in Sodium Chloride 0.9% 100 ML IV SCH ×3 (05:26→22:18)
[2021-01-23] MEDS ORDERED: Insulin Lispro 100 Units/ML 3 ML Vial SUBCUT SCH ×2 (06:00→11:00)
[2021-01-23] MEDS: Insulin Lispro 100 Units/ML 3 ML Vial SUBCUT SCH ×7 (08:29→21:59)
[2021-01-23] MEDS: Nicotine 14 MG/24 Hr Patch TRDERM SCH (08:32)
[2021-01-23] MEDS: atorvaSTATin 10 MG Tab PO SCH (21:48)
[2021-01-23] MEDS: Insulin Glarg,Human.Rec.Analog 100 Unit/ML SUBCUT SCH (22:00)
[2021-01-24] MEDS: Sodium Chloride 0.9% 10 ML Syringe FLUSH PRN ×3 (06:04→21:38)
[2021-01-24] MEDS: Piperacillin/Tazobactam 3.375 GM in Sodium Chloride 0.9% 100 ML IV SCH ×3 (06:05→21:39)
[2021-01-24] MEDS: Heparin Sodium 5,000 Units/ML Vial SUBCUT SCH ×4 (06:08→21:05)
[2021-01-24] MEDS: Insulin Lispro 100 Units/ML 3 ML Vial SUBCUT SCH ×7 (09:06→21:38)
[2021-01-24] MEDS: Nicotine 21 MG/24 Hr Patch TRDERM SCH (09:08)
[2021-01-24 10:32] LABS: ANION GAP 12.1 mEq/L (7-13); CHLORIDE,CL 103 mmol/L (98-107); SODIUM,NA 141 mmol/L (136-145)
[2021-01-24] MEDS ORDERED: Sodium Chloride 0.9% 1,000 ML IV ONE (13:33)
[2021-01-24] MEDS: Nystatin Topical Powder 30 GM Bottle TOP PRN ×2 (16:47→20:59)
[2021-01-24] MEDS: Acetaminophen 325 MG Tab PO PRN (20:59)
[2021-01-24] MEDS: atorvaSTATin 10 MG Tab PO SCH (20:59)
[2021-01-24] MEDS: Insulin Glarg,Human.Rec.Analog 100 Unit/ML SUBCUT SCH (21:39)
[2021-01-25] MEDS: Heparin Sodium 5,000 Units/ML Vial SUBCUT SCH ×3 (05:36→21:11)
[2021-01-25] MEDS: Piperacillin/Tazobactam 3.375 GM in Sodium Chloride 0.9% 100 ML IV SCH ×3 (05:36→21:08)
[2021-01-25] MEDS: Sodium Chloride 0.9% 10 ML Syringe FLUSH PRN ×2 (05:36→21:09)
[2021-01-25] MEDS: Insulin Lispro 100 Units/ML 3 ML Vial SUBCUT SCH ×7 (08:00→21:14)
[2021-01-25] MEDS: Nicotine 21 MG/24 Hr Patch TRDERM SCH (08:10)
[2021-01-25] MEDS: Nystatin Topical Powder 30 GM Bottle TOP PRN (13:53)
[2021-01-25] MEDS: atorvaSTATin 10 MG Tab PO SCH (21:10)
[2021-01-25] MEDS: Insulin Glarg,Human.Rec.Analog 100 Unit/ML SUBCUT SCH (21:13)
[2021-01-26] MEDS: Heparin Sodium 5,000 Units/ML Vial SUBCUT SCH ×3 (05:24→21:36)
[2021-01-26] MEDS: Piperacillin/Tazobactam 3.375 GM in Sodium Chloride 0.9% 100 ML IV SCH ×3 (05:30→21:40)
[2021-01-26] MEDS: Insulin Lispro 100 Units/ML 3 ML Vial SUBCUT SCH ×7 (07:40→21:39)
[2021-01-26] MEDS: Nicotine 21 MG/24 Hr Patch TRDERM SCH (08:01)
[2021-01-26] MEDS: Sodium Chloride 0.9% 10 ML Syringe FLUSH PRN ×2 (14:21→21:40)
[2021-01-26] MEDS: Insulin Glarg,Human.Rec.Analog 100 Unit/ML SUBCUT SCH (21:34)
[2021-01-26] MEDS: atorvaSTATin 10 MG Tab PO SCH (21:38)
[2021-01-27] MEDS: Piperacillin/Tazobactam 3.375 GM in Sodium Chloride 0.9% 100 ML IV SCH ×3 (05:29→21:47)
[2021-01-27] MEDS: Sodium Chloride 0.9% 10 ML Syringe FLUSH PRN ×3 (05:30→22:37)
[2021-01-27] MEDS: Heparin Sodium 5,000 Units/ML Vial SUBCUT SCH ×3 (05:31→21:40)
[2021-01-27 06:50] LABS: ANION GAP 13.7 mEq/L (7-13); CHLORIDE,CL 107 mmol/L (98-107); SODIUM,NA 146 mmol/L (136-145)
[2021-01-27] MEDS: Nicotine 21 MG/24 Hr Patch TRDERM SCH (08:30)
[2021-01-27] MEDS: Insulin Lispro 100 Units/ML 3 ML Vial SUBCUT SCH ×7 (08:35→21:33)
--- NOTE | 2021-01-27 10:50 | PCM.PN ---
- General Info Date of Service: 01/27/21 Admission Dx/Problem (Free Text): No complaints. FSGs have been well controlled. Ambulating ok. Wounds healing well. - Review of Systems Systems Review Comment:: negative for 14 systems except as specifically noted above - Patient Data Vitals - Most Recent: Last Vital Signs Temp 97.8 F 01/27/21 08:00 Pulse 83 01/27/21 08:00 Resp 16 01/27/21 08:00 BP 95/62 01/27/21 08:00 Pulse Ox 96 01/27/21 08:00 Weight - Most Recent: 126 lb I&O - Last 24 Hours: Intake & Output 01/26/21 01/27/21 01/27/21 22:59 06:59 14:59 Intake Total 220 Balance 220 Lab Results Last 24 Hours: Laboratory Results - last 24 hr 01/26/21 01/26/21 01/26/21 Range/Units 11:03 16:57 20:40 Sodium (136-145) mmol/L Potassium (3.5-5.1) mmol/L Chloride (98-107) mmol/L Carbon Dioxide (21-32) mmol/L Anion Gap (7-13) mEq/L BUN (7-18) mg/dL Creatinine (0.70-1.30) mg/dL Est Cr Clr Drug Dosing mL/min Estimated GFR (MDRD) Glucose (74-99) mg/dL POC Glucose 159 H 119 H 132 H (70-105) mg/dl Calcium (8.5-10.1) mg/dL 01/27/21 01/27/21 Range/Units 05:55 07:57 Sodium 146 H (136-145) mmol/L Potassium 4.7 (3.5-5.1) mmol/L Chloride 107 (98-107) mmol/L Carbon Dioxide 30 (21-32) mmol/L Anion Gap 13.7 H (7-13) mEq/L BUN 30 H (7-18) mg/dL Creatinine 1.20 (0.70-1.30) mg/dL Est Cr Clr Drug Dosing 53.58 mL/min Estimated GFR (MDRD) > 60 Glucose 192 H (74-99) mg/dL POC Glucose 166 H (70-105) mg/dl Calcium 8.9 (8.5-10.1) mg/dL Med Orders - Current: Current Medications Acetaminophen (Tylenol) 650 mg PO Q6H PRN PRN Reason: Pain Last Admin: 01/24/21 20:59 Dose: 650 mg Documented by: Atorvastatin Calcium (Lipitor) 10 mg PO BEDTIME [facility] Last Admin: 01/26/21 21:38 Dose: 10 mg Documented by: Dextrose/Water (Dextrose 50% In Water) 50 ml IV ASDIRECTED PRN PRN Reason: Hypoglycemia Glucagon (Glucagen) 1 mg IM ASDIRECTED PRN PRN Reason: Hypoglycemia Heparin Sodium (Porcine) (Heparin Sodium) 5,000 units SUBCUT Q8HR [facility] Last Admin: 01/27/21 05:31 Dose: 5,000 units Documented by: Piperacillin Sod/Tazobactam (Sod 3.375 gm/ Sodium Chloride) 100 mls @ 200 mls/hr IV Q8HR [facility] Last Infusion: 01/27/21 06:03 Dose: Infused Documented by: Insulin Glargine (Lantus) 25 unit SUBCUT BEDTIME [facility] Last Admin: 01/26/21 21:34 Dose: 25 units Documented by: Insulin Human Lispro (Humalog) 0 unit SUBCUT WITHMEALSANDBED [facility]; Protocol Last Admin: 01/27/21 08:35 Dose: 1 units Documented by: Insulin Human Lispro (Humalog) 8 unit SUBCUT ACDINNER [facility] Last Admin: 01/26/21 17:47 Dose: 8 units Documented by: Insulin Human Lispro (Humalog) 8 unit SUBCUT WITHBREAKFAST [facility] Last Admin: 01/27/21 08:36 Dose: 8 units Documented by: Insulin Human Lispro (Humalog) 10 unit SUBCUT WITHLUNCH [facility] Last Admin: 01/26/21 11:57 Dose: 10 units Documented by: Miscellaneous Information (Check Patch) 1 ea TRDERM BEDTIME [facility] Last Admin: 01/26/21 21:39 Dose: 1 ea Documented by: Nicotine (Habitrol) 21 mg TRDERM DAILY [facility] Last Admin: 01/27/21 08:30 Dose: 21 mg Documented by: Nystatin (Nystop) 0 gm TOP BID PRN PRN Reason: Itching Last Admin: 01/25/21 13:53 Dose: 1 applic Documented by: Sodium Chloride (Saline Flush) 10 ml FLUSH ASDIRECTED PRN PRN Reason: IV Use Last Admin: 01/27/21 05:30 Dose: 10 ml Documented by: Discontinued Medications Sodium Chloride (Normal Saline) 1,000 mls @ 999 mls/hr IV .BOLUS ONE Stop: 01/24/21 14:33 Last Admin: 01/24/21 14:23 Dose: 999 mls/hr Documented by: Insulin Glargine (Lantus) 20 unit SUBCUT BEDTIME [facility] Last Admin: 01/23/21 22:00 Dose: 20 units Documented by: Insulin Human Lispro (Humalog) 8 unit SUBCUT TIDMEALS [facility] Last Admin: 01/22/21 09:32 Dose: 8 units Documented by: Insulin Human Lispro (Humalog) 10 unit SUBCUT ACLUNCH [facility] Insulin Human Lispro (Humalog) 8 unit SUBCUT ACBREAKFAST [facility] Nicotine (Habitrol) 14 mg TRDERM DAILY [facility] Last Admin: 01/23/21 08:32 Dose: 14 mg Documented by: - Exam Quality Assessment: No: Supplemental Oxygen General: Alert, Oriented, Cooperative HEENT: Pupils Equal Neck: Supple Lungs: Rales (mild left base) Cardiovascular: Regular Rate, Regular Rhythm, No Murmurs GI/Abdominal Exam: Normal Bowel Sounds, Soft, Non-Tender, No Distention Back Exam: Normal Inspection Extremities: No Pedal Edema, Other (b/l LE w/ fresh dressings which I did not u ndo - reviewed wound care pictures from 01/24 and 01/25 and there is good healing, no dc, no cellulitis, intact) Skin: Warm, Dry Wound/Incisions: Healing Well Neurological: No New Focal Deficit Psy/Mental Status: Alert, Normal Affect, Normal Mood - Patient Data Lab Results Last 24 hrs: Laboratory Results - last 24 hr 01/26/21 01/26/21 01/26/21 Range/Units 11:03 16:57 20:40 Sodium (136-145) mmol/L Potassium (3.5-5.1) mmol/L Chloride (98-107) mmol/L Carbon Dioxide (21-32) mmol/L Anion Gap (7-13) mEq/L BUN (7-18) mg/dL Creatinine (0.70-1.30) mg/dL Est Cr Clr Drug Dosing mL/min Estimated GFR (MDRD) Glucose (74-99) mg/dL POC Glucose 159 H 119 H 132 H (70-105) mg/dl Calcium (8.5-10.1) mg/dL 01/27/21 01/27/21 Range/Units 05:55 07:57 Sodium 146 H (136-145) mmol/L Potassium 4.7 (3.5-5.1) mmol/L Chloride 107 (98-107) mmol/L Carbon Dioxide 30 (21-32) mmol/L Anion Gap 13.7 H (7-13) mEq/L BUN 30 H (7-18) mg/dL Creatinine 1.20 (0.70-1.30) mg/dL Est Cr Clr Drug Dosing 53.58 mL/min Estimated GFR (MDRD) > 60 Glucose 192 H (74-99) mg/dL POC Glucose 166 H (70-105) mg/dl Calcium 8.9 (8.5-10.1) mg/dL Result Diagrams: 01/24/21 10:05 01/27/21 05:55 Sepsis Event Note - Evaluation Sepsis Screening Result: No Definite Risk - Focused Exam Vital Signs: Vital Signs Temp Pulse Resp BP Pulse Ox 01/27/21 08:00 97.8 F 83 16 95/62 96 - Problem List Review Problem List Initiated/Reviewed/Updated: No - Plan Plan:: #b/l big toe osteomyelitis s/p b/l amputation - c/w zosyn to complete total 6 weeks on 02/17 - wound care prn - has been set up for podiatry appt for suture removal - telehealth ID performance test consultant also following #hyperglycemia - now well controlled - he is a brittle diabetic w/ occasional hypoglycemic events in patient #JACI / hyperkalemia / hyponatremia / lactic acidosis - resolved - in setting of hyperglycemia and dehydration PPX - ambulating Full code
[2021-01-27] MEDS: Insulin Glarg,Human.Rec.Analog 100 Unit/ML SUBCUT SCH (21:35)
[2021-01-27] MEDS: atorvaSTATin 10 MG Tab PO SCH (21:37)
[2021-01-27] MEDS: Acetaminophen 325 MG Tab PO PRN (21:37)
[2021-01-28] MEDS: Heparin Sodium 5,000 Units/ML Vial SUBCUT SCH ×3 (07:41→22:00)
[2021-01-28] MEDS: Piperacillin/Tazobactam 3.375 GM in Sodium Chloride 0.9% 100 ML IV SCH ×3 (07:41→22:03)
[2021-01-28] MEDS: Insulin Lispro 100 Units/ML 3 ML Vial SUBCUT SCH ×7 (08:59→21:56)
[2021-01-28] MEDS: Nicotine 21 MG/24 Hr Patch TRDERM SCH (09:01)
[2021-01-28] MEDS: Sodium Chloride 0.9% 10 ML Syringe FLUSH PRN ×3 (09:02→22:01)
[2021-01-28] MEDS: Insulin Glarg,Human.Rec.Analog 100 Unit/ML SUBCUT SCH (21:54)
[2021-01-28] MEDS: atorvaSTATin 10 MG Tab PO SCH (21:58)
[2021-01-29] MEDS: Heparin Sodium 5,000 Units/ML Vial SUBCUT SCH ×3 (05:32→22:07)
[2021-01-29] MEDS: Sodium Chloride 0.9% 10 ML Syringe FLUSH PRN ×2 (05:34→22:09)
[2021-01-29] MEDS: Piperacillin/Tazobactam 3.375 GM in Sodium Chloride 0.9% 100 ML IV SCH ×3 (05:34→22:09)
[2021-01-29] MEDS: Nicotine 21 MG/24 Hr Patch TRDERM SCH (08:52)
[2021-01-29] MEDS: Insulin Lispro 100 Units/ML 3 ML Vial SUBCUT SCH ×7 (08:53→22:04)
[2021-01-29] MEDS: Insulin Glarg,Human.Rec.Analog 100 Unit/ML SUBCUT SCH (22:01)
[2021-01-29] MEDS: atorvaSTATin 10 MG Tab PO SCH (22:06)
[2021-01-30] MEDS: Heparin Sodium 5,000 Units/ML Vial SUBCUT SCH ×3 (05:36→22:35)
[2021-01-30] MEDS: Sodium Chloride 0.9% 10 ML Syringe FLUSH PRN (05:38)
[2021-01-30] MEDS: Piperacillin/Tazobactam 3.375 GM in Sodium Chloride 0.9% 100 ML IV SCH ×3 (05:38→22:36)
[2021-01-30 06:44] LABS: ANION GAP 16.3 mEq/L (7-13)
[2021-01-30] MEDS: Insulin Lispro 100 Units/ML 3 ML Vial SUBCUT SCH ×7 (08:16→22:45)
[2021-01-30] MEDS: Nicotine 21 MG/24 Hr Patch TRDERM SCH (08:19)
[2021-01-30] MEDS: atorvaSTATin 10 MG Tab PO SCH (22:35)
[2021-01-30] MEDS: Insulin Glarg,Human.Rec.Analog 100 Unit/ML SUBCUT SCH (22:43)
[2021-01-31] MEDS: Piperacillin/Tazobactam 3.375 GM in Sodium Chloride 0.9% 100 ML IV SCH ×2 (05:44→13:36)
[2021-01-31] MEDS: Heparin Sodium 5,000 Units/ML Vial SUBCUT SCH ×2 (05:44→13:37)
[2021-01-31 07:47] VITALS: BP 119/73; PULSE 84
[2021-01-31] MEDS: Insulin Lispro 100 Units/ML 3 ML Vial SUBCUT SCH ×4 (08:18→12:23)
[2021-01-31] MEDS: Nicotine 21 MG/24 Hr Patch TRDERM SCH (08:38)
== END 2021-01-31 15:45 | disposition home or self-care (01) | DRG 638 ==
LOC: DL.MS 15:04
PROVIDERS: ADMIT Internal Medicine; ATTEND Internal Medicine
DX: E11.69 Type 2 diabetes mellitus with other specified complication (principal); M86.9 Osteomyelitis, unspecified; E87.1 Hypo-osmolality and hyponatremia; E11.65 Type 2 diabetes mellitus with hyperglycemia; N17.9 Acute kidney failure, unspecified; E87.5 Hyperkalemia; E86.0 Dehydration; F17.200 Nicotine dependence, unspecified, uncomplicated; H54.7 Unspecified visual loss; E78.00 Pure hypercholesterolemia, unspecified; I10 Essential (primary) hypertension; E11.42 Type 2 diabetes mellitus with diabetic polyneuropathy; M54.9 Dorsalgia, unspecified; G89.29 Other chronic pain; M19.90 Unspecified osteoarthritis, unspecified site; Z91.14 Patient's other noncompliance with medication regimen; Z79.4 Long term (current) use of insulin; Z89.422 Acquired absence of other left toe(s); Z89.421 Acquired absence of other right toe(s)
CPT/HCPCS: 36415; 80048; 80053; 82550; 82962; 85025; 85651; 85999; 86140; 93306; 97162-GP; 97165-GO; A9270-GY; J1644; J1815-GY; J2543; J7030

== ENCOUNTER 2021-06-05 22:51 | Emergency (ER) | payer MEDICAID, OTHER ==
[2021-06-05 23:12] VITALS: BP 92/69; PULSE 98
[2021-06-05] MEDS ORDERED: Sodium Chloride 0.9% 1,000 ML IV ONE (23:25)
[2021-06-05] MEDS ORDERED: Acetaminophen 325 MG Tab PO ONE (23:25)
[2021-06-05] MEDS ORDERED: Ondansetron 4 MG Tab.DIS PO ONE (23:25)
--- NOTE | 2021-06-06 00:23 | EDM.PDOC ---
ED HPI GENERAL MEDICAL PROBLEM - General Chief Complaint: General Stated Complaint: RECIEVED COVID SHOT ON 06/04, FEELING ILL Time Seen by Provider: 06/05/21 23:15 Source of Information: Reports: Patient History Limitations: Reports: No Limitations - History of Present Illness INITIAL COMMENTS - FREE TEXT/NARRATIVE: ED with c/o general body aches, headache nausea, no vomiting. BS 200's. No chest pain , no cough. Recent 2nd pfizer COVID vaccine 2 days prior. No tylenol or ibuprofen today Head Pain Score (Numeric/FACES): 4 - Related Data Allergies Allergy/AdvReac Type Severity Reaction Status Date / Time No Known Allergies Allergy Verified 06/05/21 23:09 Home Meds: Home Meds Acetaminophen [Tylenol] 650 mg PO Q6H PRN tablet 01/31/21 [Rx] Insulin Glarg,Human.Rec.Analog [Lantus] 25 unit SUBCUT BEDTIME 02/01/21 [History] Insulin Lispro [HumaLOG] 5 unit SUBCUT ACDINNER 02/01/21 [History] Insulin Lispro [HumaLOG] 5 unit SUBCUT WITHLUNCH 02/01/21 [History] Insulin Lispro [HumaLOG] 10 unit SUBCUT WITHBREAKFAST 02/01/21 [History] Past Medical History - Past Health History Medical/Surgical History: Denies Medical/Surgical History HEENT History: Reports: Impaired Vision Cardiovascular History: Reports: High Cholesterol, Hypertension Respiratory History: Reports: None Gastrointestinal History: Reports: None Genitourinary History: Reports: Diabetic Nephropathy Musculoskeletal History: Reports: Arthritis, Back Pain, Chronic Neurological History: Reports: Neuropathy, Diabetic Psychiatric History: Reports: None Endocrine/Metabolic History: Reports: Diabetes, Type II, IDDM Hematologic History: Reports: None Immunologic History: Reports: None Oncologic (Cancer) History: Reports: None Dermatologic History: Reports: None - Infectious Disease History Infectious Disease History: Reports: Chicken Pox - Past Surgical History Head Surgeries/Procedures: Reports: None HEENT Surgical History: Reports: None Cardiovascular Surgical History: Reports: None Respiratory Surgical History: Reports: None GI Surgical History: Reports: Colonoscopy, Hernia, Inguinal, Hernia Repair/Other Male Surgical History: Reports: None Endocrine Surgical History: Reports: None Neurological Surgical History: Reports: None Musculoskeletal Surgical History: Reports: None Oncologic Surgical History: Reports: None Social & Family History - Family History Family Medical History: No Pertinent Family History - Tobacco Use Tobacco Use Status *Q: Current Every Day Tobacco User Years of Tobacco use: 30 Packs/Tins Daily: 1 - Caffeine Use Caffeine Use: Reports: Coffee, Soda - Recreational Drug Use Recreational Drug Use: No - Living Situation & Occupation Living situation: Reports: Single, Alone Occupation: Employed ED ROS GENERAL - Review of Systems Review Of Systems: Comprehensive ROS is negative, except as noted in HPI. ED EXAM, GENERAL - Physical Exam Exam: See Below Exam Limited By: No Limitations General Appearance: Alert, No Apparent Distress Eye Exam: Bilateral Eye: EOMI Ears: Normal External Exam Nose: Normal Inspection, Normal Mucosa Throat/Mouth: Normal Inspection, Normal Voice, No Airway Compromise Head: Atraumatic, Normocephalic Neck: Normal Inspection Respiratory/Chest: No Respiratory Distress, Lungs Clear, Normal Breath Sounds Cardiovascular: Regular Rate, Rhythm GI/Abdominal: Normal Bowel Sounds, Soft, Non-Tender Back Exam: Full Range of Motion Extremities: Normal Inspection. No: Joint Swelling Neurological: Alert, Oriented, Normal Cognition, No Motor/Sensory Deficits Psychiatric: Normal Affect Skin Exam: Warm, Dry, Intact, Normal Color Course - Vital Signs Last Recorded V/S: Last Vital Signs Temp 97.2 F 06/05/21 23:09 Pulse 98 06/05/21 23:09 Resp 16 06/05/21 23:09 BP 92/69 06/05/21 23:09 Pulse Ox 96 06/05/21 23:09 - Orders/Labs/Meds Labs: Laboratory Tests 06/05/21 06/05/21 06/05/21 Range/Units 23:06 23:06 23:06 WBC 6.1 (5.0-10.0) 10^3/uL RBC 4.76 (4.6-6.2) 10^6/uL Hgb 14.0 D (14.0-18.0) g/dL Hct 41.4 (40.0-54.0) % MCV 87.0 (80-100) fL MCH 29.4 (27.0-34.0) pg MCHC 33.8 (33.0-35.0) g/dL Plt Count 180 (150-450) 10^3/uL Neut % (Auto) 82.7 H (42.2-75.2) % Lymph % (Auto) 9.3 L (20.5-50.1) % Kern % (Auto) 7.7 (2-8) % Eos % (Auto) 0.0 L (1.0-3.0) % Baso % (Auto) 0.3 (0.0-1.0) % Sodium 138 (136-145) mmol/L Potassium 5.0 (3.5-5.1) mmol/L Chloride 102 (98-107) mmol/L Carbon Dioxide 26 (21-32) mmol/L Anion Gap 15.0 H (7-13) mEq/L BUN 36 H (7-18) mg/dL Creatinine 1.61 H (0.70-1.30) mg/dL Est Cr Clr Drug Dosing 42.98 mL/min Estimated GFR (MDRD) 44 BUN/Creatinine Ratio 22.4 (No establ ref range) Glucose 247 H (70-99) mg/dL Lactic Acid 1.1 (0.4-2.0) mmol/L Calcium 8.7 (8.5-10.1) mg/dL Magnesium 1.9 (1.8-2.4) mg/dL Total Bilirubin 0.6 (0.2-1.0) mg/dL AST 14 L (15-37) U/L ALT 19 (16-63) U/L Alkaline Phosphatase 95 (46-116) U/L Total Protein 6.7 (6.4-8.2) g/dL Albumin 3.6 (3.4-5.0) g/dL Globulin 3.1 Albumin/Globulin Ratio 1.2 Meds: Medications Discontinued Medications Generic Name Dose Route Start Last Admin Trade Name Tiffany PRN Reason Stop Dose Admin Acetaminophen 650 mg 06/05/21 23:25 06/05/21 23:33 Acetaminophen 325 Mg Tab PO 06/05/21 23:26 650 mg NOW ONE Administration Sodium Chloride 1,000 mls @ 999 mls/hr 06/05/21 23:25 06/05/21 23:33 Normal Saline IV 06/06/21 00:25 999 mls/hr .BOLUS ONE Administration Ondansetron HCl 4 mg 06/05/21 23:25 06/05/21 23:33 Ondansetron 4 Mg Tab.Dis PO 06/05/21 23:26 4 mg ONETIME ONE Administration Departure - Departure Time of Disposition: 00:19 Disposition: Home, Self-Care 01 Condition: Good Clinical Impression: Adverse drug effect Qualifiers: Encounter type: initial encounter Qualified Code(s): T50.905A - Adverse effect of unspecified drugs, medicaments and biological substances, initial encounter - Discharge Information *PRESCRIPTION DRUG MONITORING PROGRAM REVIEWED*: No *COPY OF PRESCRIPTION DRUG MONITORING REPORT IN PATIENT RONALD: No Instructions: COVID-19 Vaccine Information Referrals: Burak Chau MD [Primary Care Provider] - Forms: ED Department Discharge Additional Instructions: tylenol 500mg every 4 hours as needed for discomfort/ fever diet as tolerated encourage fluids monitor blood sugars zofran 4mg ODT, clinic follow up tomorrow if not improving Sepsis Event Note (ED) - Evaluation Sepsis Screening Result: No Definite Risk
== END 2021-06-06 00:42 | disposition home or self-care (01) ==
LOC: DL.ED 22:51
DX: R51.9 Headache, unspecified (principal); R11.0 Nausea; T50.B95A Adverse effect of other viral vaccines, initial encounter; I10 Essential (primary) hypertension; E11.21 Type 2 diabetes mellitus with diabetic nephropathy; E11.40 Type 2 diabetes mellitus with diabetic neuropathy, unspecified; Z72.0 Tobacco use; Z79.4 Long term (current) use of insulin; Z79.899 Other long term (current) drug therapy
CPT/HCPCS: 36415; 80053; 83605; 83735; 85025; 87040; 99284; A9270; J7030

== ENCOUNTER 2022-02-19 00:10 | Emergency (ER) | payer BC, MEDICAID ==
[2022-02-19 02:53] LABS: ANION GAP 15.8 mEq/L (7-13); CHLORIDE,CL 103 mmol/L (98-107); SODIUM,NA 140 mmol/L (136-145)
[2022-02-19 04:22] VITALS: BP 169/79; PULSE 80
== END 2022-02-19 05:01 ==
LOC: DL.ED 00:10
DX: E11.621 Type 2 diabetes mellitus with foot ulcer (principal); L97.529 Non-pressure chronic ulcer of other part of left foot with unspecified severity; E11.51 Type 2 diabetes mellitus with diabetic peripheral angiopathy without gangrene; I77.1 Stricture of artery; L03.031 Cellulitis of right toe; E78.00 Pure hypercholesterolemia, unspecified; I10 Essential (primary) hypertension; E11.21 Type 2 diabetes mellitus with diabetic nephropathy; Z79.899 Other long term (current) drug therapy; Z79.4 Long term (current) use of insulin; Z72.0 Tobacco use; Z20.822 Contact with and (suspected) exposure to COVID-19
CPT/HCPCS: 36415; 73700; 80053; 80307; 83605; 85025; 85379; 86140; 87040; 93971; 96365; 96366; 99284-25; 99285; J3370; J7040; U0002

== ENCOUNTER 2022-02-28 21:28 | Emergency (ER) | payer BC ==
[2022-02-28 22:24] VITALS: BP 130/72; PULSE 86
== END 2022-02-28 22:39 | disposition home or self-care (01) ==
LOC: DL.ED 21:28
DX: R60.0 Localized edema (principal); E78.00 Pure hypercholesterolemia, unspecified; I10 Essential (primary) hypertension; E11.40 Type 2 diabetes mellitus with diabetic neuropathy, unspecified; E11.21 Type 2 diabetes mellitus with diabetic nephropathy; Z79.4 Long term (current) use of insulin; Z72.0 Tobacco use; Z79.899 Other long term (current) drug therapy
CPT/HCPCS: 99281; 99283

== ENCOUNTER 2022-03-09 11:06 | Emergency (ER) | payer BC ==
[2022-03-09] MEDS ORDERED: Sodium Chloride 0.9% 1,000 ML IV ONE ×2 (11:12→12:18)
[2022-03-09 11:53] VITALS: BP 153/74; PULSE 79
[2022-03-09 12:06] LABS: ANION GAP 14.3 mEq/L (7-13); CHLORIDE,CL 95 mmol/L (98-107); SODIUM,NA 131 mmol/L (136-145)
[2022-03-09 12:08] LABS: CORONAVIRUS COVID-19 NAA NEGATIVE (NEGATIVE)
== END 2022-03-09 14:27 | disposition left against medical advice (07) ==
LOC: DL.ED 11:06
DX: K52.9 Noninfective gastroenteritis and colitis, unspecified (principal); E11.65 Type 2 diabetes mellitus with hyperglycemia; E11.21 Type 2 diabetes mellitus with diabetic nephropathy; E87.5 Hyperkalemia; E78.00 Pure hypercholesterolemia, unspecified; I10 Essential (primary) hypertension; Z79.4 Long term (current) use of insulin; Z79.899 Other long term (current) drug therapy; Z20.822 Contact with and (suspected) exposure to COVID-19
CPT/HCPCS: 0240U; 36415; 80053; 81001; 82009; 82947; 83605; 83735; 85025; 87040; 99284; J7030

== ENCOUNTER 2022-04-09 08:12 | Emergency (ER) | payer BC, MEDICAID ==
[2022-04-09 08:59] VITALS: BP 96/69; PULSE 89
[2022-04-09] MEDS ORDERED: Bacitracin Oint 1 GM U/D Packet TOP ONE (11:36)
== END 2022-04-09 11:51 | disposition home or self-care (01) ==
LOC: DL.ED 08:12
DX: S91.105A Unspecified open wound of left lesser toe(s) without damage to nail, initial encounter (principal); E78.00 Pure hypercholesterolemia, unspecified; I10 Essential (primary) hypertension; E11.21 Type 2 diabetes mellitus with diabetic nephropathy; Z72.0 Tobacco use; W45.8XXA Other foreign body or object entering through skin, initial encounter; Y92.009 Unspecified place in unspecified non-institutional (private) residence as the place of occurrence of the external cause
CPT/HCPCS: 99283

== ENCOUNTER 2022-04-18 19:05 | Emergency (ER) | payer MEDICAID | END 2022-04-18 21:11 | disposition left against medical advice (07) | LOC: DL.ED 19:05 | DX: Z53.21 Procedure and treatment not carried out due to patient leaving prior to being seen by health care provider (principal) ==

== ENCOUNTER 2022-04-21 15:37 | Emergency (ER) | payer MEDICAID ==
[2022-04-21] MEDS ORDERED: Cephalexin 500 MG Cap PO ONE (15:38)
[2022-04-21 15:52] VITALS: BP 137/124; PULSE 95
[2022-04-21] MEDS ORDERED: HYDROmorphone 1 MG/ML Syringe IVPUSH ONE (16:02)
[2022-04-21] MEDS ORDERED: Ondansetron 4 MG/2 ML SDV IVPUSH ONE (16:02)
[2022-04-21 17:05] LABS: ANION GAP 15.6 mEq/L (7-13)
[2022-04-21] MEDS ORDERED: Glucagon,Human Recombinant 1 MG Vial IM PRN (17:11)
[2022-04-21] MEDS ORDERED: Sodium Chloride 0.9% 1,000 ML IV ONE (17:11)
[2022-04-21] MEDS ORDERED: Insulin Regular, Human 100 Units/ML 3 ML Vial IV ONE (17:11)
[2022-04-21] MEDS ORDERED: 50% Dextrose in Water 50 ML Syringe IVPUSH PRN (17:11)
[2022-04-21] MEDS ORDERED: Cephalexin 500 MG Cap ONE (19:01)
== END 2022-04-21 19:13 | disposition home or self-care (01) ==
LOC: DL.ED 15:37
DX: L03.116 Cellulitis of left lower limb (principal); E08.621 Diabetes mellitus due to underlying condition with foot ulcer; E11.40 Type 2 diabetes mellitus with diabetic neuropathy, unspecified; E87.5 Hyperkalemia; R73.9 Hyperglycemia, unspecified; E78.00 Pure hypercholesterolemia, unspecified; I10 Essential (primary) hypertension; F17.210 Nicotine dependence, cigarettes, uncomplicated; Z79.899 Other long term (current) drug therapy; Z79.4 Long term (current) use of insulin
CPT/HCPCS: 36415; 73700-LT; 80053; 82009; 82947; 83605; 85025; 86140; 96361; 96374; 96375; 99284-25; A9270-GY; J1170; J1815-GY; J2405; J7030

== ENCOUNTER 2022-05-07 01:14 | Observation (INO) | payer MEDICAID ==
[2022-05-07 02:35] LABS: ANION GAP 16.3 mEq/L (7-13)
[2022-05-07] MEDS ORDERED: HYDROmorphone 1 MG/ML Syringe IVPUSH ONE (03:13)
[2022-05-07] MEDS ORDERED: 50% Dextrose in Water 50 ML Syringe IVPUSH PRN ×2 (03:17→08:05)
[2022-05-07] MEDS ORDERED: Glucagon,Human Recombinant 1 MG Vial IM PRN ×3 (03:17→16:35)
[2022-05-07] MEDS ORDERED: Insulin Regular, Human 100 Units/ML 3 ML Vial IV ONE (03:17)
[2022-05-07] MEDS ORDERED: Sodium Chloride 0.9% 1,000 ML IV ONE (03:18)
[2022-05-07] MEDS ORDERED: Acetaminophen/oxyCODONE 325-5 MG Tab PO ONE (07:05)
[2022-05-07] MEDS ORDERED: Acetaminophen 325 MG Tab PO PRN (08:00)
[2022-05-07] MEDS ORDERED: Acetaminophen/HYDROcodone 325-5 MG Tab PO PRN (08:00)
[2022-05-07] MEDS ORDERED: Docusate Sodium 100 MG Cap PO PRN (08:02)
[2022-05-07] MEDS ORDERED: Magnesium Hydroxide 400 MG/5 ML Susp 30 ML Cup PO PRN (08:02)
[2022-05-07] MEDS ORDERED: Polyethylene Glycol 3350 Powder 17 GM Packet PO PRN (08:02)
[2022-05-07] MEDS ORDERED: Zolpidem 5 MG Tab PO PRN (08:02)
[2022-05-07] MEDS ORDERED: Albuterol/Ipratropium 3.0-0.5 MG/3 ML Neb Soln NEB PRN (08:02)
[2022-05-07] MEDS ORDERED: Ondansetron 4 MG/2 ML SDV IVPUSH PRN (08:02)
[2022-05-07] MEDS ORDERED: Bisacodyl 5 MG Tab PO PRN (08:02)
[2022-05-07] MEDS ORDERED: HYDROmorphone 0.5 MG/0.5 ML Syringe IVPUSH PRN (08:02)
[2022-05-07] MEDS ORDERED: Furosemide 40 MG Tab PO ONE (09:00)
[2022-05-07] MEDS ORDERED: Non-Formulary Medication 1 Each (Rosuvastatin Calcium [Crestor] 40 MG Tablet) PO SCH (09:00)
[2022-05-07] MEDS: Insulin Glarg,Human.Rec.Analog 100 Unit/ML SUBCUT SCH ×2 (09:56→21:17)
[2022-05-07] MEDS: Enoxaparin 40 MG/0.4 ML Syringe SUBCUT SCH (10:42)
[2022-05-07] MEDS: Rosuvastatin 10 MG Tab PO SCH (10:42)
[2022-05-07] MEDS: Insulin Lispro 100 Units/ML 3 ML Vial SUBCUT SCH ×3 (11:58→16:59)
[2022-05-07] MEDS ORDERED: Lactated Ringers 1,000 ML IV ONE (12:54)
[2022-05-07] MEDS: Sodium Chloride 0.9% 10 ML Syringe FLUSH PRN (19:15)
[2022-05-07] MEDS: Ketorolac 30 MG/ML SDV IVPUSH PRN (19:16)
[2022-05-08 06:53] LABS: ANION GAP 13.1 mEq/L (7-13)
[2022-05-08] MEDS: Insulin Lispro 100 Units/ML 3 ML Vial SUBCUT SCH (07:42)
[2022-05-08] MEDS: Rosuvastatin 10 MG Tab PO SCH (08:14)
[2022-05-08] MEDS: Enoxaparin 40 MG/0.4 ML Syringe SUBCUT SCH (08:14)
[2022-05-08] MEDS: Ketorolac 30 MG/ML SDV IVPUSH PRN (08:15)
[2022-05-08] MEDS: Sodium Chloride 0.9% 10 ML Syringe FLUSH PRN (08:17)
[2022-05-08 08:18] VITALS: BP 94/73; PULSE 90
[2022-05-08] MEDS ORDERED: Insulin Glarg,Human.Rec.Analog 100 Unit/ML SUBCUT SCH (09:00)
[2022-05-08] MEDS ORDERED: Clopidogrel 75 MG Tab PO SCH (09:00)
[2022-05-08] MEDS ORDERED: Ascorbic Acid 500 MG Tab PO SCH (09:00)
[2022-05-08] MEDS ORDERED: Multivitamin Tab PO SCH (09:00)
[2022-05-08] MEDS ORDERED: Gabapentin 100 MG Cap PO SCH (09:00)
[2022-05-08] MEDS ORDERED: Acetaminophen 500 MG Tab PO SCH (12:00)
[2022-05-08] MEDS ORDERED: atorvaSTATin 20 MG Tab PO SCH (21:00)
== END 2022-05-08 11:02 | disposition home or self-care (01) ==
LOC: DL.ED 01:14 → DL.MS 07:36
PROVIDERS: ADMIT Internal Medicine; ATTEND Internal Medicine
DX: E11.65 Type 2 diabetes mellitus with hyperglycemia (principal); E87.5 Hyperkalemia; H54.7 Unspecified visual loss; I10 Essential (primary) hypertension; E11.42 Type 2 diabetes mellitus with diabetic polyneuropathy; E11.69 Type 2 diabetes mellitus with other specified complication; E78.5 Hyperlipidemia, unspecified; M86.8X7 Other osteomyelitis, ankle and foot; D69.6 Thrombocytopenia, unspecified; E88.09 Other disorders of plasma-protein metabolism, not elsewhere classified; F17.210 Nicotine dependence, cigarettes, uncomplicated; D72.810 Lymphocytopenia; D64.9 Anemia, unspecified; K21.9 Gastro-esophageal reflux disease without esophagitis; Z79.4 Long term (current) use of insulin; Z79.899 Other long term (current) drug therapy; Z89.611 Acquired absence of right leg above knee; W18.30XA Fall on same level, unspecified, initial encounter; Y92.009 Unspecified place in unspecified non-institutional (private) residence as the place of occurrence of the external cause; Z20.822 Contact with and (suspected) exposure to COVID-19; Z87.19 Personal history of other diseases of the digestive system
CPT/HCPCS: 36415; 80048; 80053; 81001; 82947; 83036; 83735; 84132; 85025; 85610; 93005; 93010; 96361; 96372; 96374; 96375; 96376; 99283; 99285-25; A9270-GY; G0378; J1170; J1650; J1815-GY; J1885; J3490; J7030; J7120; U0002

== ENCOUNTER 2022-12-22 09:53 | Inpatient (IN) | payer MEDICAID ==
[2022-12-22] MEDS ORDERED: Sodium Chloride 0.9% 10 ML Syringe FLUSH PRN (10:24)
[2022-12-22] MEDS ORDERED: Ondansetron 4 MG/2 ML SDV IV ONE (10:26)
[2022-12-22] MEDS ORDERED: Sodium Chloride 0.9% 1,000 ML IV ONE ×2 (10:26→11:44)
[2022-12-22] MEDS ORDERED: 50% Dextrose in Water 50 ML Syringe IVPUSH PRN ×2 (10:27→15:36)
[2022-12-22 10:55] LABS: O2 DELIVERY DEVICE ROOM AIR
[2022-12-22 10:59] LABS: O2 SATURATION VENOUS 99 % (60-80); PCO2 VENOUS 47 mmHg (41-51); PH,VENOUS 7.44 (7.31-7.41); PO2 VENOUS 157 mmHg (35-42)
[2022-12-22 11:00] LABS: BASE EXCESS VENOUS 8 mmol/l ((-2)-(+3)); BICARBONATE,VENOUS 32 mmol/l (19-25)
[2022-12-22 11:30] LABS: ANION GAP 10.6 mEq/L (7-13); CHLORIDE,CL 96 mmol/L (98-107); SODIUM,NA 131 mmol/L (136-145)
[2022-12-22 11:35] LABS: ESTIMATED GFR 66 mL/min (>=60)
[2022-12-22] MEDS ORDERED: Iopamidol 612 MG/ML 100 ML Bottle IVPUSH ONE (11:44)
[2022-12-22 12:19] LABS: CORONAVIRUS COVID-19 NAA NEGATIVE (NEGATIVE); RESPIRATORY SYNCYTIAL VIR NAA NEGATIVE (NEGATIVE)
[2022-12-22] MEDS ORDERED: Ondansetron 4 MG/2 ML SDV IVPUSH PRN (15:30)
[2022-12-22] MEDS ORDERED: Acetaminophen/oxyCODONE 325-5 MG Tab PO PRN (15:30)
[2022-12-22] MEDS ORDERED: Acetaminophen 325 MG Tab PO PRN (15:30)
[2022-12-22] MEDS ORDERED: Albuterol/Ipratropium 3.0-0.5 MG/3 ML Neb Soln NEB PRN (15:30)
[2022-12-22] MEDS ORDERED: HYDROmorphone 0.5 MG/0.5 ML Syringe IVPUSH PRN (15:30)
[2022-12-22] MEDS ORDERED: Ibuprofen 600 MG Tab PO PRN (15:30)
[2022-12-22] MEDS ORDERED: Glucagon,Human Recombinant 1 MG Vial IM PRN (15:36)
[2022-12-22] MEDS ORDERED: Dextrose 5%-0.9% NaCl 1,000 ML IV SCH (15:45)
[2022-12-22] MEDS ORDERED: Insulin Lispro 100 Units/ML 3 ML Vial SUBCUT SCH (16:00)
[2022-12-22] MEDS: Insulin Lispro 100 Units/ML 3 ML Vial SUBCUT SCH (18:10)
[2022-12-22] MEDS: Gabapentin 300 MG Cap PO SCH (21:28)
[2022-12-23] MEDS: Insulin Lispro 100 Units/ML 3 ML Vial SUBCUT SCH ×2 (00:17→06:12)
[2022-12-23 06:51] LABS: ANION GAP 8.2 mEq/L (7-13); CHLORIDE,CL 108 mmol/L (98-107); SODIUM,NA 142 mmol/L (136-145)
[2022-12-23 07:28] LABS: ESTIMATED GFR 70 mL/min (>=60)
[2022-12-23] MEDS ORDERED: Magnesium Sulfate/Water 2 GM in Premix Bag 1 BAG IV ONE (07:35)
[2022-12-23 07:55] VITALS: BP 145/79; PULSE 82
[2022-12-23] MEDS: Gabapentin 300 MG Cap PO SCH (08:19)
[2022-12-23] MEDS ORDERED: Clopidogrel 75 MG Tab PO SCH (09:00)
[2022-12-23] MEDS ORDERED: Insulin Lispro 100 Units/ML 3 ML Vial SUBCUT SCH (09:00)
[2022-12-23] MEDS ORDERED: Insulin Glarg,Human.Rec.Analog 100 Unit/ML SUBCUT SCH (09:00)
== END 2022-12-23 11:20 | disposition home or self-care (01) | DRG 637 ==
LOC: DL.ED 09:53 → DL.MS 13:25
PROVIDERS: ADMIT Internal Medicine; ATTEND Internal Medicine
DX: E11.65 Type 2 diabetes mellitus with hyperglycemia (principal); K85.00 Idiopathic acute pancreatitis without necrosis or infection; E87.8 Other disorders of electrolyte and fluid balance, not elsewhere classified; R74.8 Abnormal levels of other serum enzymes; E88.09 Other disorders of plasma-protein metabolism, not elsewhere classified; E83.42 Hypomagnesemia; E78.5 Hyperlipidemia, unspecified; Z20.822 Contact with and (suspected) exposure to COVID-19; E11.40 Type 2 diabetes mellitus with diabetic neuropathy, unspecified; E11.621 Type 2 diabetes mellitus with foot ulcer; L97.529 Non-pressure chronic ulcer of other part of left foot with unspecified severity; M19.90 Unspecified osteoarthritis, unspecified site; K21.00 Gastro-esophageal reflux disease with esophagitis, without bleeding; M54.2 Cervicalgia; M54.50 Low back pain, unspecified; G89.29 Other chronic pain; F17.210 Nicotine dependence, cigarettes, uncomplicated; H54.7 Unspecified visual loss; E78.00 Pure hypercholesterolemia, unspecified; I10 Essential (primary) hypertension; E86.0 Dehydration; Z91.14 Patient's other noncompliance with medication regimen; Z79.4 Long term (current) use of insulin; Z79.899 Other long term (current) drug therapy; Z89.612 Acquired absence of left leg above knee; Z98.890 Other specified postprocedural states
CPT/HCPCS: 0241U; 36415; 71045; 74177; 80053; 80061; 81001; 82009; 82150; 82803; 82947; 83605; 83690; 83735; 84484; 85025; 86140; 87040; 90686; 93005; 93010; 96361; 96374; 99284; 99285-25; A9270-GY; G0008; J1815-GY; J2405; J3475; J3490; J7030; J7042; Q9967

== ENCOUNTER 2023-03-20 15:39 | Emergency (ER) | payer MEDICAID ==
[2023-03-20 16:49] VITALS: BP 124/83; PULSE 85
== END 2023-03-20 17:33 | disposition home or self-care (01) ==
LOC: DL.ED 15:39
DX: S90.811A Abrasion, right foot, initial encounter (principal); M25.671 Stiffness of right ankle, not elsewhere classified; M25.661 Stiffness of right knee, not elsewhere classified; R60.0 Localized edema; E78.00 Pure hypercholesterolemia, unspecified; I10 Essential (primary) hypertension; E11.21 Type 2 diabetes mellitus with diabetic nephropathy; E11.40 Type 2 diabetes mellitus with diabetic neuropathy, unspecified; F17.210 Nicotine dependence, cigarettes, uncomplicated; Z86.16 Personal history of COVID-19; Z79.02 Long term (current) use of antithrombotics/antiplatelets; Z79.4 Long term (current) use of insulin; Z79.899 Other long term (current) drug therapy; Z89.612 Acquired absence of left leg above knee
CPT/HCPCS: 99283

== ENCOUNTER 2023-04-12 14:36 | Emergency (ER) | payer MEDICAID ==
[2023-04-12 15:19] VITALS: BP 106/67; PULSE 91
== END 2023-04-12 15:59 | disposition left against medical advice (07) ==
LOC: DL.ED 14:36
DX: Z53.21 Procedure and treatment not carried out due to patient leaving prior to being seen by health care provider (principal)

== ENCOUNTER 2023-05-22 09:41 | Emergency (ER) | payer MEDICAID ==
[2023-05-22 11:05] VITALS: BP 126/64; PULSE 85
== END 2023-05-22 11:25 | disposition home or self-care (01) ==
LOC: DL.ED 09:41
DX: Z48.01 Encounter for change or removal of surgical wound dressing (principal); E78.00 Pure hypercholesterolemia, unspecified; I10 Essential (primary) hypertension; E11.40 Type 2 diabetes mellitus with diabetic neuropathy, unspecified; E11.21 Type 2 diabetes mellitus with diabetic nephropathy; F17.210 Nicotine dependence, cigarettes, uncomplicated; Z86.16 Personal history of COVID-19; Z79.899 Other long term (current) drug therapy; Z79.4 Long term (current) use of insulin; Z79.02 Long term (current) use of antithrombotics/antiplatelets
CPT/HCPCS: 99283

== ENCOUNTER 2023-05-29 09:18 | Emergency (ER) | payer MEDICAID ==
[2023-05-29 09:35] VITALS: BP 129/78; PULSE 82
== END 2023-05-29 09:59 | disposition home or self-care (01) ==
LOC: DL.ED 09:18
DX: Z48.02 Encounter for removal of sutures (principal); E78.00 Pure hypercholesterolemia, unspecified; I10 Essential (primary) hypertension; E11.21 Type 2 diabetes mellitus with diabetic nephropathy; E11.40 Type 2 diabetes mellitus with diabetic neuropathy, unspecified; E11.51 Type 2 diabetes mellitus with diabetic peripheral angiopathy without gangrene; F17.210 Nicotine dependence, cigarettes, uncomplicated; Z91.198 Patient's noncompliance with other medical treatment and regimen for other reason; Z86.16 Personal history of COVID-19; Z89.431 Acquired absence of right foot; Z79.4 Long term (current) use of insulin; Z79.899 Other long term (current) drug therapy
CPT/HCPCS: 99282; 99283

== ENCOUNTER 2023-06-02 17:13 | Emergency (ER) | payer MEDICAID ==
[2023-06-02 17:34] VITALS: BP 152/97; PULSE 85
== END 2023-06-02 17:39 | disposition home or self-care (01) ==
LOC: DL.ED 17:13
DX: F41.9 Anxiety disorder, unspecified (principal); E10.9 Type 1 diabetes mellitus without complications; Z86.16 Personal history of COVID-19; Z79.899 Other long term (current) drug therapy
CPT/HCPCS: 99282; 99283

== ENCOUNTER 2023-12-17 20:02 | Emergency (ER) | payer SELFPAY ==
[2023-12-17] MEDS ORDERED: Sodium Chloride 0.9% 10 ML Syringe FLUSH PRN (20:41)
[2023-12-17] MEDS ORDERED: Glucagon,Human Recombinant 1 MG Vial IM PRN ×3 (20:42→22:58)
[2023-12-17] MEDS ORDERED: 50% Dextrose in Water 50 ML Syringe IVPUSH PRN ×2 (20:42→21:48)
[2023-12-17] MEDS ORDERED: Insulin Lispro 100 Units/ML 3 ML Vial SUBCUT ONE ×4 (20:42→23:03)
[2023-12-17 21:07] LABS: BASOPHILS PERCENT AUTO 0.8 % (0.0-1.0); EOSINOPHILS PERCENT AUTO 1.2 % (1.0-3.0); HEMATOCRIT 38.4 % (40.0-54.0); HEMOGLOBIN 12.9 g/dL (14.0-18.0); LYMPHOCYTES PERCENT AUTO 17.7 % (20.5-50.1); MEAN CORPUSCULAR HEMOGLOBIN 27.6 pg (27.0-34.0); MEAN CORPUSCULAR HGB CONC 33.6 g/dL (33.0-35.0); MEAN CORPUSCULAR VOLUME 82.2 fL (80-100); MONOCYTES PERCENT AUTO 11.1 % (2-8); NEUTROPHILS PERCENT AUTO 69.2 % (42.2-75.2); PLATELET COUNT,PLT 260 10^3/uL (150-450); RED BLOOD CELL COUNT 4.67 10^6/uL (4.6-6.2); WHITE BLOOD CELL COUNT,WBC 5.9 10^3/uL (5.0-10.0)
[2023-12-17 21:30] LABS: ALBUMIN 2.3 g/dL (3.4-5.0); ANION GAP 12.4 mEq/L (7-13); BILIRUBIN TOTAL 0.3 mg/dL (0.2-1.0); BUN/CREATININE RATIO 24.9 (No establ ref range); CALCIUM 8.4 mg/dL (8.5-10.1); CREATININE 1.81 mg/dL (0.70-1.30); EST CRCL DRUG DOSING (CG) 30.6 mL/min; MAGNESIUM 1.9 mg/dL (1.8-2.4); POTASSIUM,K 5.4 mmol/L (3.5-5.1); PROTEIN TOTAL,TP 5.6 g/dL (6.4-8.2)
[2023-12-17 21:35] LABS: A/G RATIO 0.7
[2023-12-17 21:42] VITALS: BP 155/89; PULSE 80
[2023-12-17] MEDS ORDERED: Sodium Chloride 0.9% 1,000 ML IV ONE (21:47)
[2023-12-17] MEDS ORDERED: Insulin Glarg,Human.Rec.Analog 100 Unit/ML 10 ML Vial SUBCUT ONE (21:48)
[2023-12-17 23:00] LABS: HEMOGLOBIN A1C > 14.0 % (<5.7)
== END 2023-12-17 23:40 | disposition home or self-care (01) ==
LOC: DL.ED 20:02
DX: N17.9 Acute kidney failure, unspecified (principal); E11.22 Type 2 diabetes mellitus with diabetic chronic kidney disease; N18.2 Chronic kidney disease, stage 2 (mild); E11.65 Type 2 diabetes mellitus with hyperglycemia; E11.51 Type 2 diabetes mellitus with diabetic peripheral angiopathy without gangrene; E87.5 Hyperkalemia; E87.1 Hypo-osmolality and hyponatremia; E78.00 Pure hypercholesterolemia, unspecified; F17.210 Nicotine dependence, cigarettes, uncomplicated; Z79.4 Long term (current) use of insulin; Z79.02 Long term (current) use of antithrombotics/antiplatelets; Z79.899 Other long term (current) drug therapy; Z86.16 Personal history of COVID-19
CPT/HCPCS: 36415; 80053; 82947; 83036; 83735; 85025; 96360; 99285; C1758; J1815; J7030; J3490

== ENCOUNTER 2023-12-19 09:10 | Emergency (ER) | payer SELFPAY ==
[2023-12-19] MEDS ORDERED: Sodium Chloride 0.9% 10 ML Syringe FLUSH PRN (09:18)
[2023-12-19] MEDS ORDERED: Sodium Chloride 0.9% 1,000 ML IV ONE ×2 (09:18→09:57)
[2023-12-19] MEDS ORDERED: Ondansetron 4 MG/2 ML SDV IVPUSH ONE ×2 (09:18→10:02)
[2023-12-19 09:25] LABS: BASOPHILS PERCENT AUTO 0.6 % (0.0-1.0); EOSINOPHILS PERCENT AUTO 1.6 % (1.0-3.0); HEMATOCRIT 40.5 % (40.0-54.0); HEMOGLOBIN 13.6 g/dL (14.0-18.0); LYMPHOCYTES PERCENT AUTO 19.6 % (20.5-50.1); MEAN CORPUSCULAR HEMOGLOBIN 28.3 pg (27.0-34.0); MEAN CORPUSCULAR HGB CONC 33.6 g/dL (33.0-35.0); MEAN CORPUSCULAR VOLUME 84.2 fL (80-100); NEUTROPHILS PERCENT AUTO 68.2 % (42.2-75.2); PLATELET COUNT,PLT 271 10^3/uL (150-450); RED BLOOD CELL COUNT 4.81 10^6/uL (4.6-6.2); WHITE BLOOD CELL COUNT,WBC 6.2 10^3/uL (5.0-10.0)
[2023-12-19 09:39] LABS: ALBUMIN 2.5 g/dL (3.4-5.0); ANION GAP 13.1 mEq/L (7-13); BILIRUBIN TOTAL 0.2 mg/dL (0.2-1.0); BUN/CREATININE RATIO 24.2 (No establ ref range); CALCIUM 8.6 mg/dL (8.5-10.1); CREATININE 1.57 mg/dL (0.70-1.30); EST CRCL DRUG DOSING (CG) 37.87 mL/min; POTASSIUM,K 5.1 mmol/L (3.5-5.1); PROTEIN TOTAL,TP 5.9 g/dL (6.4-8.2)
[2023-12-19 09:41] LABS: A/G RATIO 0.74
[2023-12-19] MEDS ORDERED: Insulin Regular, Human 100 Units/ML 3 ML Vial IV ONE (09:58)
[2023-12-19] MEDS ORDERED: 50% Dextrose in Water 50 ML Syringe IVPUSH PRN (09:58)
[2023-12-19] MEDS ORDERED: Glucagon,Human Recombinant 1 MG Vial IM PRN (09:58)
[2023-12-19] MEDS ORDERED: Take Home: Ondansetron 4 MG Tab.DIS, 5 Tab Pack PO ONE (11:10)
[2023-12-19 11:58] VITALS: BP 174/90; PULSE 97
== END 2023-12-19 11:58 | disposition home or self-care (01) ==
LOC: DL.ED 09:10
DX: E11.65 Type 2 diabetes mellitus with hyperglycemia (principal); R11.0 Nausea; E78.00 Pure hypercholesterolemia, unspecified; Z86.16 Personal history of COVID-19; Z79.4 Long term (current) use of insulin; Z79.02 Long term (current) use of antithrombotics/antiplatelets; Z79.899 Other long term (current) drug therapy
CPT/HCPCS: 12007; 36415; 80053; 82947; 85025; 96361; 96374; 96376; 99284; 99285-25; J1815-GY; J2405; J3490; J7030; Q0162

== ENCOUNTER 2023-12-31 15:30 | Emergency (ER) | payer MEDICARE ==
[2023-12-31 16:30] LABS: O2 DELIVERY DEVICE ROOM AIR
[2023-12-31 16:31] LABS: BASE EXCESS ARTERIAL 1 mmol/L ((-2)-(+3)); BICARBONATE,ARTERIAL 26.4 mmol/L (22-26); O2 SATURATION ARTERIAL 96 % (95-100); PCO2 ARTERIAL 47 mmHg (35-45); PH,ARTERIAL 7.37 (7.35-7.45); PO2 ARTERIAL 80 mmHg (70-100)
[2023-12-31 16:33] LABS: ALLEN TEST positive
[2023-12-31 16:41] LABS: BASOPHILS PERCENT AUTO 0.8 % (0.0-1.0); EOSINOPHILS PERCENT AUTO 0.8 % (1.0-3.0); HEMATOCRIT 40.3 % (40.0-54.0); HEMOGLOBIN 13.5 g/dL (14.0-18.0); LYMPHOCYTES PERCENT AUTO 12.6 % (20.5-50.1); MEAN CORPUSCULAR HEMOGLOBIN 28.5 pg (27.0-34.0); MEAN CORPUSCULAR HGB CONC 33.5 g/dL (33.0-35.0); NEUTROPHILS PERCENT AUTO 77.8 % (42.2-75.2); PLATELET COUNT,PLT 299 10^3/uL (150-450); RED BLOOD CELL COUNT 4.74 10^6/uL (4.6-6.2); WHITE BLOOD CELL COUNT,WBC 7.7 10^3/uL (5.0-10.0)
[2023-12-31] MEDS: Sodium Chloride 0.9% 10 ML Syringe FLUSH PRN (16:41)
[2023-12-31 17:04] LABS: LACTIC ACID 0.8 mmol/L (0.4-2.0)
[2023-12-31 17:07] LABS: KETONES,BLOOD NEGATIVE
[2023-12-31] MEDS: Sodium Chloride 0.9% 1,000 ML IV ONE ×2 (17:08→17:30)
[2023-12-31 17:10] LABS: ALANINE AMINOTRANSFERASE,ALT 13 U/L (16-63); ALBUMIN 2.5 g/dL (3.4-5.0); ALKALINE PHOSPHATASE 179 U/L (46-116); ANION GAP 8.6 mEq/L (7-13); ASPARTATE AMNIOTRANSFERASE,AST 10 U/L (15-37); BILIRUBIN TOTAL 0.3 mg/dL (0.2-1.0); BLOOD UREA NITROGEN,BUN 42 mg/dL (7-18); BUN/CREATININE RATIO 26.6 (No establ ref range); CARBON DIOXIDE,CO2 30 mmol/L (21-32); CHLORIDE,CL 91 mmol/L (98-107); CREATININE 1.58 mg/dL (0.70-1.30); POTASSIUM,K 4.6 mmol/L (3.5-5.1); PROTEIN TOTAL,TP 6.7 g/dL (6.4-8.2); SODIUM,NA 125 mmol/L (136-145)
[2023-12-31 17:11] LABS: ESTIMATED GFR 49 mL/min (>=60); GLUCOSE RANDOM 734 mg/dL (70-99)
[2023-12-31] MEDS ORDERED: Glucagon,Human Recombinant 1 MG Vial IM PRN (17:21)
[2023-12-31] MEDS ORDERED: 50% Dextrose in Water 50 ML Syringe IVPUSH PRN (17:21)
[2023-12-31] MEDS: Insulin Regular, Human 100 Units/ML 3 ML Vial IV ONE (17:32)
[2023-12-31 18:47] VITALS: BP 173/82; PULSE 98
== END 2023-12-31 18:42 | disposition home or self-care (01) ==
LOC: DL.ED 15:30
DX: E10.65 Type 1 diabetes mellitus with hyperglycemia (principal); F17.210 Nicotine dependence, cigarettes, uncomplicated; I10 Essential (primary) hypertension; Z79.4 Long term (current) use of insulin; Z79.899 Other long term (current) drug therapy; Z86.16 Personal history of COVID-19; Z79.02 Long term (current) use of antithrombotics/antiplatelets
CPT/HCPCS: 36415; 36600; 80053; 82009; 82803; 82947; 83605; 83735; 85025; 86140; 99284; J1815; J7030; J3490

== ENCOUNTER 2024-01-27 10:49 | Inpatient (IN) | payer MEDICARE ==
[2024-01-27] MEDS ORDERED: Ondansetron 4 MG/2 ML SDV IVPUSH PRN (15:10)
[2024-01-27] MEDS ORDERED: HYDROmorphone 0.5 MG/0.5 ML Syringe IVPUSH PRN (15:10)
[2024-01-27] MEDS ORDERED: Naloxone 2 MG/2 ML Syringe IVPUSH PRN (15:10)
[2024-01-27] MEDS ORDERED: Polyethylene Glycol 3350 Powder 17 GM Packet PO PRN (15:10)
[2024-01-27] MEDS ORDERED: Sennosides/Docusate Sodium 50-8.6 MG Tab PO PRN (15:10)
[2024-01-27] MEDS ORDERED: Magnesium Hydroxide 400 MG/5 ML Susp 30 ML Cup PO PRN (15:10)
[2024-01-27] MEDS ORDERED: Sodium Chloride 0.9% 10 ML Syringe FLUSH PRN (15:10)
[2024-01-27] MEDS ORDERED: Glucagon,Human Recombinant 1 MG Vial IM PRN (15:15)
[2024-01-27] MEDS ORDERED: 50% Dextrose in Water 50 ML Syringe IVPUSH PRN (15:15)
[2024-01-27 15:17] LABS: BASOPHILS PERCENT AUTO 0.9 % (0.0-1.0); EOSINOPHILS PERCENT AUTO 0.8 % (1.0-3.0); HEMATOCRIT 37.6 % (40.0-54.0); HEMOGLOBIN 12.2 g/dL (14.0-18.0); LYMPHOCYTES PERCENT AUTO 16.1 % (20.5-50.1); MEAN CORPUSCULAR HGB CONC 32.4 g/dL (33.0-35.0); MEAN CORPUSCULAR VOLUME 86.4 fL (80-100); MONOCYTES PERCENT AUTO 13.3 % (2-8); NEUTROPHILS PERCENT AUTO 68.9 % (42.2-75.2); PLATELET COUNT,PLT 280 10^3/uL (150-450); RED BLOOD CELL COUNT 4.35 10^6/uL (4.6-6.2); WHITE BLOOD CELL COUNT,WBC 6.4 10^3/uL (5.0-10.0)
[2024-01-27] MEDS ORDERED: traMADol 50 MG Tab PO PRN (15:19)
[2024-01-27 15:44] LABS: ALANINE AMINOTRANSFERASE,ALT 20 U/L (16-63); ALBUMIN 2.5 g/dL (3.4-5.0); ALKALINE PHOSPHATASE 126 U/L (46-116); ANION GAP 12.2 mEq/L (7-13); ASPARTATE AMNIOTRANSFERASE,AST 21 U/L (15-37); BILIRUBIN TOTAL 0.2 mg/dL (0.2-1.0); BLOOD UREA NITROGEN,BUN 47 mg/dL (7-18); BUN/CREATININE RATIO 30.3 (No establ ref range); CALCIUM 8.6 mg/dL (8.5-10.1); CARBON DIOXIDE,CO2 27 mmol/L (21-32); CHLORIDE,CL 103 mmol/L (98-107); CREATININE 1.55 mg/dL (0.70-1.30); GLUCOSE RANDOM 225 mg/dL (70-99); MAGNESIUM 2.2 mg/dL (1.8-2.4); POTASSIUM,K 5.2 mmol/L (3.5-5.1); PROTEIN TOTAL,TP 6.4 g/dL (6.4-8.2); SODIUM,NA 137 mmol/L (136-145)
[2024-01-27] MEDS: hydrOXYzine HCl 25 MG Tab ONE (15:49)
[2024-01-27 15:50] LABS: A/G RATIO 0.64; ESTIMATED GFR 50 mL/min (>=60)
[2024-01-27] MEDS: Nicotine 21 MG/24 Hr Patch TRDERM ONE (15:52)
[2024-01-27] MEDS: hydrOXYzine HCl 25 MG Tab PO ONE (15:52)
[2024-01-27] MEDS: Insulin Lispro 100 Units/ML 3 ML Vial SUBCUT SCH (17:11)
[2024-01-27] MEDS: Sodium Chloride 0.9% 10 ML Syringe FLUSH SCH (19:59)
[2024-01-27] MEDS: Insulin Glarg,Human.Rec.Analog 100 Unit/ML 10 ML Vial SUBCUT SCH (20:00)
[2024-01-27] MEDS: Gabapentin 300 MG Cap PO SCH (20:01)
[2024-01-27] MEDS: atorvaSTATin 20 MG Tab PO SCH (20:01)
[2024-01-27] MEDS: Ascorbic Acid 500 MG Tab PO SCH (20:01)
[2024-01-27] MEDS: Zolpidem 5 MG Tab PO PRN (20:55)
[2024-01-28 06:34] LABS: BASOPHILS PERCENT AUTO 0.7 % (0.0-1.0); HEMATOCRIT 34.3 % (40.0-54.0); HEMOGLOBIN 11.1 g/dL (14.0-18.0); LYMPHOCYTES PERCENT AUTO 25.2 % (20.5-50.1); MEAN CORPUSCULAR HEMOGLOBIN 28.2 pg (27.0-34.0); MEAN CORPUSCULAR HGB CONC 32.4 g/dL (33.0-35.0); MEAN CORPUSCULAR VOLUME 87.1 fL (80-100); NEUTROPHILS PERCENT AUTO 58.1 % (42.2-75.2); PLATELET COUNT,PLT 253 10^3/uL (150-450); RED BLOOD CELL COUNT 3.94 10^6/uL (4.6-6.2); WHITE BLOOD CELL COUNT,WBC 6.1 10^3/uL (5.0-10.0)
[2024-01-28 06:54] LABS: ANION GAP 11.8 mEq/L (7-13); BILIRUBIN TOTAL 0.1 mg/dL (0.2-1.0); BUN/CREATININE RATIO 31.4 (No establ ref range); CREATININE 1.75 mg/dL (0.70-1.30); EST CRCL DRUG DOSING (CG) 31.93 mL/min; MAGNESIUM 2.1 mg/dL (1.8-2.4); POTASSIUM,K 4.8 mmol/L (3.5-5.1); PROTEIN TOTAL,TP 5.3 g/dL (6.4-8.2)
[2024-01-28 07:01] LABS: A/G RATIO 0.61
[2024-01-28] MEDS: Clopidogrel 75 MG Tab PO SCH (08:13)
[2024-01-28] MEDS: Multivitamin Tab PO SCH (08:14)
[2024-01-28] MEDS: Nicotine 21 MG/24 Hr Patch TRDERM SCH (08:15)
[2024-01-28] MEDS ORDERED: Lisinopril 10 MG Tab PO SCH (09:00)
[2024-01-28] MEDS ORDERED: Nicotine 21 MG/24 Hr Patch TRDERM SCH (09:00)
[2024-01-28] MEDS ORDERED: Furosemide 20 MG Tab PO SCH (09:00)
[2024-01-28] MEDS: Empagliflozin 25 MG Tab PO SCH (09:44)
[2024-01-28] MEDS: hydrOXYzine HCl 25 MG Tab PO PRN (20:30)
[2024-01-30] MEDS: Acetaminophen 325 MG Tab PO PRN (09:33)
[2024-01-30] MEDS: Calcium Carbonate 500 MG Tab.Chew PO PRN (16:54)
[2024-01-30] MEDS: Insulin Glarg,Human.Rec.Analog 100 Unit/ML 10 ML Vial SUBCUT SCH (20:54)
[2024-02-01 07:54] VITALS: BP 137/84; PULSE 81
== END 2024-02-01 09:45 | disposition left against medical advice (07) | DRG 639 ==
LOC: DL.MS 10:49 → OBSVTOIN 01-28 10:49
PROVIDERS: ADMIT Internal Medicine; ATTEND Internal Medicine
DX: T74.01XA Adult neglect or abandonment, confirmed, initial encounter (principal); E11.65 Type 2 diabetes mellitus with hyperglycemia; I12.9 Hypertensive chronic kidney disease with stage 1 through stage 4 chronic kidney disease, or unspecified chronic kidney disease; N18.30 Chronic kidney disease, stage 3 unspecified; E11.22 Type 2 diabetes mellitus with diabetic chronic kidney disease; E11.42 Type 2 diabetes mellitus with diabetic polyneuropathy; E11.40 Type 2 diabetes mellitus with diabetic neuropathy, unspecified; E78.5 Hyperlipidemia, unspecified; K21.9 Gastro-esophageal reflux disease without esophagitis; M19.90 Unspecified osteoarthritis, unspecified site; M54.9 Dorsalgia, unspecified; G89.29 Other chronic pain; F17.210 Nicotine dependence, cigarettes, uncomplicated; E87.5 Hyperkalemia; E88.09 Other disorders of plasma-protein metabolism, not elsewhere classified; Z99.3 Dependence on wheelchair; Z89.411 Acquired absence of right great toe; Z89.612 Acquired absence of left leg above knee; Z98.890 Other specified postprocedural states; Z79.02 Long term (current) use of antithrombotics/antiplatelets; Z79.4 Long term (current) use of insulin; Z79.899 Other long term (current) drug therapy; Z86.16 Personal history of COVID-19
CPT/HCPCS: 36415; 80053; 82947; 83735; 85025; 99222; 99231; 99232; 99238; A9270-GY; G0378; J1815-GY; J3490

== ENCOUNTER 2024-02-07 18:18 | Emergency (ER) | payer MEDICARE ==
[2024-02-07] MEDS: Acetaminophen 500 MG Tab PO ONE (18:41)
[2024-02-07] MEDS: Ketorolac 30 MG/ML SDV IM ONE (18:41)
[2024-02-07] MEDS: Acetaminophen 500 MG Tab ONE (18:49)
[2024-02-07 19:04] VITALS: BP 189/80; PULSE 82
== END 2024-02-07 19:02 | disposition home or self-care (01) ==
LOC: DL.ED 18:18
DX: E10.42 Type 1 diabetes mellitus with diabetic polyneuropathy (principal); I10 Essential (primary) hypertension; Z86.19 Personal history of other infectious and parasitic diseases; Z86.16 Personal history of COVID-19; Z89.612 Acquired absence of left leg above knee; Z89.421 Acquired absence of other right toe(s)
CPT/HCPCS: 96372; 99283; A9270; J1885; 99284

== ENCOUNTER 2024-02-15 23:06 | Emergency (ER) | payer MEDICARE ==
[2024-02-15 23:35] VITALS: BP 176/155; PULSE 93
[2024-02-16 00:48] LABS: O2 DELIVERY DEVICE ROOM AIR
[2024-02-16 00:52] LABS: BASE EXCESS VENOUS -3.2 mmol/l ((-2)-(+3)); BASOPHILS PERCENT AUTO 0.5 % (0.0-1.0); BICARBONATE,VENOUS 23 mmol/l (19-25); HEMATOCRIT 36.5 % (40.0-54.0); HEMOGLOBIN 12.1 g/dL (14.0-18.0); MEAN CORPUSCULAR HEMOGLOBIN 28.4 pg (27.0-34.0); MEAN CORPUSCULAR HGB CONC 33.2 g/dL (33.0-35.0); MEAN CORPUSCULAR VOLUME 85.7 fL (80-100); MONOCYTES PERCENT AUTO 10.6 % (2-8); NEUTROPHILS PERCENT AUTO 75.9 % (42.2-75.2); O2 SATURATION VENOUS 86.8 % (60-80); PCO2 VENOUS 46 mmHg (41-51); PH,VENOUS 7.31 (7.31-7.41); PLATELET COUNT,PLT 309 10^3/uL (150-450); PO2 VENOUS 51 mmHg (35-42); RED BLOOD CELL COUNT 4.26 10^6/uL (4.6-6.2); WHITE BLOOD CELL COUNT,WBC 11.5 10^3/uL (5.0-10.0)
[2024-02-16 01:10] LABS: KETONES,BLOOD NEGATIVE
[2024-02-16 01:12] LABS: ALANINE AMINOTRANSFERASE,ALT 20 U/L (16-63); ALBUMIN 2.5 g/dL (3.4-5.0); ALKALINE PHOSPHATASE 113 U/L (46-116); ANION GAP 14.4 mEq/L (7-13); ASPARTATE AMNIOTRANSFERASE,AST 15 U/L (15-37); BILIRUBIN TOTAL 0.2 mg/dL (0.2-1.0); BLOOD UREA NITROGEN,BUN 56 mg/dL (7-18); BUN/CREATININE RATIO 35.9 (No establ ref range); CALCIUM 8.5 mg/dL (8.5-10.1); CARBON DIOXIDE,CO2 24 mmol/L (21-32); CHLORIDE,CL 108 mmol/L (98-107); CREATININE 1.56 mg/dL (0.70-1.30); EST CRCL DRUG DOSING (CG) 41.89 mL/min; GLUCOSE RANDOM 190 mg/dL (70-99); POTASSIUM,K 5.4 mmol/L (3.5-5.1); SODIUM,NA 141 mmol/L (136-145)
[2024-02-16 01:13] LABS: A/G RATIO 0.71; ESTIMATED GFR 50 mL/min (>=60)
[2024-02-16] MEDS: Labetalol 20 MG/4 ML Syringe IVPUSH ONE (01:17)
[2024-02-16] MEDS: Furosemide 20 MG/2 ML VIAL IVPUSH ONE (02:49)
[2024-02-16] MEDS: Sodium Bicarbonate 8.4% 50 MEQ/50 ML Syringe IVPUSH ONE (02:49)
== END 2024-02-16 03:32 | disposition home or self-care (01) ==
LOC: DL.ED 23:06
DX: F41.9 Anxiety disorder, unspecified (principal); I10 Essential (primary) hypertension; E10.9 Type 1 diabetes mellitus without complications; F17.210 Nicotine dependence, cigarettes, uncomplicated; Z86.16 Personal history of COVID-19; Z79.4 Long term (current) use of insulin; Z79.899 Other long term (current) drug therapy; Z79.02 Long term (current) use of antithrombotics/antiplatelets
CPT/HCPCS: 36415; 70450; 80053; 82009; 82803; 84484; 85025; 93005; 96374; 96375; 99285-25; J1920; J1940; J3490

== ENCOUNTER 2024-02-16 17:20 | Emergency (ER) | payer MEDICARE ==
[2024-02-16 17:18] VITALS: BP 202/97; PULSE 95
[2024-02-16 17:34] LABS: APPEARANCE,URINE CLEAR (CLEAR); BILIRUBIN,URINE NEGATIVE (NEGATIVE); COLOR,URINE YELLOW (YELLOW); GLUCOSE,URINE 500 (NEGATIVE); KETONES,URINE NEGATIVE (NEGATIVE); LEUKOCYTE ESTERASE,URINE NEGATIVE (NEGATIVE); NITRITE,URINE NEGATIVE (NEGATIVE); OCCULT BLOOD,URINE MODERATE (NEGATIVE); PH,URINE 6.5 (5.0-9.0); PROTEIN,URINE >=300 (NEGATIVE); UROBILINOGEN,URINE 0.2 mg/dL (0.2-1.0)
[2024-02-16 17:37] LABS: BASOPHILS PERCENT AUTO 0.8 % (0.0-1.0); EOSINOPHILS PERCENT AUTO 1.2 % (1.0-3.0); HEMATOCRIT 37.3 % (40.0-54.0); HEMOGLOBIN 12.2 g/dL (14.0-18.0); LYMPHOCYTES PERCENT AUTO 13.6 % (20.5-50.1); MEAN CORPUSCULAR HEMOGLOBIN 28.2 pg (27.0-34.0); MEAN CORPUSCULAR HGB CONC 32.7 g/dL (33.0-35.0); MEAN CORPUSCULAR VOLUME 86.1 fL (80-100); MONOCYTES PERCENT AUTO 10.6 % (2-8); NEUTROPHILS PERCENT AUTO 73.8 % (42.2-75.2); PLATELET COUNT,PLT 329 10^3/uL (150-450); RED BLOOD CELL COUNT 4.33 10^6/uL (4.6-6.2); WHITE BLOOD CELL COUNT,WBC 7.7 10^3/uL (5.0-10.0)
[2024-02-16 17:39] LABS: AMPHETAMINES,URINE NEGATIVE (NEGATIVE); BARBITURATES,URINE NEGATIVE (NEGATIVE); BENZODIAZEPINE,URINE NEGATIVE (NEGATIVE); MDMA (ECSTASY), URINE NEGATIVE (NEGATIVE); METHADONE,URINE NEGATIVE (NEGATIVE); METHAMPHETAMINES,URINE NEGATIVE (NEGATIVE); OPIATES,URINE NEGATIVE (NEGATIVE); OXYCODONE,URINE NEGATIVE (NEGATIVE); PHENCYCLIDINE,URINE NEGATIVE (NEGATIVE); TCA,URINE NEGATIVE (NEGATIVE)
[2024-02-16 17:46] LABS: BACTERIA,URINE OCCASIONAL /HPF (0-FEW/HPF); EPITHELIAL CELLS,URINE OCCASIONAL /HPF (NOT SEEN); MUCUS,URINE RARE /LPF (NOT SEEN); WBC,URINE NOT SEEN /HPF (0-5/HPF)
[2024-02-16 17:59] LABS: ALBUMIN 2.5 g/dL (3.4-5.0); ANION GAP 12.5 mEq/L (7-13); BILIRUBIN TOTAL 0.2 mg/dL (0.2-1.0); BUN/CREATININE RATIO 31.6 (No establ ref range); CALCIUM 8.7 mg/dL (8.5-10.1); CREATININE 1.87 mg/dL (0.70-1.30); EST CRCL DRUG DOSING (CG) 32.56 mL/min; POTASSIUM,K 5.5 mmol/L (3.5-5.1); PROTEIN TOTAL,TP 6.2 g/dL (6.4-8.2)
[2024-02-16 18:00] LABS: A/G RATIO 0.68
== END 2024-02-16 19:21 | disposition home or self-care (01) ==
LOC: DL.ED 17:20
DX: N17.9 Acute kidney failure, unspecified (principal); E87.5 Hyperkalemia; I10 Essential (primary) hypertension; E10.9 Type 1 diabetes mellitus without complications; F17.210 Nicotine dependence, cigarettes, uncomplicated; Z86.16 Personal history of COVID-19; Z79.4 Long term (current) use of insulin; Z79.899 Other long term (current) drug therapy; Z79.02 Long term (current) use of antithrombotics/antiplatelets
CPT/HCPCS: 36415; 80053; 80305-QW; 81001; 83605; 85025; 99284

== ENCOUNTER 2024-02-16 23:25 | Emergency (ER) | payer MEDICARE ==
[2024-02-16 23:30] VITALS: BP 167/80; PULSE 90
== END 2024-02-16 23:31 | disposition left against medical advice (07) ==
LOC: DL.ED 23:25
DX: Z53.21 Procedure and treatment not carried out due to patient leaving prior to being seen by health care provider (principal)

== ENCOUNTER 2024-02-26 19:25 | Emergency (ER) | payer MEDICARE ==
[2024-02-26] MEDS: Sodium Chloride 0.9% 1,000 ML IV ONE (19:46)
[2024-02-26 19:49] VITALS: PULSE 91
[2024-02-26 19:58] LABS: EOSINOPHILS PERCENT AUTO 1.7 % (1.0-3.0); HEMATOCRIT 31.9 % (40.0-54.0); HEMOGLOBIN 10.7 g/dL (14.0-18.0); LYMPHOCYTES PERCENT AUTO 16.6 % (20.5-50.1); MEAN CORPUSCULAR HEMOGLOBIN 28.3 pg (27.0-34.0); MEAN CORPUSCULAR HGB CONC 33.5 g/dL (33.0-35.0); MEAN CORPUSCULAR VOLUME 84.4 fL (80-100); MONOCYTES PERCENT AUTO 12.4 % (2-8); NEUTROPHILS PERCENT AUTO 68.3 % (42.2-75.2); PLATELET COUNT,PLT 251 10^3/uL (150-450); RED BLOOD CELL COUNT 3.78 10^6/uL (4.6-6.2); WHITE BLOOD CELL COUNT,WBC 7.2 10^3/uL (5.0-10.0)
[2024-02-26 20:16] LABS: ANION GAP 10.9 mEq/L (7-13); CALCIUM 8.2 mg/dL (8.5-10.1); CREATININE 1.61 mg/dL (0.70-1.30); EST CRCL DRUG DOSING (CG) 41.2 mL/min; POTASSIUM,K 4.9 mmol/L (3.5-5.1)
[2024-02-26] MEDS ORDERED: 50% Dextrose in Water 50 ML Syringe IVPUSH PRN (20:24)
[2024-02-26] MEDS ORDERED: Glucagon,Human Recombinant 1 MG Vial IM PRN (20:24)
[2024-02-26] MEDS: Insulin Regular, Human 100 Units/ML 3 ML Vial IV ONE (20:35)
[2024-02-26] MEDS: cloNIDine 0.1 MG Tab PO ONE (20:35)
[2024-02-26 20:48] VITALS: BP 200/124
[2024-02-26] MEDS: hydrOXYzine HCl 25 MG Tab PO ONE (21:17)
[2024-02-26 21:24] LABS: APPEARANCE,URINE CLEAR (CLEAR); BILIRUBIN,URINE NEGATIVE (NEGATIVE); COLOR,URINE YELLOW (YELLOW); GLUCOSE,URINE 500 (NEGATIVE); KETONES,URINE NEGATIVE (NEGATIVE); LEUKOCYTE ESTERASE,URINE NEGATIVE (NEGATIVE); NITRITE,URINE NEGATIVE (NEGATIVE); OCCULT BLOOD,URINE SMALL (NEGATIVE); PROTEIN,URINE >=300 (NEGATIVE); UROBILINOGEN,URINE 0.2 mg/dL (0.2-1.0)
[2024-02-26 21:40] LABS: BACTERIA,URINE FEW /HPF (0-FEW/HPF); EPITHELIAL CELLS,URINE RARE /HPF (NOT SEEN); WBC,URINE 0-5 /HPF (0-5/HPF)
== END 2024-02-26 21:32 | disposition left against medical advice (07) ==
LOC: DL.ED 19:25
DX: E10.65 Type 1 diabetes mellitus with hyperglycemia (principal); I10 Essential (primary) hypertension; F17.210 Nicotine dependence, cigarettes, uncomplicated; Z86.16 Personal history of COVID-19; Z79.4 Long term (current) use of insulin; Z79.899 Other long term (current) drug therapy; Z79.02 Long term (current) use of antithrombotics/antiplatelets; Z91.198 Patient's noncompliance with other medical treatment and regimen for other reason
CPT/HCPCS: 36415; 70450; 71045; 74018; 80048; 81001; 82009; 82947; 85025; 93005; 93010; 99284; 99285; A9270-GY; J1815-GY; J7030

== ENCOUNTER 2024-03-02 18:41 | Emergency (ER) | payer MEDICARE ==
[2024-03-02] MEDS ORDERED: Ketorolac 30 MG/ML SDV IVPUSH ONE (19:05)
[2024-03-02] MEDS: Ketorolac 30 MG/ML SDV IM ONE (19:10)
[2024-03-02] MEDS: Metoclopramide 10 MG Tab PO ONE (19:10)
[2024-03-02 19:20] VITALS: BP 153/78; PULSE 88
== END 2024-03-02 19:20 | disposition home or self-care (01) ==
LOC: DL.ED 18:41
DX: R10.9 Unspecified abdominal pain (principal); E10.9 Type 1 diabetes mellitus without complications; I10 Essential (primary) hypertension; Z86.16 Personal history of COVID-19; Z79.4 Long term (current) use of insulin; Z79.02 Long term (current) use of antithrombotics/antiplatelets; Z79.899 Other long term (current) drug therapy
CPT/HCPCS: 96372; 99284; A9270; J1885

== ENCOUNTER 2024-03-03 21:56 | Emergency (ER) | payer MEDICARE ==
[2024-03-03 22:06] VITALS: PULSE 86
[2024-03-03 22:11] VITALS: BP 163/83
== END 2024-03-03 22:13 | disposition left against medical advice (07) ==
LOC: DL.ED 21:56
DX: Z53.21 Procedure and treatment not carried out due to patient leaving prior to being seen by health care provider (principal)
CPT/HCPCS: 99284

== ENCOUNTER 2024-03-09 15:34 | Emergency (ER) | payer MEDICARE ==
[2024-03-09 17:17] LABS: APPEARANCE,URINE CLEAR (CLEAR); BILIRUBIN,URINE NEGATIVE (NEGATIVE); COLOR,URINE YELLOW (YELLOW); GLUCOSE,URINE 250 (NEGATIVE); KETONES,URINE NEGATIVE (NEGATIVE); LEUKOCYTE ESTERASE,URINE NEGATIVE (NEGATIVE); NITRITE,URINE NEGATIVE (NEGATIVE); OCCULT BLOOD,URINE TRACE-LYSED (NEGATIVE); PH,URINE 6.5 (5.0-9.0); PROTEIN,URINE >=300 (NEGATIVE); UROBILINOGEN,URINE 0.2 mg/dL (0.2-1.0)
[2024-03-09 17:26] LABS: WBC,URINE 0-5 /HPF (0-5/HPF)
[2024-03-09 17:27] LABS: BACTERIA,URINE OCCASIONAL /HPF (0-FEW/HPF); EPITHELIAL CELLS,URINE OCCASIONAL /HPF (NOT SEEN); MUCUS,URINE RARE /LPF (NOT SEEN)
== END 2024-03-09 17:46 | disposition home or self-care (01) ==
LOC: DL.ED 15:34
DX: R82.998 Other abnormal findings in urine (principal); I10 Essential (primary) hypertension; E10.9 Type 1 diabetes mellitus without complications; Z86.16 Personal history of COVID-19; Z79.02 Long term (current) use of antithrombotics/antiplatelets; Z79.4 Long term (current) use of insulin; Z79.899 Other long term (current) drug therapy
CPT/HCPCS: 51702; 81001; 99283

== ENCOUNTER 2024-03-10 19:53 | Emergency (ER) | payer MEDICARE ==
[2024-03-10 21:11] VITALS: BP 164/75; PULSE 86
== END 2024-03-10 21:16 | disposition home or self-care (01) ==
LOC: DL.ED 19:53
DX: N40.1 Benign prostatic hyperplasia with lower urinary tract symptoms (principal); R33.8 Other retention of urine; I10 Essential (primary) hypertension; E11.9 Type 2 diabetes mellitus without complications; Z86.16 Personal history of COVID-19; Z79.02 Long term (current) use of antithrombotics/antiplatelets; Z79.4 Long term (current) use of insulin; Z79.899 Other long term (current) drug therapy
CPT/HCPCS: 51702; 99283

== ENCOUNTER 2024-03-11 07:50 | Emergency (ER) | payer MEDICARE ==
[2024-03-11 08:14] VITALS: BP 117/98; PULSE 78
== END 2024-03-11 08:45 | disposition home or self-care (01) ==
LOC: DL.ED 07:50
DX: R33.9 Retention of urine, unspecified (principal); I10 Essential (primary) hypertension; E11.9 Type 2 diabetes mellitus without complications; Z86.16 Personal history of COVID-19; Z79.4 Long term (current) use of insulin; Z79.899 Other long term (current) drug therapy
CPT/HCPCS: 99283

== ENCOUNTER 2024-03-31 16:22 | Emergency (ER) | payer MEDICARE ==
[2024-03-31 17:23] VITALS: BP 130/67; PULSE 83
== END 2024-03-31 17:04 | disposition home or self-care (01) ==
LOC: DL.ED 16:22
DX: T83.9XXA Unspecified complication of genitourinary prosthetic device, implant and graft, initial encounter (principal); I10 Essential (primary) hypertension; E11.9 Type 2 diabetes mellitus without complications; Z79.4 Long term (current) use of insulin; Z79.899 Other long term (current) drug therapy; Z86.16 Personal history of COVID-19
CPT/HCPCS: 99283

== ENCOUNTER 2024-04-01 18:04 | Emergency (ER) | payer MEDICARE | END 2024-04-01 18:59 | disposition left against medical advice (07) | LOC: DL.ED 18:04 | DX: Z53.21 Procedure and treatment not carried out due to patient leaving prior to being seen by health care provider (principal) ==

== ENCOUNTER 2024-04-02 12:34 | Emergency (ER) | payer MEDICARE ==
[2024-04-02 13:00] LABS: HEMATOCRIT 29.2 % (40.0-54.0); HEMOGLOBIN 9.2 g/dL (14.0-18.0); MEAN CORPUSCULAR HGB CONC 31.5 g/dL (33.0-35.0); PLATELET COUNT,PLT 381 10^3/uL (150-450); RED BLOOD CELL COUNT 3.28 10^6/uL (4.6-6.2); WHITE BLOOD CELL COUNT,WBC 7.6 10^3/uL (5.0-10.0)
[2024-04-02] MEDS: Sodium Chloride 0.9% 10 ML Syringe FLUSH PRN (13:07)
[2024-04-02] MEDS: Sodium Chloride 0.9% 1,000 ML IV ONE ×2 (13:07→13:50)
[2024-04-02 13:12] LABS: BASOPHILS PERCENT AUTO 0.4 % (0.0-1.0); LYMPHOCYTES PERCENT AUTO 12.2 % (20.5-50.1); MONOCYTES PERCENT AUTO 13.3 % (2-8); NEUTROPHILS PERCENT AUTO 72.1 % (42.2-75.2)
[2024-04-02 13:13] LABS: AMPHETAMINES,URINE NEGATIVE (NEGATIVE); BARBITURATES,URINE NEGATIVE (NEGATIVE); BENZODIAZEPINE,URINE NEGATIVE (NEGATIVE); MDMA (ECSTASY), URINE NEGATIVE (NEGATIVE); METHADONE,URINE NEGATIVE (NEGATIVE); METHAMPHETAMINES,URINE NEGATIVE (NEGATIVE); OPIATES,URINE NEGATIVE (NEGATIVE); OXYCODONE,URINE NEGATIVE (NEGATIVE); PHENCYCLIDINE,URINE NEGATIVE (NEGATIVE); TCA,URINE NEGATIVE (NEGATIVE)
[2024-04-02 13:13] LABS: BAND PERCENT MAN 1 %; LYMPHOCYTES PERCENT MAN 13 % (20-50); SEG NEUTROPHILS PERCENT MAN 69 % (42-75)
[2024-04-02 13:14] LABS: EOSINOPHILS PERCENT MAN 2 % (1-3); MONOCYTES PERCENT MAN 15 % (2-8)
[2024-04-02 13:17] LABS: APPEARANCE,URINE CLEAR (CLEAR); BILIRUBIN,URINE NEGATIVE (NEGATIVE); COLOR,URINE YELLOW (YELLOW); GLUCOSE,URINE 500 (NEGATIVE); KETONES,URINE NEGATIVE (NEGATIVE); LEUKOCYTE ESTERASE,URINE NEGATIVE (NEGATIVE); NITRITE,URINE NEGATIVE (NEGATIVE); OCCULT BLOOD,URINE SMALL (NEGATIVE); PH,URINE 5.5 (5.0-9.0); PROTEIN,URINE >=300 (NEGATIVE); UROBILINOGEN,URINE 0.2 mg/dL (0.2-1.0)
[2024-04-02 13:25] LABS: BASE EXCESS VENOUS 2.1 mmol/l ((-2)-(+3)); BICARBONATE,VENOUS 27 mmol/l (19-25); O2 DELIVERY DEVICE ROOM AIR; O2 SATURATION VENOUS 92.1 % (60-80); PCO2 VENOUS 47 mmHg (41-51); PH,VENOUS 7.38 (7.31-7.41); PO2 VENOUS 58 mmHg (35-42)
[2024-04-02 13:26] LABS: ALANINE AMINOTRANSFERASE,ALT 17 U/L (16-63); ALKALINE PHOSPHATASE 133 U/L (46-116); ANION GAP 13.6 mEq/L (7-13); ASPARTATE AMNIOTRANSFERASE,AST 12 U/L (15-37); BILIRUBIN TOTAL 0.2 mg/dL (0.2-1.0); BLOOD UREA NITROGEN,BUN 66 mg/dL (7-18); BUN/CREATININE RATIO 30.1 (No establ ref range); CALCIUM 8.1 mg/dL (8.5-10.1); CARBON DIOXIDE,CO2 29 mmol/L (21-32); CHLORIDE,CL 105 mmol/L (98-107); CREATININE 2.19 mg/dL (0.70-1.30); EST CRCL DRUG DOSING (CG) 29.17 mL/min; GLUCOSE RANDOM 349 mg/dL (70-99); LIPASE 24 U/L (16-77); POTASSIUM,K 4.6 mmol/L (3.5-5.1); PROTEIN TOTAL,TP 6.2 g/dL (6.4-8.2); SODIUM,NA 143 mmol/L (136-145)
[2024-04-02 13:40] LABS: A/G RATIO 0.48; ESTIMATED GFR 33 mL/min (>=60); ETHANOL BLOOD MEDICAL < 3 mg/dL (0)
[2024-04-02 13:46] LABS: KETONES,BLOOD NEGATIVE
[2024-04-02] MEDS: Ondansetron 4 MG/2 ML SDV IV ONE (13:50)
[2024-04-02] MEDS: Insulin Regular, Human 100 Units/ML 3 ML Vial SUBCUT ONE (14:02)
[2024-04-02 14:03] LABS: BACTERIA,URINE RARE /HPF (0-FEW/HPF); EPITHELIAL CELLS,URINE RARE /HPF (NOT SEEN); RBC,URINE 0-5 /HPF (0-5); WBC,URINE 0-5 /HPF (0-5/HPF)
[2024-04-02 14:07] VITALS: BP 190/88; PULSE 93
[2024-04-02] MEDS: Take Home: Ondansetron 4 MG Tab.DIS, 5 Tab Pack PO ONE (14:24)
== END 2024-04-02 14:35 | disposition home or self-care (01) ==
LOC: DL.ED 12:34
DX: E11.65 Type 2 diabetes mellitus with hyperglycemia (principal); I10 Essential (primary) hypertension; Z79.02 Long term (current) use of antithrombotics/antiplatelets; Z79.4 Long term (current) use of insulin; Z79.899 Other long term (current) drug therapy; Z86.16 Personal history of COVID-19
CPT/HCPCS: 36415; 80053; 80305; 80307; 81001; 82009; 82803; 82947; 83605; 83690; 84145; 84484; 85025; 96361; 96374; 99284; J1815; J2405; J7030; Q0162; J3490

== ENCOUNTER 2024-04-02 15:12 | Emergency (ER) | payer MEDICARE | END 2024-04-02 15:24 | LOC: DL.ED 15:12 | DX: Z53.21 Procedure and treatment not carried out due to patient leaving prior to being seen by health care provider (principal) | CPT/HCPCS: 82947 ==

== ENCOUNTER 2024-04-07 15:12 | Emergency (ER) | payer MEDICARE ==
[2024-04-07 15:41] VITALS: BP 170/79; PULSE 83
[2024-04-07] MEDS: Acetaminophen 500 MG Tab PO ONE (15:57)
== END 2024-04-07 16:29 | disposition home or self-care (01) ==
LOC: DL.ED 15:12
DX: T83.031A Leakage of indwelling urethral catheter, initial encounter (principal); M79.606 Pain in leg, unspecified; I10 Essential (primary) hypertension; E11.9 Type 2 diabetes mellitus without complications; Z79.899 Other long term (current) drug therapy; Z79.4 Long term (current) use of insulin
CPT/HCPCS: 51702; 99283; A9270

== ENCOUNTER 2024-04-10 15:52 | Emergency (ER) | payer MEDICARE ==
[2024-04-10] MEDS: Lidocaine 2% Jelly 10 ML Urojet MUCMEM ONE (16:26)
[2024-04-10] MEDS: Acetaminophen 325 MG Tab PO ONE (16:26)
[2024-04-10 16:51] VITALS: BP 168/80; PULSE 74
== END 2024-04-10 16:36 | disposition home or self-care (01) ==
LOC: DL.ED 15:52
DX: Z46.6 Encounter for fitting and adjustment of urinary device (principal); N48.89 Other specified disorders of penis; I10 Essential (primary) hypertension; E11.9 Type 2 diabetes mellitus without complications; Z79.899 Other long term (current) drug therapy; Z79.4 Long term (current) use of insulin
CPT/HCPCS: 99283; A9270

== ENCOUNTER 2024-04-12 21:52 | Emergency (ER) | payer MEDICARE | END 2024-04-12 22:24 | disposition left against medical advice (07) | LOC: DL.ED 21:52 | DX: Z53.21 Procedure and treatment not carried out due to patient leaving prior to being seen by health care provider (principal) ==

== ENCOUNTER 2024-04-13 02:11 | Emergency (ER) | payer MEDICARE ==
[2024-04-13 04:59] LABS: BASOPHILS PERCENT AUTO 0.4 % (0.0-1.0); EOSINOPHILS PERCENT AUTO 3.2 % (1.0-3.0); HEMATOCRIT 29.9 % (40.0-54.0); HEMOGLOBIN 9.6 g/dL (14.0-18.0); LYMPHOCYTES PERCENT AUTO 13.1 % (20.5-50.1); MEAN CORPUSCULAR HEMOGLOBIN 28.7 pg (27.0-34.0); MEAN CORPUSCULAR HGB CONC 32.1 g/dL (33.0-35.0); MEAN CORPUSCULAR VOLUME 89.5 fL (80-100); MONOCYTES PERCENT AUTO 10.1 % (2-8); NEUTROPHILS PERCENT AUTO 73.2 % (42.2-75.2); PLATELET COUNT,PLT 279 10^3/uL (150-450); RED BLOOD CELL COUNT 3.34 10^6/uL (4.6-6.2); WHITE BLOOD CELL COUNT,WBC 9.5 10^3/uL (5.0-10.0)
[2024-04-13 05:29] LABS: A/G RATIO 0.52; ALANINE AMINOTRANSFERASE,ALT 17 U/L (16-63); ALBUMIN 2.2 g/dL (3.4-5.0); ALKALINE PHOSPHATASE 108 U/L (46-116); ANION GAP 9.2 mEq/L (7-13); ASPARTATE AMNIOTRANSFERASE,AST 16 U/L (15-37); BILIRUBIN TOTAL 0.2 mg/dL (0.2-1.0); BLOOD UREA NITROGEN,BUN 64 mg/dL (7-18); BUN/CREATININE RATIO 29.1 (No establ ref range); CALCIUM 8.6 mg/dL (8.5-10.1); CARBON DIOXIDE,CO2 32 mmol/L (21-32); CHLORIDE,CL 107 mmol/L (98-107); ESTIMATED GFR 33 mL/min (>=60); GLUCOSE RANDOM 91 mg/dL (70-99); POTASSIUM,K 5.2 mmol/L (3.5-5.1); PROTEIN TOTAL,TP 6.4 g/dL (6.4-8.2); SODIUM,NA 143 mmol/L (136-145)
== END 2024-04-13 05:14 | disposition home or self-care (01) ==
LOC: DL.ED 02:11
DX: E86.0 Dehydration (principal); J44.9 Chronic obstructive pulmonary disease, unspecified; Z87.891 Personal history of nicotine dependence
CPT/HCPCS: 36415; 80053; 85025; 96360; 96361; 99283; 99285-25

== ENCOUNTER 2024-04-15 12:05 | Emergency (ER) | payer MEDICARE ==
[2024-04-15 12:39] VITALS: BP 149/73; PULSE 84
== END 2024-04-15 12:41 ==
LOC: DL.ED 12:05
DX: Z53.21 Procedure and treatment not carried out due to patient leaving prior to being seen by health care provider (principal)
CPT/HCPCS: 82947

== ENCOUNTER 2024-04-20 21:55 | Emergency (ER) | payer MEDICARE ==
[2024-04-21 04:04] VITALS: BP 134/79; PULSE 76
[2024-04-21 04:27] LABS: APPEARANCE,URINE SLIGHTLY CLOUDY (CLEAR); BILIRUBIN,URINE NEGATIVE (NEGATIVE); COLOR,URINE YELLOW (YELLOW); GLUCOSE,URINE NEGATIVE (NEGATIVE); KETONES,URINE NEGATIVE (NEGATIVE); LEUKOCYTE ESTERASE,URINE TRACE (NEGATIVE); NITRITE,URINE NEGATIVE (NEGATIVE); OCCULT BLOOD,URINE LARGE (NEGATIVE); PROTEIN,URINE >=300 (NEGATIVE); UROBILINOGEN,URINE 0.2 mg/dL (0.2-1.0)
[2024-04-21 04:45] LABS: BACTERIA,URINE FEW /HPF (0-FEW/HPF); EPITHELIAL CELLS,URINE RARE /HPF (NOT SEEN); RBC,URINE >100 /HPF (0-5)
== END 2024-04-21 05:20 | disposition home or self-care (01) ==
LOC: DL.ED 21:55
DX: T83.091A Other mechanical complication of indwelling urethral catheter, initial encounter (principal); R31.9 Hematuria, unspecified; I10 Essential (primary) hypertension; E11.9 Type 2 diabetes mellitus without complications; F17.210 Nicotine dependence, cigarettes, uncomplicated; Z79.02 Long term (current) use of antithrombotics/antiplatelets; Z79.899 Other long term (current) drug therapy; Z79.4 Long term (current) use of insulin; Y73.2 Prosthetic and other implants, materials and accessory gastroenterology and urology devices associated with adverse incidents
CPT/HCPCS: 81001; 87086; 87088; 87186; 99283

== ENCOUNTER 2024-04-23 20:02 | Emergency (ER) | payer MEDICARE ==
[2024-04-23 20:26] VITALS: BP 156/75; PULSE 77
[2024-04-23] MEDS: Take Home: Phenazopyridine 95 MG Tab, 4 Tab Pack PO ONE (20:30)
== END 2024-04-23 20:35 | disposition home or self-care (01) ==
LOC: DL.ED 20:02
DX: N48.89 Other specified disorders of penis (principal); I10 Essential (primary) hypertension; E11.9 Type 2 diabetes mellitus without complications; Z79.899 Other long term (current) drug therapy; Z79.4 Long term (current) use of insulin
CPT/HCPCS: 99283; A9270

== ENCOUNTER 2024-05-03 10:39 | Emergency (ER) | payer MEDICARE ==
[2024-05-03] MEDS: Albuterol/Ipratropium 3.0-0.5 MG/3 ML Neb Soln NEB ONE ×2 (10:52→12:17)
[2024-05-03 10:57] LABS: BASOPHILS PERCENT AUTO 0.2 % (0.0-1.0); EOSINOPHILS PERCENT AUTO 0.2 % (1.0-3.0); HEMATOCRIT 32.8 % (40.0-54.0); HEMOGLOBIN 10.4 g/dL (14.0-18.0); LYMPHOCYTES PERCENT AUTO 5.4 % (20.5-50.1); MEAN CORPUSCULAR HEMOGLOBIN 28.5 pg (27.0-34.0); MEAN CORPUSCULAR HGB CONC 31.7 g/dL (33.0-35.0); MEAN CORPUSCULAR VOLUME 89.9 fL (80-100); MONOCYTES PERCENT AUTO 9.7 % (2-8); NEUTROPHILS PERCENT AUTO 84.5 % (42.2-75.2); PLATELET COUNT,PLT 248 10^3/uL (150-450); RED BLOOD CELL COUNT 3.65 10^6/uL (4.6-6.2); WHITE BLOOD CELL COUNT,WBC 11.6 10^3/uL (5.0-10.0)
[2024-05-03 11:08] LABS: ALANINE AMINOTRANSFERASE,ALT 21 U/L (16-63); ALBUMIN 2.6 g/dL (3.4-5.0); ALKALINE PHOSPHATASE 115 U/L (46-116); ANION GAP 14.5 mEq/L (7-13); ASPARTATE AMNIOTRANSFERASE,AST 15 U/L (15-37); BILIRUBIN TOTAL 0.4 mg/dL (0.2-1.0); BLOOD UREA NITROGEN,BUN 88 mg/dL (7-18); BUN/CREATININE RATIO 23.3 (No establ ref range); CALCIUM 9.4 mg/dL (8.5-10.1); CARBON DIOXIDE,CO2 32 mmol/L (21-32); CHLORIDE,CL 100 mmol/L (98-107); CREATININE 3.77 mg/dL (0.70-1.30); EST CRCL DRUG DOSING (CG) 17.65 mL/min; GLUCOSE RANDOM 180 mg/dL (70-99); POTASSIUM,K 4.5 mmol/L (3.5-5.1); PROTEIN TOTAL,TP 6.7 g/dL (6.4-8.2); SODIUM,NA 142 mmol/L (136-145)
[2024-05-03 11:09] LABS: A/G RATIO 0.63; ESTIMATED GFR 17 mL/min (>=60)
[2024-05-03] MEDS: Sodium Chloride 0.9% 10 ML Syringe FLUSH PRN (11:16)
[2024-05-03 11:17] LABS: O2 DELIVERY DEVICE NASAL CANNULA
[2024-05-03] MEDS: Sodium Chloride 0.9% 1,000 ML IV ONE (11:17)
[2024-05-03] MEDS: Ondansetron 4 MG/2 ML SDV IV ONE (11:19)
[2024-05-03] MEDS: Morphine 2 MG/ML SYRINGE IVPUSH ONE (11:19)
[2024-05-03 11:43] LABS: BASE EXCESS VENOUS 7.7 mmol/l ((-2)-(+3)); BICARBONATE,VENOUS 34 mmol/l (19-25); O2 SATURATION VENOUS 57.1 % (60-80); PCO2 VENOUS 59 mmHg (41-51); PH,VENOUS 7.38 (7.31-7.41); PO2 VENOUS 36 mmHg (35-42)
[2024-05-03 11:51] LABS: KETONES,BLOOD NEGATIVE
[2024-05-03 12:13] VITALS: BP 149/79; PULSE 91
[2024-05-03 12:34] LABS: AMPHETAMINES,URINE POSITIVE (NEGATIVE); BARBITURATES,URINE NEGATIVE (NEGATIVE); BENZODIAZEPINE,URINE NEGATIVE (NEGATIVE); MDMA (ECSTASY), URINE NEGATIVE (NEGATIVE); METHADONE,URINE NEGATIVE (NEGATIVE); METHAMPHETAMINES,URINE NEGATIVE (NEGATIVE); OPIATES,URINE NEGATIVE (NEGATIVE); OXYCODONE,URINE NEGATIVE (NEGATIVE); PHENCYCLIDINE,URINE NEGATIVE (NEGATIVE); TCA,URINE NEGATIVE (NEGATIVE)
[2024-05-03] MEDS: methylPREDNISolone Sodium Succinate 125 MG/2 ML SDV IVPUSH ONE (12:43)
[2024-05-03 13:05] LABS: APPEARANCE,URINE CLEAR (CLEAR); BILIRUBIN,URINE NEGATIVE (NEGATIVE); COLOR,URINE YELLOW (YELLOW); GLUCOSE,URINE NEGATIVE (NEGATIVE); KETONES,URINE TRACE (NEGATIVE); LEUKOCYTE ESTERASE,URINE NEGATIVE (NEGATIVE); NITRITE,URINE NEGATIVE (NEGATIVE); OCCULT BLOOD,URINE SMALL (NEGATIVE); PROTEIN,URINE >=300 (NEGATIVE); UROBILINOGEN,URINE 0.2 mg/dL (0.2-1.0)
[2024-05-03 13:26] LABS: HYALINE CASTS,URINE RARE; RBC,URINE 0-5 /HPF (0-5); WBC,URINE 0-5 /HPF (0-5/HPF)
[2024-05-03 13:27] LABS: EPITHELIAL CELLS,URINE RARE /HPF (NOT SEEN)
[2024-05-03 13:28] LABS: BACTERIA,URINE RARE /HPF (0-FEW/HPF)
[2024-05-03] MEDS: Morphine 4 MG/ML Syringe IVPUSH ONE (13:37)
== END 2024-05-03 14:02 ==
LOC: DL.ED 10:39
DX: S72.011A Unspecified intracapsular fracture of right femur, initial encounter for closed fracture (principal); N17.9 Acute kidney failure, unspecified; J44.1 Chronic obstructive pulmonary disease with (acute) exacerbation; E10.51 Type 1 diabetes mellitus with diabetic peripheral angiopathy without gangrene; F17.210 Nicotine dependence, cigarettes, uncomplicated; I10 Essential (primary) hypertension; Z79.4 Long term (current) use of insulin; Z79.899 Other long term (current) drug therapy; W05.0XXA Fall from non-moving wheelchair, initial encounter
CPT/HCPCS: 36415; 71045; 73502; 73552; 73590; 80053; 80305; 81001; 82009; 82803; 83605; 85025; 87040; 87804; 94640; 96361; 96374; 96375; 96376; 99285; J2270; J2405; J2919; J7030; U0002; J3490; J7620-GY

== ENCOUNTER 2024-05-26 20:35 | Inpatient (IN) | payer MEDICARE ==
[2024-05-26] MEDS: 50% Dextrose in Water 50 ML Syringe IVPUSH ONE (20:43)
[2024-05-26 21:10] LABS: HEMATOCRIT 29.1 % (40.0-54.0); HEMOGLOBIN 9.3 g/dL (14.0-18.0); MEAN CORPUSCULAR HEMOGLOBIN 28.3 pg (27.0-34.0); MEAN CORPUSCULAR VOLUME 88.4 fL (80-100); PLATELET COUNT,PLT 359 10^3/uL (150-450); RED BLOOD CELL COUNT 3.29 10^6/uL (4.6-6.2); WHITE BLOOD CELL COUNT,WBC 7.9 10^3/uL (5.0-10.0)
[2024-05-26 21:12] LABS: BASOPHILS PERCENT AUTO 0.3 % (0.0-1.0); EOSINOPHILS PERCENT AUTO 1.5 % (1.0-3.0); LYMPHOCYTES PERCENT AUTO 10.8 % (20.5-50.1); MONOCYTES PERCENT AUTO 9.4 % (2-8)
[2024-05-26] MEDS: 50% Dextrose in Water 50 ML Syringe ONE (21:23)
[2024-05-26] MEDS: Sodium Chloride 0.9% 10 ML Syringe FLUSH PRN (21:23)
[2024-05-26 21:26] LABS: ALANINE AMINOTRANSFERASE,ALT 12 U/L (16-63); ALBUMIN 2.2 g/dL (3.4-5.0); ALKALINE PHOSPHATASE 127 U/L (46-116); ANION GAP 10.1 mEq/L (7-13); ASPARTATE AMNIOTRANSFERASE,AST 14 U/L (15-37); BILIRUBIN TOTAL 0.3 mg/dL (0.2-1.0); BLOOD UREA NITROGEN,BUN 61 mg/dL (7-18); BUN/CREATININE RATIO 24.8 (No establ ref range); CALCIUM 8.5 mg/dL (8.5-10.1); CARBON DIOXIDE,CO2 30 mmol/L (21-32); CHLORIDE,CL 103 mmol/L (98-107); CREATININE 2.46 mg/dL (0.70-1.30); GLUCOSE RANDOM 371 mg/dL (70-99); POTASSIUM,K 4.1 mmol/L (3.5-5.1); PROTEIN TOTAL,TP 5.8 g/dL (6.4-8.2); SODIUM,NA 139 mmol/L (136-145)
[2024-05-26 21:27] LABS: A/G RATIO 0.61; ESTIMATED GFR 29 mL/min (>=60)
[2024-05-26 21:32] LABS: APPEARANCE,URINE CLEAR (CLEAR); BILIRUBIN,URINE NEGATIVE (NEGATIVE); COLOR,URINE YELLOW (YELLOW); GLUCOSE,URINE 100 (NEGATIVE); KETONES,URINE NEGATIVE (NEGATIVE); LEUKOCYTE ESTERASE,URINE NEGATIVE (NEGATIVE); NITRITE,URINE NEGATIVE (NEGATIVE); OCCULT BLOOD,URINE SMALL (NEGATIVE); PROTEIN,URINE >=300 (NEGATIVE)
[2024-05-26] MEDS: Dextrose 5%-0.45% NaCl 1,000 ML IV SCH (21:36)
[2024-05-26 21:46] LABS: AMORPHOUS SEDIMENT,URINE FEW /HPF (NOT SEEN); BACTERIA,URINE FEW /HPF (0-FEW/HPF); EPITHELIAL CELLS,URINE RARE /HPF (NOT SEEN); FINE GRANULAR CASTS,URINE FEW /LPF (NOT SEEN); MUCUS,URINE FEW /LPF (NOT SEEN); WBC,URINE 0-5 /HPF (0-5/HPF)
[2024-05-26 21:47] LABS: GRANULAR CASTS,URINE RARE
[2024-05-26 21:48] LABS: BAND PERCENT MAN 4 %; EOSINOPHILS PERCENT MAN 2 % (1-3); LYMPHOCYTES PERCENT MAN 9 % (20-50); MONOCYTES PERCENT MAN 5 % (2-8); SEG NEUTROPHILS PERCENT MAN 80 % (42-75)
[2024-05-26] MEDS: cloNIDine 0.1 MG Tab PO ONE (23:58)
[2024-05-27] MEDS: Ondansetron 4 MG/2 ML SDV IVPUSH PRN (08:36)
[2024-05-27] MEDS: Enoxaparin 30 MG/0.3 ML Syringe SUBCUT SCH (08:36)
[2024-05-27] MEDS: Nicotine 21 MG/24 Hr Patch TRDERM SCH (08:37)
[2024-05-27] MEDS ORDERED: Ergocalciferol (Vitamin D2) 1.25 MG Cap PO SCH (09:00)
[2024-05-27] MEDS ORDERED: Diclofenac Sodium 1% Gel 100 GM Tube TOP PRN (09:00)
[2024-05-27] MEDS: Gabapentin 100 MG Cap PO SCH (12:09)
[2024-05-27] MEDS: Insulin Lispro 100 Units/ML 3 ML Vial SUBCUT SCH (13:05)
[2024-05-27] MEDS: Insulin Glarg,Human.Rec.Analog 100 Unit/ML 10 ML Vial SUBCUT SCH (13:06)
[2024-05-27] MEDS: Clopidogrel 75 MG Tab PO SCH (13:08)
[2024-05-27] MEDS: PARoxetine 20 MG Tab PO SCH (13:09)
[2024-05-27] MEDS: Bumetanide 1 MG Tab PO SCH (13:12)
[2024-05-27] MEDS: Sodium Bicarbonate 650 MG Tab PO SCH (13:12)
[2024-05-27] MEDS: Aspirin 325 MG Tab.EC PO SCH (13:12)
[2024-05-27] MEDS: Acetaminophen 325 MG Tab PO PRN (13:14)
[2024-05-27] MEDS: Losartan 25 MG Tab PO SCH (13:14)
[2024-05-27] MEDS: Ascorbic Acid 500 MG Tab PO SCH (13:18)
[2024-05-27] MEDS: Carvedilol 6.25 MG Tab PO SCH (17:56)
[2024-05-27] MEDS: CIPROFLOXACIN 250 MG PO SCH (20:20)
[2024-05-27] MEDS: Non-Formulary Medication 1 Each (Trospium [Sanctura] 20 MG Tablet) PO SCH (20:20)
[2024-05-27] MEDS: Polyethylene Glycol 3350 Powder 17 GM Packet PO PRN (20:53)
[2024-05-27] MEDS: atorvaSTATin 20 MG Tab PO SCH (20:54)
[2024-05-27] MEDS: Check Patch TRDERM SCH (21:33)
[2024-05-28] MEDS ORDERED: 50% Dextrose in Water 50 ML Syringe IVPUSH PRN ×2 (06:43→18:38)
[2024-05-28] MEDS ORDERED: Glucagon,Human Recombinant 1 MG Vial IM PRN ×2 (06:43→18:38)
[2024-05-28 07:06] LABS: BASOPHILS PERCENT AUTO 0.4 % (0.0-1.0); EOSINOPHILS PERCENT AUTO 2.3 % (1.0-3.0); HEMATOCRIT 26.8 % (40.0-54.0); HEMOGLOBIN 8.5 g/dL (14.0-18.0); MEAN CORPUSCULAR HGB CONC 31.7 g/dL (33.0-35.0); MEAN CORPUSCULAR VOLUME 88.2 fL (80-100); MONOCYTES PERCENT AUTO 10.8 % (2-8); NEUTROPHILS PERCENT AUTO 70.5 % (42.2-75.2); PLATELET COUNT,PLT 353 10^3/uL (150-450); RED BLOOD CELL COUNT 3.04 10^6/uL (4.6-6.2); WHITE BLOOD CELL COUNT,WBC 8.4 10^3/uL (5.0-10.0)
[2024-05-28 07:27] LABS: ANION GAP 13.9 mEq/L (7-13); CALCIUM 8.6 mg/dL (8.5-10.1); CREATININE 2.42 mg/dL (0.70-1.30); EST CRCL DRUG DOSING (CG) 22.38 mL/min; POTASSIUM,K 3.9 mmol/L (3.5-5.1)
[2024-05-28] MEDS: Insulin Glarg,Human.Rec.Analog 100 Unit/ML 10 ML Vial SUBCUT SCH (09:24)
[2024-05-28] MEDS: Sodium Chloride 0.9% 1,000 ML IV SCH (15:00)
[2024-05-28] MEDS: Insulin Lispro 100 Units/ML 3 ML Vial SUBCUT SCH (21:19)
[2024-05-29 06:14] LABS: BASOPHILS PERCENT AUTO 0.2 % (0.0-1.0); EOSINOPHILS PERCENT AUTO 2.3 % (1.0-3.0); HEMATOCRIT 27.9 % (40.0-54.0); HEMOGLOBIN 8.7 g/dL (14.0-18.0); LYMPHOCYTES PERCENT AUTO 15.6 % (20.5-50.1); MEAN CORPUSCULAR HEMOGLOBIN 28.2 pg (27.0-34.0); MEAN CORPUSCULAR HGB CONC 31.2 g/dL (33.0-35.0); MEAN CORPUSCULAR VOLUME 90.6 fL (80-100); MONOCYTES PERCENT AUTO 11.3 % (2-8); NEUTROPHILS PERCENT AUTO 70.6 % (42.2-75.2); PLATELET COUNT,PLT 275 10^3/uL (150-450); RED BLOOD CELL COUNT 3.08 10^6/uL (4.6-6.2)
[2024-05-29 06:28] LABS: ANION GAP 11.3 mEq/L (7-13); CALCIUM 8.2 mg/dL (8.5-10.1); CREATININE 2.29 mg/dL (0.70-1.30); EST CRCL DRUG DOSING (CG) 23.65 mL/min; POTASSIUM,K 4.3 mmol/L (3.5-5.1)
[2024-05-29] MEDS ORDERED: 50% Dextrose in Water 50 ML Syringe IVPUSH PRN (13:56)
[2024-05-29] MEDS ORDERED: Glucagon,Human Recombinant 1 MG Vial IM PRN (13:56)
[2024-05-29] MEDS: Aspirin 81 MG Tab.Chew PO ONE (15:20)
[2024-05-29] MEDS: Insulin Lispro 100 Units/ML 3 ML Vial SUBCUT SCH (17:21)
[2024-05-29] MEDS: Insulin Glarg,Human.Rec.Analog 100 Unit/ML 10 ML Vial SUBCUT SCH (21:03)
[2024-05-29] MEDS: Heparin Sodium 5,000 Units/ML Vial SUBCUT SCH (21:04)
[2024-05-30 06:34] LABS: ANION GAP 10.6 mEq/L (7-13); CALCIUM 8.6 mg/dL (8.5-10.1); CREATININE 1.85 mg/dL (0.70-1.30); EST CRCL DRUG DOSING (CG) 29.28 mL/min; POTASSIUM,K 4.6 mmol/L (3.5-5.1)
[2024-05-30 11:32] VITALS: PULSE 78
[2024-05-30 12:00] VITALS: BP 143/71
== END 2024-05-30 11:59 | DRG 637 ==
LOC: DL.ED 20:35 → DL.MS 22:46
PROVIDERS: ADMIT Internal Medicine; ATTEND Student in an Organized Health Care Education/Training Program
DX: E11.649 Type 2 diabetes mellitus with hypoglycemia without coma (principal); E11.65 Type 2 diabetes mellitus with hyperglycemia; G93.40 Encephalopathy, unspecified; I12.9 Hypertensive chronic kidney disease with stage 1 through stage 4 chronic kidney disease, or unspecified chronic kidney disease; N18.30 Chronic kidney disease, stage 3 unspecified; G93.41 Metabolic encephalopathy; I12.0 Hypertensive chronic kidney disease with stage 5 chronic kidney disease or end stage renal disease; N13.8 Other obstructive and reflux uropathy; N18.5 Chronic kidney disease, stage 5; Z66 Do not resuscitate; E78.5 Hyperlipidemia, unspecified; E11.22 Type 2 diabetes mellitus with diabetic chronic kidney disease; F32.A Depression, unspecified; R56.9 Unspecified convulsions; E11.42 Type 2 diabetes mellitus with diabetic polyneuropathy; E11.621 Type 2 diabetes mellitus with foot ulcer; L97.529 Non-pressure chronic ulcer of other part of left foot with unspecified severity; K21.9 Gastro-esophageal reflux disease without esophagitis; G89.29 Other chronic pain; E11.51 Type 2 diabetes mellitus with diabetic peripheral angiopathy without gangrene; M54.9 Dorsalgia, unspecified; N40.1 Benign prostatic hyperplasia with lower urinary tract symptoms; I25.10 Atherosclerotic heart disease of native coronary artery without angina pectoris; T38.3X5A Adverse effect of insulin and oral hypoglycemic [antidiabetic] drugs, initial encounter; F41.0 Panic disorder [episodic paroxysmal anxiety]; Z79.4 Long term (current) use of insulin; Z89.411 Acquired absence of right great toe; Z89.612 Acquired absence of left leg above knee; Z91.148 Patient's other noncompliance with medication regimen for other reason; Z79.02 Long term (current) use of antithrombotics/antiplatelets; Z79.82 Long term (current) use of aspirin; Z79.899 Other long term (current) drug therapy; Z87.891 Personal history of nicotine dependence; Z97.8 Presence of other specified devices
CPT/HCPCS: 36415; 80048; 80053; 81001; 82947; 85025; 93005; 93010; 96361; 96374; 99285; 99285-25; A9270-GY; J1644; J1650; J1815-GY; J2405; J3490; J7030; J7042

== ENCOUNTER 2024-06-06 10:56 | Emergency (ER) | payer MEDICARE ==
[2024-06-06 11:19] VITALS: BP 152/77; PULSE 72
[2024-06-06] MEDS: Sodium Chloride 0.9% 10 ML Syringe FLUSH PRN (11:35)
[2024-06-06 11:49] LABS: HEMOGLOBIN 9.2 g/dL (14.0-18.0); MEAN CORPUSCULAR HEMOGLOBIN 28.8 pg (27.0-34.0); MEAN CORPUSCULAR HGB CONC 31.7 g/dL (33.0-35.0); MEAN CORPUSCULAR VOLUME 90.9 fL (80-100); PLATELET COUNT,PLT 237 10^3/uL (150-450); RED BLOOD CELL COUNT 3.19 10^6/uL (4.6-6.2); WHITE BLOOD CELL COUNT,WBC 6.3 10^3/uL (5.0-10.0)
[2024-06-06 11:54] LABS: BASOPHILS PERCENT AUTO 0.6 % (0.0-1.0); LYMPHOCYTES PERCENT AUTO 17.2 % (20.5-50.1); MONOCYTES PERCENT AUTO 12.1 % (2-8); NEUTROPHILS PERCENT AUTO 67.1 % (42.2-75.2)
[2024-06-06 12:02] LABS: APPEARANCE,URINE SLIGHTLY CLOUDY (CLEAR); BILIRUBIN,URINE NEGATIVE (NEGATIVE); COLOR,URINE YELLOW (YELLOW); GLUCOSE,URINE NEGATIVE (NEGATIVE); KETONES,URINE NEGATIVE (NEGATIVE); LEUKOCYTE ESTERASE,URINE TRACE (NEGATIVE); NITRITE,URINE NEGATIVE (NEGATIVE); OCCULT BLOOD,URINE SMALL (NEGATIVE); PH,URINE 5.5 (5.0-9.0); PROTEIN,URINE >=300 (NEGATIVE); UROBILINOGEN,URINE 0.2 mg/dL (0.2-1.0)
[2024-06-06 12:08] LABS: AMPHETAMINES,URINE NEGATIVE (NEGATIVE); BARBITURATES,URINE NEGATIVE (NEGATIVE); BENZODIAZEPINE,URINE NEGATIVE (NEGATIVE); MDMA (ECSTASY), URINE NEGATIVE (NEGATIVE); METHADONE,URINE NEGATIVE (NEGATIVE); METHAMPHETAMINES,URINE NEGATIVE (NEGATIVE); OPIATES,URINE NEGATIVE (NEGATIVE); OXYCODONE,URINE NEGATIVE (NEGATIVE); PHENCYCLIDINE,URINE NEGATIVE (NEGATIVE); TCA,URINE NEGATIVE (NEGATIVE)
[2024-06-06 12:19] LABS: ALANINE AMINOTRANSFERASE,ALT 26 U/L (16-63); ALBUMIN 2.6 g/dL (3.4-5.0); ALKALINE PHOSPHATASE 131 U/L (46-116); ANION GAP 9.7 mEq/L (7-13); ASPARTATE AMNIOTRANSFERASE,AST 16 U/L (15-37); BILIRUBIN TOTAL 0.3 mg/dL (0.2-1.0); BLOOD UREA NITROGEN,BUN 46 mg/dL (7-18); BUN/CREATININE RATIO 21.6 (No establ ref range); CALCIUM 8.7 mg/dL (8.5-10.1); CARBON DIOXIDE,CO2 29 mmol/L (21-32); CHLORIDE,CL 107 mmol/L (98-107); CREATININE 2.13 mg/dL (0.70-1.30); EST CRCL DRUG DOSING (CG) 33.62 mL/min; GLUCOSE RANDOM 252 mg/dL (70-99); MAGNESIUM 1.7 mg/dL (1.8-2.4); POTASSIUM,K 4.7 mmol/L (3.5-5.1); PROTEIN TOTAL,TP 6.3 g/dL (6.4-8.2); SODIUM,NA 141 mmol/L (136-145)
[2024-06-06 12:21] LABS: C-REACTIVE PROTEIN < 0.50 ng/dL (<=0.50); ESTIMATED GFR 34 mL/min (>=60)
[2024-06-06 12:23] LABS: PROTHROMBIN TIME 10.8 SEC (9.0-12.0); PTT,PARTIAL THROMBOPLSTIN TIME 24.7 SEC (22.0-34.0)
[2024-06-06 12:26] LABS: LACTIC ACID 1.2 mmol/L (0.4-2.0)
[2024-06-06 12:30] LABS: WBC,URINE 20-30 /HPF (0-5/HPF)
[2024-06-06 12:31] LABS: AMORPHOUS SEDIMENT,URINE FEW /HPF (NOT SEEN); BACTERIA,URINE MODERATE /HPF (0-FEW/HPF); EPITHELIAL CELLS,URINE FEW /HPF (NOT SEEN); MUCUS,URINE FEW /LPF (NOT SEEN)
[2024-06-06 12:32] LABS: FINE GRANULAR CASTS,URINE FEW /LPF (NOT SEEN); GRANULAR CASTS,URINE RARE
[2024-06-06 12:45] LABS: BAND PERCENT MAN 1 %; LYMPHOCYTES PERCENT MAN 23 % (20-50); SEG NEUTROPHILS PERCENT MAN 66 % (42-75)
[2024-06-06 12:46] LABS: EOSINOPHILS PERCENT MAN 6 % (1-3); MONOCYTES PERCENT MAN 3 % (2-8)
[2024-06-06] MEDS: cefTRIAXone 1 GM Vial IVPUSH ONE (12:59)
[2024-06-06] MEDS: Ertapenem 1 GM Vial IVPUSH ONE (13:10)
[2024-06-06] MEDS: Sodium Chloride 0.9% 1,000 ML IV ONE (13:10)
== END 2024-06-06 14:10 | disposition home or self-care (01) ==
LOC: DL.ED 10:56
DX: N39.0 Urinary tract infection, site not specified (principal); I10 Essential (primary) hypertension; E11.9 Type 2 diabetes mellitus without complications; Z79.899 Other long term (current) drug therapy; Z79.891 Long term (current) use of opiate analgesic
CPT/HCPCS: 36415; 71045; 80053; 80305-QW; 81001; 82140; 82947; 83605; 83735; 84145; 84484; 85025; 85610; 85730; 86140; 87086; 93005; 96361; 96374; 99285-25; J1335; J3490; J7030

== ENCOUNTER 2024-06-20 12:57 | Emergency (ER) | payer MEDICARE ==
[2024-06-20 13:12] LABS: BASOPHILS PERCENT AUTO 0.4 % (0.0-1.0); EOSINOPHILS PERCENT AUTO 2.3 % (1.0-3.0); HEMATOCRIT 24.1 % (40.0-54.0); HEMOGLOBIN 7.7 g/dL (14.0-18.0); LYMPHOCYTES PERCENT AUTO 12.7 % (20.5-50.1); MEAN CORPUSCULAR HEMOGLOBIN 29.3 pg (27.0-34.0); MEAN CORPUSCULAR VOLUME 91.6 fL (80-100); MONOCYTES PERCENT AUTO 9.1 % (2-8); NEUTROPHILS PERCENT AUTO 75.5 % (42.2-75.2); PLATELET COUNT,PLT 281 10^3/uL (150-450); RED BLOOD CELL COUNT 2.63 10^6/uL (4.6-6.2); WHITE BLOOD CELL COUNT,WBC 7.3 10^3/uL (5.0-10.0)
[2024-06-20] MEDS: Sodium Chloride 0.9% 10 ML Syringe FLUSH PRN (13:23)
[2024-06-20 13:30] LABS: KETONES,BLOOD NEGATIVE
[2024-06-20 13:35] LABS: ALANINE AMINOTRANSFERASE,ALT 19 U/L (16-63); ALBUMIN 2.5 g/dL (3.4-5.0); ALKALINE PHOSPHATASE 159 U/L (46-116); ANION GAP 13.6 mEq/L (7-13); ASPARTATE AMNIOTRANSFERASE,AST 12 U/L (15-37); BILIRUBIN TOTAL 0.2 mg/dL (0.2-1.0); BLOOD UREA NITROGEN,BUN 58 mg/dL (7-18); BUN/CREATININE RATIO 29.6 (No establ ref range); CALCIUM 8.7 mg/dL (8.5-10.1); CARBON DIOXIDE,CO2 25 mmol/L (21-32); CHLORIDE,CL 103 mmol/L (98-107); CREATININE 1.96 mg/dL (0.70-1.30); POTASSIUM,K 4.6 mmol/L (3.5-5.1); PROTEIN TOTAL,TP 5.8 g/dL (6.4-8.2); SODIUM,NA 137 mmol/L (136-145)
[2024-06-20 13:38] LABS: LACTIC ACID 1.8 mmol/L (0.4-2.0)
[2024-06-20 13:44] LABS: A/G RATIO 0.76; ESTIMATED GFR 38 mL/min (>=60); GLUCOSE RANDOM 446 mg/dL (70-99)
[2024-06-20 13:54] LABS: APPEARANCE,URINE CLEAR (CLEAR); BILIRUBIN,URINE NEGATIVE (NEGATIVE); COLOR,URINE YELLOW (YELLOW); GLUCOSE,URINE 500 (NEGATIVE); KETONES,URINE NEGATIVE (NEGATIVE); LEUKOCYTE ESTERASE,URINE NEGATIVE (NEGATIVE); NITRITE,URINE NEGATIVE (NEGATIVE); OCCULT BLOOD,URINE SMALL (NEGATIVE); PROTEIN,URINE 100 (NEGATIVE); UROBILINOGEN,URINE 0.2 mg/dL (0.2-1.0)
[2024-06-20] MEDS ORDERED: Glucagon,Human Recombinant 1 MG Vial IM PRN (13:57)
[2024-06-20] MEDS ORDERED: 50% Dextrose in Water 50 ML Syringe IVPUSH PRN (13:57)
[2024-06-20 14:10] LABS: BACTERIA,URINE FEW /HPF (0-FEW/HPF); EPITHELIAL CELLS,URINE OCCASIONAL /HPF (NOT SEEN); MUCUS,URINE RARE /LPF (NOT SEEN); RBC,URINE 0-5 /HPF (0-5); WBC,URINE 0-5 /HPF (0-5/HPF)
[2024-06-20] MEDS: Insulin Regular, Human 100 Units/ML 3 ML Vial IV ONE (14:18)
[2024-06-20 15:51] VITALS: BP 186/82; PULSE 83
[2024-06-20 16:33] LABS: HEMATOCRIT 22.6 % (40.0-54.0); HEMOGLOBIN 7.3 g/dL (14.0-18.0)
== END 2024-06-20 16:55 | disposition designated cancer center or children's hospital (05) ==
LOC: DL.ED 12:57
DX: E11.65 Type 2 diabetes mellitus with hyperglycemia (principal); D64.9 Anemia, unspecified; I10 Essential (primary) hypertension; Z86.16 Personal history of COVID-19; Z79.899 Other long term (current) drug therapy; Z79.891 Long term (current) use of opiate analgesic; Z79.4 Long term (current) use of insulin
CPT/HCPCS: 36415; 71045; 80053; 81001; 82009; 82272; 82947; 83605; 83735; 84484; 85014; 85018; 85025; 93005; 99284; 99285; J1815; J3490

== ENCOUNTER 2024-08-01 10:18 | Emergency (ER) | payer MEDICARE ==
[2024-08-01 10:38] VITALS: BP 113/64; PULSE 84
[2024-08-01] MEDS: Tranexamic Acid 1,000 MG/10 ML Vial TOP ONE (11:17)
[2024-08-01] MEDS: Bacitracin Oint 1 GM U/D Packet TOP ONE (13:17)
== END 2024-08-01 15:45 | disposition home or self-care (01) ==
LOC: DL.ED 10:18
DX: S99.821A Other specified injuries of right foot, initial encounter (principal); I10 Essential (primary) hypertension; E11.9 Type 2 diabetes mellitus without complications; Z79.82 Long term (current) use of aspirin; Z79.899 Other long term (current) drug therapy; Y92.510 Bank as the place of occurrence of the external cause
CPT/HCPCS: 73660-T7; 82947; 99283; 99284; A9270-GY; J3490